=== PATIENT | female | born 1965 | race Caucasian/White ===

== ENCOUNTER 2019-10-27 14:27 | Emergency (ER) | payer OTHER, SELFPAY ==
[2019-10-27 14:28] VITALS: BP 154/89; PULSE 69; RESP 18; TEMP 36.6; O2SAT 99; BMI 32.8
--- NOTE | 2019-10-27 14:33 | ED.RN ---
TALKED WITH CORY. NEW ACCOUNTS REPRESENTATIVE AT [facility], STATING PT DOES NOT REQUIRE DRUG TESTING
--- NOTE | 2019-10-27 14:43 | CT_ITS ---
STUDY: CT BRAIN WITHOUT CONTRAST REASON FOR EXAM: Female, 54 years old. Trauma 2 days ago RADIATION DOSAGE (If Supplied By Facility): CTDIvol = ( 44.99 ) mGy, DLP = ( 779.24 ) mGycm TECHNIQUE: Transaxial CT imaging of the brain was performed without administration of intravenous contrast material. Individualized dose optimization techniques were used for this CT. COMPARISON: No relevant priors. FINDINGS: Normal soft tissue structures. Normal calvarium. Normal size ventricles and extra-axial spaces for the patient''s age. Normal white matter tracts of the cerebral hemispheres. Normal basal ganglia and thalami. Normal brainstem. Normal cerebellum. There is no intracranial hemorrhage. There are no findings of an acute ischemic infarction. Normal visualized paranasal sinuses. CT/Brain/Head without Contrast IMPRESSION: Normal unenhanced CT scan of the brain. Electronically Signed: Camille Naranjo MD at 15:07 EST Tel , Service support ,
--- NOTE | 2019-10-27 14:50 | RAD_ITS ---
STUDY: X-RAY - CERVICAL SPINE REASON FOR EXAM: Female, 54 years old. Neck pain. TECHNIQUE: 3 view(s) of the cervical spine were obtained. COMPARISON: None FINDINGS: Normal anterior atlantoaxial articulation. Normal odontoid process. There is straightening of the normal cervical lordosis. There is multi-level endplate spondylosis. There is multi-level degenerative disc disease with multilevel disc space narrowing. The soft tissue structures are unremarkable. RAD/Cerv Spine 2 or 3 Views IMPRESSION: Degenerative changes. Electronically Signed: Juliann Desir MD at 16:00 EST Tel , Service support ,
--- NOTE | 2019-10-27 15:03 | ED.VISSUMM ---
- ER Visit Summary Date of Service: 10/27/19 Chief Complaint: Head injury] History of Present Illness: The patient is a 54 F [presents to the emergency department after sustaining a head injury while at work 2 days ago. 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 Patient denies loss of consciousness. Since the injury she is complaining feeling lightheaded at times. Patient complaining of headaches. Patient feels like she is in a fog. She is had no nausea or vomiting. Patient also complains of neck pain. She denies any paresthesias or weakness in extremities. Patient has no medical history.] Physical Examination: [HEENT-PERRLA, EOMI. Cranial nerves II through XII grossly intact. TMs clear. Mucous membranes moist. No adenopathy. Patient has some mild soft tissue swelling over the posterior occiput on the left. No bony step-offs or depressions noted. No hemotympanum is noted. Patient has some mild diffuse tenderness over C-spine. No bony step-offs noted. Good range of motion neck. Cardiovascular-regular rate and rhythm without murmur or ectopy Lungs-clear to auscultation, chest wall stable without crepitus or subcu emphysema Abdomen-normoactive bowel sounds, soft, nontender, no rebound or rigidity, no peritoneal signs. Extremities-intact ?4, normal range of motion, normal pulses, atraumatic] Test Results: [CT scan of the brain without contrast showed nothing acute. X-rays of the cervical spine showed no fractures or dislocations.] Emergency Department Course and Treatment: [] Treatment Plan: [Patient to follow-up with corporate care in 3 to 5 days.] Disposition: [Discharged home in stable condition.] Impression: [Closed head injury/concussion Cervical strain] This note was generated with [employer] dictation software. It may contain incorrect words, spelling, and punctuation that were not noted in review of the chart prior to signing ED Disposition - Plan for ED Patient: Referrals: Care Physician,No Primary [Primary Care Provider] -
--- NOTE | 2019-10-27 15:05 | ED.DEP ---
ED Disposition - Plan for ED Patient: Instructions: CONCUSSION, No Wake Up, HEAD INJURY, No Wake-Up (Adult) Prescriptions: Naproxen [Naprosyn] 500 mg PO BID PRN #20 tab Prescription Printed Referrals: Care Physician,No Primary [Primary Care Provider] - Corporate,Care [GROUP OF PHYSICIANS] - 3-5 Days
[2019-10-27 16:10] VITALS: BP 166/94; PULSE 63; RESP 18; O2SAT 99
== END 2019-10-27 16:15 | disposition home or self-care (01) ==
LOC: ED 15:00
PROVIDERS: Emergency Provider Emergency Medicine
DX: S06.0X0A Concussion without loss of consciousness, initial encounter (principal); S16.1XXA Strain of muscle, fascia and tendon at neck level, initial encounter; W22.8XXA Striking against or struck by other objects, initial encounter; Y93.89 Activity, other specified; Y92.9 Unspecified place or not applicable; Y99.0 Civilian activity done for income or pay; F17.200 Nicotine dependence, unspecified, uncomplicated
CPT/HCPCS: 70450; 72040; 99282

== ENCOUNTER 2020-01-09 15:00 | Outpatient (RCR) | payer OTHER, SELFPAY ==
[2019-10-31 08:32] VITALS: BMI 32.8
--- NOTE | 2019-11-02 09:22 | HP.PTEVAL_ITS ---
Patient's Visit Information DANELLE LAGUNAS is a 54 year old F referred to Physical Therapy by DOUGLAS Farley with a diagnosis of muscle injury of the neck and concussion without loss of consciousness. Date of Evaluation: 11/02/19 Physical Therapist: DONITA Tarango - Visit Plan Frequency: 3x /Week Duration: 4 Weeks Plan: 3X/ week for 4 weeks per C9 for c-spine AROM, stretching, MT, postrual exercises, VOR X 1 exercises, gait with head turns with HEP and modalities to c- spine if neede with HEP. 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 That happened last . She was given an ice pack and she worked all day. She went home that night with a severe MILLER and went to work the next day with a severe MILLER and her said she was slurring her words and not sounding right and then she went to the ER. They did a CT scan and x-rays and said concussion without bleeding. Current symptoms: MILLER and can not concentrate and neck pain and still has a knot on the back of her head that is sore. She gets light headed a little bit which is getting better and yesterday she did not get lightheaded at all. SHe is not having any visual issues. SHe has been put on a generic Topamax and she feels that is helping. Her speech seems to be fine now. She can only work 4 hours a day and can only sit so work took her completely off work. She is off work at least through next Tuesday. She is not allowed to use screen time. No blurriness and no room spinning, slight dizziness, and no off balance. If she stands up too fast or stand too long she will get a little dizzy but room spinning. She rates her dizziness as 0/10 currently. She still feels like she is in a fog. She is sleeping ok except for her normal having to pee. - Pain Headache Pain Intensity (Out of 10): 4 Pain Intensity Range: 10 Neck pain Pain Intensity (Out of 10): 4 - Objective Gait: Walks with shorter strides but overall normal gait pattern. C-spine AROM: flexion 50%, ext 25%, SB B 75%, Rot B 75%. UE MMT: B shld flex, abd, ER and IR 4/5. Palpation: Tender more over the L levator and mid trap region B... when palpate L levator she felt the pain into her scapula B. Bicep reflex: 2+/3. smooth pursuit: vertical and horizontal.... able to follow without issue. Mayb e a small hesitation with vertical at first. VOR X 1: dizzy at 20 seconds horizontal Vertical 25 seconds without dizziness. FGA: 29. CATSIB: 120/120 - Balance Scores Functional Gait Assessment Score: 29 % Disability: 3.3400 CATSIB Score (Max score 120 seconds): 120 - Goals Goal 1:: I HEP Goal Time Frame: 4-6 Weeks Goal 2:: Be able to complete VOR X 1 60 seconds X 3 without any dizziness Goal Time Frame: 4-6 Weeks Goal 3:: Decrease neck pain to 1/10 with ADL's Goal Time Frame: 4-6 Weeks Goal 4:: Increase C-spine AROM by 25% each plane (at time of eval: C-spine AROM: flexion 50%, ext 25%, SB B 75%, Rot B 75%). Goal Time Frame: 4-6 Weeks - Rehabilitation Potential Rehabilitation Potential: Good - Anticipated Interventions Patient/Client Instruction: Educate patient on: Condition, Plan of Care For the Purpose of:: To decrease pain, To increase ROM, To improve muscle performance and motor function, To improve ability to perform ADL's, To increase tolerance to activity/condition/position, To improve ability of physical actions for home/community/work/leisure, To improve health of tissue, To decrease soft tissue restriction, To increase flexibility/ROM Therapeutic Exercise to Include: Strength training, Postural training, Flexibilty training, Passive ROM, Active ROM, Scapular Strength/Stabilization For the Purpose of:: To decrease pain, To increase ROM, To improve nutrient delivery to tissue, To improve muscle performance and motor function, To increase tolerance to activity/condition/position, To improve performance and independence with ADL's, To improve ability of physical actions for home/community/work/leisure, To improve health of tissue, To decrease soft tissue restriction, To increase flexibility/ROM Manual Therapy Techniques to Include: Passive ROM, Soft tissue mobilization For the Purpose of:: To increase ROM, To improve nutrient delivery to tissue IF ES: Yes Thermo therapy (hot pack): Yes Ultrasound (thermal/non thermal): Yes For the Purpose of:: To decrease pain, To increase ROM, To improve nutrient delivery to tissue, To improve muscle performance and motor function Thank you for the opportunity to evaluate your patient. For Medicare and Medicare HMO plans, please review the plan of care and approve it. It will need to be FAXED BACK to us at [phone] for Medicare purposes. For Medicare only, by signing this I certify the plan of care. Please let me know if there are questions or concerns regarding this plan of care. Physician Signature: Dat e:
--- NOTE | 2019-11-19 16:05 | HP.PTREVAL ---
DOUGLAS Farley, It has been my pleasure to treat DANELLE LAUGNAS over the last 8 visits for muscle injury of the neck and concussion without loss of consciousness. Please see the progress note below for an update on the physical therapy plan of care! Subjective: She went to the Dr today and he said that her head is still swollen and her balance is still off and he has her off another month on light duty. He has her off another month. She reports that her neck is a little stiff and her MILLER is about a 2/10 and she thinks that that is the stress of the day. The Dr is planning on sending her to a neurologist. Objective/Function: Pt has gotten a little worse with her CATSIB and FGA compared to the eval but improved VOR..... CATSIB 115. FGA 25. VOR X 1 in standing horizontal X 60 seconds... a slight dizziness. VOR X 2 in standing vertical she had no dizziness Plan Plan: 3X/ week for 4 weeks per C9. Focus on vestibular input and balance with EO/EC and head turns with HEP May add some dynamic VOR X 1 here and there as needed Goals Goal 1:: I HEP Goal Time Frame: 4-6 Weeks Goal 2:: Be able to complete VOR X 1 60 seconds X 3 without any dizziness Goal Time Frame: 4-6 Weeks Goal Progress: Progressing Goal 3:: Decrease neck pain to 1/10 with ADL's Goal Time Frame: 4-6 Weeks Goal 4:: Increase C-spine AROM by 25% each plane (at time of eval: C-spine AROM: flexion 50%, ext 25%, SB B 75%, Rot B 75%). Goal Time Frame: 4-6 Weeks Anticipated Interventions Patient/Client Instruction: Educate patient on: Condition, Plan of Care For the Purpose of:: To decrease pain, To increase ROM, To improve muscle performance and motor function, To improve ability to perform ADL's, To increase tolerance to activity/condition/position, To improve ability of physical actions for home/community/work/leisure, To improve health of tissue, To decrease soft tissue restriction, To increase flexibility/ROM Therapeutic Exercise to Include: Strength training, Postural training, Flexibilty training, Passive ROM, Active ROM, Scapular Strength/Stabilization For the Purpose of:: To decrease pain, To increase ROM, To improve nutrient delivery to tissue, To improve muscle performance and motor function, To increase tolerance to activity/condition/position, To improve performance and independence with ADL's, To improve ability of physical actions for home/community/work/leisure, To improve health of tissue, To decrease soft tissue restriction, To increase flexibility/ROM Manual Therapy Techniques to Include: Passive ROM, Soft tissue mobilization For the Purpose of:: To increase ROM, To improve nutrient delivery to tissue IF ES: Yes Thermo therapy (hot pack): Yes Ultrasound (thermal/non thermal): Yes For the Purpose of:: To decrease pain, To increase ROM, To improve nutrient delivery to tissue, To improve muscle performance and motor function Please do not hesitate to contact me at [phone] by phone or if you have questions or concerns regarding this new plan of care! Sincerely, Anat Peters, MPT
--- NOTE | 2020-01-09 15:25 | HP.PTDCSUM ---
HP - PT D/C Summary It has been my pleasure to treat DANELLE LAGUNAS under orders from DOUGLAS Farley, for the diagnosis of muscle injury of the neck and concussion without loss of consciousness for a total of 24 visit(s). Discharge Date: 01/09/20 Please see the following information for a summary of their discharge status. - Subjective Subjective: No neck pain, no dizziness, and no MILLER. She did have some dizziness when she had the flu but that was not part of it. - Pain Headache Pain Intensity (Out of 10): 0 Neck pain Pain Intensity (Out of 10): 0 - Overall Improvement % Improvement: 95 - Objective Objective/Function: FGA 3030. Able to do standing VOR X 1 for both vertical and horizontal 60 sec X 3 without LOB or dizziness against a busy background. - Goals Goal 1:: I HEP Goal Progress: Goal Met Goal 2:: Be able to complete VOR X 1 60 seconds X 3 without any dizziness Goal Progress: Goal Met Goal 3:: Decrease neck pain to 1/10 with ADL's Goal Progress: Goal Met Goal 4:: Increase C-spine AROM by 25% each plane (at time of eval: C-spine AROM: flexion 50%, ext 25%, SB B 75%, Rot B 75%). Goal Progress: Goal Met - Plan Plan: DC PT to HEP.... PN written and hand carried by pt to physician - D/C Information Discharge Comments: DC PT to HEP If there are questions or concerns regarding this patient's physical therapy, please feel free to call me at [phone]. Thank you for the referral of this patient. Sincerely, Anat Peters, MPT
== END 2020-01-09 19:00 | disposition home or self-care (01) ==
LOC: PT 15:00
PROVIDERS: Referring Provider Physician Assistant; Visit Provider Physician Assistant
DX: S00-T88 Injury, poisoning and certain other consequences of external causes (principal); S06.0X0D Concussion without loss of consciousness, subsequent encounter
CPT/HCPCS: 97110; 97140; 97161; 97164; 97530

== ENCOUNTER 2024-08-17 13:03 | Day surgery (SDC) | payer OTHER, SELFPAY ==
[2024-08-17] VITALS (8 sets, daily range): BP systolic 131–190; BP diastolic 72–95; PULSE 54–68; RESP 14–16; TEMP 36.1–37; O2SAT 95–100; BMI 33.5
[2024-08-17] MEDS: Lactated Ringers 1,000 ML 15 ML IV (13:35)
--- NOTE | 2024-08-17 14:00 | PCM.PRE.AN2 ---
ASA Classification* ASA Classification ASA Classification: 2 Assessment & Plan Anesthesia* Anesthesia Assessment Anesthesia Assessment: Discussed sedation and/or anesthesia options, risks, benefits, and alternatives with patient/parents/legal guardian/POA. Questions invited. The patient/parents/legal guardian/POA seems to understand and agrees to proceed with anesthesia plan. Reviewed the physical assessment, medical history, allergy history and patient home medications list prior to surgery/procedure/anesthetic and documented any changes. Performed airway and anesthesia risk assessments. Anesthesia Type Anesthesia Type: MAC History Source History Obtained from:: Patient and Chart Anesthesia Focused Assessment* Temperature: 97.0 F Pulse Rate: 58 Blood Pressure: 190/72 Respiratory Rate: 16 Pulse Ox: 100 Oxygen Delivery Method: Room Air Airway Assessment Mouth opens: >3 cm Mallampati Score: IV Teeth Condition: Full (Patient has full dentures on top) and Partial (Patient has partial and bottom.) Neck Range of motion (ROM): Full ROM Focused Labs Anesthesia Preop lab: CBC WBC 6.5 K/mm3 (4.4-11.0) 08/13/24 14:55 RBC 4.47 M/mm3 (4.2-5.4) 08/13/24 14:55 Hgb 12.9 g/dL (12.0-15.0) 08/13/24 14:55 Hct 39.4 % (37-47) 08/13/24 14:55 Plt Count 285 K/mm3 (150-450) 08/13/24 14:55 CHEMISTRY Potassium 3.9 mmol/L (3.5-5.1) 08/13/24 14:55 Sodium 139 mmol/L (136-145) 08/13/24 14:55 BUN 18 mg/dL (7-18) 08/13/24 14:55 Creatinine 1.01 mg/dL (0.55-1.02) 08/13/24 14:55 Glucose 101 mg/dL (74-106) 08/13/24 14:55 COAG Pre-Assessment Diagnosis/Proposed Procedure Planned Operative Procedure(s): PORT PLACEMENT Anesthesia History 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 When Was Last Pacemaker Check QUESTION #4 FULL TEXT: You/Your Family Experience fever (hyperthermia) with Anesthesia Last Oral Intake Last Oral intake: Last Oral Intake NPO since 03:00 08/17/24 13:26 Meds taken in AM with sips of No 08/17/24 13:26 water? Meds patient instructed to take am of surgery Any additional information?: Yes NPO since: 03:00 (Patient had a piece of toast at 3 AM.) PONV PONV - transportation economics teacher: PONV - transportation economics teacher Female Yes 08/13/24 13:09 HX of Motion Sickness Yes 08/13/24 13:09 HX of N/V After Surgery Yes 08/13/24 13:09 Non-Smoker Yes 08/13/24 13:09 Duration of Surgery greater No 08/13/24 13:09 than 60 minutes Number of Risk Factors 4 08/13/24 13:09 PONV Score Severe Risk 08/13/24 13:09 Height & Weight Height & Weight: Anesthesia: Height & Weight Height 5 ft 3 in 08/17/24 13:26 Weight: 86 kg 08/17/24 13:26 Body Mass Index (BMI) 33.5 08/17/24 13:26 Respiratory Assessment Respiratory Assessment - transportation economics teacher: Respiratory Tract Infection Hx - transportation economics teacher Hx Respiratory Tract Infection No 08/13/24 13:09 STOP Sleep Apnea STOP Sleep Apnea - transportation economics teacher: STOP Sleep Apnea - transportation economics teacher Hx Hypertension No 08/13/24 13:09 Hx Sleep Apnea No 08/13/24 13:09 CPAP BIPAP Do you snore loudly (louder No 08/13/24 13:09 than talking or can be heard Do you often feel tired/ No 08/13/24 13:09 fatigued/ sleepy during daytime? Has anyone observed you stop No 08/13/24 13:09 breathing during sleep? STOP Results Negative 08/13/24 13:09 QUESTION #5 FULL TEXT : Do you snore loudly (louder than talking or can be heard through closed doors)? Tobacco Use History Tobacco Use History - transportation economics teacher: Tobacco Use History - transportation economics teacher Tobacco Use Smoking Status Former smoker 08/13/24 13:09 Hx Tobacco Use Yes 08/13/24 13:09 Years Smoking Packs Smoked per Day Smoking Cessation Date was Yes - quit smoking within 15 08/13/24 13:09 within the last 15 years years Hx Smoking Cessation Date Hx Smoking Cessation Counseling Hematologic Medial History Hematologic Hx - transportation economics teacher: Hematologic Medical Hx - documentation spec Hx of Blood Transfusion Yes 08/13/24 13:09 Hx of Transfusion in last 3 No 08/13/24 13:09 Months Date of Last Transfusion (if within last 3 months) Ever experience any problems No 08/13/24 13:09 with transfusion(s)? Specify any problems Hx of Preganancy in last 3 No 08/13/24 13:09 Months Nurse Filling Out Transfusion VLEHPUTNAM 08/13/24 13:09 & Questions: Date: 08/13/24 08/13/24 13:09 Time: 13:17 08/13/24 13:09 Patient unable to answer at this time (ie. confused, unrespo /Reproduction History /Reproductive History - transportation economics teacher: /Reproductive Hx- transportation economics teacher Hx Now No 08/13/24 13:09 Gestational Age (in weeks): EDC: Hx Hx Para Hx Section SAB Active Medications Active Medications: Current Medications Generic Name Dose Route Start Last Admin Trade Name Freq PRN Reason Stop Dose Admin Lactated Ringer's 1,000 mls @ 15 mls/hr 08/17/24 13:15 08/17/24 13:35 IV 15 mls/hr .Q48H CAIN Administration PFSH Medical History Encounter for education Wears dentures Wears glasses Cancer Injury of head and neck Migraine headache Gastric reflux Former smoker Mixed stress and urge incontinence Malignant neoplasm of vulva, unspecified Other specified injury of muscle, fascia and tendon at neck level, initial encounter Home Medications ?Medication ?Instructions ?Recorded ?Last Taken ?Type acetaminophen 650 mg 650 mg PO Q6H PRN fever or pain 08/07/24 Unknown History tablet,extended release ibuprofen 600 mg tablet 600 mg PO Q6H PRN pain 08/07/24 Unknown History calcium carbonate 600 mg-vitamin 1 tab PO QAM 08/13/24 Unknown History D3 20 mcg (800 unit) chewable tablet (Caltrate 600 plus D) lidocaine-prilocaine 2.5 %-2.5 % 1 applic topical ONCE PRN port 08/15/24 Unknown Rx topical cream access 30 days #30 grams ondansetron 8 mg disintegrating 8 mg PO Q8H PRN nausea and 08/15/24 Unknown Rx tablet vomiting #30 tabs prochlorperazine maleate 10 mg 10 mg PO Q6H PRN nausea and 08/15/24 Unknown Rx tablet vomiting #30 tabs Allergy/AdvReac Type Severity Reaction Status Date / Time bee venom protein (honey bee) Allergy unknown Verified 08/17/24 13:25 Penicillins Allergy Unknown Verified 08/17/24 13:25 Sulfa (Sulfonamide Allergy Unknown Verified 08/17/24 13:25 Antibiotics) tetanus toxoid, adsorbed AdvReac Swelling Verified 08/17/24 13:25 Family History Grandmother Breast cancer Mother Diabetes Father Heart disease Surgical History History of kidney surgery H/O vulvectomy Lesion of urethra History of radical vulvectomy History of hysterectomy Social History household members: spouse Smoking Status: Former smoker quit date: 06/21/23 alcohol intake: current alcohol intake frequency: holidays/special occasions only Alcohol type: beer substance use type: does not use Review of Systems (Anesthesia) ROS Narrative System reviewed and no additional complaints, except as documented.
--- NOTE | 2024-08-17 15:44 | HP.PCM_ITS ---
HPI - General General Date of Admission: 08/17/24 Date of Service: 08/17/24 Chief Complaint: medport placement HPI Narrative DANELLE LAGUNAS, is a 58 F who presents for medport placement [facility] Medical History Encounter for education Wears dentures Wears glasses Cancer Injury of head and neck Migraine headache Gastric reflux Former smoker Mixed stress and urge incontinence Malignant neoplasm of vulva, unspecified Other specified injury of muscle, fascia and tendon at neck level, initial encounter Home Medications ?Medication ?Instructions ?Recorded ?Last Taken ?Type acetaminophen 650 mg 650 mg PO Q6H PRN fever or pain 08/07/24 Unknown History tablet,extended release ibuprofen 600 mg tablet 600 mg PO Q6H PRN pain 08/07/24 Unknown History calcium carbonate 600 mg-vitamin 1 tab PO QAM 08/13/24 Unknown History D3 20 mcg (800 unit) chewable tablet (Caltrate 600 plus D) lidocaine-prilocaine 2.5 %-2.5 % 1 applic topical ONCE PRN port 08/15/24 Unknown Rx topical cream access 30 days #30 grams ondansetron 8 mg disintegrating 8 mg PO Q8H PRN nausea and 08/15/24 Unknown Rx tablet vomiting #30 tabs prochlorperazine maleate 10 mg 10 mg PO Q6H PRN nausea and 08/15/24 Unknown Rx tablet vomiting #30 tabs Allergy/AdvReac Type Severity Reaction Status Date / Time bee venom protein (honey bee) Allergy unknown Verified 08/17/24 13:25 Penicillins Allergy Unknown Verified 08/17/24 13:25 Sulfa (Sulfonamide Allergy Unknown Verified 08/17/24 13:25 Antibiotics) tetanus toxoid, adsorbed AdvReac Swelling Verified 08/17/24 13:25 Family History Grandmother Breast cancer Mother Diabetes Father Heart disease Surgical History History of kidney surgery H/O vulvectomy Lesion of urethra History of radical vulvectomy History of hysterectomy Social History household members: spouse Smoking Status: Former smoker quit date: 06/21/23 alcohol intake: current alcohol intake frequency: holidays/special occasions only Alcohol type: beer substance use type: does not use Vital Signs Vital Signs Vital Signs: 08/17/24 13:26 08/17/24 13:26 08/17/24 14:16 Temperature 97.0 F L 97.0 F L Temperature Source Temporal Pulse Rate 58 L 58 L Respiratory Rate 16 16 Respiratory Pattern Normal Blood Pressure 190/72 H 190/72 H Blood Pressure Mean 111 Blood Pressure Source Monitor Blood Pressure Position Semi-Fowlers Blood Pressure Location Right Arm Pulse Ox 100 100 Oxygen Delivery Method Room Air Room Air 08/17/24 14:43 Temperature Temperature Source Pulse Rate Respiratory Rate Respiratory Pattern Blood Pressure 164/86 H Blood Pressure Mean 112 Blood Pressure Source Monitor Blood Pressure Position Semi-Fowlers Blood Pressure Location Pulse Ox Oxygen Delivery Method Weight Weight: 189 lb 9.561 oz Body Mass Index (BMI) 33.5 Assessment & Plan Assessment/Plan (1) Malignant neoplasm of vulva, unspecified: PLAN: Plan Patient is a 58-year-old female with vulvar cancer. She has been recommended chemotherapy by her treating oncologist. She presents today to have Mediport placed. We discussed the details of the planned procedure including risks benefits and alternatives. She wishes to proceed.
[2024-08-17] MEDS: Clindamycin 900 MG/50 ML BAG 75 MG IV (15:51)
[2024-08-17] MEDS: Bupivacaine 0.5% PF 10 ML VIAL (16:40)
[2024-08-17] MEDS: Lidocaine 1% /Epi 1:100 (20ml) 20 ML Vial (16:41)
--- NOTE | 2024-08-17 16:54 | DCINST_ITS ---
Discharge Instructions Diet Discharge Diet: Light diet - advance as tolerated Activity Discharge Activity: Return to Normal Activity and May Shower Dressing / Incision Call your doctor if your incision/area has: Continuous Slow Oozing, Sudden Increased Bleeding, Increased Pain/ Swelling, Increased Redness, Foul Smelling Discharge and Swelling at the incision site Call your doctor if you observe: Fever of 101 or Higher and Change in Color Cleanse incision/area with: Soap & Water Follow Up Care Test Results: Test results from this visit will be discussed in further detail at your follow- up appointment, if applicable. Discharge Plan Admission Primary Reason for Your Visit: port placement Attending Provider: Christophe Sahu Primary Care Provider: Jerilyn Physician,Cherry Primary Instructions Print Language: Hungarian Discharge Orders/Prescriptions Prescriptions: New oxycodone-acetaminophen [Percocet] 5-325 mg tablet 1 tab PO Q8H PRN (Reason: pain) 3 Days Qty: 6 0RF Continued acetaminophen 650 mg tablet extended release 650 mg PO Q6H PRN (Reason: fever or pain) ibuprofen 600 mg tablet 600 mg PO Q6H PRN (Reason: pain) Caltrate 600 plus D 600 mg-20 mcg (800 unit) tablet,chewable 1 tab PO QAM prochlorperazine maleate 10 mg tablet 10 mg PO Q6H PRN (Reason: nausea and vomiting) Qty: 30 2RF ondansetron 8 mg tablet,disintegrating 8 mg PO Q8H PRN (Reason: nausea and vomiting) Qty: 30 2RF lidocaine-prilocaine 2.5-2.5 % cream 1 applic topical ONCE PRN (Reason: port access) 30 Days Qty: 30 2RF Referrals / Follow Up: Care Physician,No Primary [Primary Care Provider] - Disposition Disposition (needs filled in before D/C Order can be placed): Home, Self Care
--- NOTE | 2024-08-17 16:58 | OP.PCM_ITS ---
Problems Associated Problem List Diagnoses (1) Malignant neoplasm of vulva, unspecified: Report of Operation Date of Procedure: 08/17/24 Pre-Operative Diagnosis: Vulvar cancer Post-Operative Diagnosis: Same Surgery/Procedure Performed:: Left subclavian Mediport placement with C arm Surgeon: Christophe Sahu ammunition and explosives handler: None Type of Anesthesia: MAC Drains: None Estimated Blood Loss (mL): 10 cc Description of Procedure: The patient is a 58-year-old female who was recently diagnosed with vulvar cancer. Her treating oncologist is recommending chemotherapy. Mediport placement was advised. She was seen in the office and I offered her port placement. We discussed the procedure including risks benefits and alternatives. She wished to proceed. She was brought to the operating room today following informed consent antibiotics were given. Timeout was performed. She was placed supine the operative table with arms outstretched on arm boards. Once adequately anesthetized an axillary roll was placed between her shoulder blades. The left upper chest and neck were prepped and draped in the usual manner. Local anesthetic was infiltrated in the left periclavicular area. The left subclavian vein was cannulated on the first pass. The blood return was a dark red nonpulsatile venous appearing blood. The guidewire was then advanced through the aperture in the needle. It was then secured to the drapes. C arm was then brought into confirm appropriate placement. Next marking pen was then used to indicate the site of planned subcutaneous pocket incision. Local anesthetic was injected. #15 blade was then used to make a skin incision. Bovie electrocauter y was then used dissect down through the subcutaneous tissue. Once at the pectoralis muscle subcutaneous pocket was created. Another small incision was made at the entry point of the guidewire. The tubing was then tunneled into the larger incision and up and out through the smaller incision. This was then trimmed to 23 cm. It was attached to the port hub. The hub was then affixed to the underlying fascia using Prolene suture. Next the dilator and sheath were then threaded over the guidewire and advanced to the hub. The guidewire and dilator were then removed leaving the sheath in place. The free end of the tubing was then threaded down the sheath. The sheath was then removed. The port was flushed with injectable saline. It adán and flushed nicely. It was then flushed with heparin. A 3-0 Vicryl was then used to close the deep dermal layer. 5-0 Vicryl was run in the skin. Dermabond skin glue was applied as dressing. 2 x 2 and an OpSite was then applied. She was awakened anesthesia and taken to the PACU in good condition. Grafts/Implants Used: PowerPort MRI compatible injectable port Complications None Procedures Vascular Studies CF Procedures [id number]: Other Procedure See Report ([id number])
--- NOTE | 2024-08-17 16:59 | PCM.POST.ANE ---
Anesthesia: Postop Eval I Current Vital Signs Temperature: 98.2 F Pulse Rate: 63 Blood Pressure: 131/81 Respiratory Rate: 16 Pulse Ox: 95 Oxygen Delivery Method: Room Air Assessment Airway patent: Yes Spontaneous unlabored respirations: Yes Mental status: Awake and Calm nausea: No Vomiting: No Anesthesia Complication: No Fluid Hydration Crystalloid volume administer (ml): 900 Total IV fluid infused: 900 Progress Note Anesthesia document: Postop Eval 1 completed: Yes
--- NOTE | 2024-08-17 17:00 | POSTOPAN2_ITS ---
Anesthesia Postop Eval I Sum Postop Eval Completion status Anesthesia document: Postop Eval 1 completed: Yes Anesthesia Postop Eval I Summary Anesthesia Postop Eval I Summary: Anesthesia Postop Eval I: Assessment Summary Airway patent Yes 08/17/24 17:00 EQUIPMENT MAINTENANCE SUPERVISOR.MDOT Spontaneous unlabored Yes 08/17/24 17:00 EQUIPMENT MAINTENANCE SUPERVISOR.OT respirations Mental status Awake,Calm 08/17/24 17:00 EQUIPMENT MAINTENANCE SUPERVISOR.MDOT nausea No 08/17/24 17:00 EQUIPMENT MAINTENANCE SUPERVISOR.OT Vomiting No 08/17/24 17:00 EQUIPMENT MAINTENANCE SUPERVISOR.LATIA Anesthesia Postop Eval I: Fluid Summary Crystalloid volume administer 900 08/17/24 17:00 EQUIPMENT MAINTENANCE SUPERVISOR.MDOT (ml) Colloids volume administered ( ml) Blood Product volume administered (ml) Total IV fluid infused 900 08/17/24 17:00 EQUIPMENT MAINTENANCE SUPERVISOR.LATIA Anesthesia Postop Eval I: Summary Notes Anesthesia Complication No 08/17/24 17:00 EQUIPMENT MAINTENANCE SUPERVISOR.LATIA Anesthesia Complication Comment: Post-operative progress note Anesthesia: Postop Eval II Evaluation Mental status: Awake and Calm Pain Level: 0 nausea: No Vomiting: No Complications Anesthesia Complication: No
--- NOTE | 2024-08-17 17:00 | PCM.POSTANE2 ---
Anesthesia Postop Eval I Sum Postop Eval Completion status Anesthesia document: Postop Eval 1 completed: Yes Anesthesia Postop Eval I Summary Anesthesia Postop Eval I Summary: Anesthesia Postop Eval I: Assessment Summary Airway patent Yes 08/17/24 17:00 ENVIRONMENTAL EPIDEMIOLOGIST.MDOT Spontaneous unlabored Yes 08/17/24 17:00 ENVIRONMENTAL EPIDEMIOLOGIST.OT respirations Mental status Awake,Calm 08/17/24 17:00 ENVIRONMENTAL EPIDEMIOLOGIST.MDOT nausea No 08/17/24 17:00 ENVIRONMENTAL EPIDEMIOLOGIST.OT Vomiting No 08/17/24 17:00 ENVIRONMENTAL EPIDEMIOLOGIST.LATIA Anesthesia Postop Eval I: Fluid Summary Crystalloid volume administer 900 08/17/24 17:00 ENVIRONMENTAL EPIDEMIOLOGIST.MDOT (ml) Colloids volume administered ( ml) Blood Product volume administered (ml) Total IV fluid infused 900 08/17/24 17:00 ENVIRONMENTAL EPIDEMIOLOGIST.LATIA Anesthesia Postop Eval I: Summary Notes Anesthesia Complication No 08/17/24 17:00 ENVIRONMENTAL EPIDEMIOLOGIST.LATIA Anesthesia Complication Comment: Post-operative progress note Anesthesia: Postop Eval II Evaluation Mental status: Awake and Calm Pain Level: 0 nausea: No Vomiting: No Complications Anesthesia Complication: No
--- NOTE | 2024-08-17 17:10 | RAD_ITS ---
STUDY: X-RAY CHEST REASON FOR EXAM: Female, 58 years old. PORT PLACEMENT TECHNIQUE: AP portable COMPARISON: None. FINDINGS: The lungs are clear and expanded. There is no demonstrated pleural abnormality. Normal size heart. Normal mediastinum and lyssa. Normal visualized pulmonary arteries. Normal visualized aortic arch and descending thoracic aorta. Mediport has been placed on the left with tip in distal superior vena cava Normal visualized thoracic spine. Normal visualized ribs, clavicles, and shoulders. There is no demonstrated abnormality of the visualized soft tissue structures of the upper abdomen. RAD/CXR for Line Placement IMPRESSION: Mediport catheter placement on the left with tip in the distal superior vena cava without evidence for pneumothorax Electronically Signed: Jeffy David MD at 18:36 EDT ,
== END 2024-08-17 18:56 | disposition home or self-care (01) ==
LOC: SDC 13:04 → AC 13:05
PROVIDERS: Referring Provider Surgery; Visit Provider Surgery
PROC: (CPT 36561; principal; 2024-08-17 14:30)
DX: Z45.2 Encounter for adjustment and management of vascular access device (principal); C51.9 Malignant neoplasm of vulva, unspecified; Z87.891 Personal history of nicotine dependence
CPT/HCPCS: 36561; 71045; 77001; J7120; C1788

== ENCOUNTER 2024-11-13 11:30 | Outpatient (RCR) | payer OTHER, SELFPAY ==
--- NOTE | 2024-11-05 16:54 | HP.OTEVAL ---
Patient's Visit Information Visit Information Visit Information: DANELLE GALLEGOS is a 59 year old F, referred to Occupational Therapy by Dr. Jerson Jj, DO, with a diagnosis of lymphedema. Date of Evaluation: 11/05/24 Occupational Therapist: POLA Montoya/Nguyen, CHT Subjective Subjective: This 59 year old female was seen for OT eval with dx of lymphedema of lower extremity, Malignant neoplasm of vulva. 2023 pt states she noticed swelling of LE after her 2nd sx. Pt states with the 2nd sx no lymph nodes were removed. pt did undergo chemo and radiation. pt states she worked throughout her treatments.(chemo and radiation for 5 weeks. 25 sessions of radiation 5 chemo pt employed at [employer] 8 hour days 5x a week. pt states she can wear compression socks during the day while at work. states she will take off her compression socks when she get home from work and her legs will swell. pt states her legs medina go down when she is sleeping. pt states she would like to know what she can do to mtg. her LE edema. PMH taken from Dr. 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 From 08/20/2024 ? 09/21/2024 she received adjuvant radiation to the area of recurrence and bilateral inguinal/pelvic LNs with boost to concerning LN. Lymphedema (Circumferential Measure) Mid-foot: right 20cm left 20cm Ankle: right 22.5cm left 22cm Lower calf: right 23cm left 21cm Largest calf: right 36cm left 35cm Below knee: right 34cm left 32cm Above knee: right 44cm left 45cm Lower Exremity Comments: pt demo with sight swelling in bilateral LE noted dry skin Lower Limb Functional Index Lower Extremity Functional Score: 73 Goals Goal: Patient will demonstrate a 20% reduction in edema by discharge: Yes Goal: Patient will demonstrate adequate knowledge of self-massage by the end of the second week.: Yes Goal: Patient will demonstrate adequate knowledge of skin care and precautions by the end of the first week.: Yes Goal: Patient will demonstrate adequate knowledge of therapeutic exercises by discharge.: Yes Goal: Patient will select an appropriate compression garment and demonstrate adequate knowledge of correct donning technique, care and wearing schedule by discharge.: Yes Rehabilitation General Assessment: pt demo with symptoms of LE swelling and would benefit from skilled OT services 2-3 visits to ed. pt on life long mtg of lymphedema. Today therapist ed. pt on skin care, use of compression socks 20-30 mmHg and initiation of self manual lymph massage and exercises that stimulates the lymphatic system. Pt was given handouts and demo understanding and agree to POC. therapist also ed, pt that compression socks should be replaced every 4-6 months (she was not aware of this prior). Rehabilitation Potential: Good Anticipated Interventions Anticipated Interventions: Education re Diagnosis, Manual Lymph Drainage, Education re Life-long lymphedema Management, Education re Skin Care and Precautions, Education re Self Massage Techniques, Education re Correct Donning Tech,Care&Wearing Sched Comp Garments, Caregiver Training and Home Program Visit Plan TEXT: Thank you for the opportunity to evaluate your patient. For Medicare and Medicare HMO plans, please review the plan of care and approve it. It will need to be FAXED BACK to us at [phone] for Medicare purposes. Please let me know if there are questions or concerns regarding this plan of care. Physician Signature: Date:
--- NOTE | 2025-05-20 16:27 | HP.OT.NRP ---
Patient Information Patient Information: DANELLE LAGUNAS was seen in my office for initial evaluation on 11/05/24. The following Plan of Care was established for this patient: POC Established Plan: pt to schedule in 4 weeks if need. Anticipated Interventions Anticipated Interventions: Education re Diagnosis, Manual Lymph Drainage, Education re Life-long lymphedema Management, Education re Skin Care and Precautions, Education re Self Massage Techniques, Education re Correct Donning Tech,Care&Wearing Sched Comp Garments, Caregiver Training and Home Program Last Seen Last Seen: This patient was last seen in our office 11/13/24. Pertinent comments regarding their Occupational therapy will appear below: pt was seen for OT with dx of lymphedema. Pt has not scheduled further apts and due to time lapse in services pt is d.c at this time. At this point I will be discontinuing this patient from occupational therapy. I would be happy to see this patient again in the future if found appropriate by the physician. Thank you! Barbie Gillespie, OTR/L, CHT
== END 2024-11-13 19:00 | disposition home or self-care (01) ==
LOC: OT 11:30
PROVIDERS: Referring Provider Student in an Organized Health Care Education/Training Program; Visit Provider Student in an Organized Health Care Education/Training Program
DX: I89.0 Lymphedema, not elsewhere classified (principal); C51.9 Malignant neoplasm of vulva, unspecified
CPT/HCPCS: 97140; 97166; 97530

== ENCOUNTER 2025-10-06 11:56 | Emergency (ER) | payer OTHER, SELFPAY ==
[2025-10-06 11:57] VITALS: BP 172/112; PULSE 67; RESP 18; TEMP 37; O2SAT 99; BMI 34.3
--- NOTE | 2025-10-06 12:17 | EDS_ITS ---
HPI History of Present Illness Chief Complaint: Cold Sx Narrative Narrative: Patient is a 59-year-old female who reports that she has no previous past medical history who presents to the emergency department chief complaint of concern for sinus infection with cough, congestion. States that this been going on exactly for a week and states that she tried [id number] medications and has not any relief therefore she came here to be further evaluated. She states that she does not have a eye doctor currently therefore she is not on any medications. Patient denies any sick contacts. [facility] Medical History Hypophosphatemia Encounter for chemotherapy management Encounter for education Wears dentures Wears glasses Cancer Injury of head and neck Migraine headache Gastric reflux Former smoker Mixed stress and urge incontinence Malignant neoplasm of vulva, unspecified Other specified injury of muscle, fascia and tendon at neck level, initial encounter Home Medications Medication Instructions Recorded Last Taken Type acetaminophen 650 mg 650 mg PO Q6H PRN fever or p ain 08/07/24 Unknown History tablet,extended release ibuprofen 600 mg tablet 600 mg PO Q6H PRN pain 08/07 Unknown History calcium 600 mg (as carbonate)-vit 1 tab PO QAM 4 Unknown History D3 20 mcg (800 unit) chewable tablet (Caltrate plus D) doxycycline hyclate 100 mg capsule 100 mg PO BID #14 c aps 10/06/25 Unknown Rx Allergy/AdvReac Type Severity Reaction Status Date / Time bee venom protein (honey bee) Allergy unknown Verified 10/06/25 11:57 Penicillins Allergy Unknown Verified 10/06/25 11:57 Sulfa (Sulfonamide Allergy Unknown Verified 10/06/25 11:57 Antibiotics) tetanus toxoid, adsorbed AdvReac Swelling Verified 10/06/25 11:57 Family History Grandmother Breast cancer Mother Diabetes Father Heart disease Surgical History History of kidney surgery H/O vulvectomy Lesion of urethra History of radical vulvectomy History of hysterectomy Social History household members: spouse Smoking Status: Former smoker quit date: 06/21/23 alcohol intake: current alcohol intake frequency: holidays/special occasions only Alcohol type: beer substance use type: does not use ROS ROS ED ROS Narrative Constitutional: Complains of chills denies any fevers, headaches, dizziness Eyes: Complains of sinus pressure denies any double vision or blurry vision Cardiovascular: Denies chest pain Respiratory: Denies shortness of breath Abdomen: Denies any nausea vomiting diarrhea : Denies urinary symptoms Neurological: Denies any numbness, weeks, tingling Musculoskeletal: Denies back pain Skin: Denies any rashes or lesions EXAM Physical Exam Narrative Exam Narrative: General: Patient was lying in bed rest comfortably did not appear to be in acute distress Head: Atraumatic, normocephalic Eyes: PERRL bilaterally, EOMI bilaterally, no conjunctival injection noted Neck: Soft, supple, trachea midline Cardiovascular: Regular rate and rhythm Respiratory: Clear to auscultation bilaterally Abdomen: Soft, nondistended, no tenderness to palpation Musculoskeletal: Patient has mild tenderness to palpation over the maxillary sinuses noted Extremities: +5/5 strength in the bilateral lower extremities Neurological: Patient following commands that she was at [facility] years 2024 Skin: Warm, dry, tact no rashes or lesions noted Const Vital Signs: 10/06/25 11:57 Temperature 98.6 F Temperature Source Oral Pulse Rate 67 Respiratory Rate 18 Blood Pressure 172/112 H Blood Pressure Mean 132 Pulse Ox 99 Oxygen Delivery Method Room Air MDM MDM MDM Narrative Medical decision making narrative: Patient is a 59-year-old female who presented to the emergency department the chief complaint of concern for sinus infection. On the differential diagnose includes but limited to upper respiratory infection secondary viral etiology, bacterial sinusitis although do not believe that this is the situation at this point in time given her course of symptoms that was described. I discussed with the patient and significant other at bedside that I believe that she does not need any antibiotics at this is highly likely viral illness and she needs to continue supportive care and in the next 4 to 5 days she will likely start to feel better. When I said this the appeared to be displeased and I questioned him why he was upset and what he wants done here in the emergency department. He states that "with back in the day when you are ill he took antibiotics and immediately started to feel better". I attempted to educate him on the course of bacterial sinusitis versus viral sinusitis and I told him that if this is my family member I would advise to continue supportive care and refrain from antibiotic use. He states that he would then tell them to just suffer and I told him that it is not suffering this is a viral illness and you have to ride the course of this. They said they did not have a doctor currently therefore I offered her a prescription and advised her that she should wait to fill this however if she feels strongly that she wants to start taking it today then they can obviously fill this today. They advised to return with worsening symptoms or concerns. All question concerns answered she was discharged home in stable condition. Discharge Plan Triage Chief Complaint: Cold Sx ED Provider: Chin Saleem Dx/Rx/DC Orders Clinical Impression: Sinusitis, acute frontal, Upper respiratory infection, viral Prescriptions: New doxycycline hyclate 100 mg capsule 100 mg PO BID Qty: 14 0RF No Action acetaminophen 650 mg tablet extended release 650 mg PO Q6H PRN (Reason: fever or pain) ibuprofen 600 mg tablet 600 mg PO Q6H PRN (Reason: pain) Caltrate 600 plus D 600 mg-20 mcg (800 unit) tablet,chewable 1 tab PO QAM Primary Care Provider: Care Physician,No Primary Referrals: Osbaldo Archuleta MD [Med Staff - Active Staff, Family Practice] Care Physician,No Primary [Primary Care Provider, Medical] Activity Restrictions/Additional Instructions: I would advise to take antibiotics as we discussed in the next 4 to 5 days if things or not improving however if you feel the need to take these they were sent to the pharmacy and you can start taking them today. Continue supportive care. Return with worsening symptoms or concerns. You referred to a physician to follow-up with. Print Language: Cambodian Disposition Disposition: Home, Self Care
--- OUTSIDE RECORDS SUMMARY | 2025-10-06 12:26 | XMS RPT_ITS | CCD ---
Author Organization [facility] Care Team Providers Care Awning Hanger Supervisor Name Role Phone BORISNUNO AHMADI EJ Unavailable Unavailable NUNO ESCALANTE Unavailable Unavailable Unavailable Primary Care Provider Unavailabl e Care Physician, No Primary Primary Care Provider Unavailable Dr. Jerson Jj DO Attending Provider Care Physician, No Primary Referring Provider Un available Renita CHAN, Dr. James Attending Provider Dr. Jerson Jj DO Referring Provider [phone] SHEILA HENDERSON Attending Unavailable SANTIAGO, SHEILA S Referring Unavailable ANATOLY, PILLO Her Attending Unavailable SELF, SELF Referring Unavailable ANATOLY, PILLO I Attending Unavailable ANATOLY, PILLO I Referring Unavailable SANTIAGO, SHEILA S Attending Unavailable SANTIAGO, SHEILA S Referring Unavailable SANTIAGO, SHEILA S Attending Unavailable SANTIAGO, SHEILA S Referring Unavailable ANATOLY, PILLO I Attending Unavailable SELF, SELF Referring Unavailable ANATOLY, PILLO I Attending Unavailable ANATOLY, PILLO I Referring Unavailable ANATOLY, PILLO I Attending Unavailable SELF, SELF Referring Unavailable ANATOLY, PILLO I Attending Unavailable SELF, SELF Referring Unavailable Jerson Jj Attending Unavailable Jerson Jj Referring Unavailable Care Physician, No Primary Primary Care Unava ilable Care Physician, No Primary Primary Care Unava ilable Thanh MOTH PROOFER, Jennifer Attending Unavailable Thanh MOTH PROOFER, Jennifer Referring Unavailable Jerson Jj Attending Unavailable Jerson Jj Referring Unavailable Care Physician, No Primary Primary Care Unava ilable Jerson Jj Attending Unavailable Care Physician, No Primary Primary Care Unava ilable Jerson Jj Attending Unavailable Care Physician, No Primary Primary Care Unava ilJacob Zamora Attending Unavailable Care Physician, No Primary Referring Unava ilable Care Physician, No Primary Primary Care Unava ilJerson Bello Attending Unavailable Care Physician, No Primary Referring Unava ilable Care Physician, No Primary Primary Care Unava ilable Christophe Sahu Attending Unavailable Care Physician, No Primary Primary Care Unava ilable Care Physician, No Primary Referring Unava ilable Allergies Allergy Classification Reported Allergen(s) Allergy Type Date of Onset Reaction(s) Facility (20 sources) Penicillins; Translations: [PENICILLINS] Propensity to adverse reactions to drug (disorder) 7 [place], Hives, Rash [facility] Repository (4 sources) Sulfonamides (Antibiotic); Translations: [SULFA (SULFONAMIDE ANTIBIOTICS)] Propensity to adverse reactions to drug (disorder) 7 AOF, Unknown [facility] Repository (1 source) TETANUS VACCINES AND TOXOID; Translations: [TETANUS VACCINES AND TOXOID] Propensity to adverse reactions to drug (disorder) 7 [facility] Repository (5 sources) Honey bee venom Propensity to adverse reactions to drug 3 [facility] (20 sources) Sulfonamides (Antibiotic) Propensity to adverse reactions to drug 7 [place], Hives, Rash [facility] (20 sources) Tetanus vaccine Propensity to adverse reactions to drug 7 [facility] (20 sources) bee venom Propensity to adverse reactions to drug 3 unknown [facility] Comment on above: doesn't recall react ion, but does not require an Epi pen (2 sources) tetanus toxoid vaccine, inactivated Drug Allergy 5 [facility] (1 source) tetanus toxoid, adsorbed Drug allergy (disorder) 5 [facility] Repository (1 source) bee venom protein (honey bee) Drug allergy (disorder) 5 [facility] Repository Medications Current Medications Medication Drug Class(es) Dates Sig (Normalized) Sig (Original) 8 hr acetaminophen 650 mg extended release oral tablet (20 sources) Start: 06-29-2024 End: 06-29-2024 take 1 tablet by mouth every eight hours 975 mg, Oral, EVERY 8 HOURS NON-STANDARD, First dose on Tue06/29/24 at 1415, Until Discontinued, Maximum dose of acetaminophen is 4000 mg from all sources in 24 hours., Post-op/Post-Proc Start: 06-29-2024 End: 06-29-2024 take 4000 mg by mouth every twenty-four hours 975 mg, Oral, ONCE, 1 dose, On Tue06/29/24 at 0915, Maximum dose of acetaminophen is 4000 mg from all sources in 24 hours., Pre-op/Pre-Proc Start: 03-15-2024 End: 01-01-2025 take 1 tablet by mouth every six hours as needed acetaminophen 650 MG Tab CR Take 1 tablet by mouth every 6 hours as needed for Mild Pain. 30 tablet 06/29/2024 Active Start: 03-15-2024 End: 03-15-2024 650 mg, Oral, EVERY 6 HOURS, First dose on Tue03/15/24 at 1330, Until Discontinued, Maximum dose of acetaminophen is 4000 mg from all sources in 24 hours., Post-op/Post-Proc Start: 03-15-2024 End: 03-15-2024 take 4000 mg by mouth every twenty-four hours 975 mg, Oral, ONCE, 1 dose, On Tue03/15/24 at 0945, Maximum dose of acetaminophen is 4000 mg from all sources in 24 hours., Pre-op/Pre-Proc Start: 07-10-2023 End: 08-09-2023 take 1 tablet by mouth every six hours as needed acetaminophen 650 MG Tab CR Take 1 tablet by mouth every 6 hours as needed for mild pain. 30 tablet 0 07/10/2023 Active Start: 07-08-2023 End: 07-10-2023 take 1 tablet by mouth every eight hours 975 mg, Oral, EVERY 8 HOURS NON-STANDARD, First dose on Tue07/08/23 at 2200, Until Discontinued Maximum dose of acetaminophen is 4000 mg from all sources in 24 hours. Post-op/Post-Proc End: 03-15-2024 Acetaminophen 325 MG tablet Take 1 tablet by mouth as needed for Mild Pain. 03/15/2024 Discontinued (Stop Taking at Discharge) End: 07-10-2023 take 1 tablet by mouth every six hours as needed acetaminophen (TYLENOL) 500 MG tablet Take 1 tablet by mouth every 6 hours as needed for Mild Pain. 0 07/10/2023 Discontinued (Stop Taking at Discharge) Ascorbic Acid (20 sources) Vitamin C End: 04-25-2024 take 1 tablet by mouth once daily Ascorbic Acid (VITAMIN C PO) Take 1 tablet by mouth daily. 03/15/2024 Discontinued (Stop Taking at Discharge) take 1 tablet by mouth once herb y Ascorbic Acid (VITAMIN C PO) Take 1 tablet by mouth daily. Active take 1 tablet by mouth once herb y Ascorbic Acid (VITAMIN C PO) Take 1 tablet by mouth daily. 0 Active Calcium Carb-Cholecalciferol (CALCIUM 500 + D PO) (8 sources) take 1 tablet by mouth once daily Calcium Carb-Cholecalciferol (CALCIUM 500 + D PO) Take 1 tablet by mouth daily. Active calcium carbonate 1500 mg / cholecalciferol 800 unt chewable tablet (2 sources) Vitamin D Start : 08-13 Calcium Carbonate-Vitamin D3 (Caltrate 600 Plus D) 600 mg-20 mcg (800 unit) tablet,chewable Active 1 {tbl} PO EVERY MORNING August 13, 2024 12:00am cephalexin 500 mg oral capsule (2 sources) Cephalosporin Antibacterial Start : 07-19 End: 07-29 take 1 capsule by mouth every six hours cephALEXin 500 MG capsule Indications: Malignant neoplasm of vulva Take 1 capsule by mouth every 6 hours for 10 days. 40 capsule 0 07/19/2023 07/29/2023 Active 0.4 ml enoxaparin sodium 100 mg/ml prefilled syringe (2 sources) Low Molecular Weight Heparin Start : 06-30 End: 06-29 Start: 07-09-2023 End: 07-10-2023 inject 40 mg by subcutaneous injection every twenty-four hours 40 mg, Subcutaneous, EVERY 24 HOURS, First dose on 07/09/23 at 0900, Until Discontinued Indications: DVT/PE prophylaxis, Post-op/Post-Proc Ondansetron 4mg/2ml (ZOFRAN) injection 4 mg (3 sources) Start: 06-30-2024 End: 06-29-2024 take 4 mg intravenously every six hours as needed Ondansetron 4mg/2ml (ZOFRAN) injection 4 mg Start: 06-29-2024 End: 06-29-2024 Ondansetron 4mg/2ml (ZOFRAN) injection 4 mg Start: 07-09-2023 End: 07-10-2023 take 4 mg intravenously every six hours as needed Ondansetron 4mg/2ml (ZOFRAN) injection 4 mg Pediatric Multiple Vitamins (Flintstones Plus Extra C) Chew Tab (9 sources) Pediatric Multip le Vitamins (Flintstones Plus Extra C) Chew Tab Chew 1 tablet daily. Active Completed/Discontinued Medications Medication Drug Class(es) Dates Sig (Normalized) Sig (Original) acetaminophen 325 mg / oxyCODONE hydrochloride 5 mg oral tablet (2 sources) Opioid Agonist Start: 08-17-2024 End: 10-08-2024 Oxycodone-Acetamin ophen (Percocet) 5-325 mg tablet Discontinued 1 {tbl} PO Q8H as needed for pain 6 3 0 August 17, 2024 October 08, 2024 3:21pm Malignant neoplasm of vulva Malignant neoplasm of vulva, unspecified apixaban 2.5 mg oral tablet (8 sources) Factor Xa Inhibitor Start: 07-10-2023 End: 02-07-2024 take 1 tablet by mouth once daily apixaban 2.5 MG tablet Indications: H/O vulvectomy Take 1 tablet by mouth once daily. 30 tablet 07/10/2023 02/07/2024 Discontinued (Therapy completed) calcium chloride 0.0014 meq/ml / potassium chloride 0.004 meq/ml / sodium chloride 0.103 meq/ml / sodium lactate 0.028 meq/ml injectable solution (5 sources) Start: 06-29-2024 End: 06-29-2024 Intravenous, at 125 mL/hr, CONTINUOUS, Starting on Tue06/29/24 at 1245, Until Tue06/29/24 at 1913, Post-op/Post-Proc Start: 03-15-2024 End: 03-15-2024 Intravenous, at 100 mL/hr, C ONTINUOUS, Starting on Jamila 03/15/24 at 1330, Until Jamila 03/15/24 at 1621, Saline lock when tolerating oral intake and remove IV per ASU protocol., Post-op/Post-Proc Start: 07-08-2023 End: 07-09-2023 Intravenous, at 125 mL/hr, C ONTINUOUS, Starting on 07/08/23 at 1330, Until Tue07/09/23 at 0821, Post-op/Post-Proc [id number] PO (12 sources) End: 03-15-2024 [id number] PO Ta ke by mouth. 03/15/2024 Discontinued (Stop Taking at Discharge) CALCIUM-MAGNESIU M-ZINC PO Take by mouth. Active CALCIUM-MAGNESIU M-ZINC PO Take by mouth. 0 Active Cholecalciferol (12 sources) Vitamin D End: 03-15-2024 take 1 tablet by mouth once daily Cholecalciferol (VITAMIN D3 PO) Take 1 tablet by mouth daily. 03/15/2024 Discontinued (Stop Taking at Discharge) take 1 tablet by mouth once herb y Cholecalciferol (VITAMIN D3 PO) Take 1 tablet by mouth daily. Active take 1 tablet by mouth once herb y Cholecalciferol (VITAMIN D3 PO) Take 1 tablet by mouth daily. 0 Active 1 ml diphenhydrAMINE hydrochloride 50 mg/ml cartridge (1 source) Histamine-1 Receptor Antagonist Start: 03-15-2024 End: 03-15-2024 12.5 mg, Intravenous, EVERY 30 MINUTES NEEDED, 2 doses, Starting on Jamila 03/15/24 at 1227, Until Jamila 03/15/24 at 1621, Itching, FIRST Line, Use second dose only if first dose did not result in confusion . Do not give if age is > 65yo, Recovery docusate sodium 100 mg oral capsule (14 sources) Start: 07-08-2023 End: 06-29-2024 take 1 capsule by mouth twice daily Docusate 100 MG capsule Take 1 capsule by mouth 2 times daily. 60 capsule 07/10/2023 02/07/2024 Discontinued (Patient Preference) 2 ml fentaNYL 0.05 mg/ml injection (1 source) Opioid Agonist Start: 03-15-2024 End: 03-15-2024 50 mcg, Intravenous, Administer over 2 Minutes, EVERY 5 MINUTES NEEDED, 6 doses, Starting on Jamila 03/15/24 at 1227, Until Jamila 03/15/24 at 1621, Moderate Pain, Severe Pain, Recovery Fludeoxyglucose F 18 20-200 MCI/ML IVPB 8-14.3 millicurie (4 sources) Start: 07-03-2025 End: 07-03-2025 8-14.3 millicurie, Intravenous, ONCE, 1 dose, On Tue07/03/25 at 0830 Start: 03-27-2025 End: 03-27-2025 8-14.3 millicurie, Intraveno us, ONCE, 1 dose, On Tue03/27/25 at 0915 Start: 12-26-2024 End: 12-26-2024 8-14.3 millicurie, Intraveno us, ONCE, 1 dose, On Tue12/26/24 at 1215 Start: 06-08-2024 End: 06-08-2024 8-14.3 millicurie, Intraveno us, ONCE, 1 dose, On Tue06/08/24 at 1100 gabapentin 100 mg oral capsule (5 sources) Anti-epileptic Agent Start: 06-29-2024 End: 06-29-2024 take 1 capsule by mouth every eight hours 100 mg, Oral, EVERY 8 HOURS NON-STANDARD, First dose on Tue06/29/24 at 1415, Until Discontinued, Post-op/Post-Proc Start: 06-29-2024 End: 06-29-2024 take 1 dose by mouth once 300 mg, Oral, ONCE, 1 dose, On Tue06/29/24 at 0915, Pre-op/Pre-Proc Start: 03-15-2024 End: 03-15-2024 take 1 dose by mouth once 300 mg, Oral, ONCE, 1 dose, On Tue03/15/24 at 0945, Pre-op/Pre-Proc Start: 07-08-2023 End: 07-10-2023 take 1 capsule by mouth every eight hours 100 mg, Oral, EVERY 8 HOURS NON-STANDARD, First dose on Tue07/08/23 at 1615, Until Discontinued, Post-op/Post-Proc Start: 07-08-2023 End: 07-08-2023 Gabapentin (NEURONTIN) capsu le 300 mg 1 ml heparin sodium, porcine 5000 unt/ml prefilled syringe (2 sources) Unfractionated Heparin, Anti-coagulant Start: 06-29-2024 End: 06-29-2024 5,000 Units, Subcutaneous, PRE-OP, 1 dose, On Tue06/29/24 at 0915, Pre-op/Pre-Proc Start: 07-08-2023 End: 07-08-2023 Heparin injection 5,000 Unit s 1 ml hydrALAZINE hydrochloride 20 mg/ml injection (1 source) Arteriolar Vasodilator Start: 03-15-2024 End: 03-15-2024 5 mg, Intravenous, EVERY 15 MINUTES NEEDED, 4 doses, Starting on Jamila 03/15/24 at 1227, Until Jamila 03/15/24 at 1621, SECOND line HTN, For SBP > 180. Use if HR 1 ml HYDROmorphone hydrochloride 1 mg/ml cartridge (2 sources) Opioid Agonist Start: 06-29-2024 End: 06-29-2024 0.5 mg, Intravenous, EVERY 10 MINUTES NEEDED, 8 doses, Starting on Tue06/29/24 at 1210, Until Tue06/29/24 at 1355, Moderate Pain, Severe Pain, May give a total of 4mg in PACU., Recovery Start: 03-15-2024 End: 03-15-2024 0.5 mg, Intravenous, EVERY 1 0 MINUTES NEEDED, 8 doses, Starting on Jamila 03/15/24 at 1227, Until Jamila 03/15/24 at 1621, Moderate Pain, Severe Pain, May give a total of 4mg in PACU., Recovery ibuprofen 800 mg oral tablet (20 sources) Nonsteroidal Anti-inflammatory Drug Start: 06-29-2024 End: 01-01-2025 take 1 tablet by mouth every six hours as needed Ibuprofen 800 mg tablet Discontinued 800 mg PO EVERY 6 HOURS as needed August 07, 2024 12:00am August 13, 2024 1:08pm Start: 03-15-2024 take 1 tablet by nely every six hours as needed Ibuprofen 600 MG tablet Take 1 tablet by mouth every 6 hours as needed for Mild Pain or Moderate Pain. 40 tablet 03/15/2024 Active Start: 03-15-2024 End: 03-15-2024 take 600 mg by mouth every six hours at mealtime 600 mg, Oral, EVERY 6 HOURS, First dose on Jamila 03/15/24 at 1330, Until Discontinued, Give with food, Post-op/Post-Proc Start: 07-10-2023 End: 07-29-2023 take 1 tablet by mouth every six hours as needed Ibuprofen 600 MG tablet Take 1 tablet by mouth every 6 hours as needed for mild pain. 40 tablet 0 07/10/2023 07/29/2023 Discontinued (Therapy completed) Start: 07-09-2023 End: 07-10-2023 take 1 tablet by mouth every eight hours 600 mg, Oral, EVERY 8 HOURS NON-STANDARD, First dose on 07/09/23 at 1800, Until Discontinued Give with food Post-op/Post-Proc End: 03-15-2024 take 1 tablet by mouth every six hours as needed Ibuprofen 400 MG tablet Take 1 tablet by mouth every 6 hours as needed for Mild Pain. 03/15/2024 Discontinued (Stop Taking at Discharge) Ketorolac (TORADOL) injection 15 mg (1 source) Start: 06-29-2024 End: 06-29-2024 take 15 mg intravenously every six hours Ketorolac (TORADOL) injection 15 mg labetalol hydrochloride 5 mg/ml injectable solution (2 sources) beta-Adrenergi c Mark Start: 06-29-2024 End: 06-29-2024 5 mg, Intravenous, EVERY 15 MINUTES NEEDED, Starting on Tue06/29/24 at 1218, Until Tue06/29/24 at 1355, FIRST line HTN. , For SBP > 160 mmHg Hold if HR Start: 03-15-2024 End: 03-15-2024 5 mg, Intravenous, EVERY 15 MINUTES NEEDED, 4 doses, Starting on Jamila 03/15/24 at 1227, Until Jamila 03/15/24 at 1621, FIRST line HTN. , For SBP > 180. Hold if HR 10 ml lidocaine hydrochloride 10 mg/ml injection (1 source) Antiarrhythmic, Amide Local Anesthetic Start: 02-07-2024 End: 02-07-2024 100 mg (10 mL), Infiltration, ONCE, 1 dose, On Tue02/07/24 at 1445 lidocaine 25 mg/ml / prilocaine 25 mg/ml topical cream (2 sources) Antiarrhythmic, Amide Local Anesthetic Start: 08-15-2024 End: 10-08-2024 Lidocaine-Prilocai ne 2.5-2.5 % cream Discontinued 1 NMA TOPICAL ONCE as needed for port access 30 30 2 August 15, 2024 12:00am October 08, 2024 3:21pm Malignant neoplasm of vulva Malignant neoplasm of vulva, unspecified magnesium oxide 400 mg oral tablet (1 source) Start: 07-09-2023 End: 07-09-2023 magnesium oxide (MAG-OX) tablet 800 mg 1 ml meperidine hydrochloride 25 mg/ml cartridge (1 source) Opioid Agonist Start: 03-15-2024 End: 03-15-2024 12.5 mg, Intravenous, EVERY 30 MINUTES NEEDED, 2 doses, Starting on Jamila 03/15/24 at 1227, Until Jamila 03/15/24 at 1621, Rigors, May give total of 2 doses while in PACU. Keep respiratory rate greater than 10., Recovery naproxen 500 mg oral tablet (5 sources) Nonsteroidal Anti-inflammatory Drug Start: 10-27-2019 End: 08-07-2024 take 1 tablet by mouth twice daily as needed Naproxen 500 MG tablet Discontinued 500 mg PO TWICE DAILY NEEDED October 27, 2019 1:00am August 07, 2024 8:30am End: 07-10-2023 take 1 tablet by mouth once daily as needed for pain Naproxen Sodium (Aleve) 220 MG tablet Take 1 tablet by mouth daily as needed for Mild Pain. 0 07/10/2023 Discontinued (Stop Taking at Discharge) ondansetron 8 mg disintegrating oral tablet (10 sources) Serotonin-3 Receptor Antagonist Start: 08-15-2024 End: 10-08-2024 take 1 tablet by mouth every eight hours as needed for nausea and vomiting Ondansetron 8 mg tablet,disintegrating Discontinued 8 mg PO Q8H as needed for nausea and vomiting 30 August 15, 2024 12:00am October 08, 2024 3:21pm Malignant neoplasm of vulva Malignant neoplasm of vulva, unspecified Start: 06-29-2024 End: 07-29-2024 take 1 tablet by mouth every six hours Ondansetron 4 MG tablet Take 1 tablet by mouth every 6 hours. 120 tablet 06/29/2024 07/29/2024 Start: 03-15-2024 End: 03-15-2024 take 4 mg intravenously every four hours as needed 4 mg, Intravenous, EVERY 4 HOURS NEEDED, Starting on Jamila 03/15/24 at 1324, Until Jamila 03/15/24 at 1621, Nausea / Vomiting, 1st line, Post-op/Post-Proc Start: 03-15-2024 End: 03-15-2024 4 mg, Intravenous, ONCE NEEDED, 1 dose, Starting on Jamila 03/15/24 at 1227, Until Jamila 03/15/24 at 1621, Nausea / Vomiting, FIRST line antiemetic, Do not administer within 6 hours of intra-operative dose., Recovery Start: 07-10-2023 End: 07-24-2023 take 1 tablet by mouth every eight hours as needed Ondansetron 4 MG tablet Take 1 tablet by mouth every 8 hours as needed for Nausea / Vomiting for up to 14 days. 15 tablet 0 07/10/2023 07/24/2023 Active oxyCODONE hydrochloride 5 mg oral tablet (20 sources) Opioid Agonist Start: 08-07-2024 End: 08-08-2024 take 1 tablet by mouth every six hours as needed Oxycodone 5 mg tablet Discontinued 5 mg PO EVERY 6 HOURS as needed 0 August 07, 2024 12:00am August 08, 2024 11:10am Start: 06-29-2024 End: 06-29-2024 take 1 tablet by mouth every four hours as needed oxyCODONE (ROXICODONE) tablet 5 mg Start: 06-29-2024 End: 08-03-2024 take 1 tablet by mouth every six hours as needed oxyCODONE 5 MG tablet Indications: Vulvar mass , History of cancer of vulva , H/O vulvectomy Take 1 tablet by mouth every 6 hours as needed for up to 14 days. 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 5 tablet 03/15/2024 Active Start: 03-15-2024 End: 03-15-2024 take 1 dose by mouth once 5 mg, Oral, ONCE, 1 dose, On Jamila 03/15/24 at 0945, Pre-op/Pre-Proc Start: 07-10-2023 End: 02-07-2024 take 1 tablet by mouth every four hours as needed oxyCODONE 5 MG tablet Indications: H/O vulvectomy Take 1 tablet by mouth every 4 hours as needed for up to 7 days. 12 tablet 07/10/2023 02/07/2024 Discontinued (Therapy completed) Start: 07-08-2023 End: 07-10-2023 take 1 tablet by mouth every four hours as needed oxyCODONE (ROXICODONE) tablet 5 mg Start: 07-08-2023 End: 07-08-2023 oxyCODONE (ROXICODONE) table t 5 mg polyethylene glycol 3350 49049 mg powder for oral solution (8 sources) Osmotic Laxative Start: 08-07-2024 End: 08-08-2024 Polyethylene Glycol 3350 (Miralax) 17 gram/dose powder Discontinued 17 g PO ONCE August 07, 2024 12:00am August 08, 2024 11:09am Start: 06-29-2024 End: 06-29-2024 17 g, Oral, DAILY, First dos e on Tue06/29/24 at 1415, Until Discontinued, Post-op/Post-Proc Start: 06-29-2024 End: 08-03-2024 take 4-8 [oz_av] by mouth once daily Polyethylene glycol 17 GM/SCOOP Powder powder Take 17 g by mouth daily. Mix 1 capful with 4 to 8 oz of water, juice, soda, coffee or tea. 507 g 06/29/2024 08/03/2024 Discontinued Start: 07-09-2023 End: 07-10-2023 Polyethylene glycol (MIRALAX ) packet 17 g prochlorperazine 10 mg oral tablet (3 sources) Phenothiazine Start: 08-15-2024 End: 10-08-2024 take 1 tablet by mouth every six hours as needed for nausea and vomiting Prochlorperazine Maleate 10 mg tablet Discontinued 10 mg PO EVERY 6 HOURS as needed for nausea and vomiting 30 2 August 15, 2024 12:00am October 08, 2024 3:21pm Chemotherapy-induced nausea and vomiting Nausea with vomiting, unspecified Adverse effect of antineoplastic and immunosuppressive drugs, initial encounter Start: 03-15-2024 End: 03-15-2024 take 5 mg intravenously every hour as needed 5 mg, Intravenous, EVERY 1 HOUR NEEDED, 2 doses, Starting on Jamila 03/15/24 at 1227, Until Jamila 03/15/24 at 1621, Refractory Nausea Vomiting, SECOND line antiemetic, Do not administer within 6 hours of intra-operative dose. For IV route: dilute dose with 10mL normal saline and give by slow IV push at a rate of 5mg/min. Maximum of 40mg/day., Recovery Prochlorperazine (COMPAZINE) injection 10 mg (2 sources) Start: 06-29-2024 End: 06-29-2024 Prochlorperazine (COMPAZINE) injection 10 mg Start: 07-08-2023 End: 07-10-2023 Prochlorperazine (COMPAZINE) injection 10 mg sennosides, group home 8.6 mg oral tablet (8 sources) Start: 06-29-2024 End: 07-29-2024 take 1 tablet by mouth twice daily as needed Senna 8.6 MG tablet Take 1 tablet by mouth 2 times daily as needed. 60 tablet 06/29/2024 07/29/2024 Start: 07-10-2023 End: 08-09-2023 take 1 capsule by mouth twice daily Sennosides (Senna) 8.6 MG capsule Take 1 capsule by mouth 2 times daily. 60 capsule 0 07/10/2023 07/29/2023 Discontinued (Therapy completed) Start: 07-08-2023 End: 07-10-2023 take 8.6 mg by mouth twice daily as needed for constipation 8.6 mg, Oral, 2 TIMES DAILY NEEDED, Starting on 07/08/23 at 1603, Until 07/10/23 at 1516, Constipation 1st Line, Post-op/Post-Proc simethicone 80 mg chewable tablet (7 sources) Start: 08-07-2024 End: 08-08-2024 take 1 tablet by mouth every four hours as needed Simethicone (Gas Relief (Simethicone)) 80 mg tablet,chewable Discontinued 80 mg PO Q4H as needed August 07, 2024 12:00am August 08, 2024 11:09am Start: 06-29-2024 End: 08-03-2024 take 1 tablet by mouth every four hours as needed simethicone 80 MG Chew Tab chewable tablet Chew 1 tablet every 4 hours as needed for Gas. 60 tablet 06/29/2024 08/03/2024 Discontinued Start: 07-08-2023 End: 07-10-2023 take 1 tablet by mouth every four hours as needed 80 mg, Oral, EVERY 4 HOURS NEEDED, Starting on Tue07/08/23 at 1603, Until Tue07/10/23 at 1516, Gas, Post-op/Post-Proc 20 ml sodium chloride 9 mg/m l injection (4 sources) Start: 07-03-2025 End: 07-04-2025 10-100 mL, Intravenous, EVER Y 8 HOURS, First dose on Tue07/03/25 at 0830, Until Discontinued, NM Procedure Start: 12-26-2024 End: 12-26-2024 10-100 mL, Intravenous, ONCE NEEDED, 1 dose, Starting on Tue12/26/24 at 1208, Until Tue12/26/24 at 1159, Flush, NM Procedure Start: 06-29-2024 End: 06-29-2024 Start: 06-08-2024 End: 06-08-2024 10-100 mL, Intravenous, ONCE NEEDED, 1 dose, Starting on Tue06/08/24 at 1051, Until Tue06/08/24 at 1040, Flush, NM Procedure topiramate 50 mg oral tablet (6 sources) Start: 11-19-2019 End: 11-19-2019 take 2 tablets by mouth twice daily, then take 3 tablets by mouth once daily, then take 4 tablets by mouth once daily Topiramate 50 mg tablet Discontinued 50 mg PO TWICE A DAY 126 0 November 19, 2019 1:00am November 19, 2019 8:31am 2 pills 2x/day beginning 11/21/2019, then 3 pills 2x/day beginning 11/28/2019, then 4 pills 2x/day beginning 12/05/2019 Start: 11-19-2019 End: 12-12-2019 take 1 tablet by mouth twice daily Topiramate 100 mg tablet Discontinued 100 mg PO TWICE A DAY 60 0 November 19, 2019 1:00am December 12, 2019 9:12am Start: 10-31-2019 End: 08-07-2024 take 1 capsule by mouth twice daily, then take 2 capsules by mouth twice daily, then take 3 capsules by mouth twice daily Topiramate (Topamax) 25 mg capsule, sprinkle Discontinued 25 mg PO TWICE A DAY 84 0 October 31, 2019 1:00am August 07, 2024 8:30am 1 capsule twice daily for a week, then 2 capsules twice daily for a week, then 3 capsules twice daily for a week traMADol hydrochloride 50 mg oral tablet (1 source) Opioid Agonist Start: 07-08-2023 End: 07-10-2023 take 1 tablet by mouth every six hours as needed 50 mg, Oral, EVERY 6 HOURS NEEDED, Starting on Tue07/08/23 at 1603, Until 07/10/23 at 1516, Mild Pain, Post-op/Post-Proc VERIFY LINKED PATCH PLACEMENT (1 source) Start: 03-15-2024 End: 03-15-2024 Other, EVERY 12 HOURS, First dose on Jamila 03/15/24 at 1145, Until Discontinued, Confirm continued adhesion of scopolamine 1.5 mg/72hr patch at documented site. VITAMIN D PO (7 sources) End: 04-02-2025 take 1 tablet by mouth once daily VITAMIN D PO Take 1 tablet by mouth daily. 04/02/2025 Discontinued (Alternate therapy) take 1 tablet by mouth once herb y VITAMIN D PO Take 1 tablet by mouth daily. Active Problems Active Problems Problem Classification Problem Date Documented Date Episodic/Chronic Administrative/social admission (2 sources) Patient encounter status; Translations: [Counseling, unspecified] 08-16-2024 Episodic Cancer of other female genital organs (20 sources) Malignant tumor of vulva; Translations: [Malignant neoplasm of vulva, unspecified] Onset: 06-20-2023 06-21-2023 Chronic Genitourinary symptoms and ill-defined conditions (2 sources) Mixed incontinence; Translations: [Mixed incontinence] Onset: 05-02-2017 Chronic Intracranial injury (2 sources) Concussion with no loss of consciousness; Translations: [Concussion without loss of consciousness, initial encounter] 11-19-2019 Episodic Maintenance chemotherapy; radiotherapy (2 sources) Patient encounter status; Translations: [Encounter for antineoplastic chemotherapy] 09-03-2024 Chronic Other diseases of veins and lymphatics (2 sources) Lymphedema of lower extremity; Translations: [Lymphedema, not elsewhere classified] 10-22-2024 Chronic Other diseases of veins and lymphatics (1 source) Lymphedema, not elsewhere classified; Translations: [Lymphedema, not elsewhere classified] Onset: 05-23-2025 Chronic Other female genital disorders (20 sources) Mass of vulva; Translations: [Other specified noninflammatory disorders of vulva and perineum] Onset: 06-21-2023 06-21-2023 Episodic Other female genital disorders (1 source) History of dysplasia of vulva; Translations: [Personal history of vulvar dysplasia] 05-15-2024 Episodic Other female genital disorders (2 sources) Other specified noninflammatory disorders of vulva and perineum; Translations: [Other specified noninflammatory disorders of vulva and perineum] Onset: 07-08-2023 Episodic Other injuries and conditions due to external causes (2 sources) Injury of muscle and tendon at neck level; Translations: [Other specified injury of muscle, fascia and tendon at neck level, initial encounter] 08-13-2024 Episodic Other nutritional; endocrine; and metabolic disorders (20 sources) Obese class I; Translations: [Obesity, unspecified] Onset: 06-21-2023 06-21-2023 Chronic Other nutritional; endocrine; and metabolic disorders (2 sources) Hypophosphatemia; Translations: [Other disorders of phosphorus metabolism] 09-03-2024 Chronic Past or Other Problems Problem Classification Problem Date Documented Date Episodic/Chronic Cancer of other female genital organs (20 sources) History of malignant neoplasm of vulva; Translations: [Personal history of malignant neoplasm of other female genital organs] Onset: 06-20-2023 11-01-2023 Episodic Mood disorders (20 sources) Mood disorders Onset: 06-21-2023 Resolved: 07-09-2025 06-21-2023 Other aftercare (20 sources) Surgical follow-up; Translations: [Encounter for follow-up examination after completed treatment for conditions other than malignant neoplasm] Onset: 07-08-2023 07-08-2023 Episodic Other connective tissue disease (8 sources) Short Achilles tendon (acquired), left ankle; Translations: [Short Achilles tendon (acquired), right ankle] Onset: 05-02-2017 Episodic Other diseases of bladder and urethra (17 sources) Bleeding from urethra; Translations: [Other specified disorders of urethra] Onset: 03-15-2024 03-15-2024 Episodic Other female genital disorders (20 sources) Lesion of vulva; Translations: [Other specified noninflammatory disorders of vulva and perineum] Onset: 02-07-2024 02-07-2024 Episodic Results Test Name Value Interpretation Reference Range Facility Radiation Oncology Visiton 1 11-30-2024 Radiation Oncology Visit [facility] [address] [place] [address] OFFICE VISIT Date of Service: 09/30/25 1332 MR#: [id number] Acct: [id number] Name: AZEB GALLEGOS VIVI Rep #: [id number] : 1965 From: Jerson Jj DO Age/Sex: 59/F Location: [facility] Status: Signed Intake Vital Signs 03/28/25 13:26 04/10/25 09:23 09/30/25 13:36 Height 5 ft 3 in 5 ft 3 in 5 ft 3 in Weight: 194 lb 199 lb 9 oz BMI 34.3 35.3 BP 148/83 H 142/78 H Blood Pressure Location Lt brachial Rt brachial Position Sitting Sitting Respiration 16 18 Pulse 59 L 61 Pulse Source Monitor Monitor Temp 98.0 F 97.5 F L Temperature Source Temporal Artery Temporal Artery Pulse Oximetry (%) 99 98 Oxygen Delivery Method room air room air Intake Is patient in pain?: No Allergies bee venom protein (honey bee) Allergy (Verified 09/30/25 13:35) unknown Penicillins Allergy (Verified 09/30/25 13:35) Unknown Sulfa (Sulfonamide Antibiotics) Allergy (Verified 09/30/25 13:35) Unknown tetanus toxoid, adsorbed Adverse Reaction (Verified 09/30/25 13:35) Swelling Medications ???Medication ???Instructions ???Recorded ???Confirmed ???Type acetaminophen 650 mg 650 mg PO Q6H PRN fever or pain 09/30/25 History tablet,extended release ibuprofen 600 mg tablet 600 mg PO Q6H PRN pain 08/07/24 History calcium 600 mg (as carbonate)-vit 1 tab PO QAM 08/13/24 09/30/25 Hi story D3 20 mcg (800 unit) chewable tablet (Caltrate plus D) Central Venous Access Central Venous Access: No PFSH PFSH Medical History Hypophosphatemia Encounter for chemotherapy management Encounter for education Wears dentures Wears glasses Cancer Injury of head and neck Migraine headache Gastric reflux Former smoker Mixed stress and urge incontinence Malignant neoplasm of vulva, unspecified Other specified injury of muscle, fascia and tendon at neck level, initial encounter Home Medications ???Medication ???Instructions ???Recorded ???Last Taken ???Type acetaminophen 650 mg 650 mg PO Q6H PRN fever or pain Unknown History tablet,extended release ibuprofen 600 mg tablet 600 mg PO Q6H PRN pain 08/07/24 Un known History calcium 600 mg (as carbonate)-vit 1 tab PO QAM 08/13/24 Unknown His tory D3 20 mcg (800 unit) chewable tablet (Caltrate plus D) Allergy/AdvReac Type Severity Reaction Status Date / Time bee venom protein (honey bee) Allergy unknown Verified 09/30/25 13:35 Penicillins Allergy Unknown Verified 09/30/25 13:35 Sulfa (Sulfonamide Allergy Unknown Verified 09/30/25 13:35 Antibiotics) tetanus toxoid, adsorbed AdvReac Swelling Verified 09/30/25 13:35 Family History Grandmother Breast cancer Mother Diabetes Father Heart disease Surgical History History of kidney surgery H/O vulvectomy Lesion of urethra History of radical vulvectomy History of hysterectomy Social History household members: spouse Smoking Status: Former smoker quit date: 06/21/23 alcohol intake: current alcohol intake frequency: holidays/special occasions only Alcohol type: beer substance use type: does not use Diagnosis: Azeb Gallegos is a 59-year-old female who was diagnosed with 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 From 08/20/2024 ??? 09/21/2024 she received adjuvant radiation to the area of recurrence and bilateral inguinal/pelvic LNs with boost to concerning LN. History of Present Illness: 04/2023: Patient initially presented with vulvar pain/itching/irritat ion for about 6 months and had a history of ENID 7 years prior. 05/20/2023: Patient completed vulvar biopsy.??? 12:00 biopsy demonstrated invasive squamous of carcinoma, 4:00 biopsy demonstrated in situ squamous of carcinoma, 9:00 and 3:00 biopsies were consistent with chronic inflammation and no evidence of disease. 07/08/2023: Patient completed radical vulvectomy with inguinal femoral lymphadenectomy and resection of distal urethra.??? There is a fungating vulvar neoplasm involving the anterior vulva and clitoris and extending to the anterior urethra as well as a lesion on the posterior right vulva grossly consistent with ENID 3, no palpable adenopathy is a (more content not included)... Normal [facility] NUC PET HEAD TO THIGHon 06-21 NUC PET HEAD TO THIGH EXAM: NUC PET HEAD TO THIGH, 07/03/2025 09:34 AM CLINICAL INDICATIONS: follow up, vulvar cancer COMPARISON: FDG PET/CT March 27, 2025 CT DOSE: DLP: 886 mGy x cm kVp: 120 TECHNIQUE: The patient's fasting blood glucose was 104 mg/dl. Approximately 70 minutes following the intravenous injection of F-18 FDG Dose: 9.59 millicurie, the patient was positioned on the Siemens [id number] [facility]. A low-resolution non-contrast CT was obtained from the top of the head through the mid-femurs for use in attenuation correction and anatomic correlation. PET emission scans of this anatomic region were acquired shortly thereafter. Axial, sagittal, coronal and maximal intensity projection reconstruction images were presented for interpretation. For reference SUV mean/max right hepatic lobe: 2.1/3.1 SUV mean/max descending thoracic aorta: 2.1/2.8 FINDINGS: Head/Neck: Physiologic FDG uptake is noted in the salivary glands and tonsillar tissue. There is no hypermetabolic cervical or supraclavicular lymphadenopathy. Normal, intense physiologic uptake is noted in the cerebral cortex mcnulty matter and subcortical nuclei without gross hypermetabolic abnormality. Similar diffuse moderate hypermetabolic activity throughout the thyroid, likely hyperplasia. Chest: There are no hypermetabolic pulmonary parenchymal lesions. There is no hypermetabolic axillary, mediastinal, or hilar lymphadenopathy. Physiologic FDG uptake is seen in the myocardium. Abdomen/Pelvis: Physiologic FDG uptake is seen throughout the liver, spleen and bowel. Colonic diverticulosis. Physiologic FDG excretion is seen in the kidneys, ureters, and bladder. There are no hypermetabolic lesions in the adrenal glands. Prior hysterectomy. Continued decrease in metabolic activity in the right labial region with maximum SUV 4.4 (series 3 image 52), previously 5.1. Similar moderately hypermetabolic subcutaneous stranding in the right anterior pelvic wall, likely posttreatment inflammatory changes. Left external iliac lymph node measures 1.0 x 1.5 cm (series 4 image 260), grossly unchanged, with maximum SUV 3.6 (series 3 image 77), previously 3.3. Surgical clips in the bilateral inguinal regions. Musculoskeletal: No focal hypermetabolic osseous lesions are identified. IMPRESSION: 1. Continued decrease in metabolic activity in the right labial region, favored to represent posttreatment changes, however attention on follow-up is advised. 2. Grossly unchanged mildly hypermetabolic left external iliac lymph node, which remains nonspecific. Attention on follow-up is advised. 3. No new suspicious hypermetabolic foci or lymphadenopathy. I personally viewed and interpreted these images and I have reviewed and approved this report. Normal [facility] GLUCOSE POCon 07-03-2025 Glucose [Mass/Vol] 104 mg/dL 70 - 179 mg/dL [facility] POC Sample Type [facility] Test performed at address of the patient encounter. [facility] OT D/C of Non Returning Pton 05-20-2025 OT D/C of Non Returning Pt [facility] Occupational Therapy [facility] [address] [place] [address] / REHABILITATION SERVICES DISCHARGE SUMMARY MR#: [id number] Acct: [id number] Name: AZEB GALLEGOS Rep #: [id number] : 1965 59 From: Barbie Gillespie OTR/L, CHT Referring Dr.: Dr. Jerson Jj, Status: RE G RCR Eval Date: Discharge Date: Patient Information Patient Information: AZEB GALLEGOS was seen in my office for initial evaluation on 11/05/24. The following Plan of Care was established for this patient: POC Established Plan: pt to schedule in 4 weeks if need. Anticipated Interventions Anticipated Interventions: Education re Diagnosis, Manual Lymph Drainage, Education re Life-long lymphedema Management, Education re Skin Care and Precautions, Education re Self Massage Techniques, Education re Correct Donning Tech,Care Wearing Sched Comp Garments, Caregiver Training and Home Program Last Seen Last Seen: This patient was last seen in our office 11/13/24. Pertinent comments regarding their Occupational therapy will appear below: pt was seen for OT with dx of lymphedema. Pt has not scheduled further apts and due to time lapse in services pt is d.c at this time. At this point I will be discontinuing this patient from occupational therapy. I would be happy to see this patient again in the future if found appropriate by the physician. Thank you! Barbie Gillespie, OTR/Nguyen, CHT 05/20/25 9284 CC: Dr. Jerson Jj, DO; No Primary Care Physician MK Signed Normal [facility] Absolute lymphocyte countOrd ered By: Jacob Maravilla on 04-10-2025 Lymphocytes Auto (Unsp spec) [#/Vol] 0.91 10*3/uL 0.83-4.51 [facility] Absolute neutrophil countOrd ered By: Jacob Maravilla on 04-10-2025 Neutrophils (Bld) [#/Vol] 2.9 10*3/uL 2.0-7.7 [facility] Anion gap in Serum or Plasma [facility] on 04-10-2025 Anion gap [Moles/Vol] 11 mmol/L 5- [facility] Automated lymphocyte count a s percentage of total leukocytesOrdered By: [facility] on 04-10-2025 Lymphocytes/100 WBC Auto (Unsp spec) 20.1 % [facility] BUN/creatinine ratioOrdered By: [facility] Georgiejavier on 04-10-2025 Urea nitrogen/Creatinine [Mass ratio] 16.5 mg/mg - [facility] Basophil percentageOrdered B y: [facility] on 04-10-2025 Basophils/100 WBC (Bld) 1.3 % High 0-1 [facility] Bilirubin, totalOrdered By: [facility] on 04-10-2025 Bilirubin [Mass/Vol] 0.56 mg/dL 0.00-1.30 [facility] CBC W/Diff, Automatedon 03-22 Absolute Lymph 0.91 X10 3/uL Normal 0.83-4.51 [facility] Comment on above: Performed By: #### L 100.0100, L500.4050, L501.2300, L501.5200 #### [facility] [address] [place], [address] Absolute Neut 2.9 X10 3/uL Normal 2.0-7.7 [facility] Comment on above: Performed By: #### L 100.0100, L500.4050, L501.2300, L501.5200 #### [facility] [address] [place], [address] Basophils/100 WBC (Bld) 1.3 % High 0-1 [facility] Comment on above: Performed By: #### L 100.0100, L500.4050, L501.2300, L501.5200 #### [facility] [address] [place], [address] Eosinophils/100 WBC (Bld) 2.4 % Normal 0-5 [facility] Comment on above: Performed By: #### L 100.0100, L500.4050, L501.2300, L501.5200 #### [facility] [address] [place], [address] Erythrocyte distribution width (RBC) [Ratio] 12.9 % Normal 11.6-14.6 [facility] Comment on above: Performed By: #### L 100.0100, L500.4050, L501.2300, L501.5200 #### [facility] [address] [place], [address] Hematocrit (Bld) [Volume fraction] 39.4 % Normal 37-47 [facility] Comment on above: Performed By: #### L 100.0100, L500.4050, L501.2300, L501.5200 #### [facility] [address] [place], [address] Hemoglobin (Bld) [Mass/Vol] 13.3 g/dL Normal 12.0-15.0 [facility] Comment on above: Performed By: #### L 100.0100, L500.4050, L501.2300, L501.5200 #### [facility] [address] [place], [address] IG% 0.400 Normal 0.0-0.9 [facility] Comment on above: Result Comment: IG% - Immature Granulocytes (promyelocytes, myelocytes and metamyelocytes) > 1% indicates that a LEFT SHIFT is Present. Performed By: #### L 100.0100, L500.4050, L501.2300, L501.5200 #### [facility] [address] [place], [address] Lymphocytes/100 WBC (Bld) 20.1 % Normal 19-41 [facility] Comment on above: Performed By: #### L 100.0100, L500.4050, L501.2300, L501.5200 #### [facility] [address] [place], [address] MCH (RBC) [Entitic mass] 29.2 pg Normal 27.0-32.0 [facility] Comment on above: Performed By: #### L 100.0100, L500.4050, L501.2300, L501.5200 #### [facility] [address] [place], [address] MCHC (RBC) [Mass/Vol] 33.8 g/dL Normal 32-36 [facility] Comment on above: Performed By: #### L 100.0100, L500.4050, L501.2300, L501.5200 #### [facility] [address] [place], [address] MCV (RBC) [Entitic vol] 86.4 fL Normal 81-99 [facility] Comment on above: Performed By: #### L 100.0100, L500.4050, L501.2300, L501.5200 #### [facility] [address] [place], [address] Monocytes/100 WBC (Bld) 10.8 % High 0-10 [facility] Comment on above: Performed By: #### L 100.0100, L500.4050, L501.2300, L501.5200 #### [facility] [address] [place], [address] Neutrophils/100 WBC (Bld) 65.0 % Normal 47-70 [facility] Comment on above: Performed By: #### L 100.0100, L500.4050, L501.2300, L501.5200 #### [facility] [address] [place], [address] Nucleated RBC (Bld) [#/Vol] 0 10*3/uL Normal 0-5 [facility] Comment on above: Performed By: #### L 100.0100, L500.4050, L501.2300, L501.5200 #### [facility] [address] [place], [address] Platelet mean volume (Bld) [Entitic vol] 9.9 fL Normal 6.2-12.0 [facility] Comment on above: Performed By: #### L 100.0100, L500.4050, L501.2300, L501.5200 #### [facility] [address] [place], [address] Platelets (Bld) [#/Vol] 231 10*3/uL Normal 150-450 [facility] Comment on above: Performed By: #### L 100.0100, L500.4050, L501.2300, L501.5200 #### [facility] [address] [place], [address] RBC (Bld) [#/Vol] 4.56 10*6/uL Normal 4.2-5.4 [facility] Comment on above: Performed By: #### L 100.0100, L500.4050, L501.2300, L501.5200 #### [facility] [address] [place], [address] RDW SD 39.9 fl Normal 35.1-43.9 [facility] Comment on above: Performed By: #### L 100.0100, L500.4050, L501.2300, L501.5200 #### [facility] [address] [place], [address] WBC (Bld) [#/Vol] 4.5 10*3/uL Normal 4.4-11.0 [facility] Comment on above: Performed By: #### L 100.0100, L500.4050, L501.2300, L501.5200 #### [facility] [address] [place], [address] Carbon dioxide, total [Moles /volume] in Central venous bloodOrdered By: Jacob Maravilla on 04-10-2025 CO2 [Moles/Vol] 25.5 mmol/L 21.0-32.0 [facility] Chloride assayOrdered By: Ila Maravilla on 04-10-2025 Chloride [Moles/Vol] 102 mmol/L 98-108 [facility] Comprehensive Metabolic Prof ilon 04-10-2025 Albumin [Mass/Vol] 4.3 g/dL Normal 3.4-4.8 [facility] Comment on above: Performed By: #### L 100.0100, L500.4050, L501.2300, L501.5200 #### [facility] [address] [place], [address] Albumin/Globulin [Mass ratio] 1.4 {ratio} Normal 0.9-2.4 [facility] Comment on above: Performed By: #### L 100.0100, L500.4050, L501.2300, L501.5200 #### [facility] [address] [place], [address] ALK PHOS 82 U/L Normal 35-104 [facility] Comment on above: Performed By: #### L 100.0100, L500.4050, L501.2300, L501.5200 #### [facility] [address] [place], [address] ALT [Catalytic activity/Vol] 15 U/L Normal <=34 [facility] Comment on above: Performed By: #### L 100.0100, L500.4050, L501.2300, L501.5200 #### [facility] [address] [place], [address] AST [Catalytic activity/Vol] 17 U/L Normal <=31 [facility] Comment on above: Performed By: #### L 100.0100, L500.4050, L501.2300, L501.5200 #### [facility] [address] [place], [address] Bilirubin [Mass/Vol] 0.56 mg/dL Normal 0.00-1.30 [facility] Comment on above: Performed By: #### L 100.0100, L500.4050, L501.2300, L501.5200 #### [facility] [address] [place], [address] BUN/CRE 16.5 RATIO Normal 10-20 [facility] Comment on above: Performed By: #### L 100.0100, L500.4050, L501.2300, L501.5200 #### [facility] [address] [place], [address] Calcium [Mass/Vol] 9.4 mg/dL Normal 7.6-11.0 [facility] Comment on above: Performed By: #### L 100.0100, L500.4050, L501.2300, L501.5200 #### [facility] [address] [place], [address] Chloride [Moles/Vol] 102 mmol/L Normal 98-108 [facility] Comment on above: Performed By: #### L 100.0100, L500.4050, L501.2300, L501.5200 #### [facility] [address] [place], [address] CO2 [Moles/Vol] 25.5 mmol/L Normal 21.0-32.0 [facility] Comment on above: Performed By: #### L 100.0100, L500.4050, L501.2300, L501.5200 #### [facility] [address] [place], [address] Creatinine [Mass/Vol] 0.83 mg/dL Normal 0.70-1.20 [facility] Comment on above: Performed By: #### L 100.0100, L500.4050, L501.2300, L501.5200 #### [facility] [address] [place], [address] ECRCL 72.03 ml/min Normal 50-250 [facility] Comment on above: Performed By: #### L 100.0100, L500.4050, L501.2300, L501.5200 #### [facility] [address] [place], [address] GAP 11 Normal 5-15 [facility] Comment on above: Performed By: #### L 100.0100, L500.4050, L501.2300, L501.5200 #### [facility] [address] [place], [address] GFR/1.73 sq M.predicted among non-blacks MDRD (S/P/Bld) [Vol rate/Area] 80 mL/min/{1.73_m2} Normal >60 [facility] Comment on above: Result Comment: mL/m in/1.73m2 CKD-EPI Creatinine Equation (2020) Performed By: #### L 100.0100, L500.4050, L501.2300, L501.5200 #### [facility] [address] [place], [address] Globulin (S) [Mass/Vol] 3.0 g/dL Normal 2.2-4.2 [facility] Comment on above: Performed By: #### L 100.0100, L500.4050, L501.2300, L501.5200 #### [facility] [address] [place], [place], [address] Glucose [Mass/Vol] 101 mg/dL High 70-99 [facility] Comment on above: Performed By: #### L 100.0100, L500.4050, L501.2300, L501.5200 #### [facility] [address] [place], [address] Potassium [Moles/Vol] 4.3 mmol/L Normal 3.3-5.1 [facility] Comment on above: Performed By: #### L 100.0100, L500.4050, L501.2300, L501.5200 #### [facility] [address] [place], [address] Sodium [Moles/Vol] 139 mmol/L Normal 133-145 [facility] Comment on above: Performed By: #### L 100.0100, L500.4050, L501.2300, L501.5200 #### [facility] [address] [place], [address] T PROT 7.3 g/dL Normal 5.9-8.4 [facility] Comment on above: Performed By: #### L 100.0100, L500.4050, L501.2300, L501.5200 #### [facility] [address] [place], [address] Urea nitrogen [Mass/Vol] 14 mg/dL Normal 4-19 [facility] Comment on above: Performed By: #### L 100.0100, L500.4050, L501.2300, L501.5200 #### [facility] [address] [place], [address] Eosinophil percentageOrdered By: Jacob Maravilla on 04-10-2025 Eosinophils/100 WBC (Bld) 2.4 % 0-5 [facility] Erythrocyte distribution wid th ratioOrdered By: Jacob Maravilla on 04-10-2025 Erythrocyte distribution width (RBC) [Ratio] 12.9 % 11.6-14.6 [facility] Erythrocyte distribution wid th standard deviationOrdered By: Jacob Maravilla on 04-10-2025 Erythrocyte distribution width (RBC) [Ratio] 39.9 fl 35.1-43.9 [facility] Glomerular filtration rate ( GFR) estimation/1.73 sq m using serum, plasma, or whole bOrdered By: Jacob Maravilla on 04-10-2025 GFR/1.73 sq M.predicted among non-blacks MDRD (S/P/Bld) [Vol rate/Area] 80 mL/min/{1.73_m2} >60 [facility] Comment on above: mL/min/1.73m2 CKD-EP I Creatinine Equation (2020) Hematocrit Auto (Bld) [Volum e fraction]Ordered By: [facility] on 04-10-2025 Hematocrit (Bld) [Volume fraction] 39.4 % 37-47 [facility] Hemoglobin measurementOrdere d By: Jacob Maravilla on 04-10-2025 Hemoglobin (Bld) [Mass/Vol] 13.3 g/dL 12.0-15.0 [facility] Immature granulocytes/100 WB C Auto (Bld)Ordered By: [facility] on 04-10-2025 Immature granulocytes/100 WBC (Bld) 0.400 % 0.0-0.9 [facility] Comment on above: IG% - Immature Granu locytes (promyelocytes, myelocytes and metamyelocytes) > 1% indicates that a LEFT SHIFT is Present. Laboratory - Chemistry and C hemistry - challengeOrdered By: Jacob Maravilla on 04-10-2025 AST [Catalytic activity/Vol] 17 U/L <32 [facility] MCV (mean corpuscular volume ) determinationOrdered By: [facility] on 04-10-2025 MCV (RBC) [Entitic vol] 86.4 fL 81-99 [facility] Magnesiumon 04-10-2025 Magnesium [Mass/Vol] 2.1 mg/dL Normal 1.5-2.2 [facility] Comment on above: Performed By: #### L 100.0100, L500.4050, L501.2300, L501.5200 #### [facility] [address] [place], [address] Magnesium measurement (mass/ volume)Ordered By: Jacob Maravilla on 04-10-2025 Magnesium (Unsp spec) [Mass/Vol] 2.1 mg/dL 1.5-2.2 [facility] Mean corpuscular hemoglobin (MCH) determinationOrdered By: Jacob Maravilla on 04-10-2025 MCH (RBC) [Entitic mass] 29.2 pg 27.0-32.0 [facility] Mean corpuscular hemoglobin concentration (MCHC) determinationOrdered By: Jacob Maravilla on 04-10-2025 MCHC (RBC) [Mass/Vol] 33.8 g/dL 32-36 [facility] Mean platelet volume determi nationOrdered By: Jacob Maravilla on 04-10-2025 Platelet mean volume (Bld) [Entitic vol] 9.9 fL 6.2-12.0 [facility] Monocyte percentageOrdered B y: Jacob Maravilla on 04-10-2025 Monocytes/100 WBC (Bld) 10.8 % High 0-10 [facility] Neutrophil percentageOrdered By: Jacob Maravilla on 04-10-2025 Neutrophils/100 WBC (Bld) 65.0 % 47-70 [facility] Nucleated red blood cell per centageOrdered By: Jacob Maravilla on 04-10-2025 Nucleated RBC/100 WBC (Bld) [Ratio] 0 % 0-5 [facility] Oncology Visit Reporton 03-22 Oncology Visit Report [facility] [address] [place] [address] OFFICE VISIT Date of Service: 04/10/25911 MR#: [id number] Acct: [id number] Name: AZEB GALLEGOS Rep #: [id number] : 1965 From: Jacob Maravilla MD Age/Sex: 59/F Location: [facility] [facility] Status: Signed HPI Subjective Date of Service 04/10/25 Chief Complaint Vulvar cancer History of Present Illness 58-year-old female with: 04/2023: Patient initially presented with vulvar pain/itching/irritat ion for about 6 months and had a history of ENID 7 years prior. 05/20/2023: vulvar biopsy:??? 12:00 demonstrated invasive squamous of carcinoma, 4:00 biopsy demonstrated in situ squamous of carcinoma, 9:00 and 3:00 biopsies were consistent with chronic inflammation and no evidence of disease. 07/08/2023: There was a fungating vulvar neoplasm involving the anterior vulva and clitoris and extending to the anterior urethra as well as a lesion on the posterior right vulva grossly consistent with ENID 3, no palpable adenopathy is appreciated.??? Patient underwent radical vulvectomy with inguinal femoral lymphadenectomy and resection of distal urethra.??? 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 LVSI is equivocal, margins are negative for invasive carcinoma with the closest margin being the deep margin at 0.7 mm.??? All margins negative for high-grade squamous intraepithelial lesion.??? 2 lymph nodes were resected and were negative for involvement.??? pT1b pN0 02/07/2024: Patient had biopsy completed of a vulvar lesion measuring 1 cm.??? This is at the 7:00 location and biopsy was consistent with high-grade squamous intraepithelial neoplasia/ENID 3 03/15/2024: Patient underwent simple partial vulvectomy and excision/fulguration of the distal urethral lesion.??? Pathology demonstrated at the right posterior vulvar lesion there was high-grade squamous intraepithelial lesion ENID 3 and high-grade dysplasia focally extending to the 12???3???6:00 margin with the other margins being free of disease.??? p16 is strongly staining.??? The urethral orifice 9:00 biopsy demonstrated urethral fragment negative for dysplasia. 06/08/2024: PET scan demonstrated intensely hypermetabolic right anterior labial mass suggestive of primary tumor site.??? Mildly hypermetabolic bilateral subcentimeter inguinal lymph nodes are suspicious for metastatic involvement but could be reactive in nature.??? Mildly metabolic bilateral axillary lymph nodes likely reactive in nature.??? Left external iliac LN with SUV of 6.5, suspicious for metastasis.??? 06/29/2024: Patient completed right partial radical vulvectomy due to having a 6 cm subcutaneous tumor at the right mons involving the clitoris and closely abutting but not invading bone.??? Pathology demonstrated a 5.1 x 5.1 x 3.6 cm HPV associated grade 2 squamous cell carcinoma with a 42 mm depth of invasion.??? All margins are negative for invasive carcinoma with the closest margin at the 6-9 o'clock location with the margin measuring 0.2 mm.??? No lymph nodes were removed. 08/20/2024 ??? 09/21/2024: received adjuvant radiation therapy including 5500 cGy delivered to the concerning lymph nodes, 5000 cGy delivered to the postoperative area omitting most of the vulva, and 4500 cGy delivered to the at risk lymph node space including the bilateral inguinal and pelvic lymph nodes all in 25 fractions. She was treated with a VMAT plan using 10 MV photons. Patient received radiosensitizing cisplatin weekly. 12/26/2024 PET scan:??? This demonstrated decreased metabolic activity of the right labial mass which may represent improving disease this area of metabolic uptake measures 2.2 x 0.9 cm with a max SUV of 6.2 previously measuring 18.55.??? There is also decreased uptake associated with the left external iliac lymph node currently measuring 12 x 9 mm with an SUV max of 2.9, previously measured 21 x 14 mm with SUV max of 6.5. 03/27/2025 PET scan:??? This demonstrated further decrease in metabolic activity the right labial mass with SUV of 5.1 previously 6.2.??? There is a persistent minimally avid left external iliac lymph node measuring 12 x 9 mm with SUV max of 3.2 which is stable since the prior exam.??? No new lesions are noted. [facility] Medical History Hypophosphatemia Encounter for chemotherapy management Encounter for education Wears dentures Wears glasses Cancer Injury of head and neck Migraine headache Gastric reflux Former smoker Mixed stress and urge incontinence Malignant neoplasm of vulva, unspecified Other specified injury of muscle, fascia and tendon at neck level, initial encounter Surgical History ... Normal [facility] Phosphoruson 05-21-2025 Phosphate [Mass/Vol] 3.4 mg/dL Normal 2.7-4.5 [facility] Comment on above: Performed By: #### L 100.0100, L500.4050, L501.2300, L501.5200 #### [facility] [address] [place], [address] Platelet countOrdered By: Ila Maravilla on 04-10-2025 Platelets (Bld) [#/Vol] 231 10*3/uL 150-450 [facility] Potassium measurement (mass/ volume)Ordered By: Jacob Maravilla on 04-10-2025 Potassium (Unsp spec) [Mass/Vol] 4.3 mmol/L 3.3-5.1 [facility] RBC Auto (Bld) [#/Vol]Ordere d By: Jacob Maravilla on 04-10-2025 RBC (Bld) [#/Vol] 4.56 10*6/uL 4.2-5.4 [facility] Serum creatinine measurement (mass/volume)Ordered By: Jacob Maravilla on 04-10-2025 Creatinine [Mass/Vol] 0.83 mg/dL 0.70-1.20 [facility] Serum globulin measurementOr dered By: Jacob Maravilla on 04-10-2025 Globulin (S) [Mass/Vol] 3.0 g/dL 2.2-4.2 [facility] Serum glucose measurement (m ass/volume)Ordered By: Jacob Maravilla on 04-10-2025 Glucose [Mass/Vol] 101 mg/dL High 70-99 [facility] Serum or plasma alanine pratt otransferase (ALT) measurementOrdered By: Jacob Maravilla on 04-10-2025 ALT [Catalytic activity/Vol] 15 U/L <35 [facility] Serum or plasma albumin ben urement (mass/volume)Ordered By: Jacob Maravilla on 04-10-2025 Albumin [Mass/Vol] 4.3 g/dL 3.4-4.8 [facility] Serum or plasma albumin/glob ulin mass ratioOrdered By: Jacob Maravilla on 04-10-2025 Albumin/Globulin [Mass ratio] 1.4 {ratio} 0.9-2.4 [facility] Serum or plasma alkaline jacobo sphatase measurementOrdered By: Jacob Maravilla on 04-10-2025 ALP [Catalytic activity/Vol] 82 U/L 35-104 [facility] Serum or plasma calcium ben urement (mass/volume)Ordered By: Jacob Maravilla on 04-10-2025 Calcium [Mass/Vol] 9.4 mg/dL 7.6-11.0 [facility] Serum or plasma urea nitroge n measurement (mass/volume)Ordered By: Jacob Maravilla on 04-10-2025 Urea nitrogen [Mass/Vol] 14 mg/dL 4-19 [facility] Sodium levelOrdered By: Rika Maravilla on 04-10-2025 Sodium [Moles/Vol] 139 mmol/L 133-145 [facility] Total proteinOrdered By: Zac Maravilla on 04-10-2025 Protein [Mass/Vol] 7.3 g/dL 5.9-8.4 [facility] White blood cell (WBC) count Ordered By: Jacob Maravilla on 04-10-2025 WBC (Bld) [#/Vol] 4.5 10*3/uL 4.4-11.0 [facility] Radiation Oncology Visiton 0 03-28-2025 Radiation Oncology Visit [facility] [address] [place] [address] OFFICE VISIT Date of Service: 03/28/25 1320 MR#: [id number] Acct: [id number] Name: AZEB GALLEGOS VIVI Rep #: [id number] : 1965 From: Jerson Jj DO Age/Sex: 59/F Location: [facility] [place] [facility] Status: Signed Intake Vital Signs 10/22/24 13:39 03/28/25 13:26 Height 5 ft 3 in 5 ft 3 in Weight: 195 lb 2 oz BMI 34.5 BP 134/64 H Blood Pressure Location Rt brachial Position Sitting Respiration 18 Pulse 73 Pulse Source Monitor Temp 97.1 F L Temperature Source Temporal Artery Pulse Oximetry (%) 99 Oxygen Delivery Method room air Intake Visit Reasons: 5 MONTH F/U VULVAR Is patient in pain?: No Allergies bee venom protein (honey bee) Allergy (Verified 03/28/25 13:25) unknown Penicillins Allergy (Verified 03/28/25 13:25) Unknown Sulfa (Sulfonamide Antibiotics) Allergy (Verified 03/28/25 13:25) Unknown tetanus toxoid, adsorbed Adverse Reaction (Verified 03/28/25 13:25) Swelling Medications ???Medication ???Instructions ???Recorded ???Confirmed ???Type acetaminophen 650 mg 650 mg PO Q6H PRN fever or pain 03/28/25 History tablet,extended release ibuprofen 600 mg tablet 600 mg PO Q6H PRN pain 08/07/24 History calcium 600 mg (as carbonate)-vit 1 tab PO QAM 08/13/24 03/28/25 Hi story D3 20 mcg (800 unit) chewable tablet (Caltrate plus D) PFSH PFSH Medical History Hypophosphatemia Encounter for chemotherapy management Encounter for education Wears dentures Wears glasses Cancer Injury of head and neck Migraine headache Gastric reflux Former smoker Mixed stress and urge incontinence Malignant neoplasm of vulva, unspecified Other specified injury of muscle, fascia and tendon at neck level, initial encounter Home Medications ???Medication ???Instructions ???Recorded ???Last Taken ???Type acetaminophen 650 mg 650 mg PO Q6H PRN fever or pain Unknown History tablet,extended release ibuprofen 600 mg tablet 600 mg PO Q6H PRN pain 08/07/24 Un known History calcium 600 mg (as carbonate)-vit 1 tab PO QAM 08/13/24 Unknown His tory D3 20 mcg (800 unit) chewable tablet (Caltrate plus D) Allergy/AdvReac Type Severity Reaction Status Date / Time bee venom protein (honey bee) Allergy unknown Verified 03/28/25 13:25 Penicillins Allergy Unknown Verified 03/28/25 13:25 Sulfa (Sulfonamide Allergy Unknown Verified 03/28/25 13:25 Antibiotics) tetanus toxoid, adsorbed AdvReac Swelling Verified 03/28/25 13:25 Family History Grandmother Breast cancer Mother Diabetes Father Heart disease Surgical History History of kidney surgery H/O vulvectomy Lesion of urethra History of radical vulvectomy History of hysterectomy Social History household members: spouse Smoking Status: Former smoker quit date: 06/21/23 alcohol intake: current alcohol intake frequency: holidays/special occasions only Alcohol type: beer substance use type: does not use Diagnosis: Azeb Gallegos is a 59-year-old female who was diagnosed with 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 From 08/20/2024 ??? 09/21/2024 she received adjuvant radiation to the area of recurrence and bilateral inguinal/pelvic LNs with boost to concerning LN. History of Present Illness: 04/2023: Patient initially presented with vulvar pain/itching/irritat ion for about 6 months and had a history of ENID 7 years prior. 05/20/2023: Patient completed vulvar biopsy.??? 12:00 biopsy demonstrated invasive squamous of carcinoma, 4:00 biopsy demonstrated in situ squamous of carcinoma, 9:00 and 3:00 biopsies were consistent with chronic inflammation and no evidence of disease. 07/08/2023: Patient completed radical vulvectomy with inguinal femoral lymphadenectomy and resection of distal urethra.??? There is a fungating vulvar neoplasm involving the anterior vulva and clitoris and extending to the anterior urethra as well as a lesion on the posterior right vulva grossly consistent with ENID 3, no palpable adenopathy is appreciated.??? 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 Normal [facility] GLUCOSE POCon 03-27-2025 Glucose [Mass/Vol] 98 mg/dL 70 - 179 mg/dL [facility] POC Sample Type [facility] Test performed at address of the patient encounter. [facility] NUC PET HEAD TO THIGHon NUC PET HEAD TO THIGH EXAM: NUC PET HEAD TO THIGH, 03/27/2025 10:32 AM CLINICAL INDICATIONS: re- assess "metabolic activity of the right labial mass" on previous PET. please compare with previous imaging, COMPARISON: PET/CT 12/26/2024 CT DOSE: DLP: 868 mGy x cm kVp: 120 FINDINGS: Head/Neck: Physiologic FDG uptake is noted in the salivary glands and tonsillar tissue. There is no hypermetabolic cervical or supraclavicular lymphadenopathy. Normal, intense physiologic uptake is noted in the cerebral cortex mcnulty matter and subcortical nuclei without gross hypermetabolic abnormality. Redemonstration of diffuse hypermetabolic thyroid uptake. This may represent hyperplasia. Chest: There are no hypermetabolic pulmonary parenchymal lesions. There is no hypermetabolic axillary, mediastinal, or hilar lymphadenopathy. Physiologic FDG uptake is seen in the myocardium. Abdomen/Pelvis: Physiologic FDG uptake is seen throughout the liver, spleen and bowel. Physiologic FDG excretion is seen in the kidneys, ureters, and bladder. There are no hypermetabolic lesions in the adrenal glands. Further decrease in size and activity of the right labial mass. The metabolic uptake SUV max 5.1, previously 6.2, series 4 image 286.. Moderate metabolic subcutaneous stranding identified in the right anterior pelvic wall which may represent posttreatment inflammatory changes. Persistent minimally avid left external iliac lymph node (series 4 image 263), currently measuring 12 x 9 mm with SUV max 3.2, previously same size with SUV 2.9. Musculoskeletal: No focal hypermetabolic osseous lesions are identified. IMPRESSION: 1. Further decrease in metabolic activity of the right labial mass which may represent improving disease/posttreatmen t changes. Attention at regular follow up advised. 2. Persistent minimally avid left external iliac node, remain nonspecific. 3. No new FDG avid malignancy. Normal [facility] PT Skull base to mid-thighon 03-27-2025 IMPRESSION: 1. Further decrease in metabolic activity of the right labial mass which may represent improving disease/posttreatmen t changes. Attention at regular follow up advised. 2. Persistent minimally avid left external iliac node, remain nonspecific. 3. No new FDG avid malignancy. OLOGY EXAM: NUC PET HEAD TO THIGH, 03/27/2025 10:32 AM CLINICAL INDICATIONS: re- assess "metabolic activity of the right labial mass" on previous PET. please compare with previous imaging, COMPARISON: PET/CT 12/26/2024 CT DOSE: DLP: 868 mGy x cm kVp: 120 FINDINGS: Head/Neck: Physiologic FDG uptake is noted in the salivary glands and tonsillar tissue. There is no hypermetabolic cervical or supraclavicular lymphadenopathy. Normal, intense physiologic uptake is noted in the cerebral cortex mcnulty matter and subcortical nuclei without gross hypermetabolic abnormality. Redemonstration of diffuse hypermetabolic thyroid uptake. This may represent hyperplasia. Chest: There are no hypermetabolic pulmonary parenchymal lesions. There is no hypermetabolic axillary, mediastinal, or hilar lymphadenopathy. Physiologic FDG uptake is seen in the myocardium. Abdomen/Pelvis: Physiologic FDG uptake is seen throughout the liver, spleen and bowel. Physiologic FDG excretion is seen in the kidneys, ureters, and bladder. There are no hypermetabolic lesions in the adrenal glands. Further decrease in size and activity of the right labial mass. The metabolic uptake SUV max 5.1, previously 6.2, series 4 image 286.. Moderate metabolic subcutaneous stranding identified in the right anterior pelvic wall which may represent posttreatment inflammatory changes. Persistent minimally avid left external iliac lymph node (series 4 image 263), currently measuring 12 x 9 mm with SUV max 3.2, previously same size with SUV 2.9. Musculoskeletal: No focal hypermetabolic osseous lesions are identified. RADIOLOGY Migel Luna MD - 03/27/2025 EXAM: NUC PET HEAD TO THIGH, 03/27/2025 10:32 AM CLINICAL INDICATIONS: re- assess "metabolic activity of the right labial mass" on previous PET. please compare with previous imaging, COMPARISON: PET/CT 12/26/2024 CT DOSE: DLP: 868 mGy x cm kVp: 120 FINDINGS: Head/Neck: Physiologic FDG uptake is noted in the salivary glands and tonsillar tissue. There is no hypermetabolic cervical or supraclavicular lymphadenopathy. Normal, intense physiologic uptake is noted in the cerebral cortex mcnulty matter and subcortical nuclei without gross hypermetabolic abnormality. Redemonstration of diffuse hypermetabolic thyroid uptake. This may represent hyperplasia. Chest: There are no hypermetabolic pulmonary parenchymal lesions. There is no hypermetabolic axillary, mediastinal, or hilar lymphadenopathy. Physiologic FDG uptake is seen in the myocardium. Abdomen/Pelvis: Physiologic FDG uptake is seen throughout the liver, spleen and bowel. Physiologic FDG excretion is seen in the kidneys, ureters, and bladder. There are no hypermetabolic lesions in the adrenal glands. Further decrease in size and activity of the right labial mass. The metabolic uptake SUV max 5.1, previously 6.2, series 4 image 286.. Moderate metabolic subcutaneous stranding identified in the right anterior pelvic wall which may represent posttreatment inflammatory changes. Persistent minimally avid left external iliac lymph node (series 4 image 263), currently measuring 12 x 9 mm with SUV max 3.2, previously same size with SUV 2.9. Musculoskeletal: No focal hypermetabolic osseous lesions are identified. IMPRESSION IMPRESSION: 1. Further decrease in metabolic activity of the right labial mass which may represent improving disease/posttreatmen t changes. Attention at regular follow up advised. 2. Persistent minimally avid left external iliac node, remain nonspecific. 3. No new FDG avid malignancy. [facility] Radiology Study observation (narrative) [facility] PT Skull base to mid-thighOr dered By: Migel Luna on 03-27-2025 [facility] Work Phone: US NECK SOFT TISSUEon 2024 US NECK SOFT TISSUE EXAM: US NECK SOFT TISSUE, 01/16/2025 13:27 PM CLINICAL INDICATIONS: further eval for Physiologic FDG uptake is noted in the salivary glands and tonsillar tissue" on PET C51.9:Malignant neoplasm of vulva Z85.44:History of cancer of vulva COMPARISON: No priors available for comparison. TECHNIQUE: Real-time, grayscale ultrasound evaluation of the neck was performed in transverse and longitudinal orientations using a high-resolution linear array transducer. Color Doppler was utilized to assess vascular flow. FINDINGS/IMPRESSION: Nonenlarged morphologically normal bilateral upper cervical chain lymph nodes. No adenopathy fluid collections or masses in the region of interest. Normal [facility] US Neckon 01-16-2025 FINDINGS/IMPRESSION: Nonenlarged morphologically normal bilateral upper cervical chain lymph nodes. No adenopathy fluid collections or masses in the region of interest. OLOGY EXAM: US NECK SOFT TISSUE, 01/16/2025 13:27 PM CLINICAL INDICATIONS: further eval for Physiologic FDG uptake is noted in the salivary glands and tonsillar tissue" on PET C51.9:Malignant neoplasm of vulva Z85.44:History of cancer of vulva COMPARISON: No priors available for comparison. TECHNIQUE: Real-time, grayscale ultrasound evaluation of the neck was performed in transverse and longitudinal orientations using a high-resolution linear array transducer. Color Doppler was utilized to assess vascular flow. RADIOLOGY Zoe Talbert MD - 01/16/2025 EXAM: US NECK SOFT TISSUE, 01/16/2025 13:27 PM CLINICAL INDICATIONS: further eval for Physiologic FDG uptake is noted in the salivary glands and tonsillar tissue" on PET C51.9:Malignant neoplasm of vulva Z85.44:History of cancer of vulva COMPARISON: No priors available for comparison. TECHNIQUE: Real-time, grayscale ultrasound evaluation of the neck was performed in transverse and longitudinal orientations using a high-resolution linear array transducer. Color Doppler was utilized to assess vascular flow. IMPRESSION FINDINGS/IMPRESSION: Nonenlarged morphologically normal bilateral upper cervical chain lymph nodes. No adenopathy fluid collections or masses in the region of interest. [facility] Radiology Study observation (narrative) [facility] US NeckOrdered By: Zoe Watson tt on 01-16-2025 [facility] Work Phone: TSH W/FT4 REFLEXon 5 Interpretation and review of laboratory results Normal [facility] TSH Qn 3.021 m[IU]/L [facility] TSH W/FT4 REFLEXon 5 TSH 3.021 uIU/mL Normal 0.550-4.780 [facility] Comment on above: Performed By: #### T SHQR #### [facility] (DEFAULT) [address] [place], [place] [id number] NUC PET OTHERon 12-28-2024 NUC PET OTHER EXAM: NUC PET OTHER, 12/26/2024 13:39 PM CLINICAL INDICATIONS: vulvar cancer- restaging scans, subsequent treatment strategy. COMPARISON: PET CT June 08, 2024 CT DOSE: DLP: 726 mGy x cm kVp: 120 TECHNIQUE: The patient's fasting blood glucose was 95 mg/dl. Approximately 81 minutes following the intravenous injection of F-18 FDG Dose: 12.216 millicurie, the patient was positioned on the Siemens Biograph mCT TOF< PET/CT-64, [facility] imaging unit. A low resolution non-contrast CT was obtained from the top of the head through the mid-femurs for use in attenuation correction and anatomic correlation. PET emission scans of this anatomic region were acquired shortly thereafter. Axial, sagittal, coronal and maximal intensity projection reconstruction images were presented for interpretation. FINDINGS: Head/Neck: Physiologic FDG uptake is noted in the salivary glands and tonsillar tissue. There is no hypermetabolic cervical or supraclavicular lymphadenopathy. Normal, intense physiologic uptake is noted in the cerebral cortex mcnulty matter and subcortical nuclei without gross hypermetabolic abnormality. Redemonstration of diffuse hypermetabolic thyroid uptake. This may represent hyperplasia. Chest: There are no hypermetabolic pulmonary parenchymal lesions. There is no hypermetabolic axillary, mediastinal, or hilar lymphadenopathy. Physiologic FDG uptake is seen in the myocardium. Abdomen/Pelvis: Physiologic FDG uptake is seen throughout the liver, spleen and bowel. Physiologic FDG excretion is seen in the kidneys, ureters, and bladder. There are no hypermetabolic lesions in the adrenal glands. No hypermetabolic abdominal or pelvic lymphadenopathy. Decreased metabolic activity of the right labial mass. The metabolic uptake measures 2.2 x 0.9 cm with an SUV max of 6.2 series 4 image 283. Previous SUV max 18.55. Moderate metabolic subcutaneous stranding identified in the right hilar region which may represent posttreatment inflammatory changes. Decreased uptake associated with a left external iliac lymph node (series 4 image 256), currently measuring 12 x 9 mm with SUV max 2.9, previously 21 x 14 mm with SUV max 6.5. Musculoskeletal: No focal hypermetabolic osseous lesions are identified. IMPRESSION: 1. Decrease in metabolic activity of the right labial mass which may represent improving disease. 2. Resolution of hypermetabolic right inguinal lymph adenopathy replaced by subcutaneous mildly metabolically posttreatment stranding inflammatory changes. 3. No new FDG avid malignancy. I personally viewed and interpreted these images and I have reviewed and approved this report. Normal [facility] GLUCOSE POCon 12-26-2024 Glucose [Mass/Vol] 95 mg/dL 70 - 99 mg/dL [facility] POC Sample Type CAPBL [facility] Test performed at address of the patient encounter. [facility] OT General Evaluationon 10-21 OT General Evaluation [facility] Occupational Therapy [facility] [address] [place] [address]. [address] [place] [address] / REHABILITATION SERVICES INITIAL EVALUATION MR#: [id number] Acct: [id number] Name: AZEB GALLEGOS VIVI Rep #: [id number] : 1965 59 From: Barbie Gillespie OTR/Nguyen, CHT Referring Dr.: Dr. Jerson Jj, DO Status: RE G RCR Insurance: [facility] Date: SELF PAY INSURANCE Patient's Visit Information Visit Information Visit Information: AZEB GALLEGOS is a 59 year old F, referred to Occupational Therapy by Dr. Jerson Jj, DO, with a diagnosis of lymphedema. Date of Evaluation: 11/05/24 Occupational Therapist: POLA Montoya/Nguyen, CHT Subjective Subjective: This 59 year old female was seen for OT eval with dx of lymphedema of lower extremity, Malignant neoplasm of vulva. 2023 pt states she noticed swelling of LE after her 2nd sx. Pt states with the 2nd sx no lymph nodes were removed. pt did undergo chemo and radiation. pt states she worked throughout her treatments.(chemo and radiation for 5 weeks. 25 sessions of radiation 5 chemo pt employed at [employer] 8 hour days 5x a week. pt states she can wear compression socks during the day while at work. states she will take off her compression socks when she get home from work and her legs will swell. pt states her legs medina go down when she is sleeping. pt states she would like to know what she can do to mtg. her LE edema. PMH taken from Dr. 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 From 08/20/2024 ??? 09/21/2024 she received adjuvant radiation to the area of recurrence and bilateral inguinal/pelvic LNs with boost to concerning LN. Lymphedema (Circumferential Measure) Mid-foot: right 20cm left 20cm Ankle: right 22.5cm left 22cm Lower calf: right 23cm left 21cm Largest calf: right 36cm left 35cm Below knee: right 34cm left 32cm Above knee: right 44cm left 45cm Lower Exremity Comments: pt demo with sight swelling in bilateral LE noted dry skin Lower Limb Functional Index Lower Extremity Functional Score: 73 Goals Goal: Patient will demonstrate a 20% reduction in edema by discharge: Yes Goal: Patient will demonstrate adequate knowledge of self-massage by the end of the second week.: Yes Goal: Patient will demonstrate adequate knowledge of skin care and precautions by the end of the first week.: Yes Goal: Patient will demonstrate adequate knowledge of therapeutic exercises by discharge.: Yes Goal: Patient will select an appropriate compression garment and demonstrate adequate knowledge of correct donning technique, care and wearing schedule by discharge.: Yes Rehabilitation General Assessment: pt demo with symptoms of LE swelling and would benefit from skilled OT services 2-3 visits to ed. pt on life long mtg of lymphedema. Today therapist ed. pt on skin care, use of compression socks 20-30 mmHg and initiation of self manual lymph massage and exercises that stimulates the lymphatic system. Pt was given handouts and demo understanding and agree to POC. therapist also ed, pt that compression socks should be replaced every 4-6 months (she was not aware of this prior). Rehabilitation Potential: Good Anticipated Interventions Anticipated Interventions: Education re Diagnosis, Manual Lymph Drainage, Education re Life-long lymphedema Management, Education re Skin Care and Precautions, Education re Self Massage Techniques, Education re Correct Donning Tech,Care Wearing Sched Comp Garments, Caregiver Training and Home Program Visit Plan TEXT: Thank you for the opportunity to evaluate your patient. For Medicare and Medicare HMO plans, please review the plan of care and approve it. It will need to be FAXED BACK to us at [phone] for Medicare purposes. Please let me know if there are questions or concerns regarding this plan of care. Physician Signature: D ate: 11/05/24 0024 CC: Dr. Jerson Jj DO; No Primary Care Physician ANA MARIA Signed For Medicare only, by signing this I certify the plan of care. Physicians Signature Date Normal [facility] Radiation Oncology Visiton 1 12-23-2023 Radiation Oncology Visit [facility] [place] [address] OFFICE VISIT Date of Service: 10/22/24 1335 MR#: [id number] Acct: [id number] Name: AZEB GALLEGOS Rep #: [id number] : 1965 From: Jerson Jj Age/Sex: 59/F Location: [facility] Status: Signed Intake Vital Signs 09/19/24 14:25 10/22/24 13:39 Height 5 ft 3 in 5 ft 3 in Weight: 182 lb 7 oz 185 lb 7 oz BMI 32.3 32.8 BP 144/85 H 136/80 H Blood Pressure Location Rt brachial Rt brachial Position Sitting Sitting Respiration 18 16 Pulse 63 66 Pulse Source Monitor Monitor Temp 97.1 F L 96.0 F L Temperature Source Temporal Artery Temporal Artery Pulse Oximetry (%) 100 100 Oxygen Delivery Method room air room air Intake Visit Reasons: 1 MONTH F/U POST RT Is patient in pain?: No Allergies bee venom protein (honey bee) Allergy (Verified 10/22/24 13:44) unknown Penicillins Allergy (Verified 10/22/24 13:44) Unknown Sulfa (Sulfonamide Antibiotics) Allergy (Verified 10/22/24 13:44) Unknown tetanus toxoid, adsorbed Adverse Reaction (Verified 10/22/24 13:44) Swelling Medications ???Medication ???Instructions ???Recorded ???Confirmed ???Type acetaminophen 650 mg 650 mg PO Q6H PRN fever or pain 08/07/24 10/22/24 History tablet,extended release ibuprofen 600 mg tablet 600 mg PO Q6H PRN pain 08/07/24 10/22/24 History calcium 600 mg (as carbonate)-vit 1 tab PO QAM 08/13/24 10/22/24 History D3 20 mcg (800 unit) chewable tablet (Caltrate plus D) PFSH PFSH Medical History Hypophosphatemia Encounter for chemotherapy management Encounter for education Wears dentures Wears glasses Cancer Injury of head and neck Migraine headache Gastric reflux Former smoker Mixed stress and urge incontinence Malignant neoplasm of vulva, unspecified Other specified injury of muscle, fascia and tendon at neck level, initial encounter Home Medications ???Medication ???Instructions ???Recorded ???Last Taken ???Type acetaminophen 650 mg 650 mg PO Q6H PRN fever or pain 08/07/24 Unknown History tablet,extended release ibuprofen 600 mg tablet 600 mg PO Q6H PRN pain 08/07/24 Unknown History calcium 600 mg (as carbonate)-vit 1 tab PO QAM 08/13/24 Unknown History D3 20 mcg (800 unit) chewable tablet (Caltrate plus D) Allergy/AdvReac Type Severity Reaction Status Date / Time bee venom protein (honey bee) Allergy unknown Verified 10/22/24 13:44 Penicillins Allergy Unknown Verified 10/22/24 13:44 Sulfa (Sulfonamide Allergy Unknown Verified 10/22/24 13:44 Antibiotics) tetanus toxoid, adsorbed AdvReac Swelling Verified 10/22/24 13:44 Family History Grandmother Breast cancer Mother Diabetes Father Heart disease Surgical History History of kidney surgery H/O vulvectomy Lesion of urethra History of radical vulvectomy History of hysterectomy Social History household members: spouse Smoking Status: Former smoker quit date: 06/21/23 alcohol intake: current alcohol intake frequency: holidays/special occasions only Alcohol type: beer substance use type: does not use Diagnosis: Azeb Gallegos is a 59-year-old female who was diagnosed with 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 From 08/20/2024 ??? 09/21/2024 she received adjuvant radiation to the area of recurrence and bilateral inguinal/pelvic LNs with boost to concerning LN. History of Present Illness: 04/2023: Patient initially presented with vulvar pain/itching/irritat ion for about 6 months and had a history of ENID 7 years prior. 05/20/2023: Patient completed vulvar biopsy.??? 12:00 biopsy demonstrated invasive squamous of carcinoma, 4:00 biopsy demonstrated in situ squamous of carcinoma, 9:00 and 3:00 biopsies were consistent with chronic inflammation and no evidence of disease. 07/08/2023: Patient completed radical vulvectomy with inguinal femoral lymphadenectomy and resection of distal urethra.??? There is a fungating vulvar neoplasm involving the anterior vulva and clitoris and extending to the anterior urethra as well as a lesion on the posterior right vulva grossly consistent with ENID 3, no palpable adenopathy is appreciated.??? 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 Normal [facility] Surgery Visit Reporton 10-08 Surgery Visit Report [facility] [address] [place] [address] OFFICE VISIT Date of Service: 10/08/24 MR#: [id number] Acct: [id number] Name: AZEB GALLEGOS VIVI Rep #: [id number] : 1965 Provider: Dr. 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 Is patient in pain?: No Allergies bee venom protein (honey bee) Allergy (Verified 10/08/24 14:21) unknown Penicillins Allergy (Verified 10/08/24 14:21) Unknown Sulfa (Sulfonamide Antibiotics) Allergy (Verified 10/08/24 14:21) Unknown tetanus toxoid, adsorbed Adverse Reaction (Verified 10/08/24 14:21) Swelling Medications ???Medication ???Instructions ???Recorded ???Confirmed ???Type acetaminophen 650 mg 650 mg PO Q6H PRN fever or pain 08/07/24 10/08/24 History tablet,extended release ibuprofen 600 mg tablet 600 mg PO Q6H PRN pain 08/07/24 10/08/24 History calcium 600 mg (as carbonate)-vit 1 tab PO QAM 08/13/24 10/08/24 History D3 20 mcg (800 unit) chewable tablet (Caltrate plus D) Have you fallen in the past year?: No PFSH Medical History Hypophosphatemia Encounter for chemotherapy management Encounter for education Wears dentures Wears glasses Cancer Injury of head and neck Migraine headache Gastric reflux Former smoker Mixed stress and urge incontinence Malignant neoplasm of vulva, unspecified Other specified injury of muscle, fascia and tendon at neck level, initial encounter Surgical History History of kidney surgery H/O vulvectomy Lesion of urethra History of radical vulvectomy History of hysterectomy Family History Grandmother Breast cancer Mother Diabetes Father Heart disease Social History household members: spouse Smoking Status: Former smoker quit date: 06/21/23 alcohol intake: current alcohol intake frequency: holidays/special occasions only Alcohol type: beer substance use type: does not use HPI HPI HPI: The patient is a 58-year-old female who was recently completed chemo and radiation for vulvar cancer. I placed a port a couple of months ago and she presents today ready to have the port removed. She denies any issues or problems regarding the port while it was being used. Exam Const General: cooperative and healthy appearing Neck Other: Port in position. No signs of erythema or infection. Office Procedures Port/Peg Provider Documentation Details:: Following informed consent, the patient was placed in a supine position on the procedure room table. The left sided port location was prepped and draped in the usual sterile manner. About 10 cc of local anesthetic were injected into the vicinity of the previous incision. #15 blade was then used to open up the previous incision. I was able to dissect down to the level of the port. The 2 anchoring sutures were identified and removed. This allowed the port to be extracted. This was removed intact. No evidence of bleeding.. No evidence of infection. The wound was then closed with 4-0 Vicryl. Skin glue was applied as dressing. She tolerated procedure well. Manual pressure was held in the area for several minutes to ensure hemostasis. Alert Fransisca Alert Billing: Yes Port/Peg Port/Pe Port Removal Procedure Time Out Time Out Informed consent given: Yes Consent signed: Yes Time out checklist: patient, procedure, site marked/identified, positioning of patient, supplies available, allergies confirmed and team agrees on procedure Time out staff in room: Yes Time out verified: Yes Time out date: 10/08/24 Time out time: 14:00 Assessment and Plan Assessment and Plan Orders: Orders Port/Cath Removal Today Coding Level of Care Code Global Post Op Clinical Quality Measures Falls Risk Screening/Assistive Devices Have you fallen in the past year?: No 10/08/24 1439 Date [facility] S[facility] Signature[facility] Date (if applicable) CC: Normal [facility] Blood manual differential co mment interpretation (narrative result)Ordered By: Jacob Maravilla on 09-17-2024 Manual differential comment David (Bld) [Interp] SCANNED [facility] Erythrocyte morphology asses smentOrdered By: Jacob Maravilla on 09-17-2024 RBC morphology finding Nom (Bld) NORM C+C NORMAL NORM C&C [facility] Platelet estimateOrdered By: Jacob Maravilla on 09-17-2024 Platelets LM Ql (Bld) SLT DEC ADEQ [facility] Review by pathologistOrdered By: Jacob Maravilla on 09-17-2024 Pathologist review David (Unsp spec) [Interp] Reviewed [facility] Comment on above: Previous reported re sult: Danay gloria Edited by: JUSTIN on 09/18/24:1409Pancytopenia.Leukopenia and neutropenia.Normocytic anemia.MILD Thrombocytopenia.Clinical correlation necessary.Parish Galvan M.D. 09/18/24 AMENDED REPORT 09/18/24 1409 PATH REV previously reported as: Danay gloria CONTINUOUS CARDIAC MONITORIN G STRIPon 06-29-2024 [facility] CONTINUOUS CARDIAC MONITORIN G STRIPOrdered By: Unassigned Pacs on 06-29-2024 [facility] Work Phone: GLUCOSE POCon 06-08-2024 Glucose [Mass/Vol] 95 mg/dL 70 - 99 mg/dL [facility] POC Sample Type CAPBL [facility] Test performed at address of the patient encounter. [facility] CONTINUOUS CARDIAC MONITORIN G STRIPOrdered By: Unassigned Pacs on 03-15-2024 [facility] Work Phone: CHEM 6 (LYTES, BUN CREA)on 0 02-21-2024 Anion gap [Moles/Vol] 16 mmol/L 7 - 17 mmol/L [facility] Chloride [Moles/Vol] 104 mmol/L 98 - 10 8 mmol/L [facility] CO2 [Moles/Vol] 25 mmol/L 21 - 31 mmol/L [facility] Creatinine [Mass/Vol] 0.89 mg/dL 0.50 - 1.20 mg/dL [facility] eGFR, CKD-EPI, Female 72 - PINF [facility] Comment on above: Reported eGFR is bas ed on the CKD-EPI 2020 equation using creatinine, age, and sex. Potassium [Moles/Vol] 4.0 mmol/L 3.5 - 5.0 mmol/L [facility] Sodium [Moles/Vol] 141 mmol/L 135 - 145 mmol/L [facility] Urea nitrogen [Mass/Vol] 22 mg/dL 7 - 25 mg/d L [facility] Urea nitrogen/Creatinine [Mass ratio] 25 mg/mg [facility] HEPATIC FUNCTION PANELon Albumin [Mass/Vol] 4.3 g/dL 3.5 - 5.0 g/dL [facility] ALP [Catalytic activity/Vol] 64 U/L 32 - 126 U/L [facility] ALT [Catalytic activity/Vol] 13 U/L 9 - 48 U/L [facility] AST [Catalytic activity/Vol] 16 U/L 10 - 39 U/L [facility] Bilirubin [Mass/Vol] 0.5 mg/dL NINF - 1.5 mg/dL [facility] Bilirubin.direct [Mass/Vol] 0.1 mg/dL NINF - 0.3 mg/dL [facility] Interpretation and review of laboratory results Normal [facility] Protein [Mass/Vol] 7.1 g/dL 6.4 - 8.3 g/dL [facility] No Panel Informationon 02-20 [facility] LESION BIOPSY/EXCISIONon Flakito Yepez MD 02/07/2024 3:11 PM LESION BIOPSY/EXCISION Date/Time: 02/07/2024 1:45 PM Performed by: Flakito Yepez MD Authorized by: Flakito Yepez MD Pre-Procedure: Indications: vulvar lesion The possible diagnosis, procedure, need for treatment, potential complications, side effects, risks of the procedure, including infection, bleeding, recurrence, reaction to medications used, non- healing, scarring, and injury to adjacent structures, were discussed with the patient. The patient expressed understanding and wished to proceed, and informed consent for the procedure obtained. Does This Procedure Require A [place] Protocol? Yes - final verifications complete Procedure: Site marked and confirmed by patient. Skin was prepped with Betadine; mL of lidocaine 1% used to locally anesthetize area. Vulva lesion punch biopsy performed. 1 biopsy(s) performed. Lesion 1 size: 1 (cm). Comments: 1 cm white lesion Hemostasis obtained with silver nitrate and pressure. Specimen(s) sent for pathology. Post-Procedure: Patient tolerated the procedure well. Dressing not applied. Pathology results discussion. Comments: Consented. Time out 4 mm punch biopsy of 1 cm right vulvar lesion at 7 o'clock adjacent to the vagina [facility] Radiology Study observation (narrative) [facility] CBC AND ELECTRONIC DIFFon Basophils (Bld) [#/Vol] 0.09 10*3/uL 0.00 - 0.15 K/uL [facility] Basophils/100 WBC (Bld) 0.9 % [facility] Differential cell count method Nom (Bld) Electronic Differential [facility] Eosinophils (Bld) [#/Vol] 0.08 10*3/uL 0.00 - 0.42 K/uL [facility] Eosinophils/100 WBC (Bld) 0.8 % [facility] Erythrocyte distribution width (RBC) [Ratio] 13.5 % 10.8 - 14.9 % [facility] Hematocrit (Bld) [Volume fraction] 34.7 % Low 34.9 - 44.3 % [facility] Hemoglobin (Bld) [Mass/Vol] 10.7 g/dL Low 11.4 - 15.2 g/dL [facility] Immature granulocytes (Bld) [#/Vol] 0.05 10*3/uL NINF - 0.08 K/uL [facility] Immature granulocytes/100 WBC (Bld) 0.5 % [facility] Interpretation and review of laboratory results Abnormal [facility] Lymphocytes (Bld) [#/Vol] 2.71 10*3/uL 1.16 - 3.51 K/uL [facility] Lymphocytes/100 WBC (Bld) 27.0 % [facility] MCH (RBC) [Entitic mass] 28.7 pg 25. 9 - 33.9 pg [facility] MCHC (RBC) [Mass/Vol] 30.8 g/dL Low 31.4 - 35.9 g/dL [facility] MCV (RBC) [Entitic vol] 93.0 fL 79.6 - 97.7 fL [facility] Comment on above: Results inconsistent with previous results Monocytes (Bld) [#/Vol] 1.07 10*3/uL High 0.22 - 0.87 K/uL [facility] Monocytes/100 WBC (Bld) 10.7 % [facility] Neutrophils (Bld) [#/Vol] 6.04 10*3/uL 1.64 - 7.28 K/uL [facility] Nucleated RBC/100 WBC (Bld) [Ratio] 0.0 % [facility] Platelet mean volume (Bld) [Entitic vol] 11.0 fL 8.5 - 12.2 fL [facility] Platelets (Bld) [#/Vol] 208 10*3/uL 150 - 393 K/uL [facility] RBC (Bld) [#/Vol] 3.73 10*6/uL Low [facility] Segmented neutrophils/100 WBC (Bld) 60.1 % [facility] WBC (Bld) [#/Vol] 10.04 10*3/uL 3.99 - 11 .19 K/uL [facility] CHEM 7 (LYTES,BUN,CREA,GLUC) on 07-10-2023 Anion gap [Moles/Vol] 11 mmol/L 7 - 17 mmol/L [facility] Chloride [Moles/Vol] 106 mmol/L 98 - 10 8 mmol/L [facility] CO2 [Moles/Vol] 28 mmol/L 21 - 31 mmol/L [facility] Creatinine [Mass/Vol] 0.86 mg/dL 0.50 - 1.20 mg/dL [facility] GFR/1.73 sq M.predicted CKD-EPI (S/P/Bld) [Vol rate/Area] 78 - PINF [facility] Comment on above: Reported eGFR is bas ed on the CKD-EPI 2020 equation using creatinine, age, and sex. Glucose [Mass/Vol] 113 mg/dL High 70 - 99 mg/dL [facility] Interpretation and review of laboratory results Abnormal [facility] Osmolality Calc [Osmolality] 297 [facility] Potassium [Moles/Vol] 4.4 mmol/L 3.5 - 5.0 mmol/L [facility] Sodium [Moles/Vol] 141 mmol/L 135 - 145 mmol/L [facility] Urea nitrogen [Mass/Vol] 16 mg/dL 7 - 25 mg/d L [facility] Urea nitrogen/Creatinine [Mass ratio] 19 mg/mg [facility] MAGNESIUMon 07-10-2023 Interpretation and review of laboratory results Normal [facility] Magnesium [Mass/Vol] 1.9 mg/dL 1.6 - 2 .6 mg/dL [facility] No Panel Informationon 07-10 [facility] CBC AND ELECTRONIC DIFFon Basophils (Bld) [#/Vol] K/uL 0.00 - 0.15 K/uL [facility] Basophils/100 WBC (Bld) 0.1 % [facility] Differential cell count method Nom (Bld) Electronic Differential [facility] Eosinophils (Bld) [#/Vol] K/uL 0.00 - 0.42 K/uL [facility] Eosinophils/100 WBC (Bld) 0.0 % [facility] Erythrocyte distribution width (RBC) [Ratio] 13.0 % 10.8 - 14.9 % [facility] Hematocrit (Bld) [Volume fraction] 34.0 % Low 34.9 - 44.3 % [facility] Hemoglobin (Bld) [Mass/Vol] 11.2 g/dL Low 11.4 - 15.2 g/dL [facility] Immature granulocytes (Bld) [#/Vol] 0.11 10*3/uL High NINF - 0.08 K/uL [facility] Immature granulocytes/100 WBC (Bld) 0.7 % [facility] Interpretation and review of laboratory results Abnormal [facility] Lymphocytes (Bld) [#/Vol] 1.21 10*3/uL 1.16 - 3.51 K/uL [facility] Lymphocytes/100 WBC (Bld) 7.4 % [facility] MCH (RBC) [Entitic mass] 28.9 pg 25. 9 - 33.9 pg [facility] MCHC (RBC) [Mass/Vol] 32.9 g/dL 31.4 - 35.9 g/dL [facility] MCV (RBC) [Entitic vol] 87.9 fL 79.6 - 97.7 fL [facility] Monocytes (Bld) [#/Vol] 1.55 10*3/uL High 0.22 - 0.87 K/uL [facility] Monocytes/100 WBC (Bld) 9.4 % [facility] Neutrophils (Bld) [#/Vol] 13.58 10*3/uL High 1.64 - 7.28 K/uL [facility] Nucleated RBC/100 WBC (Bld) [Ratio] 0.0 % [facility] Platelet mean volume (Bld) [Entitic vol] 11.2 fL 8.5 - 12.2 fL [facility] Platelets (Bld) [#/Vol] 239 10*3/uL 150 - 393 K/uL [facility] RBC (Bld) [#/Vol] 3.87 10*6/uL Low [facility] Segmented neutrophils/100 WBC (Bld) 82.4 % [facility] WBC (Bld) [#/Vol] 16.46 10*3/uL High 3.99 - 11 .19 K/uL [facility] CHEM 7 (LYTES,BUN,CREA,GLUC) on 07-09-2023 Anion gap [Moles/Vol] 12 mmol/L 7 - 17 mmol/L [facility] Chloride [Moles/Vol] 106 mmol/L 98 - 10 8 mmol/L [facility] CO2 [Moles/Vol] 26 mmol/L 21 - 31 mmol/L [facility] Creatinine [Mass/Vol] 0.67 mg/dL 0.50 - 1.20 mg/dL [facility] GFR/1.73 sq M.predicted CKD-EPI (S/P/Bld) [Vol rate/Area] - PINF [facility] Comment on above: Reported eGFR is bas ed on the CKD-EPI 2020 equation using creatinine, age, and sex. Glucose [Mass/Vol] 126 mg/dL High 70 - 99 mg/dL [facility] Interpretation and review of laboratory results Abnormal [facility] Osmolality Calc [Osmolality] 295 [facility] Potassium [Moles/Vol] 4.8 mmol/L 3.5 - 5.0 mmol/L [facility] Sodium [Moles/Vol] 139 mmol/L 135 - 145 mmol/L [facility] Urea nitrogen [Mass/Vol] 15 mg/dL 7 - 25 mg/d L [facility] Urea nitrogen/Creatinine [Mass ratio] 22 mg/mg [facility] MAGNESIUMon 07-09-2023 Interpretation and review of laboratory results Normal [facility] Magnesium [Mass/Vol] 1.6 mg/dL 1.6 - 2 .6 mg/dL [facility] No Panel Informationon 07-09 [facility] ABORH TYPE RECONFIRMATIONon 07-08-2023 ABO/RH(D) TYPE Positive [facility] CONTINUOUS CARDIAC MONITORIN G STRIPon 07-08-2023 [facility] CONTINUOUS CARDIAC MONITORIN G STRIPOrdered By: Unassigned Pacs on 07-08-2023 [facility] Work Phone: CHEM 6 (LYTES, BUN CREA)on 0 06-21-2023 Anion gap [Moles/Vol] 11 mmol/L 7 - 17 mmol/L [facility] Chloride [Moles/Vol] 106 mmol/L 98 - 10 8 mmol/L [facility] CO2 [Moles/Vol] 25 mmol/L 21 - 31 mmol/L [facility] Creatinine [Mass/Vol] 0.75 mg/dL 0.50 - 1.20 mg/dL [facility] GFR/1.73 sq M.predicted CKD-EPI (S/P/Bld) [Vol rate/Area] - PINF [facility] Comment on above: Reported eGFR is bas ed on the CKD-EPI 2020 equation using creatinine, age, and sex. Potassium [Moles/Vol] 4.2 mmol/L 3.5 - 5.0 mmol/L [facility] Sodium [Moles/Vol] 138 mmol/L 135 - 145 mmol/L [facility] Urea nitrogen [Mass/Vol] 19 mg/dL 7 - 25 mg/d L [facility] Urea nitrogen/Creatinine [Mass ratio] 25 mg/mg [facility] Vital Signs Date Time Vital Sign Value Performing Clinician Facility 07-09-2025 14:15-0400 Body height 161 cm Pillo Ledbetter MD Work Phone: [facility] Comment on above: taken from previous encounter 07-09-2025 14:15-0400 Body mass index (BMI) [Ratio] 34.82 kg/m2 Pillo Ledbetter MD Work Phone: [facility] 07-09-2025 14:15-0400 Body temperature 97.7 [degF] Pillo Ledbetter MD Work Phone: [facility] 07-09-2025 14:15-0400 Body weight 90.27 kg Pillo Ledbetter MD Work Phone: [facility] 07-09-2025 14:15-0400 Diastolic blood pressure 77 mm[Hg] Pillo Ledbetter MD Work Phone: [facility] 07-09-2025 14:15-0400 Heart rate 65 /min Pillo Ledbetter MD Work Phone: [facility] 07-09-2025 14:15-0400 Respiratory rate 16 /min Pillo Ledbetter MD Work Phone: [facility] 07-09-2025 14:15-0400 SaO2% (BldA) [Mass fraction] 100 % Pillo Ledbetter MD Work Phone: [facility] 07-09-2025 14:15-0400 Systolic blood pressure 187 mm[Hg] Pillo Ledbetter MD Work Phone: [facility] 04-10-2025 09:23-0400 Body height 160.02 cm No Primary Care Physician [facility] 04-10-2025 09:23-0400 Body mass index (BMI) [Ratio] 34.3 kg/m2 No Primary Care Physician [facility] 04-10-2025 09:23-0400 Body temperature 98 [degF] No Primary Care Physician [facility] 04-10-2025 09:23-0400 Body weight 87.99 kg No Primary Care Physician [facility] 04-10-2025 09:23-0400 Diastolic blood pressure 83 mm[Hg] No Primary Care Physician [facility] 04-10-2025 09:23-0400 Heart rate 59 /min No Primary Care Physician [facility] 04-10-2025 09:23-0400 Respiratory rate 16 /min No Primary Care Physician [facility] 04-10-2025 09:23-0400 SaO2% (BldA) [Mass fraction] 99 % No Primary Care Physician [facility] 04-10-2025 09:23-0400 Systolic blood pressure 148 mm[Hg] No Primary Care Physician [facility] 04-02-2025 11:54-0400 Body height 161 cm Pillo Ledbetter MD Work Phone: [facility] Comment on above: taken from previous encounter 04-02-2025 11:54-0400 Body mass index (BMI) [Ratio] 33.81 kg/m2 Pillo Ledbetter MD Work Phone: [facility] 04-02-2025 11:54-0400 Body temperature 98.2 [degF] Pillo Ledbetter MD Work Phone: [facility] 04-02-2025 11:54-0400 Body weight 87.64 kg Pillo Ledbetter MD Work Phone: [facility] 04-02-2025 11:54-0400 Diastolic blood pressure 71 mm[Hg] Pillo Ledbetter MD Work Phone: [facility] 04-02-2025 11:54-0400 Heart rate 60 /min Pillo Ledbetter MD Work Phone: [facility] 04-02-2025 11:54-0400 Respiratory rate 16 /min Pillo Ledbetter MD Work Phone: [facility] 04-02-2025 11:54-0400 SaO2% (BldA) [Mass fraction] 97 % Pillo Ledbetter MD Work Phone: [facility] 04-02-2025 11:54-0400 Systolic blood pressure 150 mm[Hg] Pillo Ledbetter MD Work Phone: [facility] 03-28-2025 13:26-0400 Body mass index (BMI) [Ratio] 34.5 kg/m2 No Primary Care Physician [facility] 03-28-2025 13:26-0400 Body temperature 97.1 [degF] No Primary Care Physician [facility] 03-28-2025 13:26-0400 Body weight 88.5 kg No Primary Care Physician [facility] 03-28-2025 13:26-0400 Diastolic blood pressure 64 mm[Hg] No Primary Care Physician [facility] 03-28-2025 13:26-0400 Heart rate 73 /min No Primary Care Physician [facility] 03-28-2025 13:26-0400 Respiratory rate 18 /min No Primary Care Physician [facility] 03-28-2025 13:26-0400 SaO2% (BldA) [Mass fraction] 99 % No Primary Care Physician [facility] 03-28-2025 13:26-0400 Systolic blood pressure 134 mm[Hg] No Primary Care Physician [facility] 01-01-2025 11:17-0500 Body height 161 cm Pillo Ledbetter MD Work Phone: 1(339)928-793369 [place] [address] 01-01-2025 11:17-0500 Body mass index (BMI) [Ratio] 32.95 kg/m2 Pillo Ledbetter MD Work Phone: 4(313)746-974069 [place] [address] 01-01-2025 11:17-0500 Body temperature 97.5 [degF] Pillo Ledbetter MD Work Phone: 2(974)328-867869 [place] [address] 01-01-2025 11:17-0500 Body weight 85.41 kg Pillo Ledbetter MD Work Phone: 6(271)532-794069 [place] [address] 01-01-2025 11:17-0500 Diastolic blood pressure 72 mm[Hg] Pillo Ledbetter MD Work Phone: 6(923)931-760769 [place] [address] 01-01-2025 11:17-0500 Heart rate 65 /min Pillo Ledbetter MD Work Phone: 0(425)926-147669 [place] [address] 01-01-2025 11:17-0500 Respiratory rate 18 /min Pillo Ledbetter MD Work Phone: 0(875)581-796969 [place] [address] 01-01-2025 11:17-0500 SaO2% (BldA) [Mass fraction] 99 % Pillo Ledbetter MD Work Phone: 7(700)595-160669 [place] [address] 01-01-2025 11:17-0500 Systolic blood pressure 162 mm[Hg] Pillo Ledbetter MD Work Phone: 1(028)922-282169 [place] [address] 10-30-2024 11:21-0500 Body mass index (BMI) [Ratio] 32.43 kg/m2 Pillo Ledbetter MD Work Phone: 6(220)519-665169 [place] [address] 10-30-2024 11:21-0500 Body temperature 98.4 [degF] Plilo Ledbetter MD Work Phone: 9(548)994-182169 [place] [address] 10-30-2024 11:21-0500 Body weight 83.05 kg Pillo Ledbetter MD Work Phone: [facility] 10-30-2024 11:21-0500 Diastolic blood pressure 65 mm[Hg] Pillo Ledbetter MD Work Phone: [facility] 10-30-2024 11:21-0500 Heart rate 75 /min Pillo Ledbetter MD Work Phone: [facility] 10-30-2024 11:21-0500 Respiratory rate 16 /min Pillo Ledbetter MD Work Phone: [facility] 10-30-2024 11:21-0500 SaO2% (BldA) [Mass fraction] 98 % Pillo Ledbetter MD Work Phone: [facility] 10-30-2024 11:21-0500 Systolic blood pressure 136 mm[Hg] Pillo Ledbetter MD Work Phone: [facility] 09-10-2024 15:39-0400 Body temperature 97.4 [degF] No Primary Care Physician [facility] 09-10-2024 15:39-0400 Diastolic blood pressure 73 mm[Hg] No Primary Care Physician [facility] 09-10-2024 15:39-0400 Heart rate 71 /min No Primary Care Physician [facility] 09-10-2024 15:39-0400 Respiratory rate 16 /min No Primary Care Physician [facility] 09-10-2024 15:39-0400 SaO2% (BldA) [Mass fraction] 99 % No Primary Care Physician [facility] 09-10-2024 15:39-0400 Systolic blood pressure 144 mm[Hg] No Primary Care Physician [facility] 08-02-2024 13:04-0400 Body mass index (BMI) [Ratio] 33.18 kg/m2 Yanely Nascimento MD Work Phone: [facility] 08-02-2024 13:04-0400 Body temperature 98.2 [degF] Yanely Nascimento MD Work Phone: [facility] 08-02-2024 13:04-0400 Body weight 84.96 kg Yanely Nascimento MD Work Phone: [facility] 08-02-2024 13:04-0400 Diastolic blood pressure 86 mm[Hg] Yanely Nascimento MD Work Phone: [facility] 08-02-2024 13:04-0400 Heart rate 62 /min Yanely Nascimento MD Work Phone: [facility] 08-02-2024 13:04-0400 Respiratory rate 18 /min Yanely Nascimento MD Work Phone: [facility] 08-02-2024 13:04-0400 SaO2% (BldA) [Mass fraction] 96 % Yanely Nascimento MD Work Phone: [facility] 08-02-2024 13:04-0400 Systolic blood pressure 187 mm[Hg] Yanely Nascimento MD Work Phone: [facility] 07-17-2024 14:32-0400 Body height 160 cm Pillo Ledbetter MD Work Phone: [facility] 07-17-2024 14:32-0400 Body mass index (BMI) [Ratio] 32.63 kg/m2 Pillo Ledbetter MD Work Phone: [facility] 07-17-2024 14:32-0400 Body temperature 98.4 [degF] Pillo Ledbetter MD Work Phone: [facility] 07-17-2024 14:32-0400 Body weight 83.55 kg Pillo Ledbetter MD Work Phone: [facility] 07-17-2024 14:32-0400 Diastolic blood pressure 73 mm[Hg] Pillo Ledbetter MD Work Phone: 1(473)865-940372 [place] [address] 07-17-2024 14:32-0400 Heart rate 75 /min Pillo Ledbetter MD Work Phone: 1(343)145-670469 [place] [address] 07-17-2024 14:32-0400 Respiratory rate 16 /min Pillo Ledbetter MD Work Phone: 6(143)465-469269 [place] [address] 07-17-2024 14:32-0400 SaO2% (BldA) [Mass fraction] 98 % Pillo Ledbetter MD Work Phone: 7(986)635-923869 [place] [address] 07-17-2024 14:32-0400 Systolic blood pressure 160 mm[Hg] Pillo Ledbetter MD Work Phone: 9(202)784-712769 [place] [address] 06-29-2024 16:40-0400 Body temperature 97.9 [degF] Pillo Ledbetter MD Work Phone: 3(460)620-657569 [place] [address] 06-29-2024 16:40-0400 Diastolic blood pressure 72 mm[Hg] Pillo Ledbetter MD Work Phone: 1(026)807-538069 [place] [address] 06-29-2024 16:40-0400 Heart rate 70 /min Pillo Ledbetter MD Work Phone: 7(453)468-863669 [place] [address] 06-29-2024 16:40-0400 Respiratory rate 16 /min Pillo Ledbetter MD Work Phone: 7(096)399-733269 [place] [address] 06-29-2024 16:40-0400 SaO2% (BldA) [Mass fraction] 94 % Pillo Ledbetter MD Work Phone: 4(799)581-392769 [place] [address] 06-29-2024 16:40-0400 Systolic blood pressure 151 mm[Hg] Pillo Ledbetter MD Work Phone: 9(226)353-240369 [place] [address] 06-29-2024 09:10-0400 Body height 160 cm Pillo Ledbetter MD Work Phone: 6(746)221-871369 [place] [address] 06-29-2024 09:10-0400 Body mass index (BMI) [Ratio] 32.68 kg/m2 Pillo Ledbetter MD Work Phone: 2(562)720-498843 [address] 06-29-2024 09:10-0400 Body weight 83.69 kg Pillo Ledbetter MD Work Phone: 1(681)970-202869 [place] [address] 05-15-2024 14:09-0400 Body height 160.5 cm Pillo Ledbetter MD Work Phone: 4(536)120-985169 [place] [address] 05-15-2024 14:09-0400 Body mass index (BMI) [Ratio] 32.51 kg/m2 Pillo Ledbetter MD Work Phone: 2(215)075-257469 [place] [address] 05-15-2024 14:09-0400 Body temperature 98.1 [degF] Pillo Ledbetter MD Work Phone: 6(285)771-689869 [place] [address] 05-15-2024 14:090400 Body weight 83.73 kg Pillo Ledbetter MD Work Phone: 1(897)702-875269 [place] [address] 05-15-2024 14:09-0400 Diastolic blood pressure 72 mm[Hg] Pillo Ledbetter MD Work Phone: 0(277)890-772669 [place] [address] 05-15-2024 14:09-0400 Heart rate 70 /min Pillo Ledbetter MD Work Phone: 5(766)612-790569 [place] [address] 05-15-2024 14:09-0400 Respiratory rate 18 /min Pillo Ledbetter MD Work Phone: 2(984)555-944769 [place] [address] 05-15-2024 14:09-0400 SaO2% (BldA) [Mass fraction] 98 % Pillo Ledbetter MD Work Phone: 0(100)185-972469 [place] [address] 05-15-2024 14:09-0400 Systolic blood pressure 166 mm[Hg] Pillo Ledbetter MD Work Phone: 6(513)586-725669 [place] [address] 04-03-2024 14:49-0400 Body mass index (BMI) [Ratio] 32.43 kg/m2 Flakito Yepez MD Work Phone: [facility] 04-03-2024 14:49-0400 Body temperature 97 [degF] Flakito Yepez MD Work Phone: [facility] 04-03-2024 14:49-0400 Body weight 84.28 kg Flakito Yepez MD Work Phone: [facility] 04-03-2024 14:49-0400 Diastolic blood pressure 78 mm[Hg] Flakito Yepez MD Work Phone: [facility] 04-03-2024 14:49-0400 Heart rate 71 /min Flakito Yepez MD Work Phone: [facility] 04-03-2024 14:49-0400 Respiratory rate 18 /min Flakito Yepez MD Work Phone: 4(230)917-591243 [address] 04-03-2024 14:49-0400 SaO2% (BldA) [Mass fraction] 98 % Flakito Yepez MD Work Phone: [facility] 04-03-2024 14:49-0400 Systolic blood pressure 162 mm[Hg] Flakito Yepez MD Work Phone: [facility] 03-22-2024 14:44-0400 Body height 161.2 cm Ramya Becker [employer] Work Phone: [facility] 03-22-2024 14:44-0400 Body mass index (BMI) [Ratio] 32.97 kg/m2 Ramya Becker [employer] Work Phone: [facility] 03-22-2024 14:44-0400 Body temperature 98.49 [degF] Ramya Becker [employer] Work Phone: [facility] 03-22-2024 14:44-0400 Body weight 85.68 kg Ramya Becker [employer] Work Phone: [facility] 03-22-2024 14:44-0400 Diastolic blood pressure 79 mm[Hg] Ramya Becker [employer] Work Phone: [facility] Comment on above: advise pt will most likely need rechecke d, wrote 'recheck BP' on [facility] 03-22-2024 14:44-0400 Heart rate 81 /min Ramya Becker [employer] Work Phone: [facility] 03-22-2024 14:44-0400 Respiratory rate 12 /min Ramya Becker [employer] Work Phone: [facility] 03-22-2024 14:44-0400 SaO2% (BldA) [Mass fraction] 96 % Ramya Becker [employer] Work Phone: [facility] 03-22-2024 14:44-0400 Systolic blood pressure 173 mm[Hg] Ramyapaulo Becker [employer] Work Phone: [facility] Comment on above: advise pt will most likely need rechecke d, wrote 'recheck BP' on [employer] 03-15-2024 14:00-0400 Diastolic blood pressure 75 mm[Hg] Flakito Yepez MD Work Phone: [facility] 03-15-2024 14:00-0400 Heart rate 62 /min Flakito Yepez MD Work Phone: [facility] 03-15-2024 14:00-0400 Respiratory rate 20 /min Flakito Yepez MD Work Phone: [facility] 03-15-2024 14:00-0400 SaO2% (BldA) [Mass fraction] 98 % Flakito Yepez MD Work Phone: [facility] 03-15-2024 14:00-0400 Systolic blood pressure 136 mm[Hg] Flakito Yepez MD Work Phone: [facility] 03-15-2024 13:33-0400 Body temperature 97.81 [degF] Flakito Yepez MD Work Phone: [facility] 03-15-2024 09:36-0400 Body height 160 cm Flakito Yepez MD Work Phone: [facility] 03-15-2024 09:36-0400 Body mass index (BMI) [Ratio] 33.27 kg/m2 Flakito Yepez MD Work Phone: [facility] 03-15-2024 09:36-0400 Body weight 85.19 kg Flakito Yepez MD Work Phone: [facility] 02-21-2024 13:12-0400 Body height 160.8 cm Flakito Yepez MD Work Phone: [facility] 02-21-2024 13:12-0400 Body mass index (BMI) [Ratio] 32.81 kg/m2 Flakito Yepez MD Work Phone: [facility] 02-21-2024 13:12-0400 Body temperature 97.2 [degF] Flakito Yepez MD Work Phone: [facility] 02-21-2024 13:12-0400 Body weight 84.82 kg Flakito Yepez MD Work Phone: [facility] 02-21-2024 13:12-0400 Diastolic blood pressure 63 mm[Hg] Flakito Yepez MD Work Phone: [facility] 02-21-2024 13:12-0400 Heart rate 68 /min Flakito Yepez MD Work Phone: 0(988)432-096843 [address] 02-21-2024 13:12-0400 Respiratory rate 18 /min Flakito Yepez MD Work Phone: [facility] 02-21-2024 13:12-0400 SaO2% (BldA) [Mass fraction] 98 % Flakito Yepez MD Work Phone: [facility] 02-21-2024 13:12-0400 Systolic blood pressure 146 mm[Hg] Flakito Yepez MD Work Phone: [facility] 02-07-2024 13:30-0400 Body height 160.6 cm Flakito Yepez MD Work Phone: [facility] 02-07-2024 13:30-0400 Body mass index (BMI) [Ratio] 32.78 kg/m2 Flakito Yepez MD Work Phone: [facility] 02-07-2024 13:30-0400 Body temperature 97.81 [degF] Flakito Yepez MD Work Phone: [facility] 02-07-2024 13:30-0400 Body weight 84.55 kg Flakito Yepez MD Work Phone: [facility] 02-07-2024 13:30-0400 Diastolic blood pressure 81 mm[Hg] Flakito Yepez MD Work Phone: [facility] 02-07-2024 13:30-0400 Heart rate 67 /min Flakito Yepez MD Work Phone: [facility] 02-07-2024 13:30-0400 Respiratory rate 18 /min Flakito Yepez MD Work Phone: [facility] 02-07-2024 13:30-0400 SaO2% (BldA) [Mass fraction] 96 % Flakito Yepez MD Work Phone: [facility] 02-07-2024 13:30-0400 Systolic blood pressure 179 mm[Hg] Flakito Yepez MD Work Phone: [facility] 11-01-2023 10:54-0500 Body height 160 cm Flakito Yepez MD Work Phone: [facility] Comment on above: 07/2911-01-2023 10:54-0500 Body mass index (BMI) [Ratio] 33.42 kg/m2 Flakito Yepez MD Work Phone: [facility] 11-01-2023 10:54-0500 Body temperature 97.5 [degF] Flakito Yepez MD Work Phone: [facility] 11-01-2023 10:54-0500 Body weight 85.55 kg Flakito Yepez MD Work Phone: [facility] 11-01-2023 10:54-0500 Diastolic blood pressure 65 mm[Hg] Flakito Yepez MD Work Phone: [facility] 11-01-2023 10:54-0500 Heart rate 57 /min Flakito Yepez MD Work Phone: [facility] 11-01-2023 10:54-0500 Respiratory rate 16 /min Flakito Yepez MD Work Phone: [facility] 11-01-2023 10:54-0500 SaO2% (BldA) [Mass fraction] 99 % Flakito Yepez MD Work Phone: [facility] 11-01-2023 10:54-0500 Systolic blood pressure 153 mm[Hg] Flakito Yepez MD Work Phone: [facility] 07-29-2023 08:24-0400 Body height 160 cm Flakito Yepez MD Work Phone: [facility] 07-29-2023 08:24-0400 Body mass index (BMI) [Ratio] 32.53 kg/m2 Flakito Yepez MD Work Phone: [facility] 07-29-2023 08:24-0400 Body temperature 97.7 [degF] Flakito Yepez MD Work Phone: [facility] 07-29-2023 08:24-0400 Body weight 83.28 kg Flakito Yepez MD Work Phone: [facility] 07-29-2023 08:24-0400 Diastolic blood pressure 68 mm[Hg] Flakito Yepez MD Work Phone: [facility] [facility] 07-29-2023 08:24-0400 Heart rate 62 /min Flakito Yepez MD Work Phone: [facility] 07-29-2023 08:24-0400 SaO2% (BldA) [Mass fraction] 99 % Flakito Yepez MD Work Phone: [facility] 07-29-2023 08:24-0400 Systolic blood pressure 145 mm[Hg] Flakito Yepez MD Work Phone: [facility] 07-19-2023 12:33-0400 Body mass index (BMI) [Ratio] 32.03 kg/m2 Flakito Yepez MD Work Phone: [facility] 07-19-2023 12:33-0400 Body temperature 98.1 [degF] Flakito Yepez MD Work Phone: [facility] 07-19-2023 12:33-0400 Body weight 82.01 kg Flakito Yepez MD Work Phone: [facility] 07-19-2023 12:33-0400 Diastolic blood pressure 61 mm[Hg] Flakito Yeepz MD Work Phone: [facility] 07-19-2023 12:33-0400 Heart rate 66 /min Flakito Yepez MD Work Phone: [facility] 07-19-2023 12:33-0400 Respiratory rate 16 /min Flakito Yepez MD Work Phone: [facility] 07-19-2023 12:33-0400 SaO2% (BldA) [Mass fraction] 100 % Flakito Yepez MD Work Phone: [facility] 07-19-2023 12:33-0400 Systolic blood pressure 143 mm[Hg] Flakito Yepez MD Work Phone: [facility] 07-15-2023 12:38-0400 Body mass index (BMI) [Ratio] 31.96 kg/m2 [facility]Onc Nurse [place] Work Phone: [facility] 07-15-2023 12:38-0400 Body temperature 98.1 [degF] [facility] [place] Work Phone: [facility] 07-15-2023 12:38-0400 Body weight 81.83 kg [facility]Onc Nurse [place] Work Phone: [facility] 07-15-2023 12:38-0400 Diastolic blood pressure 63 mm[Hg] [facility] Nurse [place] Work Phone: [facility] 07-15-2023 12:38-0400 Heart rate 67 /min [facility]Onc Nurse [place] Work Phone: [facility] 07-15-2023 12:38-0400 Respiratory rate 20 /min [facility]c Nurse [place] Work Phone: [facility] 07-15-2023 12:38-0400 SaO2% (BldA) [Mass fraction] 97 % [facility]Onc Nurse [place] Work Phone: [facility] 07-15-2023 12:38-0400 Systolic blood pressure 136 mm[Hg] [facility] [place] Work Phone: [facility] 07-10-2023 07:35-0400 Body temperature 98.2 [degF] Flakito Yepez MD Work Phone: [facility] 07-10-2023 07:35-0400 Diastolic blood pressure 63 mm[Hg] Flakito Yepez MD Work Phone: [facility] 07-10-2023 07:35-0400 Heart rate 70 /min Flakito Yepez MD Work Phone: [facility] 07-10-2023 07:35-0400 Respiratory rate 17 /min Flakito Yepez MD Work Phone: [facility] 07-10-2023 07:35-0400 SaO2% (BldA) [Mass fraction] 94 % Flakito Yepez MD Work Phone: [facility] 07-10-2023 07:35-0400 Systolic blood pressure 146 mm[Hg] Flakito Yepez MD Work Phone: [facility] 07-08-2023 16:00-0400 Body height 160 cm Flakito Yepez MD Work Phone: [facility] 07-08-2023 16:00-0400 Body mass index (BMI) [Ratio] 32.77 kg/m2 Flakito Yepez MD Work Phone: [facility] 07-08-2023 16:00-0400 Body weight 83.92 kg Flakito Yepez MD Work Phone: [facility] 06-21-2023 08:19-0400 Body height 161.5 cm Flakito Yepez MD Work Phone: [facility] 06-21-2023 08:19-0400 Body mass index (BMI) [Ratio] 31.09 kg/m2 Flakito Yepez MD Work Phone: [facility] 06-21-2023 08:19-0400 Body temperature 97.81 [degF] Flakito Yepez MD Work Phone: [facility] 06-21-2023 08:19-0400 Body weight 81.1 kg Flakito Yepez MD Work Phone: [facility] 06-21-2023 08:19-0400 Diastolic blood pressure 78 mm[Hg] Flakito Yepez MD Work Phone: [facility] 06-21-2023 08:19-0400 Heart rate 65 /min Flakito Yepez MD Work Phone: [facility] 06-21-2023 08:19-0400 Respiratory rate 20 /min Flakito Yepez MD Work Phone: [facility] 06-21-2023 08:19-0400 SaO2% (BldA) [Mass fraction] 97 % Flakito Yepez MD Work Phone: [facility] 06-21-2023 08:19-0400 Systolic blood pressure 150 mm[Hg] Flakito Yepez MD Work Phone: [facility] Encounters Encounter Date Encounter Type Care Provider Facility Start: 09-30-2025 End: 09-30-2025 ambulatory [facility] Facility:[facility] Start: 07-09-2025 End: 07-09-2025 Office outpatient visit 25 minutes Pillo Ledbetter MD Work Phone: Department of Gynecologic Oncology Comment on above: Vulvar mass (Primary Dx); Malignant neoplasm of vulva Start: 07-09-2025 ambulatory PILLO Mcintosh y:[facility] Start: 07-03-2025 End: 07-03-2025 Subsequent hospital visit by physician Pillo Ledbetter MD Work Phone: Imaging at [facility] Comment on above: Arrived Start: 07-03-2025 ambulatory PILLO Mcintosh y:[facility] Start: 04-10-[address] Jerson Jj DO [facility] Start: 04-10-2025 End: 04-10-[address] Jacob Maravilla MD -[facility] Work Phone: Start: 04-10-2025 End: 04-10-2025 ambulatory No Primary Care Physician [facility] Work Phone: Start: 04-02-2025 End: 04-02-2025 Office outpatient visit 25 minutes Pillo Ledbetter MD Work Phone: Department of Gynecologic Oncology Comment on above: Malignant neoplasm o f vulva (Primary Dx) Start: 04-02-2025 ambulatory PILLO Mcintosh y:[facility] Start: 03-28-2025 End: 03-28-[address] Jerson Jj DO [facility] Work Phone: Start: 03-28-2025 End: 03-28-2025 ambulatory Jerson Jj Facility:[facility] Start: 03-27-2025 ambulatory SHEILA Mccord ility:[facility] Start: 03-27-2025 End: 03-27-2025 Subsequent hospital visit by physician Sheila Henderson [employer] Work Phone: PET Scan [facility] [place] Comment on above: Arrived Start: 01-16-2025 ambulatory SHEILA Mccord ility:[facility] Start: 01-16-2025 End: 01-16-2025 Subsequent hospital visit by physician Sheila Henderson [employer] Work Phone: Imaging [facility] Comment on above: Arrived Start: 01-01-2025 ambulatory PILLO LEDBETTER Facilit y:[facility] Start: 01-01-2025 End: 01-01-2025 Office outpatient visit 25 minutes Pillo Ledbetter MD Work Phone: Department of Gynecologic Oncology Comment on above: Malignant neoplasm o f vulva (Primary Dx); History of cancer of vulva Start: 01-01-2025 ambulatory PILLO LEDBETTER Facilit y:[facility] Start: 12-26-2024 ambulatory SHEILA HENDERSON Fac ility:[facility] Start: 12-26-2024 End: 12-26-2024 Subsequent hospital visit by physician Sheila Henderson HOME E[employer]OMIST[employer]IC[employer] Work Phone: PET Scan [facility] [place] Comment on above: Arrived Start: 12-07-2024 ambulatory No Primary Car e Physician Facility:[facility] Start: 11-13-2024 End: 11-13-2024 ambulatory [facility] Facility:[facility] Start: 10-30-2024 End: 10-30-2024 Office outpatient visit 15 minutes Pillo Ledbetter MD Work Phone: Department of Gynecologic Oncology Comment on above: Vulvar cancer (Prima ry Dx) Start: 10-30-2024 ambulatory PILLO LEDBETTER Facilit y:[facility] Start: 10-22-2024 End: 10-22-2024 ambulatory Jerson [place] Facility:[facility] Start: 10-08-2024 End: 10-08-2024 [facility] Start: 08-02-2024 End: 08-02-2024 Office consultation new/estab patient 80 min Yanely Nascimento MD Work Phone: Department of Radiation Oncology Comment on above: Malignant neoplasm o f vulva (Primary Dx) Start: 07-17-2024 End: 07-17-2024 Postop follow up visit related to original px Pillo Ledbetter MD Work Phone: Department of Gynecologic Oncology Comment on above: Vulvar mass (Primary Dx) Start: 06-29-2024 End: 06-29-2024 Subsequent hospital visit by physician Pillo Ledbetter MD Work Phone: [facility] Comment on above: H/O vulvectomy Start: 06-08-2024 End: 06-08-2024 Subsequent hospital visit by physician Pillo Ledbetter MD Work Phone: [facility] Comment on above: Arrived Start: 05-15-2024 End: 05-15-2024 Office outpatient visit 40 minutes Flakito Yepez MD Work Phone: Department of Gynecologic Oncology Comment on above: History of cancer of vulva (Primary Dx); History of vulvar dysplasia Start: 04-03-2024 End: 04-03-2024 Postop follow up visit related to original px Flakito Yepez MD Work Phone: Department of Gynecologic Oncology Comment on above: 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) Start: 03-22-2024 End: 03-22-2024 Postop follow up visit related to original px Ramya Becker HOME ECONOMIST[employer]RN MEDICARE Work Phone: Department of Gynecologic Oncology Comment on above: 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) Start: 03-15-2024 End: 03-15-2024 Subsequent hospital visit by physician Flakito Yepez MD Work Phone: Perioperative Services at [facility] Comment on above: ENID III (vulvar intr aepithelial neoplasia III) Start: 02-21-2024 End: 02-21-2024 Office outpatient visit 25 minutes Flakito Yepez MD Work Phone: Department of Gynecologic Oncology Comment on above: 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); Preop testing Start: 02-21-2024 End: 02-21-2024 Patient encounter status Flakito Yepez MD Work Phone: [facility] Start: 02-07-2024 End: 02-07-2024 Clinical Support Encounter Flakito Yepez MD Work Phone: [place] [facility] Comment on above: Malignant neoplasm o f vulva (Primary Dx); History of cancer of vulva Start: 02-07-2024 End: 02-07-2024 Office outpatient visit 25 minutes Flakito Yepez MD Work Phone: Department of Gynecologic Oncology Comment on above: Vulvar lesion (Prima ry Dx); History of cancer of vulva Start: 11-01-2023 End: 11-01-2023 Office outpatient visit 15 minutes Flakito Yepez MD Work Phone: Department of Gynecologic Oncology Comment on above: History of cancer of vulva (Primary Dx) Start: 08-09-2023 End: 08-09-2023 Clinical Support Encounter Flakito Yepez MD Work Phone: [place] [facility] Chem[facility] Comment on above: Malignant neoplasm o f vulva (Primary Dx) Start: 07-29-2023 End: 07-29-2023 Postop follow up visit related to original px Flakito Yepez MD Work Phone: Department of Gynecologic Oncology Comment on above: Surgery follow-up (P rimary Dx); H/O radical vulvectomy, bilateral I/F LND; Malignant neoplasm of vulva Start: 07-19-2023 End: 07-19-2023 Postop follow up visit related to original px Flakito Yepez MD Work Phone: Department of Gynecologic Oncology Comment on above: Surgery follow-up (P rimary Dx); Malignant neoplasm of vulva Start: 07-15-2023 End: 07-15-2023 Clinical Support Encounter Flakito Yepez MD Work Phone: Department of Gynecologic Oncology Comment on above: Vulvar mass (Primary Dx) Start: 07-08-2023 End: 07-10-2023 Evaluation and management of inpatient Flakito Yepez MD Work Phone: [facility] Comment on above: Malignant neoplasm o f vulva Start: 06-22-2023 ambulatory Christen Navarro [facility] Work Phone: [facility] [place] Start: 06-22-2023 Patient encounter procedure Christen Navarro RPH Work Phone: [facility] [place] Start: 06-21-2023 End: 06-21-2023 Office outpatient new 60 minutes Flakito Yepez MD Work Phone: Department of Gynecologic Oncology Comment on above: Malignant neoplasm o f vulva (Primary Dx); Vulvar mass Start: 05-02-2017 End: 05-06-2017 Ambulatory [facility] Procedures Date Procedure Procedure Detail Performing Clinician Start: 07-03-2025 Glucose measurement, blood Pillo Ledbetter MD Work Phone: Start: 04-10-2025 Estimated creatinine clearance No Primary Care Physician Start: 04-10-2025 Serum inorganic phos phate measurement No Primary Care Physician Start: 03-27-[address] attenuation skull base mid-thigh Sheila Salvador Santiago HOME ECONOMIST[employer]RN MEDICARE Work Phone: Start: 03-27-2025 Glucose measurement, blood Sheila Salvador Santiago HOME ECONOMIST[employer]RN MEDICARE Work Phone: Start: 01-16-2025 Us soft tissue head & neck real time imge docm Sheila Salvador Santiago HOME ECONOMIST[employer]RN MEDICARE Work Phone: Start: 12-26-2024 Glucose measurement, blood Sheila Salvador Santiago HOME ECONOMIST[employer]RN MEDICARE Work Phone: Start: 09-17-2024 Measurement of renal function No Primary Care Physician Comment on above: GFR Calc Start: 06-29-2024 CONTINUOUS CARDIAC MONITORING STRIP Other Other Start: 06-29-2024 CONTINUOUS CARDIAC MONITORING STRIP Other Other Start: 06-08-2024 Glucose measurement, blood Pillo Ledbetter MD Work Phone: Start: 03-15-2024 CONTINUOUS CARDIAC MONITORING STRIP Other Other Start: 02-07-2024 Biopsy vulva/perineu m 1 lesion spx Flakito Yepez MD Work Phone: Start: 07-10-2023 Assay of magnesium Hilario Lincoln MD Work Phone: Start: 07-10-2023 CBC AND ELECTRONIC DIFF Yara Lincoln MD Work Phone: Start: 07-10-2023 Complete blood count with white cell differential, automated Yara Lincoln MD Work Phone: Start: 07-09-2023 Assay of magnesium Hilario Lincoln MD Work Phone: Start: 07-09-2023 CBC AND ELECTRONIC DIFF Yara Lincoln MD Work Phone: Start: 07-09-2023 Complete blood count with white cell differential, automated Yara Lincoln MD Work Phone: Start: 07-08-2023 H/O: surgery H/O radical vulvectomy, bilateral I/F LND Flakito Yepez MD Work Phone: Start: 07-08-2023 CONTINUOUS CARDIAC MONITORING STRIP Other Other Start: 07-08-2023 ABORH TYPE RECONFIRMATION Pradip BULLOCK Start: 07-08-2023 CONTINUOUS CARDIAC MONITORING STRIP Other Other H/O: surgery H/O radical vulvectomy, bilateral I/F LND Flakito Yepez MD Work Phone: H/O: surgery H/O vulvectomy Pillo jim MD Work Phone: Plan of Treatment Date Care Activity Detail Author Start: 2038 RSV VACCINE (1 - 1-dose 75+ series) RSV VACCINE (1 - 1-dose 75+ series) [facility] Start: 01-09-2026 End: 07-09-2026 PT Skull base to mid-thigh NUC PET HEAD TO THIGH Imaging Routine Malignant neoplasm of vulva Expected: 01/09/2026, Expires: 07/09/2026 [facility] Comment on above: Expected: 01/09/2026, Expires: Start: 01-09-2026 End: 01-09-2026 Patient encounter procedure 01/09/2026 8:00 AM EST Appointment Imaging [facility] [address] [place] [address] Pillo Ledbetter MD [address] [place] [phone] Imaging [facility] Start: 10-22-2025 End: 10-22-2025 Patient encounter procedure 10/22/2025 2:30 PM EST Office Visit Department of Gynecologic Oncology [address] [place] [phone] Pillo Ledbetter MD [address] [place] [address] [place] [phone] Department of Gynecologic Oncology Start: 07-22-2025 COVID-19 VACCINE ( season) COVID-19 VACCINE ( season) [facility] Start: 07-22-2025 Influenza vaccination [facility] Start: 07-09-2025 End: 07-09-2025 Patient encounter procedure 07/09/2025 2:30 PM EDT Office Visit Department of Gynecologic Oncology [address] [place] [address] [place] [phone] Pillo Ledbetter MD [address] [place] [address] [place] [phone] Department of Gynecologic Oncology Start: 07-03-2025 End: 04-02-2026 PT Skull base to mid-thigh [facility] Comment on above: Expected: 07/03/2025, Expires: 1 Occurrences starti ng 07/03/2025 until 07/03/2025 Start: 07-03-2025 End: 07-03-2025 Patient encounter procedure 07/03/2025 8:20 AM EDT Appointment Imaging at The [address] [place] [id number] Pillo Ledbetter MD [address] [place] [address] [place] [phone] Imaging at [facility] Start: 04-10-2025 [facility] Start: 04-02-2025 End: 04-02-2025 Patient encounter procedure 04/02/2025 12:00 PM EDT Office Visit Department of Gynecologic Oncology [address] [place] [phone] Pillo Ledbetter MD [address] [place] [address] [place] [phone] Department of Gynecologic Oncology Start: 03-27-2025 End: 03-27-2025 Patient encounter procedure 03/27/2025 9:00 AM EDT Appointment PET Scan [facility] [address] [place] [address] Sheila Henderson, HOME ECONOMIST-RN MEDICARE [address] [place] [phone] PET Scan [facility] Start: 01-16-2025 End: 01-16-2025 Patient encounter procedure 01/16/2025 1:00 PM EST Appointment Imaging [facility] [address] [facility] [place] [address] [place] [address] Sheila Henderson, HOME ECONOMIST-RN MEDICARE [address] [place] [address] [place] [phone] [facility] Start: 01-01-2025 End: 01-01-2026 PT Skull base to mid-thigh NUC PET HEAD TO THIGH Imaging Routine History of cancer of vulva Expected: 01/01/2025, Expires: 01/01/2026 [facility] Comment on above: Expected: 01/01/2025, Expires: Start: 01-01-2025 End: 01-01-2026 US Thyroid gland US THYROID Imaging Routine Malignant neoplasm of vulva History of cancer of vulva Expected: 01/01/2025, Expires: 01/01/2026 [facility] Comment on above: Expected: 01/01/2025, Expires: Start: 01-01-2025 End: 01-01-2025 Patient encounter procedure 01/01/2025 11:30 AM EST Office Visit Department of Gynecologic Oncology [address] [place] [address] [place] [phone] [place] [address] [place] [address] [place] [phone] Department of Gynecologic Oncology Start: 12-26-2024 End: 12-26-2024 Patient encounter procedure 12/26/2024 12:00 PM EST Appointment PET Scan [facility] [place] [address] [place] [address] Sheila Henderson, HOME ECONOMIST-RN MEDICARE [address] [place] [phone] PET Scan [facility] [place] Start: 10-30-2024 End: 10-30-2024 Patient encounter procedure 10/30/2024 11:30 AM EST Office Visit Department of Gynecologic Oncology [address] [place] [phone] [place] [address] [place] [address] [place] [phone] Department of Gynecologic Oncology Start: 08-27-2024 Venous catheter care management [facility] Start: 07-22-2024 COVID-19 VACCINE ( season) COVID-19 VACCINE ( season) [facility] Start: 07-22-2024 COVID-19 VACCINE ( season) COVID-19 VACCINE ( season) [facility] Start: 07-22-2024 Influenza vaccination [facility] Start: 07-17-2024 End: 07-17-2024 Patient encounter procedure 07/17/2024 2:30 PM EDT Office Visit Department of Gynecologic Oncology [address] [place] [phone] [place] [address] [place] [address] [place] [phone] Department of Gynecologic Oncology Start: 06-29-2024 End: 06-29-2024 Admission to same day surgery center 06/29/2024 11:00 AM EDT - 06/29/2024 1:30 PM EDT Surgery [facility] [address] [place] [address], [place] [address] Pillo Ledbetter MD [address] [place] [phone] VULVECTOMY RADICAL [facility]CT [facility] Comment on above: VULVECTOMY RADICAL Start: 06-29-2024 Subsequent hospital visit by physician 06/29/2024 11:00 AM EDT Hospital Encounter [facility] [address] [place] [address], [place] [phone] Pillo Ledbetter MD [address] [place] [phone] Vulvar mass [facility] Comment on above: Vulvar mass Start: 06-29-2024 End: 06-29-2024 Vulvectomy radical partial VULVECTOMY RADICAL Vulvar mass History of cancer of vulva 06/29/2024 11:00 AM EDT [facility] Start: 06-15-2024 End: 06-15-2024 Anesthesia consultation 06/15/2024 8:00 AM EDT Pre-Operative Nurse Assessment [facility] [address] [place] [address], [place] [phone] [facility] Start: 06-08-2024 Subsequent hospital visit by physician 06/08/2024 11:30 AM EDT Hospital Encounter [facility] [address] [place] [address], [place] [address] Pillo Ledbetter MD [address] [place] [phone] [facility] Start: 05-15-2024 End: 05-15-2024 Patient encounter procedure 05/15/2024 2:30 PM EDT Office Visit Department of Gynecologic Oncology [address] [place] [phone] Flakito Yepez MD [address] [place] [phone] Department of Gynecologic Oncology Start: 04-03-2024 End: 04-03-2024 Patient encounter procedure 04/03/2024 3:00 PM EDT Office Visit Department of Gynecologic Oncology [address] [place] [phone] Flakito Yepez MD [address] [place] [phone] Department of Gynecologic Oncology Start: 03-15-2024 Subsequent hospital visit by physician 03/15/2024 Hospital Encounter Perioperative Services at The [address] [place] [address] Flakito Yepez MD [address] [place] [phone] ENID III (vulvar intraepithelial neoplasia III) [facility] at [facility] Comment on above: ENID III (vulvar intraepithelial neoplasi a III) Start: 03-15-2024 End: 03-15-2024 Vulvectomy simple partial VULVECTOMY SIMPLE PARTIAL ENID III (vulvar intraepithelial neoplasia III) 03/15/2024 11:44 AM EDT [facility] Start: 03-05-2024 End: 03-05-2024 Anesthesia consultation 03/05/2024 3:00 PM EDT Pre-Operative Nurse Assessment [facility] [place] [address] [place] [id number] Flakito Yepez MD [address] [place] [phone] [facility] Start: 02-07-2024 End: 02-07-2024 Patient encounter procedure Department of Gynecologic Oncology Start: 11-01-2023 End: 11-01-2023 Patient encounter procedure 11/01/2023 10:15 AM EST Office Visit Department of Gynecologic Oncology [address] [place] [phone] Flakito Yepez MD [address] [place] [phone] Department of Gynecologic Oncology Start: 2023 RSV VACCINE (1 - 1-dose 60+ series) RSV VACCINE (1 - 1-dose 60+ series) [facility] Start: 10-11-2023 End: 10-11-2023 Clinical Support Encounter 10/11/2023 3:30 PM EST Clinical Support Encounter [place] [facility] [address] [place] [address] [place] [facility] Start: 08-09-2023 End: 08-09-2023 Patient encounter procedure Department of Gynecologic Oncology Start: 08-02-2023 End: 08-02-2023 Patient encounter procedure 08/02/2023 9:15 AM EDT Office Visit Department of Gynecologic Oncology [address] [place] [address] Flakito Yepez MD [address] [place] [address] Department of Gynecologic Oncology Start: 07-22-2023 COVID-19 VACCINE ( season) COVID-19 VACCINE ( season) [facility] Start: 07-22-2023 Influenza vaccination INFLUENZA VACCINE (#1) [facility] Start: 07-08-2023 End: 07-08-2023 Evaluation and management of inpatient [facility] Comment on above: Malignant neoplasm of vulva VULVECTOMY RADICAL W / INGUINOFEMORAL LYMPHADENECTOMY Start: 07-08-2023 End: 07-08-2023 Vulvectomy rad prtl uni inguinofem lmphadectomy VULVECTOMY RADICAL W/ INGUINOFEMORAL LYMPHADENECTOMY Malignant neoplasm of vulva 07/08/2023 7:30 AM EDT [facility] Start: 07-04-2023 End: 07-04-2023 Anesthesia consultation 07/04/2023 3:00 PM EDT Pre-Operative Nurse Assessment [facility] [address] [place] [id number] Flakito Yepez MD [address] [place] [id number] [facility] Start: 06-28-2023 End: 06-21-2024 TYPE AND SCREEN - PREADMISSION TYPE AND SCREEN - PREADMISSION Blood Bank Routine Malignant neoplasm of vulva Expected: 06/28/2023, Expires: 06/21/2024 [facility] Comment on above: Expected: 06/28/2023, Expires: Start: 2013 Pneumococcal vaccination PNEUMOCOCCAL VACCINE SERIES (1 of 1 - PCV) [facility] Start: 2013 Zoster vaccine hzv live for subcutaneous use ZOSTER (SHINGLES) VACCINE (1 of 2) [facility] Start: 2008 Screening for malignant neoplasm of colon COLORECTAL CANCER SCREENING DISCUSSION [facility] Start: 2003 Lipid panel LIPID SCREENING [facility] Start: 2003 Screening for malignant neoplasm of breast MAMMOGRAM SCREENING DISCUSSION [facility] Start: 1984 Screening for malignant neoplasm of cervix CERVICAL CANCER SCREENING DISCUSSION [facility] Start: 1978 HIV screening HIV SCREENING DISCUSSION [facility] Start: 1969 PNEUMOCOCCAL VACCINE SERIES (1 - PCV) PNEUMOCOCCAL VACCINE SERIES (1 - PCV) [facility] Start: 04-12-1964 COVID-19 VACCINE (#1) COVID-19 VACCINE (#1) [facility] Start: 1965 Hepatitis C screening HEPATITIS C VIRUS SCREENING [facility] End: 06-08-2024 PT Unspecified body region [facility] Work Phone: Comment on above: 1 Occurrences starting 06/08/2024 until 06/08/2024 End: 12-26-2024 PT Unspecified body region [facility] Work Phone: Comment on above: 1 Occurrences starting 12/26/2024 until 12/26/2024 SURG PATH REQUEST [facility] Comment on above: Release Upon Ordering for 1 Occurrences starting 07/08/2023 SURG PATH REQUEST SURG PATH REQU EST Surg Path Routine Vulvar lesion 02/07/2024 2:23 PM EDT [facility] SURG PATH REQUEST [facility] Comment on above: Release Upon Ordering for 1 Occurrences starting 03/15/2024 SURG PATH REQUEST [facility] Work Phone: Comment on above: Release Upon Ordering for 1 Occurrences starting 06/29/2024 TYPE AND SCREEN - PREADMISSION TYPE AND SCREEN - PREADMISSION Blood Bank Routine Malignant neoplasm of vulva 06/21/2023 11:56 AM EDT [facility] Vulvectomy simple partial VULVECTOMY SIMPLE PARTIAL ENID III (vulvar intraepithelial neoplasia III) [facility] Immunizations Immunization Date Immunization Notes Care Provider Fa cility 02-07-2024 Human Papillomavirus 9-valent vaccine Flakito Yepez MD Work Phone: [facility] 10-11-2023 Human Papillomavirus 9-valent vaccine Flakito Yepez MD Work Phone: [facility] 08-09-2023 Human Papillomavirus 9-valent vaccine Mel Mcdonald RN [facility] 06-22-2023 HPV, unspecified formulation Christen Navarro [facility] Work Phone: [facility] Work Phone: 06-21-2023 HPV, unspecified formulation Flakito Yepez MD Work Phone: [facility] Work Phone: Payers Date Payer Category Payer Self-pay 2024 Managed Care (unspecified) MMO [id number] 2024 Unknown [employer] [place] [id number] 2024-Present [address] [place] [address] [id number] 2024 Unknown [id number] 2015 Unknown [id number] 1963 Unknown [id number]. 594 1963 Unknown [id number] 2.840.1.578421.3.579.2. 594 1963 Unknown [id number] 2.840.1.650107.3.579.2. 594 1963 Unknown [id number] 2.840.1.343289.3.579.2. 594 1963 Unknown [id number] 2.840.1.226082.3.579.2. 594 1963 Unknown [id number] 2.840.1.895458.3.579.2. 594 1963 Unknown [id number] 2.840.1.768444.3.579.2. 594 1963 Unknown [id number] 2.16840.1.297900.3.579.2. 594 1963 Unknown [id number] 2.16840.1.808899.3.579.2. 594 Unknown [id number] 2.16840.1.933880.3.579.2. 462 Unknown [id number] 2.16840.1.802043.3.579.2. 462 Unknown [id number] 2.16.840.1.441074.3.579.2. 462 Unknown [id number] 2.16.840.1.962747.3.579.2. 462 Unknown [id number] 2.16840.1.852046.3.579.2. 462 Unknown [id number] 2.16840.1.414170.3.579.2. 462 Unknown [id number] 2.16840.1.958420.3.579.2. 462 Unknown [id number] 2.840.1.233734.3.579.2. 462 Social History Date Type Detail Facility [facility]: [facility] End: 07-08-2023 History of tobacco use Cigarette Smoker [facility] Start: 06-21-2023 End: 07-09-2025 Cigarettes smoked current (pack per day) - Reported 0.3 [facility] Start: 06-21-2023 End: 01-01-2025 Tobacco use and exposure Smokeless tobacco non-user [facility] Start: 06-21-2023 End: 10-30-2024 Alcohol intake Current drinker of alcohol (finding) [facility] Start: 06-21-2023 End: 07-09-2025 Tobacco use panel [facility] Adolescent depressio n screening assessment 0 [facility] Start: 06-21-2023 Tobacco Comment Trying to quit ; currently smoking 1 pack over about 3 dayso [facility] Start: 06-21-2023 Alcohol Comment "once in a azra e best"; holidays [facility] Start: 1965 Sex Assigned At Not on file [facility] Start: 06-28-2023 End: 07-08-2023 Exposure to SARS-CoV-2 (event) Not sure [facility] Start: 02-07-2024 End: 01-01-2025 Tobacco smoking status NHIS Ex-smoker [facility] End: 07-08-2023 History of tobacco use Current smoker [facility] Start: 12-19-2024 Gender identity Identifies as female gender (finding) [facility] Start: 12-19-2024 Sexual orientation Heterosexual (fin ding) [facility] Start: 01-01-2025 End: 07-09-2025 Alcoholic beverage intake Ex-drinker (finding) [facility] Start: 06-06-2023 Sex Female (finding) [facility] Start: 10-27-2019 Tobacco Use Tobacco Use [facility] Start: 1965 Sex Assigned At Female W [facility] Medical Equipment Procedure Code Equipment Code Equipment Origin al Text Equipment Identifier Dates Insertion, vascular access port ([id number]) Vascular port/catheter [id number] [facility] Start: 08-17-2024 Functional Status Date Assessment Result Facility 06-29-2024 Are you deaf, or do you have serious difficulty hearing No 06/29/2024 2:05 PM Richard Blanton, CARIDAD No [facility] 06-29-2024 Are you blind, or do you have serious difficulty seeing, even when wearing glasses No 06/29/2024 2:05 PM Richard Blanton, CARIDAD No [facility] 06-29-2024 Do you have serious difficulty walking or climbing stairs No 06/29/2024 2:05 PM Richard Blanton, RN No [facility] 06-29-2024 Do you have difficul ty dressing or bathing No 06/29/2024 2:05 PM Richard Blanton, CARIDAD No [facility] 06-29-2024 Because of a physica l, mental, or emotional condition, do you have difficulty doing errands alone such as visiting a physician's office or shopping No 06/29/2024 2:05 PM Richard Blanton, RN No [facility] Mental Status Date Assessment Result Facility 06-29-2024 Because of a physica l, mental, or emotional condition, do you have serious difficulty concentrating, remembering, or making decisions No 06/29/2024 2:05 PM EDT Richard De Santiago, RN No [facility] Clinical Notes 06-21-2023 to 07-09-2025 Pillo Ledbetter MD - 07/09/2025 2:30 PM Parvez Ortiz RN - 04/02/2025 12:00 PM Madeline Guardado MD - 04/02/2025 12:00 PM EDT Note Date & Type Note Facility 07-09-2025 History of Present illness Narrative Chief Complaint Patient presents with Follow-up History of Present Illness Patient Active Problem List Diagnosis Date Noted Malignant neoplasm of vulva 07/27/2024 Urethral bleeding 03/15/2024 Surgery follow-up - simple partial vulvectomy and biopsy of urethra 03/14/2024 ENID III (vulvar intraepithelial neoplasia III) 02/21/2024 Vulvar lesion 02/07/2024 Right vulva 7 o'clock adjacent to vaginal mucosa H/O radical vulvectomy, bilateral I/F LND 07/08/2023 Vulvar mass 06/21/2023 See note regarding vulvar carcinoma Obesity (BMI 30.0-34.9) 06/21/2023 History of cancer of vulva 06/20/2023 Referral Sara Fowler ([place], [place]). 05/19/2023: Vulvar bx 12 o'clock- Superficially invasive SCC arising in a background of high grade squamous intraepithelial lesion Vulvar bx 4 o'clock- HSIL, U-ENID Vulvar bx 9 o'clock- Negative Vulvar bx 3 o'clock- Negative [facility] path review pending. 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 She then underwent simple partial vulvectomy on 03/15/24 with positive margins. She underwent a resection of recurrent vulvar mass (R partial radical vulvectomy) on 06/29/24 completed her chemoRT on 09/21/24 at [place] 12/26/24: PET decreased metabolic activity of the right labial mass which may represent improving disease. Otherwise ROLA. Interim History Continues to do well. No new issues. No new medical problems. Past Medical History She has a past medical history of History of cancer, History of chemotherapy, History of radiation therapy, Migraine (1975), and Mixed stress and urge incontinence. Past Surgical History She has a past surgical history that includes hysterectomy (07/12/2015); bx vulva (05/19/2023); other surgical; bx vulva (09/09/2016); bx vulva (11/25/2016); bx endometrial (05/15/2015); vulvectomy simple partial; vulvectomy radical w/ inguinofemoral lymphadenectomy (Bilateral, 07/08/2023); excision/fulguration lesion urethra (Midline, 07/08/2023); vulvectomy simple partial (Right, 03/15/2024); excision/fulguration lesion urethra (Midline, 03/15/2024); and vulvectomy radical (N/A, 06/29/2024). Family History Family History Problem Relation Age of Onset Diabetes Mother Heart Disease - Other Father Breast Cancer Paternal Grandmother Ovarian Cancer Neg Hx Uterine Cancer Neg Hx Colorectal Cancer Neg Hx Social History Social History Socioeconomic History Marital status: Tobacco Use Smoking status: Former Current packs/day: 0.00 Types: Cigarettes Quit date: 07/08/2023 Years since quittin.0 Smokeless tobacco: Never Tobacco comments: Trying to quit; currently smoking 1 pack over about 3 dayso Vaping Use Vaping status: Never Used Substance and Sexual Activity Alcohol use: Not Currently Comment: "once in a blue best"; holidays Drug use: Never Sexual activity: Not Currently Partners: Male control/protection: Hysterectomy Other Topics Concern Occupational Exposure No Hobby Hazards No Social History Narrative 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 She does report a remote history of STIs. She denies a history of abnormal cervical cytology and reports her last cytologic examination was prior to hysterectomy and negative per her report. Health maintenance: Mammogram: has not had and declines (being set up with music professionals) Colonoscopy: has not had and declines BMI Body mass index is 34.82 kg/m . Wt Readings from Last 3 Encounters: 07/09/25 90.3 kg (199 lb) 04/02/25 87.6 kg (193 lb 3.2 oz) 01/01/25 85.4 kg (188 lb 4.8 oz) Review of Systems Constitutional: Negative for activity change, appetite change, chills, fatigue and fever. HENT: Negative for hearing loss and rhinorrhea. Eyes: Negative for visual disturbance. Respiratory: Negative for cough, chest tightness and shortness of breath. Cardiovascular: Negative for chest pain and palpitations. Gastrointestinal: Negative for abdominal pain, constipation, diarrhea, nausea and vomiting. Genitourinary: Positive for urgency. Negative for difficulty urinating, dysuria, genital sores, pelvic pain, vaginal bleeding and vaginal pain. Musculoskeletal: Negative for arthralgias and myalgias. Skin: Negative for rash. Neurological: Positive for numbness. Negative for weakness, light-headedness and headaches. Psychiatric/Behavioral: Negative for behavioral problems and confusion. Vitals: Blood pressure 187/77, pulse 65, temperature 97.7 F (36.5 C), temperature source Temporal, resp. rate 16, height 1.61 m (5' 3.39"), weight 90.3 kg (199 lb), SpO2 100%. Physical Exam Vitals and nursing note reviewed. Exam conducted with a coordinator mining products present. Constitutional: General: She is not in acute distress. Appearance: Normal appearance. She is normal weight. HENT: Head: Normocephalic. Eyes: Extraocular Movements: Extraocular movements intact. Pupils: Pupils are equal, round, and reactive to light. Cardiovascular: Rate and Rhythm: Normal rate and regular rhythm. Heart sounds: Normal heart sounds. No murmur heard. Pulmonary: Effort: Pulmonary effort is normal. No respiratory distress. Breath sounds: Normal breath sounds. No stridor. Abdominal: General: There is no distension. Palpations: There is no mass. Tenderness: There is no abdominal tenderness. Comments: No inguinofemoral LAD Genitourinary: Comments: External genitalia: R labia surgical scar, normal clitoris, urethral meatus, introitus, perineum, anus. Mildly tender over the midline pubic bone Internal genitalia: normal vagina, no appreciable lesions. no masses on bimanual examination. Musculoskeletal: Cervical back: Normal range of motion and neck supple. Right lower leg: No edema. Left lower leg: No edema. Lymphadenopathy: Cervical: No cervical adenopathy. Skin: General: Skin is warm. Coloration: Skin is not pale. Findings: No rash. Neurological: General: No focal deficit present. Mental Status: She is alert and oriented to person, place, and time. Psychiatric: Mood and Affect: Mood normal. Assessment and Plan Azeb Gallegos is a 59 y.o. 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 Radical vulvectomy, excision of distal urethra, bilateral IFLND on 07/08/23. She had recurrent ENID III and underwent simple partial vulvectomy on 02/2024 with positive margins. She underwent a resection of recurrent vulvar mass (R partial radical vulvectomy) on 06/29/24 path significant for invasive SCC with negative margins. She then proceed with chemoRT- she completed her chemoRT on 09/21/24 at [place]. Outside medical records requested. We discussed her PET scan from 07/03/25 in detail with continued regression of avid areas from previous PET. No signs/symps of recurrence today. She will call our office for any new concerns. Signs of recurrence reviewed. Given some persistent avidity will repeat PET scan in 6 months to ensure resolution prior to next visit. We discussed referral for urinary symptoms in the future if they become more bothersome. Avid thyroid on prior PET: US 01/16/25 WNL Plan: return in 3 months Pillo Ledbetter MD [facility] Division of Gynecology Oncology documented in this encounter [facility] 04-02-2025 History of Present illness Narrative PET scan completed last Tuesday Occasional numbness in lower abdomen, bilateral groin area; occasional, brief pain as well, but nothing lingering or concerning Chief Complaint Patient presents with Follow-up History of Present Illness Patient Active Problem List Diagnosis Date Noted Malignant neoplasm of vulva 07/27/2024 Urethral bleeding 03/15/2024 Surgery follow-up - simple partial vulvectomy and biopsy of urethra 03/14/2024 ENID III (vulvar intraepithelial neoplasia III) 02/21/2024 Vulvar lesion 02/07/2024 Right vulva 7 o'clock adjacent to vaginal mucosa H/O radical vulvectomy, bilateral I/F LND 07/08/2023 Vulvar mass 06/21/2023 See note regarding vulvar carcinoma Obesity (BMI 30.0-34.9) 06/21/2023 History of cancer of vulva 06/20/2023 Referral Sara Fowler ([place], [place]). 05/19/2023: Vulvar bx 12 o'clock- Superficially invasive SCC arising in a background of high grade squamous intraepithelial lesion Vulvar bx 4 o'clock- HSIL, U-ENID Vulvar bx 9 o'clock- Negative Vulvar bx 3 o'clock- Negative [facility] path review pending. 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 She then underwent simple partial vulvectomy on 03/15/24 with positive margins. She underwent a resection of recurrent vulvar mass (R partial radical vulvectomy) on 06/29/24 completed her chemoRT on 09/21/24 at [place] 2/5/25: PET decreased metabolic activity of the right labial mass which may represent improving disease. Otherwise ROLA. Interim History Here for follow up and is doing well. Has some numbness in b/l groin since finishing RT and this has stayed the same. Reports this has changed how she walks, especially with sitting. . Denies pain. No lesions or discharge. Some urinary incontinence and urgency. Denies abdominal pain, n/v/d/c, urinary complaints, vaginal bldg/discharge. Past Medical History She has a past medical history of History of cancer, History of chemotherapy, History of radiation therapy, Migraine (1975), and Mixed stress and urge incontinence. Past Surgical History She has a past surgical history that includes hysterectomy (07/12/2015); bx vulva (05/19/2023); other surgical; bx vulva (09/09/2016); bx vulva (11/25/2016); bx endometrial (05/15/2015); vulvectomy simple partial; vulvectomy radical w/ inguinofemoral lymphadenectomy (Bilateral, 07/08/2023); excision/fulguration lesion urethra (Midline, 07/08/2023); vulvectomy simple partial (Right, 03/15/2024); excision/fulguration lesion urethra ([facility]line, 03/15/2024); and vulvectomy radical (N/A, 06/29/2024). Family History Family History Problem Relation Age of Onset Diabetes Mother Heart Disease - Other Father Breast Cancer Paternal Grandmother Ovarian Cancer Neg Hx Uterine Cancer Neg Hx Colorectal Cancer Neg Hx Social History Social History Socioeconomic History Marital status: Tobacco Use Smoking status: Former Current packs/day: 0.00 Types: Cigarettes Quit date: 07/08/2023 Years since quittin.7 Smokeless tobacco: Never Tobacco comments: Trying to quit; currently smoking 1 pack over about 3 dayso Vaping Use Vaping status: Never Used Substance and Sexual Activity Alcohol use: Not Currently Comment: "once in a blue best"; holidays Drug use: Never Sexual activity: Not Currently Partners: Male control/protection: Hysterectomy Other Topics Concern Occupational Exposure No Hobby Hazards No Social History Narrative 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 She does report a remote history of STIs. She denies a history of abnormal cervical cytology and reports her last cytologic examination was prior to hysterectomy and negative per her report. Health maintenance: Mammogram: has not had and declines (being set up with music professionals) Colonoscopy: has not had and declines BMI Body mass index is 33.81 kg/m . Wt Readings from Last 3 Encounters: 04/02/25 87.6 kg (193 lb 3.2 oz) 01/01/25 85.4 kg (188 lb 4.8 oz) 10/30/24 83.1 kg (183 lb 1.6 oz) Review of Systems Constitutional: Negative for activity change, appetite change, chills, fatigue and fever. HENT: Negative for hearing loss and rhinorrhea. Eyes: Negative for visual disturbance. Respiratory: Negative for cough, chest tightness and shortness of breath. Cardiovascular: Negative for chest pain and palpitations. Gastrointestinal: Negative for abdominal pain, constipation, diarrhea, nausea and vomiting. Genitourinary: Positive for urgency. Negative for difficulty urinating, dysuria, genital sores, pelvic pain, vaginal bleeding and vaginal pain. Musculoskeletal: Negative for arthralgias and myalgias. Skin: Negative for rash. Neurological: Positive for numbness. Negative for weakness, light-headedness and headaches. Psychiatric/Behavioral: Negative for behavioral problems and confusion. Vitals: Blood pressure 150/71, pulse 60, temperature 98.2 F (36.8 C), temperature source Temporal, resp. rate 16, height 1.61 m (5' 3.39"), weight 87.6 kg (193 lb 3.2 oz), SpO2 97%. Physical Exam Vitals and nursing note reviewed. Exam conducted with a coordinator mining products present. Constitutional: General: She is not in acute distress. Appearance: Normal appearance. She is normal weight. HENT: Head: Normocephalic. Eyes: Extraocular Movements: Extraocular movements intact. Pupils: Pupils are equal, round, and reactive to light. Cardiovascular: Rate and Rhythm: Normal rate and regular rhythm. Heart sounds: Normal heart sounds. No murmur heard. Pulmonary: Effort: Pulmonary effort is normal. No respiratory distress. Breath sounds: Normal breath sounds. No stridor. Abdominal: General: There is no distension. Palpations: There is no mass. Tenderness: There is no abdominal tenderness. Comments: No inguinofemoral LAD Genitourinary: Comments: External genitalia: R labia surgical scar, normal clitoris, urethral meatus, introitus, perineum, anus. Mildly tender over the midline pubic bone Internal genitalia: normal vagina, no appreciable lesions. no masses on bimanual examination. Musculoskeletal: Cervical back: Normal range of motion and neck supple. Right lower leg: No edema. Left lower leg: No edema. Lymphadenopathy: Cervical: No cervical adenopathy. Skin: General: Skin is warm. Coloration: Skin is not pale. Findings: No rash. Neurological: General: No focal deficit present. Mental Status: She is alert and oriented to person, place, and time. Psychiatric: Mood and Affect: Mood normal. Assessment and Plan Azeb Gallegos is a 59 y.o. 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 Radical vulvectomy, excision of distal urethra, bilateral IFLND on 07/08/23. She had recurrent ENID III and underwent simple partial vulvectomy on 02/2024 with positive margins. She underwent a resection of recurrent vulvar mass (R partial radical vulvectomy) on 06/29/24 path significant for invasive SCC with negative margins. She then proceed with chemoRT- she completed her chemoRT on 09/21/24 at [place]. Outside medical records requested. We discussed her PET scan from 03/27 in detail with continued regression of avid areas from previous PET. No signs/symps of recurrence today. She will call our office for any new concerns. Signs of recurrence reviewed. Given some persistent avidity will repeat PET scan to ensure resolution prior to next visit. We discussed referral for urinary symptoms in the future if they become more bothersome. Avid thyroid on prior PET: US 01/16/25 WNL Plan: return in 3 months with repeat PET prior. Pt seen, examined, and counseled with Dr. Ledbetter. Freda Guardado MD [id number] Gynecology Oncology Fellow I saw and independently examined this patient today with Dr. Guardado. I discussed my findings and the therapeutic plan with the fellow. I have reviewed, repeated or observed the pertinent aspects of the history, physical examination, and medical decisions and agree with the above with the noted additions. I personally performed all aspects of the medical decision making for this encounter. I have reviewed and verified this documentation and edited as needed. Pillo Ledbetter MD [facility] Room Attendant Division of Gynecology Oncology documented in this encounter [facility] 03-28-2025 Evaluation note Diagnosis Onset Date Resolution Malignant neoplasm of vulva, unspecified acute March 28, 2025 1:18pm Malignant neoplasm of vulva, unspecified acute April 10 8:33am [address] [employer] Work Phone: [phone]) 944-506202-11-2025 History of Present illness Narrative* Tonie Paul RN - 01/01/2025 11:30 AM EST 12/26 PET scan completed. 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 Pt requesting general labs be drawn today including thyroid function. * Sheila Henderson APRN-RN MEDICARE - 01/01/2025 11:30 AM EST Chief Complaint Patient presents with Follow-up History of Present Illness Patient Active Problem List Diagnosis Date Noted Malignant neoplasm of vulva 07/27/2024 Urethral bleeding 03/15/2024 Surgery follow-up - simple partial vulvectomy and biopsy of urethra 03/14/2024 ENID III (vulvar intraepithelial neoplasia III) 02/21/2024 Vulvar lesion 02/07/2024 Right vulva 7 o'clock adjacent to vaginal mucosa H/O radical vulvectomy, bilateral I/F LND 07/08/2023 Vulvar mass 06/21/2023 See note regarding vulvar carcinoma Obesity (BMI 30.0-34.9) 06/21/2023 History of cancer of vulva 06/20/2023 Referral Sara Fowler ([place], [place]). 05/19/2023: Vulvar bx 12 o'clock- Superficially invasive SCC arising in a background of high grade squamous intraepithelial lesion Vulvar bx 4 o'clock- HSIL, U-ENID Vulvar bx 9 o'clock- Negative Vulvar bx 3 o'clock- Negative [facility] path review pending. 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 Interim History Here for follow up post chemoRT. She is feeling well overall. Has some numbness in b/l groin since finishing RT. Denies pain. No lesions or discharge. Denies abdominal pain, n/v/d/c, urinary complaints, vaginal bldg/discharge. Past Medical History She has a past medical history of History of cancer, History of chemotherapy, History of radiation therapy, Migraine (1975), and Mixed stress and urge incontinence. Past Surgical History She has a past surgical history that includes hysterectomy (07/12/2015); bx vulva (05/19/2023); other surgical; bx vulva (09/09/2016); bx vulva (11/25/2016); bx endometrial (05/15/2015); vulvectomy simple partial; vulvectomy radical w/ inguinofemoral lymphadenectomy (Bilateral, 07/08/2023); excision/ fulguration lesion urethra ([facility], 07/08/2023); vulvectomy simple partial (Right, 03/15/2024); excision/fulguration lesion urethra ([facility], 03/15/2024); and vulvectomy radical (N/A, 06/29/2024). Family History Family History Problem Relation Age of Onset Diabetes Mother Heart Disease - Other Father Breast Cancer Paternal Grandmother Ovarian Cancer Neg Hx Uterine Cancer Neg Hx Colorectal Cancer Neg Hx Social History Social History Socioeconomic History Marital status: Tobacco Use Smoking status: Former Current packs/day: 0.00 Types: Cigarettes Quit date: 07/08/2023 Years since quittin.4 Smokeless tobacco: Never Tobacco comments: Trying to quit; currently smoking 1 pack over about 3 dayso Vaping Use Vaping status: Never Used Substance and Sexual Activity Alcohol use: Not Currently Comment: "once in a blue best"; holidays Drug use: Never Sexual activity: Not Currently Partners: Male control/protection: Hysterectomy Other Topics Concern Occupational Exposure No Hobby Hazards No Social History Narrative 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 She does report a remote history of STIs. She denies a history of abnormal cervical cytology and reports her last cytologic examination was prior to hysterectomy and negative per her report. Health maintenance: Mammogram: has not had and declines (being set up with music professionals) Colonoscopy: has not had and declines BMI Body mass index is 32.95 kg/m . Wt Readings from Last 3 Encounters: 01/01/25 85.4 kg (188 lb 4.8 oz) 10/30/24 83.1 kg (183 lb 1.6 oz) 08/02/24 85 kg (187 lb 4.8 oz) Review of Systems Constitutional: Negative for activity change, appetite change, chills, fatigue and fever. HENT: Negative for hearing loss and rhinorrhea. Eyes: Negative for visual disturbance. Respiratory: Negative for cough, chest tightness and shortness of breath. Cardiovascular: Negative for chest pain and palpitations. Gastrointestinal: Negative for abdominal pain, constipation, diarrhea, nausea and vomiting. Genitourinary: Negative for difficulty urinating, dysuria, genital sores, pelvic pain, vaginal bleeding and vaginal pain. Musculoskeletal: Negative for arthralgias and myalgias. Skin: Negative for rash. Neurological: Positive for numbness. Negative for weakness, light-headedness and headaches. Psychiatric/Behavioral: Negative for behavioral problems and confusion. Vitals: Blood pressure 162/72, pulse 65, temperature 97.5 F (36.4 C), temperature source Oral, resp. rate 18, height 1.61 m (5' 3.39"), weight 85.4 kg (188 lb 4.8 oz), SpO2 99%. Physical Exam Vitals and nursing note reviewed. Bench Carpenter present: declined- daughter present. Constitutional: General: She is not in acute distress. Appearance: She is normal weight. Cardiovascular: Rate and Rhythm: Normal rate and regular rhythm. Heart sounds: No murmur heard. Pulmonary: Effort: Pulmonary effort is normal. No respiratory distress. Breath sounds: No stridor. Abdominal: General: There is no distension. Palpations: There is no mass. Tenderness: There is no abdominal tenderness. Genitourinary: Comments: Vulvectomy scar CDI External genitalia: Normal labia, clitoris, urethral meatus, introitus, perineum, anus. Internal genitalia: normal vagina, no appreciable lesions. no masses on bimanual examination. Musculoskeletal: Cervical back: Normal range of motion and neck supple. Right lower leg: No edema. Left lower leg: No edema. Lymphadenopathy: Cervical: No cervical adenopathy. Skin: General: Skin is warm. Coloration: Skin is not pale. Findings: No rash. Neurological: General: No focal deficit present. Mental Status: She is alert and oriented to person, place, and time. Psychiatric: Mood and Affect: Mood normal. Neurological Exam Mental Status Alert. Oriented to person, place, and time. Assessment and Plan Azeb Gallegos is a 59 y.o. 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 Radical vulvectomy, excision of distal urethra, bilateral IFLND on 07/08/23. She had recurrent ENID III and underwent simple partial vulvectomy on 02/2024 with positive margins. She underwent a resection of recurrent vulvar mass (R partial radical vulvectomy) on 06/29/24 path significant for invasive SCC with negative margins. She then proceed with chemoRT- she completed her chemoRT on 09/21/24 at [place]. Outside medical records requested. No signs/symps of recurrence today. She will call our office for any new concerns. Signs of recurrence reviewed. We discussed her PET from 12/26/24 in detail today: 1. Decrease in metabolic activity of the right labial mass which may represent improving disease. 2. Resolution of hypermetabolic right inguinal lymph adenopathy replaced by subcutaneous mildly metabolically posttreatment stranding inflammatory changes. 3. No new FDG avid malignancy." Will plan to repeat PET again in 3 months to assess status of right labial metabolic activity. No concerns on exam r/t this activity. Also noted "Physiologic FDG uptake is noted in the salivary glands and tonsillar tissue. " Thyroid US and TSH with t4 reflux (lab to be completed today) ordered. Plan: return in 3 months with repeat PET & thyroid US prior Sheila Henderson APRN-BIANCA Time spent for Azeb Gallegos's appointment was 25 minutes in review of records, review of diagnostic testing, other provider notes, coordination of care, meeting with team to discuss the patient and the above, charting, and face to face time with the patient on the same day as the visit. I saw and independently evaluated this patient today. I discussed my findings and the therapeutic plan with ANASTASIIA Fine. I have reviewed, repeated or observed the pertinent aspects of the history, physical examination, and have developed the assessment and plan as indicated and edited above. I provided a substantive portion of the care for this patient. I personally performed all aspects of the medical decision making for this encounter. I have reviewed and verified this documentation and it accurately reflects our care. Of note, both the ANASTASIIA and I saw and evaluated the patient together. The ANASTASIIA documented the note and I edited it as needed. Pillo Ledbetter M.D. [facility] Attendant Division of Gynecology Oncology [facility] History of Present illness Narrative* Lashell Sorensen MD - 10/30/2024 11:30 AM EST Chief Complaint Patient presents with Follow-up History of Present Illness Patient Active Problem List Diagnosis Date Noted Malignant neoplasm of vulva 07/27/2024 Urethral bleeding 03/15/2024 Surgery follow-up - simple partial vulvectomy and biopsy of urethra 03/14/2024 ENID III (vulvar intraepithelial neoplasia III) 02/21/2024 Vulvar lesion 02/07/2024 Right vulva 7 o'clock adjacent to vaginal mucosa H/O radical vulvectomy, bilateral I/F LND 07/08/2023 Vulvar mass 06/21/2023 See note regarding vulvar carcinoma Obesity (BMI 30.0-34.9) 06/21/2023 History of cancer of vulva 06/20/2023 Referral Sara Fowler ([place], [place]). 05/19/2023: Vulvar bx 12 o'clock- Superficially invasive SCC arising in a background of high grade squamous intraepithelial lesion Vulvar bx 4 o'clock- HSIL, U-ENID Vulvar bx 9 o'clock- Negative Vulvar bx 3 o'clock- Negative [facility] review pending. 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 Interim History Overall doing okay since finishing chemoRT. States she would experience fatigue and nausea a coupledays following the chemotherapy but would improve with time. In terms of the radiation, she reportsit was very red and sore for a while however was able to maintain it and feels like it is overall healed. She denies any abnormal bleeding or pain today. No new lesions on her vulva or itching/irritation. Some sharp pains in the vulva here and there. No bowel/bladder symptoms. Reports some issues with urinary- increasing urgency. She needs to wear a pad in case she does not make it. She reports she had this before but is slightly worse since radiation. She reports she feels she empties completely. Past Medical History She has a past medical history of Mixed stress and urge incontinence. Past Surgical History She has a past surgical history that includes hysterectomy (07/12/2015); bx vulva (05/19/2023); other surgical; bx vulva (09/09/2016); bx vulva (11/25/2016); bx endometrial (05/15/2015); vulvectomy simple partial; vulvectomy radical w/ inguinofemoral lymphadenectomy (Bilateral, 07/08/2023); excision/ fulguration lesion urethra ([facility], 07/08/2023); vulvectomy simple partial (Right, 03/15/2024); excision/fulguration lesion urethra ([facility], 03/15/2024); and vulvectomy radical (N/A, 06/29/2024). Family History Family History Problem Relation Age of Onset Diabetes Mother Heart Disease - Other Father Breast Cancer Paternal Grandmother Ovarian Cancer Neg Hx Uterine Cancer Neg Hx Colorectal Cancer Neg Hx Social History Social History Socioeconomic History Marital status: Tobacco Use Smoking status: Former Current packs/day: 0.00 Types: Cigarettes Quit date: 06/2023 Years since quittin.3 Smokeless tobacco: Never Tobacco comments: Trying to quit; currently smoking 1 pack over about 3 dayso Vaping Use Vaping status: Never Used Substance and Sexual Activity Alcohol use: Yes Comment: "once in a blue best"; holidays Drug use: Never Sexual activity: Yes Partners: Male Social History Narrative 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 She does report a remote history of STIs. She denies a history of abnormal cervical cytology and reports her last cytologic examination was prior to hysterectomy and negative per her report. Health maintenance: Mammogram: has not had and declines (being set up with music professionals) Colonoscopy: has not had and declines BMI Body mass index is 32.43 kg/m . Wt Readings from Last 3 Encounters: 10/30/24 83.1 kg (183 lb 1.6 oz) 08/02/24 85 kg (187 lb 4.8 oz) 07/17/24 83.6 kg (184 lb 3.2 oz) Review of Systems Constitutional: Negative for activity change, appetite change, chills, fatigue and fever. HENT: Negative for hearing loss and rhinorrhea. Eyes: Negative for visual disturbance. Respiratory: Negative for cough, chest tightness and shortness of breath. Cardiovascular: Negative for chest pain and palpitations. Gastrointestinal: Negative for abdominal pain, constipation, diarrhea, nausea and vomiting. Genitourinary: Positive for urgency. Negative for difficulty urinating, dysuria, genital sores, pelvic pain, vaginal bleeding and vaginal pain. Musculoskeletal: Negative for arthralgias and myalgias. Skin: Negative for rash. Neurological: Negative for weakness, light-headedness and headaches. Psychiatric/Behavioral: Negative for behavioral problems and confusion. Vitals: Blood pressure 136/65, pulse 75, temperature 98.4 F (36.9 C), temperature source Oral, resp. rate 16, weight 83.1 kg (183 lb 1.6 oz), SpO2 98%. Physical Exam Vitals and nursing note reviewed. Exam conducted with a coordinator mining products present. Constitutional: General: She is not in acute distress. Appearance: She is normal weight. HENT: Head: Normocephalic. Right Ear: Tympanic membrane normal. Left Ear: Tympanic membrane normal. Nose: Nose normal. No congestion or rhinorrhea. Mouth/Throat: Mouth: Mucous membranes are moist. Pharynx: No posterior oropharyngeal erythema. Eyes: General: No scleral icterus. Conjunctiva/sclera: Conjunctivae normal. Cardiovascular: Rate and Rhythm: Normal rate and regular rhythm. Heart sounds: No murmur heard. Pulmonary: Effort: Pulmonary effort is normal. No respiratory distress. Breath sounds: No stridor. Abdominal: General: There is no distension. Palpations: There is no mass. Tenderness: There is no abdominal tenderness. Genitourinary: Comments: Incision on right vulva healing well, intact, no erythema or drainage or obvious radiation changes. No new lesions or concerning findings. Musculoskeletal: Right lower leg: No edema. Left lower leg: No edema. Lymphadenopathy: Cervical: No cervical adenopathy. Skin: General: Skin is warm. Coloration: Skin is not pale. Findings: No rash. Neurological: General: No focal deficit present. Mental Status: She is alert and oriented to person, place, and time. Psychiatric: Mood and Affect: Mood normal. Neurological Exam Mental Status Alert. Oriented to person, place, and time. Assessment and Plan Azeb Gallegos is a 59 y.o. 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 Radical vulvectomy, excision of distal urethra, bilateral IFLND on 07/08/23. She had recurrent ENID III and underwent simple partial vulvectomy on 03/15 with positive margins. Now s/p resection of recurrent vulvar mass (R partial radical vulvectomy) on 06/29/24 path significant for invasive SCC with negative margins. Given recurrence plan was to proceed with chemoRT- she completed her chemoRT on 09/21/24. No signs/symps of recurrence today. Vulva is well-healing. Her PET scan is scheduled for 12/26/24, will follow up 01/01/25. Pt seen, examined, and counseled with Dr. Ledbetter. Lashell Sorensen MD Gynecologic Oncology Fellow I saw and independently examined this patient today with Dr. Sorensen. I discussed my findings and the therapeutic plan with the fellow. I have reviewed, repeated or observed the pertinent aspects of the history, physical examination, and medical decisions and agree with the above with the noted additions. I personally performed all aspects of the medical decision making for this encounter. I have reviewed and verified this documentation and edited as needed. Pillo Ledbetter MD [facility] Attendant Division of Gynecology Oncology [facility] History of Present illness Narrative* Misha Morgan MD - 08/02/2024 1:00 PM EDT RADIATION ONCOLOGY NEW PATIENT VISIT Referring Physician: Pillo Ledbetter MD Patient Name: Azeb Gallegos Provider: Dr. Yanely Nascimento Surgical Oncologist: : 1965 Date: 08/02/2024 Reason for visit: Azeb Gallegos is a 58 y.o. Postmenopausal female with Hx of FIGO Stage IB vulvar cancer s/p partial radical vulvectomy and complete inguinofemoral lymph node dissection in . She now presents with recurrence at the right mons s/p right partial radical vulvectomy withpath demonstrating a 5.1 cm G2, moderately differentiated HPV-associated SCC. She presents today as a new patient for evaluation and discussion of treatment recommendations. History of Present Illness: 04/2023: Initially presented with vulvar pain, itching, irritation for ~6 months. Reported remote hxof vulvar ENID 7 years prior. 05/20/23: Vulva biopsy A. Vulva, 12 o'clock, biopsy: Invasive squamous cell carcinoma arising in squamous cell carcinoma in situ/high-grade squamous intraepithelial lesion (see Comment). B. Vulva, 4 o'clock, biopsy: Squamous cell carcinoma in situ. C. Vagina, 9 o'clock, biopsy: Mucosal epithelium with mild chronic inflammation (see Comment). D. Vagina, 3 o'clock, biopsy: Mucosal epithelium with mild chronic inflammation Diagnosis Comments: A. Invasive squamous cell carcinoma extends to a depth of at least 1.6 mm; the squamous cell carcinoma extends to all specimen margins. C. Some keratinocyte atypia is present but is presumed to be reactive. 07/08/23: Radical vulvectomy including resection of distal urethra, bilateral inguinofemoral lymphadenectomy Pathologic Diagnosis A. superficial right inguinal lymph nodes, dissection: One lymph node, negative for carcinoma (0/1). B. Tissue from right femoral canal, excision: Fibroadipose tissue, negative for carcinoma. C. Right femoral nodes, dissection: Fibroadipose tissue, negative for carcinoma. No lymph node identified. D. Superficial left inguinal nodes, dissection: One lymph node, negative for carcinoma (0/1). E. Left femoral canal tissue, excision: Fibroadipose tissue, negative for carcinoma. F. Deep left femoral nodes, dissection: Fibroadipose tissue, negative for carcinoma. G. Anterior vulva, radical vulvectomy: Invasive squamous cell carcinoma, HPV dependent, moderately differentiated (See synoptic report). High grade squamous intraepithelial lesion (VIN3). Note: Immunostain for p16 showed diffuse strong staining. H. Urethra, additional margin: Negative for carcinoma. 02/07/24: Cut Out Marker appt: Hypopigmented lesion < 1 cm in diameter on R vulva, 7 o'clock, adjacent to vagina. 02/07/24: vulva biopsy A. Vulva, 7 o'clock, lesion, biopsy: High grade squamous intraepithelial lesion (ENID III). 03/15/24: OR for simple partial right vulvectomy/excision/fulguration urethral lesion ([facility]) Pathologic Diagnosis A. Right posterior vulva lesion, right posterior simple vulvectomy: High grade squamous intraepithelial lesion (VIN3). High grade dysplasia focally extends to the 12-3-6 clock margin, the other margins are free of highgrade dysplasia. Note: Immunostain for p16 showed diffuse strong staining, supporting the above diagnosis. B. Urethral orifice at 9 o'clock, biopsy: Urethral fragment, negative for high grade dysplasia. Note: Immunostain for p16 showed patchy weak staining, supporting the above diagnosis. 05/15/24: Cut Out Marker appt: External Genitalia right mons with ~ walnut size mobile mass noted, pain with palpitation. Urethral Meatus normal, Urethra normal, Vagina normal, Cervix absent, Anus/Perineum normal. 06/08/24: PET scan: Intensely hypermetabolic right anteriorly labial mass suggestive of the primary tumor site. Mildly hypermetabolic bilateral subcentimeter inguinal lymph nodes suspicious for metastatic involvement, however they could be reactive in nature. Mildly metabolic bilateral axillary lymph nodes likely reactive in nature. 06/29/24: OR for right partial radical vulvectomy Pathologic Diagnosis A. Right partial radical vulvectomy: Invasive squamous cell carcinoma (see synoptic report). Note: P16 shows strong diffuse staining. Tumor size 5.1 cm x 3.6 cm, grade 2, 42mm depth of invasion, margins negative (0.2mm closest), [id number] IB Interval Hx: Pt presents with her . She reports some continued soreness/tenderness from her surgery in June, rated 2/10 at incisional site, controlled with Tylenol/ibuprofen. She notes scant light yellowdrainage from the incision site which is improved from prior. No vaginal bleeding. She has had urinary urgency and leaking since her hysterectomy. No dysuria or hematuria. No rectal pain or bleeding.She denies fatigue, diarrhea, constipation, nausea. She is a former smoker (quite 06/2023, 19PY) , first child 19 Menarche age 10 Hysterectomy 2015 Fhx breast cancer in maternal grandmother. I have reviewed [facility] medical, surgical and other pertinent history in detail, and have updated medication and allergy information in the electronic medical record. PAST MEDICAL HISTORY: She has a past medical history of Mixed stress and urge incontinence. She has no history of collagen vascular disease and has never received radiation in the past. PAST SURGICAL HISTORY: She has a past surgical history that includes hysterectomy (07/12/2015); bx vulva (05/19/2023); other surgical; bx vulva (09/09/2016); bx vulva (11/25/2016); bx endometrial (05/15/2015); vulvectomy simple partial; vulvectomy radical w/ inguinofemoral lymphadenectomy (Bilateral, 07/08/2023); excision/ fulguration lesion urethra ([facility], 07/08/2023); vulvectomy simple partial (Right, 03/15/2024); excision/fulguration lesion urethra ([facility], 03/15/2024); and vulvectomy radical (N/A, 06/29/2024). MEDICATIONS: Current Outpatient Medications Medication Sig Dispense Refill acetaminophen 650 MG Tab CR Take 1 tablet by mouth every 6 hours as needed for Mild Pain. 60 tablet1 acetaminophen 650 MG Tab CR Take 1 tablet by mouth every 6 hours as needed for Mild Pain. (Patient not taking: Reported on 07/17/2024) 30 tablet 0 Ibuprofen 600 MG tablet Take 1 tablet by mouth every 6 hours as needed for Mild Pain or Moderate Pain. (Patient not taking: Reported on 07/17/2024) 40 tablet 0 ibuprofen 800 MG tablet Take 1 tablet by mouth every 6 hours as needed for Mild Pain. 30 tablet 0 oxyCODONE 5 MG tablet Take 1 tablet by mouth every 6 hours as needed for up to 14 days. 12 tablet 0 Polyethylene glycol 17 GM/SCOOP Powder powder Take 17 g by mouth daily. Mix 1 capful with 4 to 8 ozof water, juice, soda, coffee or tea. (Patient not taking: Reported on 07/17/2024) 507 g 0 simethicone 80 MG Chew Tab chewable tablet Chew 1 tablet every 4 hours as needed for Gas. (Patient not taking: Reported on 07/17/2024) 60 tablet 0 No current facility-administered medications for this visit. ALLERGIES: Penicillins, Sulfa antibiotics, Bee venom, and Tetanus toxoid SOCIAL HISTORY: She reports that she quit smoking about 39 years ago. Her smoking use included cigarettes. She has never used smokeless tobacco. She reports current alcohol use. She reports that she does not use drugs. FAMILY HISTORY: Her family history includes Breast Cancer in her paternal grandmother; Diabetes in her mother; Heart Disease - Other in her father. ROS: A full ROS was queried and is negative other than HPI and RN note. RN note and history reviewed with the patient. Radiation History: History of prior radiation: no History of auto-immune disease: no History of connective tissue disorder: no Pacemaker: no Able to lay flat: yes Transportation available: yes Performance Status: Performance status: Karnofsky scale 100 (ECOG grade 0) No limitations Physical Exam: Vital Signs: Smoking Status Former General/Constitutional: Well developed, well nourished female, who looks her stated age of 58 y.o..No acute distress. HEENT: Head: Normocephalic and atraumatic. Moist mucus membranes. Eyes: Pupils are equal, round, and reactive to light. Extraocular movements are intact. Sclerae are anicteric. Neck: Supple, with no lymphadenopathy. Cardiac: Regular rate and rhythm. No murmurs. Pulmonary/Chest: Normal respiratory effort. CTAB. No wheezing/rhonchi/rales. FIELD NURSE: Pelvic exam: deferred Neurological: Conscious, alert and oriented. Cranial nerves II through XII are intact grossly. No focal neurologic deficit. Gait is coordinated and non-antalgic. Skin: Skin is warm and dry. Flush, pallor and rash absent. Abdomen: Non-distended, non-tender. Extremities: Normal range of motion in all four extremities. Pathology/Lab Results: All pertinent lab and pathology results were reviewed. See above. Imaging: As above. We personally reviewed the images and reports, which confirm the findings noted in the HPI. Assessment and Plan: Azeb Gallegos is a 58 y.o. 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 She previously had radical vulvectomy, excision of distal urethra, bilateral IFLND on 07/08/23. She had recurrence s/p right partial vulvectomy and excision/fulguration at the urethra 03/15/24 (path high grade squamous intraepithelial lesion VIN3, positive margins). Most recently she presented with a walnut sized mass at [facility], s/p right partial radical vulvectomy with path demonstrating a 5.1 cm G2, moderately differentiated HPV- associated SCC. 06/08/24 PET scan demonstrated an intensely hypermetabolic right anteriorly labial mass suggestive of the primary tumor site and mildly hypermetabolic bilateral subcentimeter inguinal lymph nodes suspicious for metastatic involvement. We discussed PET findings with radiologist Dr. Lexie Marcial, and there is also a hypermetabolic left external iliac node. She subsequently underwent Right partial radical vulvectomy with path demonstrating invasive squamous cell carcinoma, tumor size 5.1 cm x 3.6 cm, grade 2, 42mm depth of invasion, margins negative (0.2mm closest), pT1b FIGO IB, p16 positive. Her case was discussed at tumor board with close surveillance vs radiation to bilateral groin and pelvis discussed. -- I discussed the natural history and general treatment paradigm for her disease. We recommend 45 Gy in 25 fractions to the lymph nodes of the pelvis and groin with potential boost to 55 Gy to suspicious nodes. -- We discussed the role of radiation as well as anticipated side effects during treatment and potential continuous churn buttermaker side effects including but not limited to nausea, diarrhea, infertility, bowel obstruction, GI or bladder ulceration or fistula formation with the vagina, vaginal stenosis. -- We also discussed the potential for treating the vulva, which would decrease the chance of localrecurrence; however, would increase toxicity to the skin and mucosal in the area of the external genitalia/perineum/anus. We also discussed that repeat surgery in the case of recurrence is also a reasonable option. At this time she elects to only receive radiation to the groin/pelvic lymph nodes and will defer vulvar radiation at this time. We discussed that vulvar radiation could be considered in the future. -- We also discussed the option to receive radiation locally in [place] with Dr. Christophe Jj andthat Dr. Nascimento could work with Dr. Jj regarding her plan. She would like to receive radiation locally. Referral was placed. Patient seen by and plan of care discussed with Dr. Yanely Morgan MD PGY-3 Radiation Oncology Resident Pager: [phone] Attending attestation: I saw and independently examined this patient today. I discussed my findings and the therapeutic plan with the Resident. I agree with the Resident's history, physical examination, and medical decisions as outlined. I independently reviewed her imaging and pathology reports. She is a 58 year old female with a history of FIGO Stage IB squamous cell carcinoma of the vulva, HPV-associated (5.0 cm, doi 14 mm, LVSI questionable, nodes negative). She had radical vulvectomy, excision of distal urethra, IFLND on 07/08/23. She had noninvasive recurrence s/p right partial vulvectomy on 03/15/24 and recently developed an invasive recurrence in the vulva s/p right partial radical vulvectomy on 06/29/24. The pathology showed a 5.1 cm moderately differentiated SCC with a 0.2 mm margin. There was no LVSI. No nodes were assessed. She did have a PET/CT prior to surgery which showed some mildly avid bilateral inguinal nodes. On my review, I identified a left pelvic node that appeared abnormal. I discussed with [facility] radiologist who confirmed this left EI node is hypermetabolic. Initially tumor board discussion included observation vs radiation. Given the change in the PET/CT report, I do not think observation at this time is appropriate. I discussed two options for radiation including treatment to the bilateral inguinal and pelvic nodes or treating the nodes with the addition of the vulva. I explained she did have a very close margin so does meet criteria for adjuvant therapy to the vulva. I discussed the pros and cons of treating the vulva, including the additional toxicity of vulvar radiation. I discussed side effects of treating the nodes alone, including fpc risk of lymphedema. At this time, she was interested in pursuing thomas treatment. I told her if she changes her mind about adding in the vulva, we can still make that adjustment. She would like to have treatment closer to home in [place]. I will refer her to Dr Jj and will work closely with him on her treatment plan. Yanely Nascimento MD * Reva Kumar RN - 08/02/2024 1:00 PM EDT Nursing Assessment: Azeb Gallegos is a 58 y.o. female who presents today for consult. CANCER HISTORY: Prior Radiation: No Prior Chemotherapy: No History of Pacemaker/Defribrillator: No Claustrophobic: Yes - slightly with things around her head The patient resides with . The patient does have available transportation. Vitals: Vitals BP: 187/86 BP Position: Sitting Pulse (Heart Rate): 62 Resp Rate: 18 Temp: 98.2 F (36.8 C) Temp source: Infrared O2 Sat (%): 96 % Weight: 85 kg (187 lb 4.8 oz) Pain Assessment: General Pain Documentation (Adult, OB, Peds) Presence of Pain: reports pain/discomfort Pain Location: incisional General Pain Descriptors Pain Frequency: frequent Pain Quality: soreness, other (see comments) (tenderness) Factors That Aggravate Pain: positioning, palpation Factors That Relieve Pain: medications, over the counter (OTC) (Tylenol/Ibuprofen) Patient reports Anorexia: Grade 0 None Nausea: Grade 0 None Vomiting: Grade 0 None Diarrhea: Grade 0 None Constipation: Grade 0 None Urinary frequency/urgency: Grade 1 Present; since hysterectomy Dysuria: None Hematuria: Grade 0 None Urinary incontinence: Grade 2 Spontaneous; pads indicated; limiting instrumental ADL; mostly leaking and not full on incontinence Vaginal hemorrhage: Grade 0 None Vaginal discharge: Grade 1 Present; light yellowish discharge from vulvectomy incisional site Patient was offered a coordinator mining products for any and all portions of the examination. Patient does not want a medical coordinator mining products [facility] Instructions* Patient Instructions* Misha Morgan MD - 08/02/2024 1:00 PM EDT Thank you for the visit today. We have placed a referral to Dr. Christophe Jj, Radiation Oncologist in [place], [place]. Please feel free to call us if you have any questions or concerns. MD Yanely Madrigal MD documented in this encounter[facility]-27-[facility] History of Present illness Narrative* Pillo Ledbetter MD - 07/17/2024 2:30 PM EDT Chief Complaint Patient presents with Post Op Visit History of cancer of vulva History of Present Illness Patient Active Problem List Diagnosis Date Noted Malignant neoplasm of vulva 07/27/2024 Urethral bleeding 03/15/2024 Surgery follow-up - simple partial vulvectomy and biopsy of urethra 03/14/2024 ENID III (vulvar intraepithelial neoplasia III) 02/21/2024 Vulvar lesion 02/07/2024 Right vulva 7 o'clock adjacent to vaginal mucosa H/O radical vulvectomy, bilateral I/F LND 07/08/2023 Vulvar mass 06/21/2023 See note regarding vulvar carcinoma Obesity (BMI 30.0-34.9) 06/21/2023 History of cancer of vulva 06/20/2023 Referral Sara Fowler ([place], [place]). 05/19/2023: Vulvar bx 12 o'clock- Superficially invasive SCC arising in a background of high grade squamous intraepithelial lesion Vulvar bx 4 o'clock- HSIL, U-ENID Vulvar bx 9 o'clock- Negative Vulvar bx 3 o'clock- Negative [facility] path review pending. 06/21/2023 First seen at [facility] -- obvious invasive squamous cell carcinoma of the anterior vulva, greater than 4 cm 07/08/2023 Surgery Edgar Kwong On EUA the tumor encroached on the anterior urethra Radical vulvectomy, excision of distal urethra, bilateral inguinal/femoral LND Pathology stage IB HPV -related squamous cell carcinoma 02/07/24 Vulva, 7 o'clock, lesion, biopsy: HSIL/VIN3. Interim History Doing well. Feels like her incision is healing. Pain improving. No f/c, n/v. Past Medical History She has a past medical history of Mixed stress and urge incontinence. Past Surgical History She has a past surgical history that includes hysterectomy (07/12/2015); bx vulva (05/19/2023); other surgical; bx vulva (09/09/2016); bx vulva (11/25/2016); bx endometrial (05/15/2015); vulvectomy simple partial; vulvectomy radical w/ inguinofemoral lymphadenectomy (Bilateral, 07/08/2023); excision/ fulguration lesion urethra (Midline, 07/08/2023); vulvectomy simple partial (Right, 03/15/2024); excision/fulguration lesion urethra (Midline, 03/15/2024); and vulvectomy radical (N/A, 06/29/2024). Family History Family History Problem Relation Age of Onset Diabetes Mother Heart Disease - Other Father Breast Cancer Paternal Grandmother Ovarian Cancer Neg Hx Uterine Cancer Neg Hx Colorectal Cancer Neg Hx Social History Social History Socioeconomic History Marital status: Tobacco Use Smoking status: Former Current packs/day: 0.00 Types: Cigarettes Quit date: 06/2023 Years since quittin.1 Smokeless tobacco: Never Tobacco comments: Trying to quit; currently smoking 1 pack over about 3 dayso Vaping Use Vaping status: Never Used Substance and Sexual Activity Alcohol use: Yes Comment: "once in a blue best"; holidays Drug use: Never Sexual activity: Yes Partners: Male Social History Narrative 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 She does report a remote history of STIs. She denies a history of abnormal cervical cytology and reports her last cytologic examination was prior to hysterectomy and negative per her report. Health maintenance: Mammogram: has not had and declines (being set up with music professionals) Colonoscopy: has not had and declines BMI Body mass index is 32.63 kg/m . Wt Readings from Last 3 Encounters: 08/02/24 85 kg (187 lb 4.8 oz) 07/17/24 83.6 kg (184 lb 3.2 oz) 06/29/24 83.7 kg (184 lb 8 oz) Review of Systems Constitutional: Negative for activity change, appetite change, chills, fatigue and fever. HENT: Negative for hearing loss and rhinorrhea. Eyes: Negative for visual disturbance. Respiratory: Negative for cough, chest tightness and shortness of breath. Cardiovascular: Negative for chest pain and palpitations. Gastrointestinal: Negative for abdominal pain, constipation, diarrhea, nausea and vomiting. Genitourinary: Negative for difficulty urinating, dysuria, genital sores, pelvic pain, vaginal bleeding and vaginal pain. Musculoskeletal: Negative for arthralgias and myalgias. Skin: Negative for rash. Neurological: Negative for weakness, light-headedness and headaches. Psychiatric/Behavioral: Negative for behavioral problems and confusion. Vitals: Blood pressure 160/73, pulse 75, temperature 98.4 F (36.9 C), resp. rate 16, height 1.6 m (5' 3"), weight 83.6 kg (184 lb 3.2 oz), SpO2 98%. Physical Exam Vitals and nursing note reviewed. Exam conducted with a coordinator mining products present. Constitutional: General: She is not in acute distress. Appearance: She is normal weight. HENT: Head: Normocephalic. Right Ear: Tympanic membrane normal. Left Ear: Tympanic membrane normal. Nose: Nose normal. No congestion or rhinorrhea. Mouth/Throat: Mouth: Mucous membranes are moist. Pharynx: No posterior oropharyngeal erythema. Eyes: General: No scleral icterus. Conjunctiva/sclera: Conjunctivae normal. Cardiovascular: Rate and Rhythm: Normal rate and regular rhythm. Heart sounds: No murmur heard. Pulmonary: Effort: Pulmonary effort is normal. No respiratory distress. Breath sounds: No stridor. Abdominal: General: There is no distension. Palpations: There is no mass. Tenderness: There is no abdominal tenderness. Genitourinary: Comments: Incision on right vulva healing well, intact, no erythema or drainage. Musculoskeletal: Right lower leg: No edema. Left lower leg: No edema. Lymphadenopathy: Cervical: No cervical adenopathy. Skin: General: Skin is warm. Coloration: Skin is not pale. Findings: No rash. Neurological: General: No focal deficit present. Mental Status: She is alert and oriented to person, place, and time. Psychiatric: Mood and Affect: Mood normal. Neurological Exam Mental Status Alert. Oriented to person, place, and time. Assessment and Plan Azeb Gallegos is a 58 y.o. 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 Radical vulvectomy, excision of distal urethra, bilateral IFLND on 07/08/23. She had recurrent ENID III and underwent simple partial vulvectomy on 03/15 with positive margins. Now s/p resection of recurrent vulvar mass. Doing well post operatively. No issues. Pathology pending. Will schedule televisit next week to discuss. Pillo Ledbetter M.D. Caustic Room Attendant Division of Gynecology Oncology documented [facility] encounter[facility] History of Present illness Narrative* Mily Gandhi MD - 06/29/2024 4:21 PM EDT Gynecologic Oncology Post-operative Note Subjective: Patient doing well. Pain well controlled on current medications. Has ate broth and jello without nausea or vomiting. Spontaneously voiding without difficulty. Denies chest pain or SOB. Ambulating without dizziness or lightheadedness. Eager to go home. Objective: Vitals: 06/29/24 1303 06/29/24 1330 06/29/24 1357 06/29/24 1404 BP: 140/72 144/75 160/84 Pulse: 69 68 67 62 Resp: 11 02 14 16 Temp: 97.6 degrees F (36.4 degrees C) 97.7 degrees F (36.5 degrees C) TempSrc: Oral Oral SpO2: 99% 97% 97% 96% Weight: Height: General: alert, cooperative, appears stated age Pulmonary: clear to auscultation bilaterally Cardiovascular: regular rate and rhythm, S1, S2 normal, no murmur, click, rub or gallop, normal apical impulse Abdomen: Soft, nontender, nondistended Incision: clean, dry and intact Extremities: extremities normal, atraumatic, no cyanosis or edema Neurologic: Grossly normal Psychiatric: non focal Labs: CBC Lab Results Component Value Date WBC 7.58 06/08/2024 HGB 14.2 06/08/2024 HCT 42.1 06/08/2024 PLATELET 229 06/08/2024 MCV 86.6 06/08/2024 EDIF Lab Results Component Value Date RBCDISTRIBU 12.7 06/08/2024 GRNLOCYT 60.5 06/08/2024 LYMPHOCYT 24.7 06/08/2024 MONOCYTELEC 9.5 06/08/2024 EOSINOPHILS 3.6 06/08/2024 BASOPHILS 1.3 06/08/2024 LYMPHOCYTABS 1.87 06/08/2024 EOSINOPHLABS 0.27 06/08/2024 PLATELET 229 06/08/2024 MPV 06/08/2024 Comment: Not measured Lab Results Component Value Date SODIUM 140 06/08/2024 POTASSIUM 4.9 06/08/2024 CHLORIDE 103 06/08/2024 CO2 29 06/08/2024 BUN 15 06/08/2024 CREATSERUM 0.81 06/08/2024 GLUCOSE 95 06/08/2024 Assessment and Plan: Azeb Gallegos is a 58 y.o. who is now POD#0 s/p right partial radical vulvectomy Post-operative care: - Pain (ERAS): scheduled toradol to ibuprofen, tylenol, gabapentin; oxycodone prn - FEN/GI: regular diet, IV fluids at 125 mL/hr; bowel regimen ordered - : no puentes; needs to void spontaneously prior to discharge - Heme: pre-operative Hgb 14.2, EBL 200 mL, post-op Hgb in AM - ID: afebrile, s/p prophylactic ancef - Prophylaxis: SCDs, incentive spirometer, s/p pre-op heparin, pLov to start POD1 if admitted Medical co-morbidities: None Lines/drains: pIV Code: full Dispo: home Mily Gandhi MD Machine Clipper Cut Out Marker Onc PGY1 Team Phone: [phone] Team Pager: [phone] documented in this encounterOS[facility] Plan of care note* Plan of Care - Richard De Santiago RN - 06/29/2024 2:35 PM EDT Problem: Adult Inpatient Plan of Care Goal: Plan of Care Review Outcome: Progressing Goal: Patient-Specific Goal (Individualized) Outcome: Progressing Goal: Absence of Hospital-Acquired Illness or Injury Outcome: Progressing Goal: Optimal Comfort and Wellbeing Outcome: Progressing Goal: Readiness for Transition of Care Outcome: Progressing Problem: Pain Acute Goal: Optimal Pain Control and Function Outcome: Progressing [facility] Miscellaneous Notes* Plan of Care - Richard De Santiago RN - 06/29/2024 2:35 PM EDT Problem: Adult Inpatient Plan of Care Goal: Plan of Care Review Outcome: Progressing Goal: Patient-Specific Goal (Individualized) Outcome: Progressing Goal: Absence of Hospital-Acquired Illness or Injury Outcome: Progressing Goal: Optimal Comfort and Wellbeing Outcome: Progressing Goal: Readiness for Transition of Care Outcome: Progressing Problem: Pain Acute Goal: Optimal Pain Control and Function Outcome: Progressing * Nursing Notes - Richard De Santiago RN - 06/29/2024 2:34 PM EDT On admission to [facility], from OR a dual RN initial assessment of skin condition was performed by Richard De Santiago RN and Radhika RN. Skin Assessment: Skin within defined limits:Yes Shan Score: 22 LDA Added:No Richard De Santiago RN * Plan of Care - Enma Paulino MD - 06/29/2024 12:18 PM EDT Gynecologic Oncology Plan of Care Note Azeb Gallegos is a 58 y.o. who is POD#0 s/p right partial radical vulvectomy Post-operative care: - Pain (ERAS): scheduled toradol to ibuprofen, tylenol, gabapentin; oxycodone prn - FEN/GI: regular diet, IV fluids at 125 mL/hr; bowel regimen ordered - : no puentes; needs to void spontaneously prior to discharge - Heme: pre-operative Hgb 14.2, EBL 200 mL, post-op Hgb in AM - ID: afebrile, s/p prophylactic ancef - Prophylaxis: SCDs, incentive spirometer, s/p pre-op heparin, pLov to start POD1 if admitted Medical co-morbidities: None Lines/drains: pIV Code status: full Post-op note due at [id number] Disposition: continue routine post-operative care, anticipate discharge once meeting appropriate post-operative milestones. Enma Paulino MD PGY-3 Gynecologic Oncology (GY3) GY3 pager: [phone] EB3 phone: [phone] * Nursing Notes - Barrett Francis RN - 06/29/2024 12:11 PM EDT 1216 Patient arrives in [facility] PACU from OR via gurney with side rails up x2 with HOB >30 degrees, accompanied by Anesthesiologist: Lavelle Edouard MD Go Cart Mechanic: ELIZABETH Pulido Relief Operator Assisting: Alfred Baez DDS. Patient placed on monitors, VSS. Report received from anesthesia. Patient assessed, see assessment. 1310 Called Anesthesia for sign out. 1329 Report called to Jw MCLEAN on 5. 1338 Patient discharged from [facility] PACU per protocol. Patient transported via gurney with side rails up x2 with HOB>30 degrees to room 523 by Bakari ORACLE APPLICATIONS DEVELOPER. Family called to patient's bedside. * Op Note - Ritika Cohn MD - 06/29/2024 11:58 AM EDT Operative Report 06/29/2024 PREOPERATIVE DIAGNOSES: History of IB vulvar cancer Vulvar mass POSTOPERATIVE DIAGNOSES: History of IB vulvar cancer Vulvar mass PROCEDURE: right partial radical vulvectomy ATTENDING SURGEON: iPllo Ledbetter MD ASSISTANTS: Ritika Cohn MD - fellow Enma Paulino MD - resident ANESTHESIA: General ESTIMATED BLOOD LOSS: 200 mL COMPLICATIONS: none FINDINGS: 6 cm subcutaneous tumor of the right mons involving the clitoris and closely abutting butnot invading bone. INDICATIONS: This patient had a history of IB vulvar cancer s/p partial radical vulvectomy and complete inguinofemoral lymph node dissection in 2022. She presented with new vulvar mass of the mons, subcutaneous. She was recommended to proceed with radical excision of the vulva (radical vulvectomy).The expected outcomes and the risks of the procedure were explained to the patient and she signed the operative consent after her questions were answered. PROCEDURE IN DETAIL: The patient was met in the patient receiving area on the day of surgery. The indications, risks, benefits and alternatives of the procedure were reviewed in detail. The patient was taken to the operating room where general anesthesia was obtained without difficulty. A time-out procedure for safety was performed to confirm patient name, medical record number and procedure being performed. She was positioned in lithotomy. Examination under anesthesia revealed the findings as described above. The patient was then prepped and draped in the usual sterile fashion. The lesion as described was outlined with a pen. The skin was incised using the fine tip bovie, andthe subcutaneous tissue was dissected using the bovie and hand-held ligasure to the deep perineal fascia. We originally attempted to spare the clitoris, however it became quickly apparent that this was involved with disease and so the resection was extended to include the clitoris. The mass was closely abutting but not involving bone. Vessels were cauterized using the ligasure and/or bovie as appropriate. This specimen was oriented when it was removed (stitch at 12 o'clock). Hemostasis achievedwith electrocautery and pressure. The site was irrigated. The deep perineal tissues were reapproximated by using an 2-0 vicryl suture layer in an imbricating fashion to close space. This required multiple layers to close the deep space. The skin was reapproximated using 3-0 vicryl mattress sutures. The patient tolerated the procedure well and was then transferred to the recovery room in satisfactory condition. Dr. Ledbetter was present and directly supervised all isbell portions of the surgery and was immediately available for the entirety of the surgery. Ritika Cohn MD Gynecologic Oncology Fellow [phone] * Brief Op Note - Rtiika Cohn MD - 06/29/2024 11:57 AM EDT Azeb Gallegos ([id number]) PRE OPERATIVE DIAGNOSIS Vulvar mass [N90.89] History of cancer of vulva [Z85.44] POST OPERATIVE DIAGNOSIS Vulvar mass [N90.89] History of cancer of vulva [Z85.44] PROCEDURE PERFORMED Procedure(s) (LRB): VULVECTOMY RADICAL (N/A) PRIMARY CLOSURE Yes INTRAOPERATIVE FINDINGS 6 cm subcutaneous tumor of the right mons involving the clitoris and closely abutting but not invading bone. SURGEON Surgeons and Role: * Pillo Ledbetter MD - Primary * Ritika Cohn MD - Fellow ANESTHESIOLOGIST Anesthesiologist: Lavelle Edouard MD Go Cart Mechanic: ELIZABETH Pulido Relief Operator Assisting: Alfred Baez DDS SURGICAL STAFF Dental Surgery Doctor: Rizwana Shay RN Relief Dental Surgery Doctor: Delfina Villareal RN Resident Assisting: Enma Paulino MD Practice Administrator: Britta Victorino COMPLICATIONS None ESTIMATED BLOOD LOSS 200 ml SPECIMENS ID Type Source Tests Collected by Time Destination 1 : Right partial radical vulvectomy of the mons clitoris, stitch at 12 O'clock Permanent SURG PATHSURG PATH REQUEST Pillo Ledbetter MD 06/29/2024 1108 Ritika Cohn MD June 29, 2024 11:57 AM * Nursing Notes - Dorina Liu RN - 06/29/2024 10:10 AM EDT Patient denies hx of chemo and radiation. Patient denies metal or foreign objects in body. Patient denies hx of seizure or stroke. [facility]* Nursing Notes - Richard De Santiago RN - 06/29/2024 2:34 PM EDT On admission to [facility], from OR a dual RN initial assessment of skin condition was performed by Richard De Santiago RN and Radhika RN. Skin Assessment: Skin within defined limits:Yes Shan Score: 22 LDA Added:No Richard De Santiago RN [facility]08-09-[facility]24 Plan of care note* Plan of Care - Enma Paulino MD - 06/29/2024 12:18 PM EDT Gynecologic Oncology Plan of Care Note Azeb Gallegos is a 58 y.o. who is POD#0 s/p right partial radical vulvectomy Post-operative care: - Pain (ERAS): scheduled toradol to ibuprofen, tylenol, gabapentin; oxycodone prn - FEN/GI: regular diet, IV fluids at 125 mL/hr; bowel regimen ordered - : no puentes; needs to void spontaneously prior to discharge - Heme: pre-operative Hgb 14.2, EBL 200 mL, post-op Hgb in AM - ID: afebrile, s/p prophylactic ancef - Prophylaxis: SCDs, incentive spirometer, s/p pre-op heparin, pLov to start POD1 if admitted Medical co-morbidities: None Lines/drains: pIV Code status: full Post-op note due at [id number] Disposition: continue routine post-operative care, anticipate discharge once meeting appropriate post-operative milestones. Enma Paulino MD PGY-3 Gynecologic Oncology (GY3) GY3 pager: [phone] GY3 phone: [phone] [facility]08-09-2024 Nurse Note* Nursing Notes - Barrett Francis RN - 06/29/2024 12:11 PM EDT 1216 Patient arrives in [facility] PACU from OR via gurney with side rails up x2 with HOB >30 degrees, accompanied by Anesthesiologist: Lavelle Edouard MD Go Cart Mechanic: ELIZABETH Pulido Relief Operator Assisting: Alfred Baez DDS. Patient placed on monitors, VSS. Report received from anesthesia. Patient assessed, see assessment. 1310 Called Anesthesia for sign out. 1329 Report called to Jw RN on 5. 1338 Patient discharged from [facility] PACU per protocol. Patient transported via gurney with side rails up x2 with HOB>30 degrees to room 523 by Bakari ORACLE APPLICATIONS DEVELOPER. Family called to patient's bedside. [facility]08-09-2024 Surgery Postoperative evaluation and management note* Op Note - Ritika Cohn MD - 06/29/2024 11:58 AM EDT Operative Report 06/29/2024 PREOPERATIVE DIAGNOSES: History of IB vulvar cancer Vulvar mass POSTOPERATIVE DIAGNOSES: History of IB vulvar cancer Vulvar mass PROCEDURE: right partial radical vulvectomy ATTENDING SURGEON: Pillo Ledbetter MD ASSISTANTS: Ritika Cohn MD - fellow Enma Paulino MD - resident ANESTHESIA: General ESTIMATED BLOOD LOSS: 200 mL COMPLICATIONS: none FINDINGS: 6 cm subcutaneous tumor of the right mons involving the clitoris and closely abutting butnot invading bone. INDICATIONS: This patient had a history of IB vulvar cancer s/p partial radical vulvectomy and complete inguinofemoral lymph node dissection in 2022. She presented with new vulvar mass of the mons, subcutaneous. She was recommended to proceed with radical excision of the vulva (radical vulvectomy).The expected outcomes and the risks of the procedure were explained to the patient and she signed the operative consent after her questions were answered. PROCEDURE IN DETAIL: The patient was met in the patient receiving area on the day of surgery. The indications, risks, benefits and alternatives of the procedure were reviewed in detail. The patient was taken to the operating room where general anesthesia was obtained without difficulty. A time-out procedure for safety was performed to confirm patient name, medical record number and procedure being performed. She was positioned in lithotomy. Examination under anesthesia revealed the findings as described above. The patient was then prepped and draped in the usual sterile fashion. The lesion as described was outlined with a pen. The skin was incised using the fine tip bovie, andthe subcutaneous tissue was dissected using the bovie and hand-held ligasure to the deep perineal fascia. We originally attempted to spare the clitoris, however it became quickly apparent that this was involved with disease and so the resection was extended to include the clitoris. The mass was closely abutting but not involving bone. Vessels were cauterized using the ligasure and/or bovie as appropriate. This specimen was oriented when it was removed (stitch at 12 o'clock). Hemostasis achievedwith electrocautery and pressure. The site was irrigated. The deep perineal tissues were reapproximated by using an 2-0 vicryl suture layer in an imbricating fashion to close space. This required multiple layers to close the deep space. The skin was reapproximated using 3-0 vicryl mattress sutures. The patient tolerated the procedure well and was then transferred to the recovery room in satisfactory condition. Dr. Ledbetter was present and directly supervised all isbell portions of the surgery and was immediately available for the entirety of the surgery. Ritika Cohn MD Gynecologic Oncology Fellow [phone] [facility] Work Phone: [phone] Surgery Postoperative evaluation and management note* Brief Op Note - Ritika Cohn MD - 06/29/2024 11:57 AM EDT Azeb Gallegos ([id number]) PRE OPERATIVE DIAGNOSIS Vulvar mass [N90.89] History of cancer of vulva [Z85.44] POST OPERATIVE DIAGNOSIS Vulvar mass [N90.89] History of cancer of vulva [Z85.44] PROCEDURE PERFORMED Procedure(s) (LRB): VULVECTOMY RADICAL (N/A) PRIMARY CLOSURE Yes INTRAOPERATIVE FINDINGS 6 cm subcutaneous tumor of the right mons involving the clitoris and closely abutting but not invading bone. SURGEON Surgeons and Role: * Pillo Ledbetter MD - Primary * Ritika Cohn MD - Fellow ANESTHESIOLOGIST Anesthesiologist: Lavelle Edouard MD Go Cart Mechanic: ELIZABETH Pulido Relief Operator Assisting: Alfred Baez DDS SURGICAL STAFF Dental Surgery Doctor: Rizwana Shay RN Relief Dental Surgery Doctor: Delfina Villareal RN Resident Assisting: Enma Paulino MD Practice Administrator: Britta Gleason COMPLICATIONS None ESTIMATED BLOOD LOSS 200 ml SPECIMENS ID Type Source Tests Collected by Time Destination 1 : Right partial radical vulvectomy of the mons clitoris, stitch at 12 O'clock Permanent SURG PATHSURG PATH REQUEST Pillo Ledbetter MD 06/29/2024 1108 Ritika Cohn MD June 29, 2024 11:57 AM [facility] Surgical operation note* Rizwana Shay RN - 06/29/2024 11:07 AM EDT 1045 Family notified of surgery start 1120 Hand-off report sent to PACU charge nurse 1205 PACU given notice of arrival 1214 Patient extubated and transported to PACU with anesthesia at bedside on oxygen inhalation. [facility]* Rizwana Shay RN - 06/29/2024 11:07 AM EDT 1045 Family notified of surgery start 1120 Hand-off report sent to PACU charge nurse 1205 PACU given notice of arrival 1214 Patient extubated and transported to PACU with anesthesia at bedside on oxygen inhalation. [facility] Note* Nursing Notes - Dorina Liu RN - 06/29/2024 10:10 AM EDT Patient denies hx of chemo and radiation. Patient denies metal or foreign objects in body. Patient denies hx of seizure or stroke. [facility] History and physical note* Enma Paulino MD - 06/29/2024 9:47 AM EDT H&P Update 06/29/2024 Azeb Gallegos is a 58 y.o. scheduled for radical vulvectomy. Patient seen and examined by me in the pre-operative area. No updates to medical history. Allergiesand medications reviewed. Vitals: 06/29/24 0917 BP: 170/84 Pulse: Resp: Temp: SpO2: Lab Results Component Value Date WBC 7.58 06/08/2024 HGB 14.2 06/08/2024 HCT 42.1 06/08/2024 PLATELET 229 06/08/2024 MCV 86.6 06/08/2024 Lab Results Component Value Date SODIUM 140 06/08/2024 POTASSIUM 4.9 06/08/2024 CHLORIDE 103 06/08/2024 CO2 29 06/08/2024 BUN 15 06/08/2024 CREATSERUM 0.81 06/08/2024 GLUCOSE 95 06/08/2024 Consent previously obtained. Type and screen O pos UPT NI. Post-operative considerations: None No changes to H&P completed on 05/15/24. Plan to proceed with scheduled surgery. Enma Paulino MD PGY-3 Gynecologic Oncology (GY3) GY5 pager: [phone] CR2 phone: [phone] History of Present Illness No chief complaint on file. Problem H/O radical vulvectomy, bilateral I/F LND Interim History Reports, right groin lump since surgery, believes it has gotten larger and notices more routinely since last visit. Reports, pain in the vulvar where the lump is pinky when placing pressure on it with laying. Reports, intermittent right groin tenderness/numbness since surgery. Notes this has worsened since her last visit, more constant feeling. Reports, intermittent right lower extremity swelling since last visit. Reports, improvement with elevation, rest and compression stockings. She denies any abdominal/pelvic pain. She reports normal bowel/bladder habits. She denies any concerns. Denies any dysuria, frequency, hematuria, flank pain or fevers. She denies any vaginal bleeding or discharge. She denies any CP, SOB, cough or fever/chills. Appetite is good. She denies any nausea or vomiting. She denies vulvar itching, burning, irritation, bleeding or new lesions. Past Medical History She has a past medical history of Mixed stress and urge incontinence. Past Surgical History She has a past surgical history that includes hysterectomy (07/12/2015); bx vulva (05/19/2023); other surgical; bx vulva (09/09/2016); bx vulva (11/25/2016); bx endometrial (05/15/2015); vulvectomy simple partial; vulvectomy radical w/ inguinofemoral lymphadenectomy (Bilateral, 07/08/2023); excision/ fulguration lesion urethra ([facility], 07/08/2023); vulvectomy simple partial (Right, 03/15/2024); and excision/fulguration lesion urethra ([facility]line, 03/15/2024). Family History Family History Problem Relation Age of Onset Diabetes Mother Heart Disease - Other Father Breast Cancer Paternal Grandmother Ovarian Cancer Neg Hx Uterine Cancer Neg Hx Colorectal Cancer Neg Hx Social History Social History Socioeconomic History Marital status: Tobacco Use Smoking status: Former Current packs/day: 0.00 Types: Cigarettes Quit date: 11/21/1984 Years since quittin.6 Smokeless tobacco: Never Tobacco comments: Trying to quit; currently smoking 1 pack over about 3 dayso Vaping Use Vaping status: Never Used Substance and Sexual Activity Alcohol use: Yes Comment: "once in a blue best"; holidays Drug use: Never Sexual activity: Yes Partners: Male Social History Narrative 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 She does report a remote history of STIs. She denies a history of abnormal cervical cytology and reports her last cytologic examination was prior to hysterectomy and negative per her report. Health maintenance: Mammogram: has not had and declines (being set up with music professionals) Colonoscopy: has not had and declines BMI Body mass index is 32.68 kg/m . Wt Readings from Last 3 Encounters: 06/29/24 83.7 kg (184 lb 8 oz) 06/15/24 83.5 kg (184 lb) 05/15/24 83.7 kg (184 lb 9.6 oz) Review of Systems Constitutional: Negative for activity change, appetite change, chills, fatigue and fever. HENT: Negative for hearing loss and rhinorrhea. Eyes: Negative for visual disturbance. Respiratory: Negative for cough, chest tightness and shortness of breath. Cardiovascular: Negative for chest pain and palpitations. Gastrointestinal: Negative for abdominal pain, constipation, diarrhea, nausea and vomiting. Genitourinary: Negative for difficulty urinating, dysuria, genital sores, pelvic pain, vaginal bleeding and vaginal pain. Musculoskeletal: Negative for arthralgias and myalgias. Skin: Negative for rash. Neurological: Negative for weakness, light-headedness and headaches. Psychiatric/Behavioral: Negative for behavioral problems and confusion. Vitals: Blood pressure 170/84, pulse 61, temperature 97.8 F (36.6 C), temperature source Oral, resp. rate 16, height 1.6 m (5' 3"), weight 83.7 kg (184 lb 8 oz), SpO2 100%. Physical Exam Vitals and nursing note reviewed. Exam conducted with a coordinator mining products present. Constitutional: General: She is not in acute distress. Appearance: She is normal weight. HENT: Head: Normocephalic. Right Ear: Tympanic membrane normal. Left Ear: Tympanic membrane normal. Nose: Nose normal. No congestion or rhinorrhea. Mouth/Throat: Mouth: Mucous membranes are moist. Pharynx: No posterior oropharyngeal erythema. Eyes: General: No scleral icterus. Conjunctiva/sclera: Conjunctivae normal. Cardiovascular: Rate and Rhythm: Normal rate and regular rhythm. Heart sounds: No murmur heard. Pulmonary: Effort: Pulmonary effort is normal. No respiratory distress. Breath sounds: No stridor. Abdominal: General: There is no distension. Palpations: There is no mass. Tenderness: There is no abdominal tenderness. Genitourinary: Comments: External Genitalia right mons with ~ walnut size mobile mass noted, pain with palpitation. Urethral Meatus normal, Urethra normal, Vagina normal, Cervix absent, Anus/Perineum normal. Musculoskeletal: Right lower leg: No edema. Left lower leg: No edema. Lymphadenopathy: Cervical: No cervical adenopathy. Skin: General: Skin is warm. Coloration: Skin is not pale. Findings: No rash. Neurological: General: No focal deficit present. Mental Status: She is alert and oriented to person, place, and time. Psychiatric: Mood and Affect: Mood normal. Neurological Exam Mental Status Alert. Oriented to person, place, and time. Assessment and Plan Azeb Gallegos is a 58 y.o. 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 Radical vulvectomy, excision of distal urethra, bilateral IFLND on 07/08/23. She had recurrent ENID III and underwent simple partial vulvectomy on 03/15 with positive margins. Mons mass; Dr. Marleni romo Dr. Anatoly assess today. discussed surgical removal for diagnosis. We discussed risks of surgery were, but not limited to bleeding, infection, injury to bowel/bladder/ureters, lymphedema, injury to nerves, injury to blood vessels, need for repeat operation, blood clots, pneumonia, and . Plan for PET prior to surgery Time spent for Azeb Gallegos's appointment was 30 minutes in review of records, review of diagnostic testing, other provider notes, coordination of care, meeting with team to discuss the patient and the above, charting, and face to face time with the patient on the same day as the visit. Ramya Becker APRN-BIANCA. I saw and independently evaluated this patient today. I discussed my findings and the therapeutic plan with ANASTASIIA Lane. I have reviewed, repeated or observed the pertinent aspects of the history, physical examination, and have developed the assessment and plan as indicated and edited above. I provided a substantive portion of the care for this patient. I personally performed all aspects of the medical decision making for this encounter. I have reviewed and verified this documentation and it accurately reflects our care. Of note, both the ANASTASIIA and I saw and evaluated the patient together. The ANASTASIIA documented the note and I edited it as needed. Time spent for the appointment was 31 minutes in review of records, review of diagnostic testing, other provider notes, coordination of care,meeting with team to discuss the patient and the above, charting, and face to face time with the patient on the same day as the visit. Pillo Ledbetter M.D. Caustic Room Attendant Division of Gynecology Oncology [facility]08-09-2024 History and physical note* Enma Paulino MD - 06/29/2024 9:47 AM EDT H&P Update 06/29/2024 Azeb Gallegos is a 58 y.o. scheduled for radical vulvectomy. Patient seen and examined by me in the pre-operative area. No updates to medical history. Allergiesand medications reviewed. Vitals: 06/29/24 0917 BP: 170/84 Pulse: Resp: Temp: SpO2: Lab Results Component Value Date WBC 7.58 06/08/2024 HGB 14.2 06/08/2024 HCT 42.1 06/08/2024 PLATELET 229 06/08/2024 MCV 86.6 06/08/2024 Lab Results Component Value Date SODIUM 140 06/08/2024 POTASSIUM 4.9 06/08/2024 CHLORIDE 103 06/08/2024 CO2 29 06/08/2024 BUN 15 06/08/2024 CREATSERUM 0.81 06/08/2024 GLUCOSE 95 06/08/2024 Consent previously obtained. Type and screen O pos UPT NI. Post-operative considerations: None No changes to H&P completed on 05/15/24. Plan to proceed with scheduled surgery. Enma Paulino MD PGY-3 Gynecologic Oncology (GY3) GY3 pager: [phone] KH6 phone: [phone] History of Present Illness No chief complaint on file. Problem H/O radical vulvectomy, bilateral I/F LND Interim History Reports, right groin lump since surgery, believes it has gotten larger and notices more routinely since last visit. Reports, pain in the vulvar where the lump is pinky when placing pressure on it with laying. Reports, intermittent right groin tenderness/numbness since surgery. Notes this has worsened since her last visit, more constant feeling. Reports, intermittent right lower extremity swelling since last visit. Reports, improvement with elevation, rest and compression stockings. She denies any abdominal/pelvic pain. She reports normal bowel/bladder habits. She denies any concerns. Denies any dysuria, frequency, hematuria, flank pain or fevers. She denies any vaginal bleeding or discharge. She denies any CP, SOB, cough or fever/chills. Appetite is good. She denies any nausea or vomiting. She denies vulvar itching, burning, irritation, bleeding or new lesions. Past Medical History She has a past medical history of Mixed stress and urge incontinence. Past Surgical History She has a past surgical history that includes hysterectomy (07/12/2015); bx vulva (05/19/2023); other surgical; bx vulva (09/09/2016); bx vulva (11/25/2016); bx endometrial (05/15/2015); vulvectomy simple partial; vulvectomy radical w/ inguinofemoral lymphadenectomy (Bilateral, 07/08/2023); excision/ fulguration lesion urethra ([facility]line, 07/08/2023); vulvectomy simple partial (Right, 03/15/2024); and excision/fulguration lesion urethra ([facility], 03/15/2024). Family History Family History Problem Relation Age of Onset Diabetes Mother Heart Disease - Other Father Breast Cancer Paternal Grandmother Ovarian Cancer Neg Hx Uterine Cancer Neg Hx Colorectal Cancer Neg Hx Social History Social History Socioeconomic History Marital status: Tobacco Use Smoking status: Former Current packs/day: 0.00 Types: Cigarettes Quit date: 11/21/1984 Years since quittin.6 Smokeless tobacco: Never Tobacco comments: Trying to quit; currently smoking 1 pack over about 3 dayso Vaping Use Vaping status: Never Used Substance and Sexual Activity Alcohol use: Yes Comment: "once in a blue best"; holidays Drug use: Never Sexual activity: Yes Partners: Male Social History Narrative 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 She does report a remote history of STIs. She denies a history of abnormal cervical cytology and reports her last cytologic examination was prior to hysterectomy and negative per her report. Health maintenance: Mammogram: has not had and declines (being set up with music professionals) Colonoscopy: has not had and declines BMI Body mass index is 32.68 kg/m . Wt Readings from Last 3 Encounters: 06/29/24 83.7 kg (184 lb 8 oz) 06/15/24 83.5 kg (184 lb) 05/15/24 83.7 kg (184 lb 9.6 oz) Review of Systems Constitutional: Negative for activity change, appetite change, chills, fatigue and fever. HENT: Negative for hearing loss and rhinorrhea. Eyes: Negative for visual disturbance. Respiratory: Negative for cough, chest tightness and shortness of breath. Cardiovascular: Negative for chest pain and palpitations. Gastrointestinal: Negative for abdominal pain, constipation, diarrhea, nausea and vomiting. Genitourinary: Negative for difficulty urinating, dysuria, genital sores, pelvic pain, vaginal bleeding and vaginal pain. Musculoskeletal: Negative for arthralgias and myalgias. Skin: Negative for rash. Neurological: Negative for weakness, light-headedness and headaches. Psychiatric/Behavioral: Negative for behavioral problems and confusion. Vitals: Blood pressure 170/84, pulse 61, temperature 97.8 F (36.6 C), temperature source Oral, resp. rate 16, height 1.6 m (5' 3"), weight 83.7 kg (184 lb 8 oz), SpO2 100%. Physical Exam Vitals and nursing note reviewed. Exam conducted with a coordinator mining products present. Constitutional: General: She is not in acute distress. Appearance: She is normal weight. HENT: Head: Normocephalic. Right Ear: Tympanic membrane normal. Left Ear: Tympanic membrane normal. Nose: Nose normal. No congestion or rhinorrhea. Mouth/Throat: Mouth: Mucous membranes are moist. Pharynx: No posterior oropharyngeal erythema. Eyes: General: No scleral icterus. Conjunctiva/sclera: Conjunctivae normal. Cardiovascular: Rate and Rhythm: Normal rate and regular rhythm. Heart sounds: No murmur heard. Pulmonary: Effort: Pulmonary effort is normal. No respiratory distress. Breath sounds: No stridor. Abdominal: General: There is no distension. Palpations: There is no mass. Tenderness: There is no abdominal tenderness. Genitourinary: Comments: External Genitalia right mons with ~ walnut size mobile mass noted, pain with palpitation. Urethral Meatus normal, Urethra normal, Vagina normal, Cervix absent, Anus/Perineum normal. Musculoskeletal: Right lower leg: No edema. Left lower leg: No edema. Lymphadenopathy: Cervical: No cervical adenopathy. Skin: General: Skin is warm. Coloration: Skin is not pale. Findings: No rash. Neurological: General: No focal deficit present. Mental Status: She is alert and oriented to person, place, and time. Psychiatric: Mood and Affect: Mood normal. Neurological Exam Mental Status Alert. Oriented to person, place, and time. Assessment and Plan Azeb Gallegos is a 58 y.o. 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 Radical vulvectomy, excision of distal urethra, bilateral IFLND on 07/08/23. She had recurrent ENID III and underwent simple partial vulvectomy on 03/15 with positive margins. Mons mass; Dr. Yepez an Dr. Ledbetter assess today. discussed surgical removal for diagnosis. We discussed risks of surgery were, but not limited to bleeding, infection, injury to bowel/bladder/ureters, lymphedema, injury to nerves, injury to blood vessels, need for repeat operation, blood clots, pneumonia, and . Plan for PET prior to surgery Time spent for Azeb Gallegos's appointment was 30 minutes in review of records, review of diagnostic testing, other provider notes, coordination of care, meeting with team to discuss the patient and the above, charting, and face to face time with the patient on the same day as the visit. MADISON Lane. I saw and independently evaluated this patient today. I discussed my findings and the therapeutic plan with ANASTASIIA Lane. I have reviewed, repeated or observed the pertinent aspects of the history, physical examination, and have developed the assessment and plan as indicated and edited above. I provided a substantive portion of the care for this patient. I personally performed all aspects of the medical decision making for this encounter. I have reviewed and verified this documentation and it accurately reflects our care. Of note, both the ANASTASIIA and I saw and evaluated the patient together. The ANASTASIIA documented the note and I edited it as needed. Time spent for the appointment was 31 minutes in review of records, review of diagnostic testing, other provider notes, coordination of care,meeting with team to discuss the patient and the above, charting, and face to face time with the patient on the same day as the visit. Pillo Ledbetter M.D. [facility] Room Attendant Division of Gynecology Oncology [facility] Discharge instructions* Discharge Instructions* Sheila Valdivia RN - 06/29/2024 9:33 AM EDT Anesthesia Precautions & Expectations: After anesthesia, rest for [address], drink alcoholic beverages or make any important decisions during this time. General anesthesia may cause a sore throat, jaw discomfort or muscle aches. These symptoms can last for one or two days. What to Expect after Surgery: A small amount of vaginal drainage is normal for 2 to 4 weeks after surgery. Clear to light pink isnormal. Spotting is also normal. You may need to wear sanitary (maxi) pads during this time. Mild or moderate abdominal discomfort and tenderness. Chest and shoulder discomfort. Walking and changing positions will decrease your discomfort. Vaginal Bleeding or Discharge Call your Doctor or Nurse if you have: Vaginal bleeding that is heavy like a period, gets worse over time or starts suddenly. Heavy vaginal bleeding, soaking 1 to 2 sanitary (maxi) pads in one hour or passing large clots. Pain Medication: A prescription for pain medicine may be sent home with you. Do not drive while taking prescription pain medicine. Eat when taking pain medicines to avoid nausea. Watch for constipation. Eat plenty offruits, vegetables, juices, and drink 6 to 8 glasses of water each day. If this medicine is too strong, or no longer needed, you may take: Ibuprofen, like Advil or Motrin, 200 mg. (milligram) tablets- Take 2 tablets every 4 to 6 hours as needed for pain. Do not use this if you have stomach problems, stomach ulcers, or if you are on blood thinners, like Coumadin. Extra strength acetaminophen, like Tylenol Extra-strength -Take 2 tablets every 4 to 6 hours as needed for mild pain. Prevent Constipation- Post-op and Opioid Use Bowel Regimen Instructions: The goal is to have 1 non-forced bowel movement every 1-2 days. You may be given a prescription forthese medicines, or you can buy them over the counter. Start with the following regimen: Miralax (polyethylene glycol): Mix 1 cap (17g) of powder in 4-8 ounces of water, juice, or coffee. Take twice daily. Colace (docusate sodium): Take 1-2 (100mg red jelly) tabs morning and bedtime (can increase to 3 tabs if needed).This keeps stool soft. No bowel movement? Add Senakot (senna glycoside) twice daily. Try prunes/apples/plums or other high-fiber foods, Metamucil or Citrucel, or adding in milk of magnesia. Loose stools or diarrhea? Decrease the Miralax and Colace to reach the goal of a daily, soft bowel movement. You can take themedications daily, every other day, or not at all depending on your bowel movements. Please Dispose of Your Unused Pain Medications: Studies have found that over 80% of patients will have leftover narcotic pain medication after their procedure. Over 90% of these patients keep them, rather than disposing of them. According to the National Survey on Drug Use and Health, about half of individuals who misuse prescription painkillers obtain them from a friend or family member. The Centers for Disease Control and Prevention reports that over 10,000 overdose deaths occur each year due to prescription painkillers. Disposing your unused medications keeps them off the street and away from children or loved ones. If you have unused medications, please look up a safe drop off location near you at http://rxdrugdropbox.org/. Activity: Your nurse or doctor will tell you when it is okay to drive. This is usually when you are able to comfortably wear a seatbelt, press the gas/brake pedals, and drive defensively. You may not drive while taking narcotic pain medicines. No heavy lifting (nothing over 5 to 10 pounds= gallon of milk) for 4 to 6 weeks. No strenuous activities or exercises for 4 to 6 weeks. Take the stairs slowly. Go one step at a time. You may tire more quickly than before your surgery. Try to increase your activity level a little more each day. Go for short walks. Start with short distances and gradually increase how long and how fast you walk. Shower every day and wash your incision(s) gently with soap and water. You may face the shower and allow water to run over the incisions. Gently pat dry with a clean towel. Wear loose-fitting clothing until your incisions are healed. No hot tubs, tub baths or swimming. Your doctor will tell you when you may take a tub bath. Pelvic Rest- Do not resume sexual activity or place anything inside your vagina at this time. No douching or use of a tampon until approved by your physician. Your doctor will discuss recommendationsat your follow-up appointment. Diet Usual diet- You are to resume your usual diet at home Laparoscopic/Robotic Surgical Incisions: Your incisions have sutures below the skin that will dissolve on their own. You will not need to have them removed. Your incisions may be covered with steri- strips/clear dressings or Dermabond skin glue. Steri-strips with Clear Dressings You may remove the clear dressings the day after your surgery. Leave steri- strips in place until they fall off on their own or remove them in 1 week. Shower daily, gently washing the incisions with soap and water, but do not soak the incision in a tub. Do not apply any ointments, medications, creams or lotions to the wounds. Dermabond A special skin glue called Dermabond is used to close and cover your incision. It is to stay in place for 10 to 14 days and wears off on its own. The glue is waterproof. Shower daily, gently washing the incisions with soap and water, but do not soak the incision in a tub because it could loosen theglue too soon. Do not pick or peel the glue off your skin. Do not apply any ointments, medications,creams or lotions to the wounds. Notify Your Doctor or Nurse if you have any of the following: Wound Infection Symptoms -More pain around the wound -Change in the amount , color and odor of drainage -The skin around the wound feels warm or has red streaks -The wound separates or opens up -You have a temperature greater than 100.4 Deep Vein Thrombosis Symptoms -Tender, swollen or reddened areas anywhere in your leg. -Numbness or tingling in your lower leg or calf, or at the top of your leg or groin -Skin on you leg looks pale or blue or feels cold to touch -Chest pain or have trouble breathing -Fever or chills Fever or Chills - Have a temperature greater than 100.4 degrees F that lasts more than 1 hour and/or chills. Nausea and Vomiting - Have nausea and vomiting that will not let you keep medicine or fluids down. - Are unable to tolerate food or liquids, you have severe abdominal cramping, or your abdomen is getting bigger/palafox. Unrelieved Pain - Your pain gets worse or is not eased 1 hour after taking your pain medicine. Urinary Tract Infection Symptoms - Urine is cloudy, bloody or has a bad odor - You leak urine or you have to urinate more often - You feel burning when you urinate - You have a temperature greater than 100.4 Contacts: [facility] N[facility]SE ONCOLOGY CONTACT+ If you have any medical questions, please call the [facility] Ph. [phone] After 4:30pm Tuesday-Tuesday and on weekends, this phone number will forward to the after hours Nurseline for 13/06 assistance. Cancer Resources For more information about support groups and other resources offered, contact: -[facility] at [phone] to find out about support groups offered by The [facility] [employer] at [phone] or online at www.cancer.org -Leukemia and Lymphoma Society at [phone] or online at www.lls.org -[facility] at [phone] or online at www.lifecarealliance.org -[facility] [place] at [phone] or online at www.ovariancanceroh.org -[place] [employer] [employer] at [phone] or online at www.abta.org -National Brain Tumor Foundation at 928-816-0697 or online at www.braintumor.org documented in this encounter[facility]06[facility] History of Present illness Narrative* Ramya Becker APRN-RN MEDICARE - 05/15/2024 2:30 PM EDT History of Present Illness Chief Complaint Patient presents with Follow-up Problem History of Cancer of Vulva Referral Sara Fowler ([place], [place]). 05/19/2023: Vulvar bx 12 o'clock- Superficially invasive SCC arising in a background of high grade squamous intraepithelial lesion Vulvar bx 4 o'clock- HSIL, U-ENID Vulvar bx 9 o'clock- Negative Vulvar bx 3 o'clock- Negative [facility] path review pending. 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 Interim History Reports, right groin lump since surgery, believes it has gotten larger and notices more routinely since last visit. Reports, pain in the vulvar where the lump is pinky when placing pressure on it with laying. Reports, intermittent right groin tenderness/numbness since surgery. Notes this has worsened since her last visit, more constant feeling. Reports, intermittent right lower extremity swelling since last visit. Reports, improvement with elevation, rest and compression stockings. She denies any abdominal/pelvic pain. She reports normal bowel/bladder habits. She denies any concerns. Denies any dysuria, frequency, hematuria, flank pain or fevers. She denies any vaginal bleeding or discharge. She denies any CP, SOB, cough or fever/chills. Appetite is good. She denies any nausea or vomiting. She denies vulvar itching, burning, irritation, bleeding or new lesions. Past Medical History She has a past medical history of Mixed stress and urge incontinence. Past Surgical History She has a past surgical history that includes hysterectomy (07/12/2015); bx vulva (05/19/2023); other surgical; bx vulva (09/09/2016); bx vulva (11/25/2016); bx endometrial (05/15/2015); vulvectomy simple partial; vulvectomy radical w/ inguinofemoral lymphadenectomy (Bilateral, 07/08/2023); excision/ fulguration lesion urethra ([facility], 07/08/2023); vulvectomy simple partial (Right, 03/15/2024); and excision/fulguration lesion urethra ([facility], 03/15/2024). Family History Family History Problem Relation Age of Onset Diabetes Mother Heart Disease - Other Father Breast Cancer Paternal Grandmother Ovarian Cancer Neg Hx Uterine Cancer Neg Hx Colorectal Cancer Neg Hx Social History Social History Socioeconomic History Marital status: Tobacco Use Smoking status: Former Current packs/day: 0.00 Types: Cigarettes Quit date: 11/21/1984 Years since quittin.5 Smokeless tobacco: Never Tobacco comments: Trying to quit; currently smoking 1 pack over about 3 dayso Vaping Use Vaping status: Never Used Substance and Sexual Activity Alcohol use: Yes Comment: "once in a blue best"; holidays Drug use: Never Sexual activity: Yes Partners: Male Social History Narrative 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 She does report a remote history of STIs. She denies a history of abnormal cervical cytology and reports her last cytologic examination was prior to hysterectomy and negative per her report. Health maintenance: Mammogram: has not had and declines (being set up with music professionals) Colonoscopy: has not had and declines BMI Body mass index is 32.51 kg/m . Wt Readings from Last 3 Encounters: 05/15/24 83.7 kg (184 lb 9.6 oz) 04/03/24 84.3 kg (185 lb 12.8 oz) 03/22/24 85.7 kg (188 lb 14.4 oz) Review of Systems Constitutional: Negative for activity change, appetite change, chills, fatigue and fever. HENT: Negative for hearing loss and rhinorrhea. Eyes: Negative for visual disturbance. Respiratory: Negative for cough, chest tightness and shortness of breath. Cardiovascular: Negative for chest pain and palpitations. Gastrointestinal: Negative for abdominal pain, constipation, diarrhea, nausea and vomiting. Genitourinary: Negative for difficulty urinating, dysuria, genital sores, pelvic pain, vaginal bleeding and vaginal pain. Musculoskeletal: Negative for arthralgias and myalgias. Skin: Negative for rash. Neurological: Negative for weakness, light-headedness and headaches. Psychiatric/Behavioral: Negative for behavioral problems and confusion. Vitals: Blood pressure 166/72, pulse 70, temperature 98.1 F (36.7 C), temperature source Oral, resp. rate 18, height 1.605 m (5' 3.19"), weight 83.7 kg (184 lb 9.6 oz), SpO2 98%. Physical Exam Vitals and nursing note reviewed. Exam conducted with a coordinator mining products present. Constitutional: General: She is not in acute distress. Appearance: She is normal weight. HENT: Head: Normocephalic. Right Ear: Tympanic membrane normal. Left Ear: Tympanic membrane normal. Nose: Nose normal. No congestion or rhinorrhea. Mouth/Throat: Mouth: Mucous membranes are moist. Pharynx: No posterior oropharyngeal erythema. Eyes: General: No scleral icterus. Conjunctiva/sclera: Conjunctivae normal. Cardiovascular: Rate and Rhythm: Normal rate and regular rhythm. Heart sounds: No murmur heard. Pulmonary: Effort: Pulmonary effort is normal. No respiratory distress. Breath sounds: No stridor. Abdominal: General: There is no distension. Palpations: There is no mass. Tenderness: There is no abdominal tenderness. Genitourinary: Comments: External Genitalia right mons with ~ walnut size mobile mass noted, pain with palpitation. Urethral Meatus normal, Urethra normal, Vagina normal, Cervix absent, Anus/Perineum normal. Musculoskeletal: Right lower leg: No edema. Left lower leg: No edema. Lymphadenopathy: Cervical: No cervical adenopathy. Skin: General: Skin is warm. Coloration: Skin is not pale. Findings: No rash. Neurological: General: No focal deficit present. Mental Status: She is alert and oriented to person, place, and time. Psychiatric: Mood and Affect: Mood normal. Neurological Exam Mental Status Alert. Oriented to person, place, and time. Assessment and Plan Azeb Gallegos is a 58 y.o. 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 Radical vulvectomy, excision of distal urethra, bilateral IFLND on 07/08/23. She had recurrent ENID III and underwent simple partial vulvectomy on 03/15 with positive margins. Mons mass; Dr. Yepez an Dr. Ledbetter assess today. discussed surgical removal for diagnosis. We discussed risks of surgery were, but not limited to bleeding, infection, injury to bowel/bladder/ureters, lymphedema, injury to nerves, injury to blood vessels, need for repeat operation, blood clots, pneumonia, and . Plan for PET prior to surgery Time spent for Azeb Gallegos's appointment was 30 minutes in review of records, review of diagnostic testing, other provider notes, coordination of care, meeting with team to discuss the patient and the above, charting, and face to face time with the patient on the same day as the visit. Ramya Becker APRN-BIANCA. I saw and independently evaluated this patient today. I discussed my findings and the therapeutic plan with ANASTASIIA Lane. I have reviewed, repeated or observed the pertinent aspects of the history, physical examination, and have developed the assessment and plan as indicated and edited above. I provided a substantive portion of the care for this patient. I personally performed all aspects of the medical decision making for this encounter. I have reviewed and verified this documentation and it accurately reflects our care. Of note, both the ANASTASIIA and I saw and evaluated the patient together. The ANASTASIIA documented the note and I edited it as needed. Time spent for the appointment was 31 minutes in review of records, review of diagnostic testing, other provider notes, coordination of care,meeting with team to discuss the patient and the above, charting, and face to face time with the patient on the same day as the visit. Pillo Ledbetter M.D. Ca[facility] Room Attendant Division of Gynecology Oncology * Ines Terrazas RN - 05/15/2024 2:30 PM EDT Reports having more right sided groin pain recently. Currently 02/28. Reports "beside it there's a lump" that has been there since after surgery, has not changed in size "just maybe a little more swollen". Reports tylenol and ibuprofen help with the pain. Denies vaginal bleeding/discharge/irritation/itching. [facility]* Patient Instructions* Olya Delgadillo, CARIDAD - 05/15/2024 2:30 PM EDT DIVISION OF GYNECOLOGIC ONCOLOGY YOUR SURGERY CHECKLIST: ONCE YOU ARE SCHEDULED FOR SURGERY Take care of your medical leave paperwork for your employer, if needed Arrange to have a responsible adult take you home after surgery Talk to your doctors about any medications you may need to adjust or stop before surgery such as blood thinners, diabetic medications, NSAIDs, and herbal supplements Stop tobacco and alcohol use DAY BEFORE SURGERY: You will be called with your arrival and surgery time. Before Bedtime: Clean your skin with CHG wash in the shower Take evening medicines if you were instructed Stop eating 8 hours before surgery time: DAY OF SURGERY Do not eat anything Remove jewelry, piercings, nail anguillan, and contacts lenses Do not put on hair or skin care products, deodorant, or makeup Take any medicines you were instructed to take with small sips of water Take another shower with the CHG wash and put on clean clothes Bring with you: A list or photos of your current medication Your photo ID and insurance card Your Living Will and Health Care Power of Yard Demurrage Clerk forms (if you have them) Comfortable clothing If you use an Inhaler/Inhalers on a daily basis. then use your inhaler on the morning of surgery. - Do NOT take Herbal Medication (including multi-vitamin, fish oil ([place]-3), garlic, Glucosamine -Chondroitin ,gingko, ginseng, Vitamin E, probiotics) supplements 2 weeks before surgery. Do Not take Vitamins for 5 days before surgery. - Do NOT take Excedrin, ibuprofen, Advil, Voltaren (Diclofenac), Motrin, naproxen, or Aleve, Blue [place] (Meloxicam) for the 5 days before surgery. Acetaminophen (Tylenol) is ok to take up until the day ofsurgery. If you become ill, develop a fever, cough, or any type of infection within 14 days of your scheduled surgery, please call the surgeon's office. You may need to have your surgery moved, as we would not want to put you at risk for complications due to an illness. If you are placed on Antibiotics within 1 week of surgery, please notify our team immediately. GETTING YOUR SKIN READY FOR SURGERY Your surgery involves cutting through your skin. Because germs live on everyone s skin, there is a chance of getting an infection. To lessen your chance of an infection, you need to wash your skin with a special soap or foam, called 4% chlorhexidine gluconate (CHG), before your surgery. Follow These Instructions 1. For 1 week before your surgery, do NOT shave near the site where you will have your surgery. Shaving with a razor can irritate your skin and make it easier to develop an infection. If needed, yournurse will trim the hair on the site where you will have surgery with electric clippers before you go into the operating room. 2. Shower with CHG soap or foam as directed. You may be told to shower with CHG soap or foam 2 or 6times, based on your surgery. Please call your surgeon s office if you have any questions. Your nurse will put a (X) in the box by the way you need to shower. o You need to take 2 showers using CHG soap or foam: Wash your whole body from the neck down with CHG soap or foam the night before your surgery and then again the morning of your surgery. Use 4 ounces ( cup) of CHG liquid soap or 4 to 5 pumps of CHG foam each time you shower. This handout is for informational purposes only. Talk with your doctor or health care team if you have any questions about your care o Do not wash your hair with CHG soap or foam each time you shower. Shower and wash with the CHG soap or foam from the neck down only. If you are not able to shower: If you do not have a shower or you are not able to get into a shower, do a sponge bath each time toclean your body. Do not use CHG soap or foam on your hair unless you are told to do so by your doctor or nurse. How to take a sponge bath: 1. Bathe with a clean washcloth, water and regular soap. Rinse well with clean water. 2. Wet a new, clean washcloth with water. 3. Put some CHG soap or foam on the wet washcloth. 4. Use the washcloth to wash your whole body from your neck down. Add more CHG soap or foam and continue to wash for 5 minutes. 5. Rinse well with another clean washcloth and clean water. 6. Pat yourself dry with a clean towel. 7. Put on clean clothes. If you have any questions about cleaning your skin, call your surgeon s office. [facility] History of Present illness Narrative* Tim Perez MD - 04/03/2024 3:00 PM EDT History of Present Illness Azeb Gallegos is a 58 y.o. female with a history of vulvar carcinoma Chief Complaint Patient presents with Post Op Visit ENID III No problems updated. Interim History She underwent simple partial vulvectomy on 03/15. She returns for follow-up. She reports overall doing well. Her pain concern is discomfort with urination when the urine touches her incision site. This is improved with using a nina bottle. She is also worried that there mightbe a separation in her incision. Overall her pain is well controlled. She reports reddish brown discharge. Occasional odor when using the restroom. Denies fevers/chills. No difficulty with urination.Regular bowel movements. Tolerating a regular diet. Past Medical History She has a past medical history of Mixed stress and urge incontinence. Past Surgical History She has a past surgical history that includes hysterectomy (07/12/2015); bx vulva (05/19/2023); other surgical; bx vulva (09/09/2016); bx vulva (11/25/2016); bx endometrial (05/15/2015); vulvectomy simple partial; vulvectomy radical w/ inguinofemoral lymphadenectomy (Bilateral, 07/08/2023); excision/ fulguration lesion urethra ([facility], 07/08/2023); vulvectomy simple partial (Right, 03/15/2024); and excision/fulguration lesion urethra ([facility], 03/15/2024). Family History Family History Problem Relation Age of Onset Diabetes Mother Heart Disease - Other Father Breast Cancer Paternal Grandmother Ovarian Cancer Neg Hx Uterine Cancer Neg Hx Colorectal Cancer Neg Hx Social History Social History Socioeconomic History Marital status: Tobacco Use Smoking status: Former Current packs/day: 0.00 Types: Cigarettes Quit date: 11/21/1984 Years since quittin.3 Smokeless tobacco: Never Tobacco comments: Trying to quit; currently smoking 1 pack over about 3 dayso Vaping Use Vaping status: Never Used Substance and Sexual Activity Alcohol use: Yes Comment: "once in a blue best"; holidays Drug use: Never Sexual activity: Yes Partners: Male Social History Narrative 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 She does report a remote history of STIs. She denies a history of abnormal cervical cytology and reports her last cytologic examination was prior to hysterectomy and negative per her report. Health maintenance: Mammogram: has not had and declines (being set up with music professionals) Colonoscopy: has not had and declines BMI Body mass index is 32.43 kg/m . Wt Readings from Last 3 Encounters: 04/03/24 84.3 kg (185 lb 12.8 oz) 03/22/24 85.7 kg (188 lb 14.4 oz) 03/15/24 85.2 kg (187 lb 12.8 oz) Review of Systems Constitutional: Negative for activity change, appetite change, chills, fatigue and fever. HENT: Negative for hearing loss and rhinorrhea. Eyes: Negative for visual disturbance. Respiratory: Negative for cough, chest tightness and shortness of breath. Cardiovascular: Negative for chest pain and palpitations. Gastrointestinal: Negative for abdominal pain, constipation, diarrhea, nausea and vomiting. Genitourinary: Positive for dysuria. Negative for difficulty urinating, genital sores, pelvic pain,vaginal bleeding and vaginal pain. Musculoskeletal: Negative for arthralgias and myalgias. Skin: Negative for rash. Neurological: Negative for weakness, light-headedness and headaches. Psychiatric/Behavioral: Negative for behavioral problems and confusion. Vitals: Blood pressure 162/78, pulse 71, temperature 97 F (36.1 C), resp. rate 18, weight 84.3 kg (185 lb 12.8 oz), SpO2 98%. Physical Exam Vitals and nursing note reviewed. Exam conducted with a coordinator mining products present. Constitutional: General: She is not in acute distress. Appearance: She is normal weight. HENT: Head: Normocephalic. Right Ear: Tympanic membrane normal. Left Ear: Tympanic membrane normal. Nose: Nose normal. No congestion or rhinorrhea. Mouth/Throat: Mouth: Mucous membranes are moist. Pharynx: No posterior oropharyngeal erythema. Eyes: General: No scleral icterus. Conjunctiva/sclera: Conjunctivae normal. Cardiovascular: Rate and Rhythm: Normal rate and regular rhythm. Heart sounds: No murmur heard. Pulmonary: Effort: Pulmonary effort is normal. No respiratory distress. Breath sounds: No stridor. Abdominal: General: There is no distension. Palpations: There is no mass. Tenderness: There is no abdominal tenderness. Genitourinary: Comments: 1 cm incision on right vulva, adjacent to vagina with superficial separation, no erythemaor induration Musculoskeletal: Right lower leg: No edema. Left lower leg: No edema. Lymphadenopathy: Cervical: No cervical adenopathy. Skin: General: Skin is warm. Coloration: Skin is not pale. Findings: No rash. Neurological: General: No focal deficit present. Mental Status: She is alert and oriented to person, place, and time. Psychiatric: Mood and Affect: Mood normal. Neurological Exam Mental Status Alert. Oriented to person, place, and time. Pathology A. Right posterior vulva lesion, right posterior simple vulvectomy: High grade squamous intraepithelial lesion (VIN3). High grade dysplasia focally extends to the 12-3-6 clock margin, the other margins are free of highgrade dysplasia. Note: Immunostain for p16 showed diffuse strong staining, supporting the above diagnosis. B. Urethral orifice at 9 o'clock, biopsy: Urethral fragment, negative for high grade dysplasia. Note: Immunostain for p16 showed patchy weak staining, supporting the above diagnosis. Assessment and Plan Azeb Gallegos is a 58 y.o. 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 Radical vulvectomy, excision of distal urethra, bilateral IFLND on 07/08/23. She had recurrent ENID III and underwent simple partial vulvectomy on 03/15 with positive margins. Today, she follows for post operative visit. She is overall doing well. Will plan to let superficial separation of vulvar lesion to heal by secondary intention. Plan for follow-up in 6 weeks. Seen and discussed with Dr. Marleni Perez MD OVEN DUMPER, PGY2 I saw and personally examined the patient today with the resident. I discussed the findings and therapeutic plan with the resident/fellow and patient. I agree with the history, physical examination, and medical decisions as outlined. Doing okay. Wound site is clean. Removed three loose sutures. Discussed her pathology report. RTC 6 weeks. Postop visit Flakito Yepez MD #[id number] * Barbie Austin RN - 04/03/2024 3:00 PM EDT Reports some burning on incision area when she urinates and states that thinks where the sutures were removed is a little more open. She also reports sometimes noticing an odor when she is using the restroom. [facility] History of Present illness Narrative* Ramya Becker, GABI-RN MEDICARE - 03/22/2024 1:00 PM EDT Subjective: Azeb Gallegos is a 58 y.o. female here today problem focused visit VULVECTOMY SIMPLE PARTIAL(Right), EXCISION/FULGURATION LESION URETHRA (Midline) on 03/15/24. She went back to work on Tuesday,03/19, walks/stands with her job. She has not lifted. Reports, over the last few days it has become more sore, red and believes her sutures have pulled apart. Reports, reddish/brown drainage. Denies any odor. She is using Tylenol/IBU for discomfort. Bowel/bladder working normally. No concerns. Eating regular diet with difficulty. No nausea or vomiting. She is using nina bottle and using with each bathroom trip. She has been doing sitz baths over the last few days. Trying to keep as clean and dryas possible. Denies any fever/chills. No feeling of feeling unwell. Objective: BP 173/79 (BP Location: Left arm, BP Position: Sitting) Comment: advise pt will most likely need rechecked, wrote 'recheck BP' on blue card Pulse 81 Temp 98.5 F (36.9 C) (Oral) Resp 12 Ht 1.612 m (5' 3.47") Wt 85.7 kg (188 lb 14.4 oz) SpO2 96% BMI 32.97 kg/m Smoking Status Former Vulvar Incision: Vulvar incision with sutures mostly intact, healing well, no drainage, no erythema, no swelling, incision well approximated Assessment: Doing well postoperatively. Few suture removed today that were non functional, removed and tolerated well. No concern for infection. A. Right posterior vulva lesion, right posterior simple vulvectomy: High grade squamous intraepithelial lesion (VIN3). High grade dysplasia focally extends to the 12-3-6 clock margin, the other margins are free of highgrade dysplasia. Note: Immunostain for p16 showed diffuse strong staining, supporting the above diagnosis. B. Urethral orifice at 9 o'clock, biopsy: Urethral fragment, negative for high grade dysplasia. Note: Immunostain for p16 showed patchy weak staining, supporting the above diagnosis. Plan: 1. Continue any current medications. 2. Wound care and signs and symptoms of infection discussed. 3. Continue using squirt bottle after every toileting. 4. Continue sitz baths; soaking the perineal area in the warm water and 1/2 cup of baking soda for 15 to 20 minutes, twice daily. 5. RTC 04/03/24 at [address] Yepez. Discussed pathology results today. Time spent for Azeb Gallegos's appointment was 20 minutes in review of records, review of diagnostic testing, other provider notes, coordination of care, meeting with team to discuss the patient and the above, charting, and face to face time with the patient on the same day as the visit. [address]. [facility] Surgical operation note* Brittni Lindquist, RN - 03/15/2024 1:34 PM EDT 1332: [facility]. Vital signs taken and stable. Patient assessed. Patient given drink and snacks. Family called to bedside. 1345: Discharge instructions given to patient and family. Patient and family member present for discharge teaching. All questions answered at this time. 1420: Pt meets ASU discharge criteria. Patient taken out by Lenora wool classer in wheel chair. Family to drive patient home and be with them 24 hours. [facility] Nurse Note* Brittni Lindquist RN - 03/15/2024 1:34 PM EDT 1332: [facility] via [place]. Vital signs taken and stable. Patient assessed. Patient given drink and snacks. Family called to bedside. 1345: Discharge instructions given to patient and family. Patient and family member present for discharge teaching. All questions answered at this time. 1420: Pt meets ASU discharge criteria. Patient taken out by Lenora wool classer in wheel chair. Family to drive patient home and be with them 24 hours. [facility] Surgery Postoperative evaluation and management note* Op Note - Flakito Yepez MD - 03/15/2024 12:36 PM EDT OPERATIVE NOTE MARCH 14, 2024 Azeb Gallegos ([id number]) PRE OPERATIVE DIAGNOSIS ENID III (vulvar intraepithelial neoplasia III) [D07.1] Urethral bleeding [N36.8] POST OPERATIVE DIAGNOSIS ENID III (vulvar intraepithelial neoplasia III) [D07.1] Urethral bleeding [N36.8] PROCEDURE PERFORMED Procedure(s) (LRB): VULVECTOMY SIMPLE PARTIAL (Right) EXCISION/FULGURATION LESION URETHRA (Midline) PRIMARY CLOSURE Yes INTRAOPERATIVE FINDINGS Friable urethra, with bleeding on vaginal prep. Vulvar lesion (white - prior biopsy ENID III) right posterior, about 1.5 cm at 7 o'clock adjacent to the vagina HISTORY AND CONSENT This patient was in surveillance following treatment for vulvar carcinoma. She was noted to have a white lesion on the posterior right vulva adjacent to the vagina. A biopsy of this site demonstratedVIN III. A simple partial vulvectomy was recommended and the patient agreed to proceed. An informedconsent was completed. At the time of prepping the urethral orifice seemed friable. SURGEON Surgeons and Role: * Flakito Yepez MD - Primary ANESTHESIOLOGIST Anesthesiologist: Maurizio Gomez MD BREAKER OFF: Bia Eugene APRN-BREAKER OFF SURGICAL STAFF Dental Surgery Doctor: Farrah Lindquist RN Scrub Person: Camille Ordonez RN Resident Assisting: Laine Deleon MD SURGICAL PROCEDURE The patient was placed in the dorsal lithotomy procedure in Richie stirrups, taking care to minimizeneurologic contraction or compression injuries. The patient was prepped and draped. A safety time out was conducted. The surgical site was infiltrated with 1% lidocaine and 1/4% bupivacaine (10 mL total). The urethra orifice was biopsied at 9 o'clock. Bleeding was controlled with cautery and pressure. The right posterior vulvar lesion was demarcated with a skin marking pen, marking with the intent of obtaining negative margins. The lesion was circumferentially excised and undermined and removed with a pathologic marking stitch. The defect was about 4 x 2.5 cm. The base was lightly cauterized to o btain hemostasis. The defect was then closed with interrupted 3-0 vicryl sutures. The patient was in satisfactory stable condition on transfer to recovery room. COMPLICATIONS None ESTIMATED BLOOD LOSS Minimal Flakito Yepez MD March 15, 2024 12:55 PM [facility] Miscellaneous Notes* Op Note - Flakito Yepez MD - 03/15/2024 12:36 PM EDT OPERATIVE NOTE MARCH 14, 2024 Azeb Gallegos ([id number]) PRE OPERATIVE DIAGNOSIS ENID III (vulvar intraepithelial neoplasia III) [D07.1] Urethral bleeding [N36.8] POST OPERATIVE DIAGNOSIS ENID III (vulvar intraepithelial neoplasia III) [D07.1] Urethral bleeding [N36.8] PROCEDURE PERFORMED Procedure(s) (LRB): VULVECTOMY SIMPLE PARTIAL (Right) EXCISION/FULGURATION LESION URETHRA (Midline) PRIMARY CLOSURE Yes INTRAOPERATIVE FINDINGS Friable urethra, with bleeding on vaginal prep. Vulvar lesion (white - prior biopsy ENID III) right posterior, about 1.5 cm at 7 o'clock adjacent to the vagina HISTORY AND CONSENT This patient was in surveillance following treatment for vulvar carcinoma. She was noted to have a white lesion on the posterior right vulva adjacent to the vagina. A biopsy of this site demonstratedVIN III. A simple partial vulvectomy was recommended and the patient agreed to proceed. An informedconsent was completed. At the time of prepping the urethral orifice seemed friable. SURGEON Surgeons and Role: * Flakito Yepez MD - Primary ANESTHESIOLOGIST Anesthesiologist: Maurizio Gomez MD BREAKER OFF: Bia Eugene APRN-BREAKER OFF SURGICAL STAFF Dental Surgery Doctor: Farrah Lindquist RN Scrub Person: Camille Ordonez RN Resident Assisting: Laine Deleon MD SURGICAL PROCEDURE The patient was placed in the dorsal lithotomy procedure in [facility], taking care to minimizeneurologic contraction or compression injuries. The patient was prepped and draped. A safety time out was conducted. The surgical site was infiltrated with 1% lidocaine and 1/4% bupivacaine (10 mL total). The urethra orifice was biopsied at 9 o'clock. Bleeding was controlled with cautery and pressure. The right posterior vulvar lesion was demarcated with a skin marking pen, marking with the intent of obtaining negative margins. The lesion was circumferentially excised and undermined and removed with a pathologic marking stitch. The defect was about 4 x 2.5 cm. The base was lightly cauterized to o btain hemostasis. The defect was then closed with interrupted 3-0 vicryl sutures. The patient was in satisfactory stable condition on transfer to recovery room. COMPLICATIONS None ESTIMATED BLOOD LOSS Minimal Flakito Yepez MD March 15, 2024 12:55 PM * Brief Op Note - Flakito Yepez MD - 03/15/2024 12:32 PM EDT Azeb Gallegos ([id number]) PRE OPERATIVE DIAGNOSIS ENID III (vulvar intraepithelial neoplasia III) [D07.1] Urethral bleeding [N36.8] POST OPERATIVE DIAGNOSIS ENID III (vulvar intraepithelial neoplasia III) [D07.1] Urethral bleeding [N36.8] PROCEDURE PERFORMED Procedure(s) (LRB): VULVECTOMY SIMPLE PARTIAL (Right) EXCISION/FULGURATION LESION URETHRA (Midline) PRIMARY CLOSURE Yes INTRAOPERATIVE FINDINGS Friable urethra, with bleeding on vaginal prep. Vulvar lesion (white - prior biopsy ENID III) right posterior, about 1.5 cm at 7 o'clock adjacent to the vagina SURGEON Surgeons and Role: * Flakito Yepez MD - Primary ANESTHESIOLOGIST Anesthesiologist: Maurizio Gomez MD BREAKER OFF: Bia Eugene APRN-BREAKER OFF SURGICAL STAFF Dental Surgery Doctor: aFrrah Lindquist RN Scrub Person: Camille Ordonez RN Resident Assisting: Laine Deleon MD COMPLICATIONS None ESTIMATED BLOOD LOSS Minimal SPECIMENS See below ID Type Source Tests Collected by Time Destination 1 : Right posterior vulva, suture at 12:00 Permanent SURG PATH SURG PATH REQUEST Flakito Yepez MD 03/15/2024 1220 2 : Urethra orifice at 9:00 Permanent SURG PATH SURG PATH REQUEST Flakito Yepez MD 03/15/2024 1223 Flakito Yepez MD March 15, 2024 12:32 PM * Nursing Notes - Kota Tidwell RN - 03/15/2024 10:37 AM EDT Patient denies hx of chemo and radiation. Patient denies metal or foreign objects in body. Patient denies hx of seizure or stroke. [facility] Surgery Postoperative evaluation and management note* Brief Op Note - Flakito Yepez MD - 03/15/2024 12:32 PM EDT Azeb Gallegos ([id number]) PRE OPERATIVE DIAGNOSIS ENID III (vulvar intraepithelial neoplasia III) [D07.1] Urethral bleeding [N36.8] POST OPERATIVE DIAGNOSIS ENID III (vulvar intraepithelial neoplasia III) [D07.1] Urethral bleeding [N36.8] PROCEDURE PERFORMED Procedure(s) (LRB): VULVECTOMY SIMPLE PARTIAL (Right) EXCISION/FULGURATION LESION URETHRA (Midline) PRIMARY CLOSURE Yes INTRAOPERATIVE FINDINGS Friable urethra, with bleeding on vaginal prep. Vulvar lesion (white - prior biopsy ENID III) right posterior, about 1.5 cm at 7 o'clock adjacent to the vagina SURGEON Surgeons and Role: * Flakito Yepez MD - Primary ANESTHESIOLOGIST Anesthesiologist: Maurizio Gomez MD BREAKER OFF: Bia Eugene APRN-BREAKER OFF SURGICAL STAFF Dental Surgery Doctor: Farrah Lindquist RN Scrub Person: Camille Ordonez RN Resident Assisting: Laine Deleon MD COMPLICATIONS None ESTIMATED BLOOD LOSS Minimal SPECIMENS See below ID Type Source Tests Collected by Time Destination 1 : Right posterior vulva, suture at 12:00 Permanent SURG PATH SURG PATH REQUEST Flakito Yepez MD 03/15/2024 1220 2 : Urethra orifice at 9:00 Permanent SURG PATH SURG PATH REQUEST Flakito Yepez MD 03/15/2024 1223 Flakito Yepez MD March 15, 2024 12:32 PM [facility] History of Present illness Narrative* Flakito Yepez MD - 03/15/2024 11:44 AM EDT Patient seen in preop with her spouse, Jeffy and daughter. She has had no changes in her medical status since last seen on February 21, 2024 I reviewed the surgical plan. Discussed expected postoperative recovery. Permission obtained to speak with family after her surgery. Ready for surgery. Flakito Yepez MD #[id number] [facility] Hospital Discharge instructions* Discharge Instructions* Laine Deleon MD - 03/15/2024 11:24 AM EDT Diet No restrictions-usual diet -Resume your usual diet at home Activity You may perform the following activities: Increase your daily activities as you are able. Rest when you feel tired. Notify Your Doctor or Nurse if you have any of the following Deep Vein Thrombosis Symptoms Call your doctor or nurse right away if you have any signs of blood clots such as -Tender, swollen or reddened areas anywhere in your leg. -Numbness or tingling in your lower leg or calf, or at the top of your leg or groin -Skin on you leg looks pale or blue or feels cold to touch -Chest pain or have trouble breathing -Fever or chills Fever or Chills Call your doctor or nurse if you have a temperature greater than 100.5 degrees F that lasts more than 1 hour and/or chills. Nausea and Vomiting Call your doctor or nurse if you have nausea and vomiting that will not let you keep medicine down and will not let you keep fluids down Vaginal Discharge or Bleeding Call your doctor or nurse if foul smelling discharge form your vagina and heavy bleeding from your vagina that soaks 1-2 pads in 1 hour. Unrelieved Pain Call your doctor or nurse if your pain gets worse or is not eased 1 hour after taking your pain medicine. Urinary Tract Infection Symptoms Call your doctor or nurse if you have signs of a urinary tract infection such as: -Urine is cloudy, bloody or has a bad odor -You leak urine or you have to urinate more often -You feel burning when you urinate -You have a temperature greater than 100.5 Prevent Constipation Post-op and Opioid Use Bowel Regimen Instructions: Goal is 1 non-forced bowel movement every 1-2 days Docusate sodium: 100mg (red jelly tabs, brand name is Colace, generic is OK to use). 1-2 tabs morning and bedtime (can increase to 3 tabs if needed). This keeps stool soft. Senna or Bisacodyl: Red tablets (brand name Senakot, generic OK to use and Dulcolax). Start with 1 tablet at bedtime. Increase to 1-2 tablets both morning and bedtime if needed. This helps keep bowels moving. Milk of Magnesia: 2-4 Tablespoons (1/2 - 1 capful) as needed if no bowel movement in several days OR bowel movements hard to pass. If no bowel movement after 6 hours, repeat dose. If no bowel movement 6 hours after 2nd dose, call nurse. If you are unable to tolerate food or liquids, you have severe abdominal cramping, or your abdomen is getting bigger/palafox then call the nurse. Activity as tolerated, no driving while taking narcotic pain medication, no heavy lifting. Additional Contacts: NURSE PRACTITIONER Please call with any post operative questions or concerns ph. [phone] EVENING/WEEKEND CONTACT If you have problems after 4:30pm or on weekends, you may page the concrete handler oncology fellow tactical deception plans officer by calling the hospital carriage operator at [phone] Quit Smoking You should quit smoking for your health. For more information on stopping smoking, call the [facility] at . New Depression Warning Sign The rate of clinical depression is higher in individuals with a serious medical illness, such as heart disease and stroke, than in the general population. Because of this you should be aware of the warning signs for depression. They include problems concentrating and remembering details or making decisions, fatigue, decreased energy, feeling guilty, worthless, helpless, pessimistic or hopeless, insomnia, early-morning waking or excessive sleeping, irritability, restlessness, loss of interest infavorite activities or hobbies, loss of libido, overeating or appetite loss, persistent aches or pains, headaches, cramps and/or digestive problems that do not ease with treatment, persistent sad, anx ious or "empty" feelings, thoughts of suicide and suicide attempts. People treated for depression often have improvement in their overall medical condition and have a better quality of life. If you have any of the symptoms above please contact your primary care doctor. Additional Contacts: FIELD NURSE ONCOLOGY CONTACT+ If you have any issues regarding your care, please call [phone]. Cancer Resources For more information about support groups and other resources offered, contact: -[employer] at [phone] to find out about support groups offered by The [employer] [employer] [employer] at [phone] or online at www.cancer.org -Leukemia and Lymphoma Society at 941-981-7265 or online at www.lls.org -[place] [facility] at 113-229-8087 or online at www.lifecarealliance.org -[facility] [place] at [phone] or online at www.ovariancanceroh.org -[place] [employer] at 826-777-8668 or online at www.abta.org -National Brain Tumor Foundation at 769-482-6381 or online at www.braintumor.org * Attachments The following attachments cannot be sent through Care Everywhere. * Perineal Care After Delivery ([facility]) (Algerian) [facility] History and physical note* Laine Deleon MD - 03/15/2024 11:13 AM EDT H&P Update 03/15/2024 Patient seen and examined by me. No updates to medical history. Allergies confirmed. Medications reviewed. Lab Results Component Value Date WBC 7.64 02/21/2024 HGB 14.5 02/21/2024 HCT 43.4 02/21/2024 PLATELET 263 02/21/2024 MCV 85.1 02/21/2024 Lab Results Component Value Date SODIUM 141 02/21/2024 POTASSIUM 4.0 02/21/2024 CHLORIDE 104 02/21/2024 CO2 25 02/21/2024 BUN 22 02/21/2024 CREATSERUM 0.89 02/21/2024 GLUCOSE 113 (H) 07/10/2023 Vitals: 03/15/24 1050 BP: 155/81 Pulse: 57 Resp: 16 Temp: 97.8 F (36.6 C) SpO2: 97% Cardio: regular rate, well-perfused Resp: non-labored respirations, no increased WOB Abd: soft, non-tender Ext: warm, non-tender Consent previously obtained. Type and screen was not obtained. UPT n/a Blood glucose n/a Medical comorbidities: None No changes to H&P completed on 02/20 except as above. Plan to proceed with scheduled surgery. Laine Deleon MD Gynecologic Oncology (GY3) Team Pager: [phone] Team Phone: [phone] History of Present Illness Azeb Gallegos is a 58 y.o. female with a history of vulvar carcinoma Chief Complaint Patient presents with Follow-up ENID III - January 2024 biopsy of vulva at 7 o'clock adjacent to vagina. Interim History Here for results discussion. Feeling a bit upset about pathology results but overall no complaints. No vaginal bleeding/abnormal discharge Bowel and bladder habits normal No other issues She quit smoking in 06/2023 Past Medical History She has a past medical history of Mixed stress and urge incontinence. Past Surgical History She has a past surgical history that includes hysterectomy (07/12/2015); bx vulva (05/19/2023); other surgical; bx vulva (09/09/2016); bx vulva (11/25/2016); bx endometrial (05/15/2015); vulvectomy simple partial; vulvectomy radical w/ inguinofemoral lymphadenectomy (Bilateral, 07/08/2023); and excis ion/fulguration lesion urethra (Midline, 07/08/2023). Family History Family History Problem Relation Age of Onset Diabetes Mother Heart Disease - Other Father Breast Cancer Paternal Grandmother Ovarian Cancer Neg Hx Uterine Cancer Neg Hx Colorectal Cancer Neg Hx Social History Social History Socioeconomic History Marital status: Tobacco Use Smoking status: Former Current packs/day: 0.00 Types: Cigarettes Quit date: 11/21/1984 Years since quittin.2 Smokeless tobacco: Never Tobacco comments: Trying to quit; currently smoking 1 pack over about 3 dayso Vaping Use Vaping status: Never Used Substance and Sexual Activity Alcohol use: Yes Comment: "once in a blue best"; holidays Drug use: Never Sexual activity: Yes Partners: Male Social History Narrative 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 She does report a remote history of STIs. She denies a history of abnormal cervical cytology and reports her last cytologic examination was prior to hysterectomy and negative per her report. Health maintenance: Mammogram: has not had and declines (being set up with music professionals) Colonoscopy: has not had and declines BMI Body mass index is 32.81 kg/m . Wt Readings from Last 3 Encounters: 02/21/24 84.8 kg (187 lb) 02/07/24 84.6 kg (186 lb 6.4 oz) 11/01/23 85.5 kg (188 lb 9.6 oz) Review of Systems Constitutional: Negative for activity change, appetite change, chills, fatigue and fever. HENT: Negative for hearing loss and rhinorrhea. Eyes: Negative for visual disturbance. Respiratory: Negative for cough, chest tightness and shortness of breath. Cardiovascular: Negative for chest pain and palpitations. Gastrointestinal: Negative for abdominal pain, constipation, diarrhea, nausea and vomiting. Genitourinary: Positive for genital sores. Negative for difficulty urinating, pelvic pain, vaginal bleeding, vaginal discharge and vaginal pain. Musculoskeletal: Negative for arthralgias and myalgias. Skin: Negative for rash. Neurological: Negative for weakness, light-headedness and headaches. Psychiatric/Behavioral: Negative for behavioral problems and confusion. Vitals: Blood pressure 146/63, pulse 68, temperature 97.2 F (36.2 C), temperature source Oral, resp. rate 18, height 1.608 m (5' 3.31"), weight 84.8 kg (187 lb), SpO2 98%. Physical Exam Vitals and nursing note reviewed. Exam conducted with a coordinator mining products present. Constitutional: General: She is not in acute distress. Appearance: She is normal weight. HENT: Head: Normocephalic. Right Ear: Tympanic membrane normal. Left Ear: Tympanic membrane normal. Nose: Nose normal. No congestion or rhinorrhea. Mouth/Throat: Mouth: Mucous membranes are moist. Pharynx: No posterior oropharyngeal erythema. Eyes: General: No scleral icterus. Conjunctiva/sclera: Conjunctivae normal. Cardiovascular: Rate and Rhythm: Normal rate and regular rhythm. Heart sounds: No murmur heard. Pulmonary: Effort: Pulmonary effort is normal. No respiratory distress. Breath sounds: No stridor. Abdominal: General: There is no distension. Palpations: There is no mass. Tenderness: There is no abdominal tenderness. Genitourinary: Comments: Last visit Bilateral groin incisions well-healed. Hypopigmented lesion < 1 cm in diameter on R vulva, 7 o'clock, adjacent to vagina. No other suspicious lesions. Vagina normal. Musculoskeletal: Right lower leg: No edema. Left lower leg: No edema. Lymphadenopathy: Cervical: No cervical adenopathy. Skin: General: Skin is warm. Coloration: Skin is not pale. Findings: No rash. Neurological: General: No focal deficit present. Mental Status: She is alert and oriented to person, place, and time. Psychiatric: Mood and Affect: Mood normal. Neurological Exam Mental Status Alert. Oriented to person, place, and time. Pathology A. Vulva, 7 o'clock, lesion, biopsy: High grade squamous intraepithelial lesion (ENID III). Assessment and Plan Azeb Gallegos is a 58 y.o. 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 Radical vulvectomy, excision of distal urethra, bilateral IFLND on 07/08/23. Last visit with biopsy performed - discussed pathology results and dysplasia. Recommendation for excision of area for further evaluation and treatment. Risks/benefits of surgical evaluation discussedincluding bleeding, poor wound healing and need for further therapy. Consent signed. Pre-operative labs and case request placed Visit performed under supervision of Dr Marleni Cardenas MD I saw and personally examined the patient today with the fellow. I discussed the findings and therapeutic plan with the fellow and patient. I agree with the history, physical examination, and medicaldecisions as outlined. Path on recent biopsy showed ENID III Plan simple partial vulvectomy March 15 Completed the informed consent Medical complexity: Moderate [id number] time with the patient, including review of pathology, orders, discussion and communications: 30+ minutes Flakito Yepez MD #[id number] [facility]04-25-2024 History and physical note* Laine Deleon MD - 03/15/2024 11:13 AM EDT H&P Update 03/15/2024 Patient seen and examined by me. No updates to medical history. Allergies confirmed. Medications reviewed. Lab Results Component Value Date WBC 7.64 02/21/2024 HGB 14.5 02/21/2024 HCT 43.4 02/21/2024 PLATELET 263 02/21/2024 MCV 85.1 02/21/2024 Lab Results Component Value Date SODIUM 141 02/21/2024 POTASSIUM 4.0 02/21/2024 CHLORIDE 104 02/21/2024 CO2 25 02/21/2024 BUN 22 02/21/2024 CREATSERUM 0.89 02/21/2024 GLUCOSE 113 (H) 07/10/2023 Vitals: 03/15/24 1050 BP: 155/81 Pulse: 57 Resp: 16 Temp: 97.8 F (36.6 C) SpO2: 97% Cardio: regular rate, well-perfused Resp: non-labored respirations, no increased WOB Abd: soft, non-tender Ext: warm, non-tender Consent previously obtained. Type and screen was not obtained. UPT n/a Blood glucose n/a Medical comorbidities: None No changes to H&P completed on 02/20 except as above. Plan to proceed with scheduled surgery. Laine Deleon MD Gynecologic Oncology (GY3) Team Pager: [phone] Team Phone: [phone] History of Present Illness Azeb Gallegos is a 58 y.o. female with a history of vulvar carcinoma Chief Complaint Patient presents with Follow-up ENID III - January 2024 biopsy of vulva at 7 o'clock adjacent to vagina. Interim History Here for results discussion. Feeling a bit upset about pathology results but overall no complaints. No vaginal bleeding/abnormal discharge Bowel and bladder habits normal No other issues She quit smoking in 06/2023 Past Medical History She has a past medical history of Mixed stress and urge incontinence. Past Surgical History She has a past surgical history that includes hysterectomy (07/12/2015); bx vulva (05/19/2023); other surgical; bx vulva (09/09/2016); bx vulva (11/25/2016); bx endometrial (05/15/2015); vulvectomy simple partial; vulvectomy radical w/ inguinofemoral lymphadenectomy (Bilateral, 07/08/2023); and excis ion/fulguration lesion urethra (Midline, 07/08/2023). Family History Family History Problem Relation Age of Onset Diabetes Mother Heart Disease - Other Father Breast Cancer Paternal Grandmother Ovarian Cancer Neg Hx Uterine Cancer Neg Hx Colorectal Cancer Neg Hx Social History Social History Socioeconomic History Marital status: Tobacco Use Smoking status: Former Current packs/day: 0.00 Types: Cigarettes Quit date: 11/21/1984 Years since quittin.2 Smokeless tobacco: Never Tobacco comments: Trying to quit; currently smoking 1 pack over about 3 dayso Vaping Use Vaping status: Never Used Substance and Sexual Activity Alcohol use: Yes Comment: "once in a blue best"; holidays Drug use: Never Sexual activity: Yes Partners: Male Social History Narrative 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 She does report a remote history of STIs. She denies a history of abnormal cervical cytology and reports her last cytologic examination was prior to hysterectomy and negative per her report. Health maintenance: Mammogram: has not had and declines (being set up with music professionals) Colonoscopy: has not had and declines BMI Body mass index is 32.81 kg/m . Wt Readings from Last 3 Encounters: 02/21/24 84.8 kg (187 lb) 02/07/24 84.6 kg (186 lb 6.4 oz) 11/01/23 85.5 kg (188 lb 9.6 oz) Review of Systems Constitutional: Negative for activity change, appetite change, chills, fatigue and fever. HENT: Negative for hearing loss and rhinorrhea. Eyes: Negative for visual disturbance. Respiratory: Negative for cough, chest tightness and shortness of breath. Cardiovascular: Negative for chest pain and palpitations. Gastrointestinal: Negative for abdominal pain, constipation, diarrhea, nausea and vomiting. Genitourinary: Positive for genital sores. Negative for difficulty urinating, pelvic pain, vaginal bleeding, vaginal discharge and vaginal pain. Musculoskeletal: Negative for arthralgias and myalgias. Skin: Negative for rash. Neurological: Negative for weakness, light-headedness and headaches. Psychiatric/Behavioral: Negative for behavioral problems and confusion. Vitals: Blood pressure 146/63, pulse 68, temperature 97.2 F (36.2 C), temperature source Oral, resp. rate 18, height 1.608 m (5' 3.31"), weight 84.8 kg (187 lb), SpO2 98%. Physical Exam Vitals and nursing note reviewed. Exam conducted with a coordinator mining products present. Constitutional: General: She is not in acute distress. Appearance: She is normal weight. HENT: Head: Normocephalic. Right Ear: Tympanic membrane normal. Left Ear: Tympanic membrane normal. Nose: Nose normal. No congestion or rhinorrhea. Mouth/Throat: Mouth: Mucous membranes are moist. Pharynx: No posterior oropharyngeal erythema. Eyes: General: No scleral icterus. Conjunctiva/sclera: Conjunctivae normal. Cardiovascular: Rate and Rhythm: Normal rate and regular rhythm. Heart sounds: No murmur heard. Pulmonary: Effort: Pulmonary effort is normal. No respiratory distress. Breath sounds: No stridor. Abdominal: General: There is no distension. Palpations: There is no mass. Tenderness: There is no abdominal tenderness. Genitourinary: Comments: Last visit Bilateral groin incisions well-healed. Hypopigmented lesion < 1 cm in diameter on R vulva, 7 o'clock, adjacent to vagina. No other suspicious lesions. Vagina normal. Musculoskeletal: Right lower leg: No edema. Left lower leg: No edema. Lymphadenopathy: Cervical: No cervical adenopathy. Skin: General: Skin is warm. Coloration: Skin is not pale. Findings: No rash. Neurological: General: No focal deficit present. Mental Status: She is alert and oriented to person, place, and time. Psychiatric: Mood and Affect: Mood normal. Neurological Exam Mental Status Alert. Oriented to person, place, and time. Pathology A. Vulva, 7 o'clock, lesion, biopsy: High grade squamous intraepithelial lesion (ENID III). Assessment and Plan Azeb Gallegos is a 58 y.o. 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 Radical vulvectomy, excision of distal urethra, bilateral IFLND on 07/08/23. Last visit with biopsy performed - discussed pathology results and dysplasia. Recommendation for excision of area for further evaluation and treatment. Risks/benefits of surgical evaluation discussedincluding bleeding, poor wound healing and need for further therapy. Consent signed. Pre-operative labs and case request placed Visit performed under supervision of Dr Marleni Cardenas MD I saw and personally examined the patient today with the fellow. I discussed the findings and therapeutic plan with the fellow and patient. I agree with the history, physical examination, and medicaldecisions as outlined. Path on recent biopsy showed ENID III Plan simple partial vulvectomy March 15 Completed the informed consent Medical complexity: Moderate [id number] time with the patient, including review of pathology, orders, discussion and communications: 30+ minutes Flakito Yepez MD #[id number] [facility] Note* Nursing Notes - Kota Tidwell RN - 03/15/2024 10:37 AM EDT Patient denies hx of chemo and radiation. Patient denies metal or foreign objects in body. Patient denies hx of seizure or stroke. [facility]04-02-2024 History of Present illness Narrative* Olya Delgadillo RN - 02/21/2024 2:15 PM EDT JOCScreening Are you able to walk the length of two city blocks (500 feet)? yes Do you have trouble breathing when you lie flat? no Have you had a heart attack, blood clot, stroke, or cardiac stent in the past 3 months? no Do you have a pacemaker or implantable defibrillator? no If yes, further review required. Are you diabetic? no If so, is your blood sugar over 300 three or more days per week? no Have you had your A1C checked? no If so, is it over 8? no Have you previously had anesthesia? yes If so, were you told that there was trouble placing a breathing tube? no * Fransico Cardenas MD - 02/21/2024 2:15 PM EDT History of Present Illness Azeb Gallegos is a 58 y.o. female with a history of vulvar carcinoma Chief Complaint Patient presents with Follow-up No problems updated. Interim History Here for results discussion. Feeling a bit upset about pathology results but overall no complaints. No vaginal bleeding/abnormal discharge Bowel and bladder habits normal No other issues She quit smoking in 06/2023 Past Medical History She has a past medical history of Mixed stress and urge incontinence. Past Surgical History She has a past surgical history that includes hysterectomy (07/12/2015); bx vulva (05/19/2023); other surgical; bx vulva (09/09/2016); bx vulva (11/25/2016); bx endometrial (05/15/2015); vulvectomy simple partial; vulvectomy radical w/ inguinofemoral lymphadenectomy (Bilateral, 07/08/2023); and excis ion/fulguration lesion urethra (Midline, 07/08/2023). Family History Family History Problem Relation Age of Onset Diabetes Mother Heart Disease - Other Father Breast Cancer Paternal Grandmother Ovarian Cancer Neg Hx Uterine Cancer Neg Hx Colorectal Cancer Neg Hx Social History Social History Socioeconomic History Marital status: Tobacco Use Smoking status: Former Current packs/day: 0.00 Types: Cigarettes Quit date: 11/21/1984 Years since quittin.2 Smokeless tobacco: Never Tobacco comments: Trying to quit; currently smoking 1 pack over about 3 dayso Vaping Use Vaping status: Never Used Substance and Sexual Activity Alcohol use: Yes Comment: "once in a blue best"; holidays Drug use: Never Sexual activity: Yes Partners: Male Social History Narrative 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 She does report a remote history of STIs. She denies a history of abnormal cervical cytology and reports her last cytologic examination was prior to hysterectomy and negative per her report. Health maintenance: Mammogram: has not had and declines (being set up with music professionals) Colonoscopy: has not had and declines BMI Body mass index is 32.81 kg/m . Wt Readings from Last 3 Encounters: 02/21/24 84.8 kg (187 lb) 02/07/24 84.6 kg (186 lb 6.4 oz) 11/01/23 85.5 kg (188 lb 9.6 oz) Review of Systems Constitutional: Negative for activity change, appetite change, chills, fatigue and fever. HENT: Negative for hearing loss and rhinorrhea. Eyes: Negative for visual disturbance. Respiratory: Negative for cough, chest tightness and shortness of breath. Cardiovascular: Negative for chest pain and palpitations. Gastrointestinal: Negative for abdominal pain, constipation, diarrhea, nausea and vomiting. Genitourinary: Positive for genital sores. Negative for difficulty urinating, pelvic pain, vaginal bleeding, vaginal discharge and vaginal pain. Musculoskeletal: Negative for arthralgias and myalgias. Skin: Negative for rash. Neurological: Negative for weakness, light-headedness and headaches. Psychiatric/Behavioral: Negative for behavioral problems and confusion. Vitals: Blood pressure 146/63, pulse 68, temperature 97.2 F (36.2 C), temperature source Oral, resp. rate 18, height 1.608 m (5' 3.31"), weight 84.8 kg (187 lb), SpO2 98%. Physical Exam Vitals and nursing note reviewed. Exam conducted with a coordinator mining products present. Constitutional: General: She is not in acute distress. Appearance: She is normal weight. HENT: Head: Normocephalic. Right Ear: Tympanic membrane normal. Left Ear: Tympanic membrane normal. Nose: Nose normal. No congestion or rhinorrhea. Mouth/Throat: Mouth: Mucous membranes are moist. Pharynx: No posterior oropharyngeal erythema. Eyes: General: No scleral icterus. Conjunctiva/sclera: Conjunctivae normal. Cardiovascular: Rate and Rhythm: Normal rate and regular rhythm. Heart sounds: No murmur heard. Pulmonary: Effort: Pulmonary effort is normal. No respiratory distress. Breath sounds: No stridor. Abdominal: General: There is no distension. Palpations: There is no mass. Tenderness: There is no abdominal tenderness. Genitourinary: Comments: Last visit Bilateral groin incisions well-healed. Hypopigmented lesion < 1 cm in diameter on R vulva, 7 o'clock, adjacent to vagina. No other suspicious lesions. Vagina normal. Musculoskeletal: Right lower leg: No edema. Left lower leg: No edema. Lymphadenopathy: Cervical: No cervical adenopathy. Skin: General: Skin is warm. Coloration: Skin is not pale. Findings: No rash. Neurological: General: No focal deficit present. Mental Status: She is alert and oriented to person, place, and time. Psychiatric: Mood and Affect: Mood normal. Neurological Exam Mental Status Alert. Oriented to person, place, and time. Pathology A. Vulva, 7 o'clock, lesion, biopsy: High grade squamous intraepithelial lesion (ENID III). Assessment and Plan Azeb Gallegos is a 58 y.o. 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 Radical vulvectomy, excision of distal urethra, bilateral IFLND on 07/08/23. Last visit with biopsy performed - discussed pathology results and dysplasia. Recommendation for excision of area for further evaluation and treatment. Risks/benefits of surgical evaluation discussedincluding bleeding, poor wound healing and need for further therapy. Consent signed. Pre-operative labs and case request placed Visit performed under supervision of Dr Marleni Cardenas MD I saw and personally examined the patient today with the fellow. I discussed the findings and therapeutic plan with the fellow and patient. I agree with the history, physical examination, and medicaldecisions as outlined. Path on recent biopsy showed ENID III Plan simple partial vulvectomy March 15 Completed the informed consent Medical complexity: Moderate [id number] time with the patient, including review of pathology, orders, discussion and communications: 30+ minutes Flakito Yepez MD #[id number] [facility] Instructions* Patient Instructions* Olya Degladillo RN - 02/21/2024 2:15 PM EDT DIVISION OF GYNECOLOGIC ONCOLOGY YOUR SURGERY CHECKLIST: ONCE YOU ARE SCHEDULED FOR SURGERY Take care of your medical leave paperwork for your employer, if needed Arrange to have a responsible adult take you home after surgery Talk to your doctors about any medications you may need to adjust or stop before surgery such as blood thinners, diabetic medications, NSAIDs, and herbal supplements Stop tobacco and alcohol use DAY BEFORE SURGERY: You will be called with your arrival and surgery time. Before Bedtime: Clean your skin with CHG wash in the shower Take evening medicines if you were instructed Stop eating 8 hours before surgery time: DAY OF SURGERY Do not eat anything Remove jewelry, piercings, nail anguillan, and contacts lenses Do not put on hair or skin care products, deodorant, or makeup Take any medicines you were instructed to take with small sips of water Take another shower with the CHG wash and put on clean clothes Bring with you: A list or photos of your current medication Your photo ID and insurance card Your Living Will and Health Care Power of Yard Demur[employer] Clerk forms (if you have them) Comfortable clothing If you use an Inhaler/Inhalers on a daily basis. then use your inhaler on the morning of surgery. - Do NOT take Herbal Medication (including multi-vitamin, fish oil ([place]-3), garlic, Glucosamine -Chondroitin ,gingko, ginseng, Vitamin E, probiotics) supplements 2 weeks before surgery. Do Not take Vitamins for 5 days before surgery. - Do NOT take Excedrin, ibuprofen, Advil, Voltaren (Diclofenac), Motrin, naproxen, or [place] Rojas (Meloxicam) for the 5 days before surgery. Acetaminophen (Tylenol) is ok to take up until the day ofsurgery. If you become ill, develop a fever, cough, or any type of infection within 14 days of your scheduled surgery, please call the surgeon's office. You may need to have your surgery moved, as we would not want to put you at risk for complications due to an illness. If you are placed on Antibiotics within 1 week of surgery, please notify our team immediately. GETTING YOUR SKIN READY FOR SURGERY Your surgery involves cutting through your skin. Because germs live on everyone s skin, there is a chance of getting an infection. To lessen your chance of an infection, you need to wash your skin with a special soap or foam, called 4% chlorhexidine gluconate (CHG), before your surgery. Follow These Instructions 1. For 1 week before your surgery, do NOT shave near the site where you will have your surgery. Shaving with a razor can irritate your skin and make it easier to develop an infection. If needed, yournurse will trim the hair on the site where you will have surgery with electric clippers before you go into the operating room. 2. Shower with CHG soap or foam as directed. You may be told to shower with CHG soap or foam 2 or 6times, based on your surgery. Please call your surgeon s office if you have any questions. Your nurse will put a (X) in the box by the way you need to shower. o You need to take 2 showers using CHG soap or foam: Wash your whole body from the neck down with CHG soap or foam the night before your surgery and then again the morning of your surgery. Use 4 ounces ( cup) of CHG liquid soap or 4 to 5 pumps of CHG foam each time you shower. This handout is for informational purposes only. Talk with your doctor or health care team if you have any questions about your care o Do not wash your hair with CHG soap or foam each time you shower. Shower and wash with the CHG soap or foam from the neck down only. If you are not able to shower: If you do not have a shower or you are not able to get into a shower, do a sponge bath each time toclean your body. Do not use CHG soap or foam on your hair unless you are told to do so by your doctor or nurse. How to take a sponge bath: 1. Bathe with a clean washcloth, water and regular soap. Rinse well with clean water. 2. Wet a new, clean washcloth with water. 3. Put some CHG soap or foam on the wet washcloth. 4. Use the washcloth to wash your whole body from your neck down. Add more CHG soap or foam and continue to wash for 5 minutes. 5. Rinse well with another clean washcloth and clean water. 6. Pat yourself dry with a clean towel. 7. Put on clean clothes. If you have any questions about cleaning your skin, call your surgeon s office. documented in this [facility] History of Present illness Narrative* Kota Laura RN - 02/07/2024 2:45 PM EDT Pt seen in chemo clinic to receive gardasil vaccine. Patient/family needs and learning style identified. Gardasil injection given. Pt tolerated well. Discharged to home. documented [facility] History of Present illness Narrative* Olya Delgadillo RN - 02/07/2024 1:45 PM EDT Continues to have some right leg swelling. Patient says she noticed some spots on her vulva but it looks like they are healed. * Yaritza Carrion, HOME ECONOMIST-RN MEDICARE - 02/07/2024 1:45 PM EDT History of Present Illness Azeb Gallegos is a 58 y.o. female with a history of vulvar carcinoma Chief Complaint Patient presents with Follow-up History of prior cancer of the vulva Problem Vulvar Lesion Right vulva 7 o'clock adjacent to vaginal mucosa Interim History Here for scheduled follow up Doing very well overall Noted some vulvar irritation last week after leaking urine/having diarrhea Had look/compare - thinks it improved after using neosporin No other lumps/bumps, itching, irritation, bleeding, drainage, etc No vaginal bleeding/abnormal discharge Bowel and bladder habits normal No other issues She quit smoking in 06/2023 Past Medical History She has a past medical history of Mixed stress and urge incontinence. Past Surgical History She has a past surgical history that includes hysterectomy (07/12/2015); bx vulva (05/19/2023); other surgical; bx vulva (09/09/2016); bx vulva (11/25/2016); bx endometrial (05/15/2015); vulvectomy simple partial; vulvectomy radical w/ inguinofemoral lymphadenectomy (Bilateral, 07/08/2023); and excis ion/fulguration lesion urethra (Midline, 07/08/2023). Family History Family History Problem Relation Age of Onset Diabetes Mother Heart Disease - Other Father Breast Cancer Paternal Grandmother Ovarian Cancer Neg Hx Uterine Cancer Neg Hx Colorectal Cancer Neg Hx Social History Social History Socioeconomic History Marital status: Tobacco Use Smoking status: Former Current packs/day: 0.00 Types: Cigarettes Quit date: 11/21/1984 Years since quittin.2 Smokeless tobacco: Never Tobacco comments: Trying to quit; currently smoking 1 pack over about 3 dayso Vaping Use Vaping status: Never Used Substance and Sexual Activity Alcohol use: Yes Comment: "once in a blue best"; holidays Drug use: Never Sexual activity: Yes Partners: Male Social History Narrative 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 She does report a remote history of STIs. She denies a history of abnormal cervical cytology and reports her last cytologic examination was prior to hysterectomy and negative per her report. Health maintenance: Mammogram: has not had and declines (being set up with music professionals) Colonoscopy: has not had and declines BMI Body mass index is 32.78 kg/m . Wt Readings from Last 3 Encounters: 02/07/24 84.6 kg (186 lb 6.4 oz) 11/01/23 85.5 kg (188 lb 9.6 oz) 07/29/23 83.3 kg (183 lb 9.6 oz) Review of Systems Constitutional: Negative for activity change, appetite change, chills, fatigue and fever. HENT: Negative for hearing loss and rhinorrhea. Eyes: Negative for visual disturbance. Respiratory: Negative for cough, chest tightness and shortness of breath. Cardiovascular: Negative for chest pain and palpitations. Gastrointestinal: Negative for abdominal pain, constipation, diarrhea, nausea and vomiting. Genitourinary: Positive for genital sores. Negative for difficulty urinating, pelvic pain, vaginal bleeding, vaginal discharge and vaginal pain. Musculoskeletal: Negative for arthralgias and myalgias. Skin: Negative for rash. Neurological: Negative for weakness, light-headedness and headaches. Psychiatric/Behavioral: Negative for behavioral problems and confusion. Vitals: Blood pressure 179/81, pulse 67, temperature 97.8 F (36.6 C), temperature source Oral, resp. rate 18, height 1.606 m (5' 3.23"), weight 84.6 kg (186 lb 6.4 oz), SpO2 96%. Physical Exam Vitals and nursing note reviewed. Exam conducted with a coordinator mining products present. Constitutional: General: She is not in acute distress. Appearance: She is normal weight. HENT: Head: Normocephalic. Right Ear: Tympanic membrane normal. Left Ear: Tympanic membrane normal. Nose: Nose normal. No congestion or rhinorrhea. Mouth/Throat: Mouth: Mucous membranes are moist. Pharynx: No posterior oropharyngeal erythema. Eyes: General: No scleral icterus. Conjunctiva/sclera: Conjunctivae normal. Cardiovascular: Rate and Rhythm: Normal rate and regular rhythm. Heart sounds: No murmur heard. Pulmonary: Effort: Pulmonary effort is normal. No respiratory distress. Breath sounds: No stridor. Abdominal: General: There is no distension. Palpations: There is no mass. Tenderness: There is no abdominal tenderness. Genitourinary: Comments: Bilateral groin incisions well-healed. Hypopigmented lesion < 1 cm in diameter on R vulva, 7 o'clock, adjacent to vagina. Biopsy collected today, see procedure not. No other suspicious lesions. Vagina normal. Musculoskeletal: Right lower leg: No edema. Left lower leg: No edema. Lymphadenopathy: Cervical: No cervical adenopathy. Skin: General: Skin is warm. Coloration: Skin is not pale. Findings: No rash. Neurological: General: No focal deficit present. Mental Status: She is alert and oriented to person, place, and time. Psychiatric: Mood and Affect: Mood normal. Neurological Exam Mental Status Alert. Oriented to person, place, and time. Assessment and Plan Azeb Gallegos is a 58 y.o. 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 Radical vulvectomy, excision of distal urethra, bilateral IFLND on 07/08/23. Plan surveillance. Here today for 3 month follow up visit. Exam with hypopigmented lesion along R posterior vulva; biopsy collected, will call with results and plan follow up accordingly. She will reach out in the interim with any needs; reviewed signs/symptoms of recurrence. HPV vaccine series; will complete today. RLE swelling: consistent with lymphedema; intermittent, unchanged for several months; no erythema/tenderness. Encouraged compression stocking. Yaritza Carrion, GABI-BIANCA Gynecologic Oncology Pager [phone] I saw and personally examined the patient today with the RN MEDICARE Hailey Carrion. I discussed the findings and therapeutic plan with the RN MEDICARE and patient. I agree with the history, physical examination, and medical decisions as outlined. Patient noticed a small area of abnormality on right vulva. Otherwise no complaints. Completing HPV vaccination program today. Biopsy today in addition to the E/M visit (-25 modifier) Medical complexity: Moderate [id number] time with the patient (RN MEDICARE and MD, with MD over 50%) Flakito Yepez MD #[id number] documented in this [facility]03-19-2024 Procedure note* Flakito Yepez MD - 02/07/2024 1:45 PM EDTAssociated Order(s): LESION BIOPSY/EXCISION Post-Procedure Diagnose(s): Vulvar lesion LESION BIOPSY/EXCISION Date/Time: 02/07/2024 1:45 PM Performed by: Flakito Yepez MD Authorized by: Flakito Yepez MD Pre-Procedure: Indications: vulvar lesion The possible diagnosis, procedure, need for treatment, potential complications, side effects, risksof the procedure, including infection, bleeding, recurrence, reaction to medications used, non- healing, scarring, and injury to adjacent structures, were discussed with the patient. The patient expressed understanding and wished to proceed, and informed consent for the procedure obtained. Does This Procedure Require A [place] Protocol? Yes - final verifications complete Procedure: Site marked and confirmed by patient. Skin was prepped with Betadine; mL of lidocaine 1% used to locally anesthetize area. Vulva lesion punch biopsy performed. 1 biopsy(s) performed. Lesion 1 size: 1 (cm). Comments: 1 cm white lesion Hemostasis obtained with silver nitrate and pressure. Specimen(s) sent for pathology. Post-Procedure: Patient tolerated the procedure well. Dressing not applied. Pathology results discussion. Comments: Consented. Time out 4 mm punch biopsy of 1 cm right vulvar lesion at 7 o'clock adjacent to the vagina [facility]03-19-2024 Procedure note* Flakito Yepez MD - 02/07/2024 1:45 PM EDTAssociated Order(s): LESION BIOPSY/EXCISION Post-Procedure Diagnose(s): Vulvar lesion LESION BIOPSY/EXCISION Date/Time: 02/07/2024 1:45 PM Performed by: Flakito Yepez MD Authorized by: Flakito Yepez MD Pre-Procedure: Indications: vulvar lesion The possible diagnosis, procedure, need for treatment, potential complications, side effects, risksof the procedure, including infection, bleeding, recurrence, reaction to medications used, non- healing, scarring, and injury to adjacent structures, were discussed with the patient. The patient expressed understanding and wished to proceed, and informed consent for the procedure obtained. Does This Procedure Require A [place] Protocol? Yes - final verifications complete Procedure: Site marked and confirmed by patient. Skin was prepped with Betadine; mL of lidocaine 1% used to locally anesthetize area. Vulva lesion punch biopsy performed. 1 biopsy(s) performed. Lesion 1 size: 1 (cm). Comments: 1 cm white lesion Hemostasis obtained with silver nitrate and pressure. Specimen(s) sent for pathology. Post-Procedure: Patient tolerated the procedure well. Dressing not applied. Pathology results discussion. Comments: Consented. Time out 4 mm punch biopsy of 1 cm right vulvar lesion at 7 o'clock adjacent to the vagina [facility] History of Present illness Narrative* MADISON De Los Santos - 11/01/2023 10:15 AM EST Subjective History of Present Illness Azeb Gallegos is a 58 y.o. female with a history of vulvar carcinoma Chief Complaint Patient presents with Vulvar Cancer ... History of Patient Active Problem List H/O radical vulvectomy, bilateral I/F LND Surgery follow-up Vulvar mass See note regarding vulvar carcinoma Obesity (BMI 30.0-34.9) Malignant neoplasm of vulva Referral Sara Fowler ([place], [place]). 05/19/2023: Vulvar bx 12 o'clock- Superficially invasive SCC arising in a background of high grade squamous intraepithelial lesion Vulvar bx 4 o'clock- HSIL, U-ENID Vulvar bx 9 o'clock- Negative Vulvar bx 3 o'clock- Negative [facility] path review pending. 06/21/2023 First seen at [facility] -- obvious invasive squamous cell carcinoma of the anterior vulva, greater than 4 cm 07/08/2023 Surgery Edgar Kwong On EUA the tumor encroached on the anterior urethra Radical vulvectomy, excision of distal urethra, bilateral inguinal/femoral LND Pathology stage IB HPV -related squamous cell carcinoma Interim since last visit: Azeb Gallegos is doing well. She denies any abdominal/pelvic pain. She denies any bloating or fullness. She reports normal bowel/bladder habits. She denies any concerns. Denies any dysuria, frequency, hematuria, flank pain or fevers. She denies any vaginal bleeding or discharge. Reports, where leg meets vulva on right side she has a sore spot that started in the last week. Notes when she pushes it is sore. Denies any lesion or lump. She denies any CP, SOB. Intermittent right lower extremity leg swelling. Denies any erythema, warmth, or pain. Denies any cough, fever/chills. Appetite is good. She denies any nausea or vomiting. She quit smoking on 07/07/23 and has not started again!!! Past Medical History She has a past medical history of Mixed stress and urge incontinence. Past Surgical History She has a past surgical history that includes hysterectomy (07/12/2015); bx vulva (05/19/2023); other surgical; bx vulva (09/09/2016); bx vulva (11/25/2016); bx endometrial (05/15/2015); vulvectomy simple partial; vulvectomy radical w/ inguinofemoral lymphadenectomy (Bilateral, 07/08/2023); and excis ion/fulguration lesion urethra ([facility]line, 07/08/2023). Family History Family History Problem Relation Age of Onset Diabetes Mother Heart Disease - Other Father Breast Cancer Paternal Grandmother Ovarian Cancer Neg Hx Uterine Cancer Neg Hx Colorectal Cancer Neg Hx Social History Social History Socioeconomic History Marital status: Tobacco Use Smoking status: Every Day Packs/day: 0.30 Years: 30.00 Additional pack years: 0.00 Total pack years: 9.00 Types: Cigarettes Smokeless tobacco: Never Tobacco comments: Trying to quit; currently smoking 1 pack over about 3 dayso Vaping Use Vaping Use: Never used Substance and Sexual Activity Alcohol use: Yes Comment: "once in a blue best"; holidays Drug use: Never Sexual activity: Yes Partners: Male Social History Narrative 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 She does report a remote history of STIs. She denies a history of abnormal cervical cytology and reports her last cytologic examination was prior to hysterectomy and negative per her report. Health maintenance: Mammogram: has not had and declines (being set up with music professionals) Colonoscopy: has not had and declines BMI Body mass index is 33.42 kg/m . Wt Readings from Last 3 Encounters: 11/01/23 85.5 kg (188 lb 9.6 oz) 07/29/23 83.3 kg (183 lb 9.6 oz) 07/19/23 82 kg (180 lb 12.8 oz) Review of Systems Constitutional: Negative for activity change, appetite change, chills, fatigue and fever. HENT: Negative for hearing loss and rhinorrhea. Eyes: Negative for visual disturbance. Respiratory: Negative for cough, chest tightness and shortness of breath. Cardiovascular: Negative for chest pain and palpitations. Gastrointestinal: Negative for abdominal pain, constipation, diarrhea, nausea and vomiting. Genitourinary: Negative for vaginal bleeding, vaginal discharge and vaginal pain. See hpi Musculoskeletal: Negative for arthralgias and myalgias. Skin: Negative for rash. Neurological: Negative for weakness, light-headedness and headaches. Psychiatric/Behavioral: Negative for behavioral problems and confusion. Vitals: Blood pressure 153/65, pulse 57, temperature 97.5 F (36.4 C), temperature source Oral, resp. rate 16, height 1.6 m (5' 2.99"), weight 85.5 kg (188 lb 9.6 oz), SpO2 99 %. Physical Exam Vitals and nursing note reviewed. Exam conducted with a coordinator mining products present. Constitutional: General: She is not in acute distress. Appearance: She is normal weight. HENT: Head: Normocephalic. Right Ear: Tympanic membrane normal. Left Ear: Tympanic membrane normal. Nose: Nose normal. No congestion or rhinorrhea. Mouth/Throat: Mouth: Mucous membranes are moist. Pharynx: No posterior oropharyngeal erythema. Eyes: General: No scleral icterus. Conjunctiva/sclera: Conjunctivae normal. Cardiovascular: Rate and Rhythm: Normal rate and regular rhythm. Heart sounds: No murmur heard. Pulmonary: Effort: Pulmonary effort is normal. No respiratory distress. Breath sounds: No stridor. Abdominal: General: There is no distension. Palpations: There is no mass. Tenderness: There is no abdominal tenderness. Genitourinary: Comments: Vulvectomy site looks good - no evidence of infection Bilateral groin incision healing well, no concerns today. Musculoskeletal: Right lower leg: No edema. Left lower leg: No edema. Lymphadenopathy: Cervical: No cervical adenopathy. Skin: General: Skin is warm. Coloration: Skin is not pale. Findings: No rash. Neurological: General: No focal deficit present. Mental Status: She is alert and oriented to person, place, and time. Psychiatric: Mood and Affect: Mood normal. Neurological Exam Mental Status Alert. Oriented to person, place, and time. Assessment and Plan Azeb Gallegos is a 58 y.o. with stage IB vulvar cancer - Greatest diameter 5.0 cm, Squamous cell carcinoma, HPV-associated, Depth of invasion 14 mm, LVSI questionable. Nodes negative (sparse -1 each side, but patient had an anatomic dissection of the groins. HPV vaccine series, first on 08/09 and second on 10/11. Her third is due in late January. Will schedule her for this today. Right lower extremity leg swelling: Intermittent, discussed in detail today. Will let our office know if any worsening or persistence. Precautions given on DVT. Right vulva/crease: Tender spot noted. No evidence of lump or lesion. Will monitor. Advised NSAIDs as needed. Strict precautions given. Will call with worsening or persistence. RTC 3 months with HPV vaccine this day as well. Time spent for Azeb Gallegos's appointment was 20 minutes in review of records, review of diagnostic testing, other provider notes, coordination of care, meeting with team to discuss the patient and the above, charting, and face to face time with the patient on the same day as the visit. See further A&P per Dr. Yepez's notation. Ramya Becker APRN-BIANCA. I saw and personally examined the patient today with the RN MEDICARE, Ramya Becker. I discussed the findings and therapeutic plan with the RN MEDICARE and patient. I agree with the history, physical examination, and medical decisions as outlined. Doing well. ROLA. Soreness in right groin area - on exam normal. Advised regarding analgesics. RTC 3 months Medical complexity: Low Kjey-cy-hgsf time with patient (RN MEDICARE and MD with MD over 50%), including review of history, exam, discussion and communications: 20+ minutes Flakito Yepez MD #[id number] [facility] History of Present illness Narrative* Mel Mcdonald RN - 08/09/2023 3:30 PM EDT Azeb received dose #1 Gardasil and tolerated well. She was observed for 10 minutes after injection. No signs or symptoms of a reaction. documented [facility] this [facility] History of Present illness Narrative* Flakito Yepez MD - 07/29/2023 8:30 AM EDT History of Present Illness Azeb Gallegos is a 57 y.o. female with Chief Complaint Patient presents with Post Op Visit Patient Active Problem List H/O radical vulvectomy, bilateral I/F LND Surgery follow-up Vulvar mass See note regarding vulvar carcinoma Obesity (BMI 30.0-34.9) Malignant neoplasm of vulva Referral Sara Fowler ([place], [place]). 05/19/2023: Vulvar bx 12 o'clock- Superficially invasive SCC arising in a background of high grade squamous intraepithelial lesion Vulvar bx 4 o'clock- HSIL, U-ENID Vulvar bx 9 o'clock- Negative Vulvar bx 3 o'clock- Negative [facility] path review pending. 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 Some vulvar discomfort, using Ibuprofen and Tylenol with relief. Appetite is good. Denies fever, nausea and vomiting. She reports normal bladder habits. Denies any dysuria, frequency, urgency or flank pain. Incision is healing well and she denies bleeding, erythema or drainage. No concerns with the drain sites - drains removed about 10 days ago Past Medical History She has a past medical history of Mixed stress and urge incontinence. Past Surgical History She has a past surgical history that includes hysterectomy (07/12/2015); bx vulva (05/19/2023); other surgical; bx vulva (09/09/2016); bx vulva (11/25/2016); bx endometrial (05/15/2015); vulvectomy simple partial; vulvectomy radical w/ inguinofemoral lymphadenectomy (Bilateral, 07/08/2023); and excis ion/fulguration lesion urethra ([facility]line, 07/08/2023). Family History Family History Problem Relation Age of Onset Diabetes Mother Heart Disease - Other Father Breast Cancer Paternal Grandmother Ovarian Cancer Neg Hx Uterine Cancer Neg Hx Colorectal Cancer Neg Hx Social History Social History Socioeconomic History Marital status: Tobacco Use Smoking status: Every Day Packs/day: 0.30 Years: 30.00 Total pack years: 9.00 Types: Cigarettes Smokeless tobacco: Never Tobacco comments: Trying to quit; currently smoking 1 pack over about 3 dayso Vaping Use Vaping Use: Never used Substance and Sexual Activity Alcohol use: Yes Comment: "once in a blue best"; holidays Drug use: Never Sexual activity: Yes Partners: Male Social History Narrative 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 She does report a remote history of STIs. She denies a history of abnormal cervical cytology and reports her last cytologic examination was prior to hysterectomy and negative per her report. Health maintenance: Mammogram: has not had and declines (being set up with music professionals) Colonoscopy: has not had and declines BMI Body mass index is 32.53 kg/m . Wt Readings from Last 3 Encounters: 07/29/23 83.3 kg (183 lb 9.6 oz) 07/19/23 82 kg (180 lb 12.8 oz) 07/15/23 81.8 kg (180 lb 6.4 oz) Review of Systems Constitutional: Negative for activity change, appetite change, chills, fatigue and fever. HENT: Negative for hearing loss and rhinorrhea. Eyes: Negative for visual disturbance. Respiratory: Negative for cough, chest tightness and shortness of breath. Cardiovascular: Negative for chest pain and palpitations. Gastrointestinal: Negative for abdominal pain, constipation, diarrhea, nausea and vomiting. Genitourinary: Negative for vaginal bleeding, vaginal discharge and vaginal pain. See hpi Musculoskeletal: Negative for arthralgias and myalgias. Skin: Negative for rash. Neurological: Negative for weakness, light-headedness and headaches. Psychiatric/Behavioral: Negative for behavioral problems and confusion. Vitals: Blood pressure 145/68, pulse 62, temperature 97.7 F (36.5 C), temperature source Skin, height 1.6 m (5' 2.99"), weight 83.3 kg (183 lb 9.6 oz), SpO2 99 %. Physical Exam Vitals and nursing note reviewed. Exam conducted with a coordinator mining products present. Constitutional: General: She is not in acute distress. Appearance: She is normal weight. HENT: Head: Normocephalic. Right Ear: Tympanic membrane normal. Left Ear: Tympanic membrane normal. Nose: Nose normal. No congestion or rhinorrhea. Mouth/Throat: Mouth: Mucous membranes are moist. Pharynx: No posterior oropharyngeal erythema. Eyes: General: No scleral icterus. Conjunctiva/sclera: Conjunctivae normal. Cardiovascular: Rate and Rhythm: Normal rate and regular rhythm. Heart sounds: No murmur heard. Pulmonary: Effort: Pulmonary effort is normal. No respiratory distress. Breath sounds: No stridor. Abdominal: General: There is no distension. Palpations: There is no mass. Tenderness: There is no abdominal tenderness. Genitourinary: Comments: Vulvectomy site looks good - no evidence of infection Bilateral groin incision healing well, no concerns today. Musculoskeletal: Right lower leg: No edema. Left lower leg: No edema. Lymphadenopathy: Cervical: No cervical adenopathy. Skin: General: Skin is warm. Coloration: Skin is not pale. Findings: No rash. Neurological: General: No focal deficit present. Mental Status: She is alert and oriented to person, place, and time. Psychiatric: Mood and Affect: Mood normal. Neurological Exam Mental Status Alert. Oriented to person, place, and time. Assessment and Plan Azeb Gallegos is a 57 y.o. with newly diagnosed vulvar cancer. Patient referred by Dr. Sara Fowler ([place]). Bilateral drains removed last week, <50 mL in 24 hours. Postop visit. Doing okay. Suture site intact. Path - stage IB lesion - Greatest diameter 5.0 cm, Squamous cell carcinoma, HPV- associated, Depth of invasion 14 mm, LVSI questionable Nodes negative (sparse - 1 each side, but patient had an anatomic dissection of the groins Scheduled to start HPV vaccine in a few weeks. RTC 3 months Flakito Yepez MD #[id number] [facility] History of Present illness Narrative* Ramya Becker APRN-RN MEDICARE - 07/19/2023 12:45 PM EDT Images from the original note were not included. History of Present Illness Azeb Gallegos is a 57 y.o. female with Chief Complaint Patient presents with Post Op Visit Vulvar surgery Patient Active Problem List H/O radical vulvectomy, bilateral I/F LND Surgery follow-up Vulvar mass See note regarding vulvar carcinoma Obesity (BMI 30.0-34.9) Malignant neoplasm of vulva Referral Sara Fowler ([place], [place]). 05/19/2023: Vulvar bx 12 o'clock- Superficially invasive SCC arising in a background of high grade squamous intraepithelial lesion Vulvar bx 4 o'clock- HSIL, U-ENID Vulvar bx 9 o'clock- Negative Vulvar bx 3 o'clock- Negative [facility] path review pending. 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 Some vulvar discomfort, using Ibuprofen and Tylenol with relief. Appetite is good. Denies fever, nausea and vomiting. She reports normal bladder habits. Reports, having puentes removed on Tuesday and intermittently will notice tiny clots in the toilet after urination. Denies any dysuria, frequency, urgency or flank pain. Incision is healing well and she denies bleeding, erythema or drainage. No concerns with the drain sites. Over the last 24 hours, she has had 30 ml in one side and 20 ml in the other. No fever/chills. Past Medical History She has a past medical history of Mixed stress and urge incontinence. Past Surgical History She has a past surgical history that includes hysterectomy (07/12/2015); bx vulva (05/19/2023); other surgical; bx vulva (09/09/2016); bx vulva (11/25/2016); bx endometrial (05/15/2015); vulvectomy simple partial; vulvectomy radical w/ inguinofemoral lymphadenectomy (Bilateral, 07/08/2023); and excis ion/fulguration lesion urethra (Midline, 07/08/2023). Family History Family History Problem Relation Age of Onset Diabetes Mother Heart Disease - Other Father Breast Cancer Paternal Grandmother Ovarian Cancer Neg Hx Uterine Cancer Neg Hx Colorectal Cancer Neg Hx Social History Social History Socioeconomic History Marital status: Tobacco Use Smoking status: Every Day Packs/day: 0.30 Years: 30.00 Total pack years: 9.00 Types: Cigarettes Smokeless tobacco: Never Tobacco comments: Trying to quit; currently smoking 1 pack over about 3 dayso Vaping Use Vaping Use: Never used Substance and Sexual Activity Alcohol use: Yes Comment: "once in a blue best"; holidays Drug use: Never Sexual activity: Yes Partners: Male Social History Narrative 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 She does report a remote history of STIs. She denies a history of abnormal cervical cytology and reports her last cytologic examination was prior to hysterectomy and negative per her report. Health maintenance: Mammogram: has not had and declines (being set up with music professionals) Colonoscopy: has not had and declines BMI Body mass index is 32.03 kg/m . Wt Readings from Last 3 Encounters: 07/19/23 82 kg (180 lb 12.8 oz) 07/15/23 81.8 kg (180 lb 6.4 oz) 07/08/23 83.9 kg (185 lb) Review of Systems Constitutional: Negative for activity change, appetite change, chills, fatigue and fever. HENT: Negative for hearing loss and rhinorrhea. Eyes: Negative for visual disturbance. Respiratory: Negative for cough, chest tightness and shortness of breath. Cardiovascular: Negative for chest pain and palpitations. Gastrointestinal: Negative for abdominal pain, constipation, diarrhea, nausea and vomiting. Genitourinary: Negative for vaginal bleeding, vaginal discharge and vaginal pain. See hpi Musculoskeletal: Negative for arthralgias and myalgias. Skin: Negative for rash. Neurological: Negative for weakness, light-headedness and headaches. Psychiatric/Behavioral: Negative for behavioral problems and confusion. Vitals: Blood pressure 143/61, pulse 66, temperature 98.1 F (36.7 C), temperature source Oral, resp. rate 16, weight 82 kg (180 lb 12.8 oz), SpO2 100 %. Physical Exam Vitals and nursing note reviewed. Exam conducted with a coordinator mining products present. Constitutional: General: She is not in acute distress. Appearance: She is normal weight. HENT: Head: Normocephalic. Right Ear: Tympanic membrane normal. Left Ear: Tympanic membrane normal. Nose: Nose normal. No congestion or rhinorrhea. Mouth/Throat: Mouth: Mucous membranes are moist. Pharynx: No posterior oropharyngeal erythema. Eyes: General: No scleral icterus. Conjunctiva/sclera: Conjunctivae normal. Cardiovascular: Rate and Rhythm: Normal rate and regular rhythm. Heart sounds: No murmur heard. Pulmonary: Effort: Pulmonary effort is normal. No respiratory distress. Breath sounds: No stridor. Abdominal: General: There is no distension. Palpations: There is no mass. Tenderness: There is no abdominal tenderness. Genitourinary: Comments: Vulvectomy site image below, erythema/warmth noted with induration at below right groin incision. Bilateral drains removed today, tolerated well, no evidence of infection noted. Bilateral groin incision healing well, no concerns today. Musculoskeletal: Right lower leg: No edema. Left lower leg: No edema. Lymphadenopathy: Cervical: No cervical adenopathy. Skin: General: Skin is warm. Coloration: Skin is not pale. Findings: No rash. Neurological: General: No focal deficit present. Mental Status: She is alert and oriented to person, place, and time. Psychiatric: Mood and Affect: Mood normal. Neurological Exam Mental Status Alert. Oriented to person, place, and time. Assessment and Plan Azeb Gallegos is a 57 y.o. with newly diagnosed vulvar cancer. Patient referred by Dr. Sara Fowler ([place]). Today we reviewed her outside pathology report that demonstrated superficially invasive SCC of the vulva, DOI not specified. [facility]. Clinical exam is consistent with a large invasive lesion and the plan is for radical partial vulvectomy and bilateral inguinofemoral lymphadenectomy. She is s/p on 07/08/23. Her pathology is still in process. Bilateral drains removed today, <50 mL in 24 hours. Soft tissue infection: Will treat with Keflex 500 mg every 6 hours x 10 days. Discussed today, willcontinue to monitor closely, aware to call with any worsening or site, fever/chills ect. Strict precautions given. Time spent for Azeb Gallegos's appointment was 30 minutes in review of records, review of diagnostic testing, other provider notes, coordination of care, meeting with team to discuss the patient and the above, charting, and face to face time with the patient on the same day as the visit. See further A&P per Dr. Yepez's notation. Ramya Becker APRN-BIANCA. I saw and personally examined the patient today with the RN MEDICARE, Ramya Becker. I discussed the findings and therapeutic plan with the RN MEDICARE and patient. I agree with the history, physical examination, and medical decisions as outlined. Postop visit. Doing okay. Suture site intact. Mild erythema of mons - will Rx with Abx. Path not reported - will see again in about 2 weeks to review path and discuss follow up or adjuvant. Scheduled to start HPV vaccine in a few weeks. Flakito Yepez MD #[id number] [facility] History of Present illness Narrative* Olya Delgadillo RN - 07/15/2023 1:00 PM EDT Puentes Removal History Azeb Gallegos is a 57 y.o. female who is returning today for a voiding trial and puentes removal, s/p surgery on 07/08/23 She reports she is doing very well. I have reviewed the patient's medical, surgical and other pertinent history in detail, and have updated medication and allergy information in the patient record. Any changes in symptoms or patient condition have been documented. VITAL SIGNS Blood pressure 136/63, pulse 67, temperature 98.1 F (36.7 C), temperature source Skin, resp. rate 20, weight 81.8 kg (180 lb 6.4 oz), SpO2 97 %. PAIN ASSESSMENT Presence of Pain: complains of pain/discomfort FATIGUE SYMPTOM ASSESSMENT Symptom Assessment Nausea: Loss of appetite without alteration in eating habits Constipation: Occasional or intermittent symptoms OR occasional use of stool softeners, laxatives, dietary modification, or enema Depression: Absent or within normal limits SWALLOWING & NUTRITION Nutrition Risk Screening (MST) Have you recently lost weight without trying?: 0- no Have you been eating poorly because of decreased appetite?: 0- No Malnutrition Screening Tool Score: 0 Assessment: Order given by Ramya Becker CNP for voiding trial and puentes removal, per policy. Voiding trial performed, bladder backfilled with 240mL normal saline, puentes then removed, patient tolerated well. Patient then to restroom and voided 300mL. Patient passed trial. Puentes remains out. Plan: 1. Sign and symptoms of UTI or urine retention given. 2. Post op appointment is scheduled 3. Drains continue to put out 80-100 ml per 24 hours; patient to call on Tuesday with an update of drain output. [facility] Miscellaneous Notes* Nursing Notes - Yariel Santos RN - 07/10/2023 1:15 PM EDT Patient discharged home with puentse and bilateral KELLY drains in place. AVS reviewed with patient. Allquestions answered. PIVx2 removed per policy. Pt received education regarding puentes care and drain care. Patient also provided with education materials and supplies. Prescriptions picked up at [facility]. Patient taken by wheelchair to [facility] with all belongings at this time * Nursing Notes - Jessica Patel RN - 07/08/2023 1:22 PM EDT 1257: Patient arrives in [facility] PACU from OR via gurney with side rails up x2 with HOB >30 degrees, accompanied by anesthesia and surgical MD. Patient placed on monitors, VSS. Report received from anesthesia and surgical team. Patient assessed, see assessment. Per surgical MD, no labs or imaging necessary in PACU. Patient will go up to [facility] once she is ready. 1420: Called MD Pruitt for sign out. MD will sign patient out. 1423: Waiting room updated. 1427: MD Pruitt signed out. 1428: Attempted to call report to [facility] RN. RN in a patients room and will call back shortly. 1510: Report called to [facility] RN. 1521: Patient discharged from [facility] PACU per protocol. Patient transported via gurney with side rails up x2 with HOB>30 degrees to room 2025 by RN, [employer]ACLE [employer]PLICATIONS DEVELOPER and monitor. Traveling RN to call and updatehusband once patient is in room. * Plan of Care - Yara Lincoln MD - 07/08/2023 1:03 PM EDT Gynecologic Oncology Plan of Care Note Azeb Gallegos is a 57 y.o. who is POD0 s/p radical vulvectomy including resection of distal urethra, bilateral inguinofemoral lymphadenectomy Post-operative care: - Pain (ERAS): scheduled Toradol to Ibuprofen, Tylenol and Gabapentin; Oxycodone prn - FEN/GI: regular diet, IV fluids at 125 mL/hr; bowel regimen ordered - : puentes to remain in place, evaluate for removal POD#1 - Heme: pre-operative hemoglobin 14.7, EBL 200 mL, post-op hemoglobin in AM - ID: afebrile, s/p prophylactic gent/clinda - Prophylaxis: SCDs, incentive spirometer, s/p pre-op heparin, pLOV to start POD1 (WILL need Lovenox x30 days) - Incision: 4cm bilateral groin incisions closed with suture/dermabond with bilateral KELLY drain, vulva closed with suture Medical co-morbidities: none Lines/drains: pIV x2, puentes, KELLY drain RLQ, KELLY drain LLQ Code status: FULL Post-op note due at [id number] Disposition: continue routine post-operative care, anticipate discharge once meeting appropriate post-operative milestones. * Op Note - Ritika Cohn MD - 07/08/2023 12:25 PM EDT PREOPERATIVE DIAGNOSES: Vulvar cancer POSTOPERATIVE DIAGNOSES: Same with tumor encroaching anterior urethra PROCEDURE: Radical vulvectomy including resection of distal urethra, bilateral inguinofemoral lymphadenectomy ATTENDING SURGEON: Flakito Yepez MD ASSISTANTS: MD Linn Weston MD Oluchi Nwosu, MD ANESTHESIA: General ESTIMATED BLOOD LOSS: 200 mL COMPLICATIONS: none FINDINGS: Fungating vulvar neoplasm involving the anterior vulva and clitoris and extending to the anterior urethra. There was also a lesion on the posterior right vulva grossly consistent with ENID III. While there was no palpable adenopathy clinically, at the time of the lymphadenectomy some of the nodes bilaterally felt more firm than normal. 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 Clinical examination was consistent with obvious invasive lesion involving the anterior vulva, >4 cm, midline. She was explained the options for management, and the decision was made to proceed with radical excision of the vulva (radical vulvectomy) and bilateral inguinofemoral lymphadenectomy The expected outcomes and the risks of the procedure were explainedto the patient and she signed the operative consent after her questions were answered. PROCEDURE IN DETAIL: The patient was met in the patient receiving area on the day of surgery. The indications, risks, benefits and alternatives of the procedure were reviewed in detail. The patient was taken to the operating room where general anesthesia was obtained without difficulty. A time-out procedure for safety was performed to confirm patient name, medical record number and procedure being performed. She was positioned in lithotomy. Examination under anesthesia revealed the findings as described above. The patient was then prepped and draped in the usual sterile fashion. Her bladder was drained with a Puentes catheter under sterile conditions. Attention was turned to the right inguino-femoral lymphadenectomy. 1% xylocaine was injected along the groin incision sites. The pubic tubercle and the ASIS were used to identify the location of the inguinal ligament. An 8 cm incision was made inferior to this. Campers and Zac's fascia was opened. The skin flap was created superiorly and inferiorly dissecting just below Zac's fascia. The boundaries of the dissection were defined superiorly by the inguinal ligament, medially by the adductor longus fascia and laterally by the sartorious fascia. The lymph nodes were resected preserving thesaphenous vein. The cribiform fascia was then incised and femoral canal was identified. The fatty ti ssue overlying the canal (location of Bairoil's node) was dissected and sent to pathology, althoughthis did not seem to contain thomas tissue. The deep femoral nodes were explored and removed with care to avoid the femoral vessels Perforating vessels were controlled with electrocautery. Larger pedicles were clamped, cut and ligated with a vascular clip. The site was irrigated. A 15 Saqib drain was placed and secured using nylon suture. Zac's fascia and subcutaneous tissue was then reapproximated using 2-0 polysorb. The skin was closed with 4-0 monocryl and dermabond. Attention was then turned to the right side, and in a similar fashion, an 8 cm skin incision was made parallel and just inferior to the inguinal ligament. Again Campers and Zac's fascia was opened. The skin flap was created superiorly and inferiorly dissecting just below Zac's fascia. The boundaries of the dissection were defined superiorly by the inguinal ligament, medially by the adductorlongus fascia and laterally by the sartorious fascia. The lymph nodes were resected preserving the saphenous vein. The cribiform fascia was then incised and femoral canal was identified. The fatty tissue overlying the canal (location of Bairoil's node) was dissected and sent to pathology, although again this did not seem to contain thomas tissue. The deep femoral nodes were explored and removed with care to avoid the femoral vessels Perforating vessels were controlled with electrocautery. Largerpedicles were clamped, cut and ligated with a vascular clip. The site was irrigated. A 15 Saqib drain was placed and secured using nylon suture. Zac's fascia and subcutaneous tissue was then reapproximated using 2-0 polysorb. The skin was closed with 4-0 monocryl and dermabond. Attention was then turned to the radical vulvectomy. The lesions as described were outlined with a pen. These areas were dissected with a scalpel and Bovie cautery, incising the skin and subcutaneoustissues and to the deep perineal fascia. The tumor was found to involve clitoris and the anterior urethra, and thus these were included in the resection. The urethra was removed using sharp dissection, and an additional posterior urethral margin was also sent. This specimen was oriented when it wasremoved. Clinically 1-2 cm margin around the specimen. With care to avoid closing off the urethra (and puentes in place), the urethral mucosa was everted using 3-0 vicryl interrupted sutures and excellent hemostasis was obtained. Hemostasis of the resection bed was obtained using bovie cautery. The deep perineal tissues were reapproximated in several layers by using an 0 Vicryl suture layer (interrupted) to close space. A second subdermal layer was used of 2-0 Dexon in a mattress fashion to reapproximate the skin edges. Additional 3-0 vicryl horizontal mattress sutures were used to reinforce the closure. To avoid closing off the urethra, the labia were left open to heal via granulation just at the level of the urethra. The groin and vulvar wounds were infiltrated with 1/4% marcaine at the completion of the surgery. The patient tolerated the procedure well and was then transferred to [facility] recovery room in satisfactory condition. At the conclusion of the procedure all counts were correct x 2. The patient awoke from anesthesia without complication and was taken to the recovery room in stable condition. Dr. Yepez was present and either performed or directly supervised all isbell portions of the surgery and he was immediately available for the entirety of the surgery. Ritika Cohn MD Gynecologic Oncology Fellow [phone] * Brief Op Note - Flakito Yepez MD - 07/08/2023 12:09 PM EDT Azeb Gallegos ([id number]) PRE OPERATIVE DIAGNOSIS Malignant neoplasm of vulva [C51.9] POST OPERATIVE DIAGNOSIS Post-Op Diagnosis Codes: * Malignant neoplasm of vulva [C51.9] with tumor involving the anterior urethra PROCEDURE PERFORMED Procedure(s) (LRB): VULVECTOMY RADICAL W/ INGUINOFEMORAL LYMPHADENECTOMY (Bilateral) RESECTION OF DISTAL URETHRA (Midline) PRIMARY CLOSURE Yes INTRAOPERATIVE FINDINGS Fungating vulvar neoplasm involving the anterior vulva and clitoris and extending to the anterior urethra. There were also lesion on the posterior right vulva grossly consistent with ENID III. While there was no palpable adenopathy clinically, at the time of the lymphadenectomy some of the nodes bilaterally felt more firm than normal. SURGEON Surgeon(s) and Role: * Flakito Yepez MD - Primary ANESTHESIOLOGIST Anesthesiologist: Blaise Pruitt MD BREAKER OFF: Mary Beth Prasad APRN-BREAKER OFF SURGICAL STAFF Dental Surgery Doctor: Azeb Royal RN Relief Dental Surgery Doctor: Moira Dennis RN Relief Scrub: Rosita Honeycutt Scrub Person: Negin Gibbs RN; Jg Dinh Resident Assisting: Yara Lincoln MD Fellow: Linn Gonzalez MD Physician : Ritika Cohn MD COMPLICATIONS None ESTIMATED BLOOD LOSS 200 ml SPECIMENS See below ID Type Source Tests Collected by Time Destination 1 : Superficial right inguinal lymph nodes Permanent SURG PATH SURG PATH REQUEST Flakito Yepez MD 07/08/2023 0849 2 : Tissue from right femoral canal Permanent SURG PATH SURG PATH REQUEST Flakito Yepez MD 07/08/2023 0858 3 : Right femoral nodes Permanent SURG PATH SURG PATH REQUEST Flakito Yepez MD 07/08/2023 0902 4 : Superficial left inguinal nodes Permanent SURG PATH SURG PATH REQUEST Flakito Yepez MD 07/08/2023 0945 5 : Left femoral canal tissue Permanent SURG PATH SURG PATH REQUEST Flakito Yepez MD 07/08/2023 0948 6 : deep left femoral nodes Permanent SURG PATH SURG PATH REQUEST Flakito Yepez MD 07/08/2023 0951 7 : Anterior vulva, stitch=urethra margin Permanent SURG PATH SURG PATH REQUEST Flakito Yepez MD 07/08/2023 1124 8 : Additional urethra margin Permanent SURG PATH SURG PATH REQUEST Flakito Yepez MD 07/08/2023 1127 Flakito Yepez MD July 08, 2023 12:09 PM * Certification - Flakito Yepez MD - 07/08/2023 6:50 AM EDT I certify that this patient requires inpatient services at this time. Patient is having a Medicare Inpatient Only procedure. Plans for post hospitalization care will be discharge to home. Flakito Yepez MD #[id number] documented in [facility]08-20-2023 Nurse Note* Nursing Notes - Yariel Santos RN - 07/10/2023 1:15 PM EDT Patient discharged home with puentes and bilateral KELLY drains in place. AVS reviewed with patient. Allquestions answered. PIVx2 removed per policy. Pt received education regarding puentes care and drain care. Patient also provided with education materials and supplies. Prescriptions picked up at [facility]. Patient taken by wheelchair to [facility] with all belongings at this time [facility] History of Present illness Narrative* Azeb Parish RN - 07/10/2023 10:44 AM EDT Received call with katelin loredo. Had scripts transferred to [facility] due to lack of insurance. Coupon card applied then total cost of meds is $48.39. RN passed this information on to the patient. * Yara Lincoln MD - 07/10/2023 7:03 AM EDT Gynecologic Oncology Daily Roudning Note Subjective: Doing well this morning, pain well controlled on current regimen. Slept well overnight. Tolerating regular diet without N/V. Passing flatus, no BM with miralax yesterday, will try again this morning.Denies pain or swelling of lower extremities, minimal groin pain. Has been OOB in the halls this morning. Objective: Vitals: 07/09/23 1621 07/09/23 2041 07/10/23 0122 07/10/23 0526 BP: 111/55 114/55 102/53 113/59 Pulse: 74 73 74 66 Resp: 17 18 16 16 Temp: 98.1 degrees F (36.7 degrees C) 98 degrees F (36.7 degrees C) 96.8 degrees F (36 degrees C) 98.4 degrees F (36.9 degrees C) TempSrc: Oral Oral Axillary Oral SpO2: 91% 92% 94% 96% Weight: Height: UOP: 525/825/825 mL (0.8/1.2/1.2 cc/kg/hr) R inguinal drain: 130 mL L inguinal drain: 135 mL General: cooperative, appears stated age Pulmonary: clear to auscultation bilaterally Cardiovascular: regular rate and rhythm, S1, S2 normal, no murmur, click, rub or gallop, normal apical impulse Abdomen: soft, minimal tenderness to suprapubic region, RLQ, and LLQ. Bowel sounds hypoactivel. No masses, no organomegaly Incision: vulvar region intact with trace edena, no erythema, pad with 40% saturation. Bilateral 4cm groin incisions closed with suture and covered in dermabond, c/d/i. Bilateral inguinal drains withscant serosanguinous fluid, mild ecchymosis drain sites without erythema. Puentes in place. Vulvar sutures intact, peripad in place. Extremities: extremities normal, atraumatic, no cyanosis or edema Neurologic: Grossly normal Psychiatric: non focal Labs: CBC Lab Results Component Value Date WBC 10.04 07/10/2023 HGB 10.7 (L) 07/10/2023 HCT 34.7 (L) 07/10/2023 PLATELET 208 07/10/2023 MCV 93.0 07/10/2023 EDIF Lab Results Component Value Date RBCDISTRIBU 13.5 07/10/2023 GRNLOCYT 60.1 07/10/2023 LYMPHOCYT 27.0 07/10/2023 MONOCYTELEC 10.7 07/10/2023 EOSINOPHILS 0.8 07/10/2023 BASOPHILS 0.9 07/10/2023 LYMPHOCYTABS 2.71 07/10/2023 EOSINOPHLABS 0.08 07/10/2023 PLATELET 208 07/10/2023 MPV 11.0 07/10/2023 Lab Results Component Value Date SODIUM 141 07/10/2023 POTASSIUM 4.4 07/10/2023 CHLORIDE 106 07/10/2023 CO2 28 07/10/2023 BUN 16 07/10/2023 CREATSERUM 0.86 07/10/2023 GLUCOSE 113 (H) 07/10/2023 Assessment and Plan: Azeb Gallegos is a 57 y.o. who is now POD2 s/p radical vulvectomy including resection of distal urethra, bilateral inguinofemoral lymphadenectomy for invasive vulvar carcinoma Post-operative care: - Pain (ERAS): scheduled Toradol to Ibuprofen, Tylenol and Gabapentin; Oxycodone prn - FEN/GI: regular diet; bowel regimen ordered - : puentes to remain in place for one week postoperatively - Heme: pre-operative hemoglobin 14.7, EBL 200 mL, post-op hemoglobin 11.2 > 10.7 - ID: afebrile, s/p prophylactic gent/clinda - Prophylaxis: SCDs, incentive spirometer, s/p pre-op heparin, pLOV to start POD1 (WILL need eliquis x30 days) - Incision: 4cm bilateral groin incisions closed with suture/dermabond with bilateral R/L groin drains in place, plan to remove when output <50 mL x24 hours 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 Yara Lincoln MD [facility] Onc (GY3) [facility] On[facility] Team Pager: [phone] [facility] Team Phone: [phone] I personally saw this patient with the gynecologic oncology team, including residents, nurse practitioners and/or fellows. I reviewed, repeated or observed the pertinent aspects of the history, physical examination and medical decision making. I agree with the assessment and plan with the followingmodifications: Doing well post operatively. No issues. On prophylactic eliquis. Drain check in 1 week. Continue puentes 1 week for partial urethrectomy. Pillo Ledbetter MD Caustic Room Attendant Division of Gynecologic Oncology * Yara Lincoln MD - 07/09/2023 8:05 AM EDT Gynecologic Oncology Daily Roudning Note Subjective: Doing well, rates pain 3/10 this morning. Slept well overnight. Tolerating regular diet, has breakfast at bedside. Passing flatus, no BM, feeling somewhat constipated. Denies N/V. Denies pain or swelling of lower extremities, no groin pain. Has not yet been OOB but plans to do so today. Objective: Vitals: 07/08/23 1929 07/08/23 2333 07/09/23 0258 07/09/23 0739 BP: 139/68 115/56 118/56 131/64 Pulse: 85 60 66 65 Resp: Temp: 97.9 degrees F (36.6 degrees C) 98 degrees F (36.7 degrees C) 97.8 degrees F (36.6 degrees C)98 degrees F (36.7 degrees C) TempSrc: Oral Oral Oral Oral SpO2: 99% 96% 97% 97% Weight: Height: UOP: 400/700/700 mL (-/1/1 cc/kg/hr) R inguinal drain: 40 mL L inguinal drain: 25 mL General: cooperative, appears stated age Pulmonary: clear to auscultation bilaterally Cardiovascular: regular rate and rhythm, S1, S2 normal, no murmur, click, rub or gallop, normal apical impulse Abdomen: soft, minimal tenderness to suprapubic region, RLQ, and LLQ. Bowel sounds hypoactivel. No masses, no organomegaly Incision: vulvar region intact with trace edena, no erythema, pad with 40% saturation. Bilateral 4cm groin incisions closed with suture and covered in dermabond, c/d/i. Bilateral inguinal drains withscant serosanguinous fluid. drain sites without erythema. Puentes in place. Extremities: extremities normal, atraumatic, no cyanosis or edema Neurologic: Grossly normal Psychiatric: non focal Labs: CBC Lab Results Component Value Date WBC 16.46 (H) 07/09/2023 HGB 11.2 (L) 07/09/2023 HCT 34.0 (L) 07/09/2023 PLATELET 239 07/09/2023 MCV 87.9 07/09/2023 EDIF Lab Results Component Value Date RBCDISTRIBU 13.0 07/09/2023 GRNLOCYT 82.4 07/09/2023 LYMPHOCYT 7.4 07/09/2023 MONOCYTELEC 9.4 07/09/2023 EOSINOPHILS 0.0 07/09/2023 BASOPHILS 0.1 07/09/2023 LYMPHOCYTABS 1.21 07/09/2023 EOSINOPHLABS <0.04 07/09/2023 PLATELET 239 07/09/2023 MPV 11.2 07/09/2023 Lab Results Component Value Date SODIUM 139 07/09/2023 POTASSIUM 4.8 07/09/2023 CHLORIDE 106 07/09/2023 CO2 26 07/09/2023 BUN 15 07/09/2023 CREATSERUM 0.67 07/09/2023 GLUCOSE 126 (H) 07/09/2023 Assessment and Plan: Azeb Gallegos is a 57 y.o. who is now POD1 s/p radical vulvectomy including resection of distal urethra, bilateral inguinofemoral lymphadenectomy for invasive vulvar carcinoma Post-operative care: - Pain (ERAS): scheduled Toradol to Ibuprofen, Tylenol and Gabapentin; Oxycodone prn - FEN/GI: regular diet, IV fluids at 125 mL/hr; bowel regimen ordered - : puentes to remain in place for one week postoperatively - Heme: pre-operative hemoglobin 14.7, EBL 200 mL, post-op hemoglobin 11.2 - ID: afebrile, s/p prophylactic gent/clinda - Prophylaxis: SCDs, incentive spirometer, s/p pre-op heparin, pLOV to start POD1 (WILL need eliquis x30 days) - Incision: 4cm bilateral groin incisions closed with suture/dermabond with bilateral R/L groin drains in place, plan to remove when output <50 mL x24 hours 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 Yara Lincoln MD [facility] (GY3) [facility] Team Pager: [phone] [facility] Team Phone: [phone] I personally saw this patient with the gynecologic oncology team, including residents, nurse practitioners and/or fellows. I reviewed, repeated or observed the pertinent aspects of the history, physical examination and medical decision making. I agree with the assessment and plan with the followingmodifications: Doing well post operatively. No issues. Start prophylactic eliquis. Drain check in 1 week. Continuefoley 1 week for partial urethrectomy. Pillo Ledbetter MD Ca[facility]ic Room Attendant Division of Gynecologic Oncology * Lashell Hardy MD - 07/08/2023 5:13 PM EDT Gynecologic Oncology Post-operative Note Subjective: Patient is doing well. Sleepy due to anesthesia. Pain well-controlled. Has not eaten yet. Toleratedsome sips of gingerale without nausea or vomiting. Puentes in place. Has not yet ambulated. Denies lightheadedness. Per , patient had an episode of self-resolving tachypnea without decrease in O2 saturation. Continues to be on 2L NC postoperatively. Denies CP, SOB, fevers, chills, abdominal pain. Objective: Vitals: 07/08/23 1510 07/08/23 1515 07/08/23 1537 07/08/23 1600 BP: 133/66 140/67 Pulse: 62 62 74 Resp: 14 13 14 Temp: 97.5 degrees F (36.4 degrees C) TempSrc: Oral SpO2: 99% 97% 99% Weight: 84.2 kg (185 lb 9.6 oz) 83.9 kg (185 lb) Height: 1.6 m (5' 3") 1.6 m (5' 3") UOP: puentes in place; 400 mL urine Drain output: R inguinal drain <5cc serosanguinous fluid; L inguinal drain <5cc serosanguinous fluid General: cooperative, appears stated age Pulmonary: clear to auscultation bilaterally Cardiovascular: regular rate and rhythm, S1, S2 normal, no murmur, click, rub or gallop, normal apical impulse Abdomen: soft, minimal tenderness to suprapubic region, RLQ, and LLQ. Bowel sounds hypoactivel. No masses, no organomegaly Incision: vulvar region intact with trace edena, no erythema, pad with 40% saturation. Bilateral 4cm groin incisions closed with suture and covered in dermabond, c/d/i. Bilateral inguinal drains withscant serosanguinous fluid. drain sites without erythema. Puentes in place. Extremities: extremities normal, atraumatic, no cyanosis or edema Neurologic: Grossly normal Psychiatric: non focal Labs: CBC Lab Results Component Value Date WBC 8.66 06/21/2023 HGB 14.7 06/21/2023 HCT 43.5 06/21/2023 PLATELET 262 06/21/2023 MCV 85.8 06/21/2023 EDIF Lab Results Component Value Date RBCDISTRIBU 12.9 06/21/2023 GRNLOCYT 62.7 06/21/2023 LYMPHOCYT 25.6 06/21/2023 MONOCYTELEC 7.7 06/21/2023 EOSINOPHILS 2.8 06/21/2023 BASOPHILS 0.9 06/21/2023 LYMPHOCYTABS 2.22 06/21/2023 EOSINOPHLABS 0.24 06/21/2023 PLATELET 262 06/21/2023 MPV 11.0 06/21/2023 Lab Results Component Value Date SODIUM 138 06/21/2023 POTASSIUM 4.2 06/21/2023 CHLORIDE 106 06/21/2023 CO2 25 06/21/2023 BUN 19 06/21/2023 CREATSERUM 0.75 06/21/2023 Assessment and Plan: Azeb Gallegos is a 57 y.o. who is now POD0 s/p radical vulvectomy including resection of distal urethra, bilateral inguinofemoral lymphadenectomy Post-operative care: - Pain (ERAS): scheduled Toradol to Ibuprofen, Tylenol and Gabapentin; Oxycodone prn - FEN/GI: regular diet, IV fluids at 125 mL/hr; bowel regimen ordered - : puentes to remain in place for 1 week - Heme: pre-operative hemoglobin 14.7, EBL 200 mL, post-op hemoglobin in AM - ID: afebrile, s/p prophylactic gent/clinda - Prophylaxis: SCDs, incentive spirometer, s/p pre-op heparin, pLOV to start POD1 (WILL need Lovenox x30 days) - Incision: 4cm bilateral groin incisions closed with suture/dermabond with bilateral KELLY drain, vulva closed with suture Medical co-morbidities: none Code: full Dispo: continue routine post-operative care, anticipate discharge when meeting appropriate post-operative milestones. Lashell Hardy MD ObGyn PGY-1, [facility] (GY3) [facility] Team Pager: [phone] [facility] Team Phone: [phone] * Flakito Yepez MD - 07/08/2023 6:52 AM EDT Patient seen in preop with her spouse, Ambrocio She has had no changes in her medical status since last seen on June 21, 2023. I reviewed the surgical plan and anticipated postoperative recovery. Anticipate hospital stay of 1-2 nights, [id number] on voiding and pain control. She will have bilateral groin drains and need to be taught management of these drains. Also again discussed the risk of lymphedema. Permission obtained to speak with her spouse, Ambrocio, on conclusion of the surgery. Ready for surgery. Flakito Yepez MD #[id number] [facility]* Nursing Notes - Jessica Patel RN - 07/08/2023 1:22 PM EDT 1257: Patient arrives in [facility] PACU from OR via gurney with side rails up x2 with HOB >30 degrees, accompanied by anesthesia and surgical MD. Patient placed on monitors, VSS. Report received from anesthesia and surgical team. Patient assessed, see assessment. Per surgical MD, no labs or imaging necessary in PACU. Patient will go up to [address] once she is ready. 1420: Called MD Pruitt for sign out. MD will sign patient out. 1423: Waiting room updated. 1427: MD Pruitt signed out. 1428: Attempted to call report to [address] RN. RN in a patients room and will call back shortly. 1510: Report called to [address] RN. 1521: Patient discharged from [facility] PACU per protocol. Patient transported via gurney with side rails up x2 with HOB>30 degrees to room 2025 by RN, [employer] APPLICATIONS DEVELOPER and monitor. Traveling RN to call and updatehusband once patient is in room. [facility]08-18-2023 Nurse Note* Azeb Royal RN - 07/08/2023 1:05 PM EDT Report to ENGRAVER TENDER * Genna Maldonado RN - 07/08/2023 6:38 AM EDT Patient denies history of chemo/radiation. Denies history of stroke/seizure. Denies metal in body. [facility] Surgical operation note* Azeb Royal RN - 07/08/2023 1:05 PM EDT Report to ENGRAVER TENDER [facility]08-18-2023 Plan of care note* Plan of Care - Yara Lincoln MD - 07/08/2023 1:03 PM EDT Gynecologic Oncology Plan of Care Note Azeb Gallegos is a 57 y.o. who is POD0 s/p radical vulvectomy including resection of distal urethra, bilateral inguinofemoral lymphadenectomy Post-operative care: - Pain (ERAS): scheduled Toradol to Ibuprofen, Tylenol and Gabapentin; Oxycodone prn - FEN/GI: regular diet, IV fluids at 125 mL/hr; bowel regimen ordered - : puentes to remain in place, evaluate for removal POD#1 - Heme: pre-operative hemoglobin 14.7, EBL 200 mL, post-op hemoglobin in AM - ID: afebrile, s/p prophylactic gent/clinda - Prophylaxis: SCDs, incentive spirometer, s/p pre-op heparin, pLOV to start POD1 (WILL need Lovenox x30 days) - Incision: 4cm bilateral groin incisions closed with suture/dermabond with bilateral KELLY drain, vulva closed with suture Medical co-morbidities: none Lines/drains: pIV x2, puentes, KELLY drain RLQ, KELLY drain LLQ Code status: FULL Post-op note due at [id number] Disposition: continue routine post-operative care, anticipate discharge once meeting appropriate post-operative milestones. [facility]08-18-2023 Surgery Postoperative evaluation and management note* Op Note - Ritika Cohn MD - 07/08/2023 12:25 PM EDT PREOPERATIVE DIAGNOSES: Vulvar cancer POSTOPERATIVE DIAGNOSES: Same with tumor encroaching anterior urethra PROCEDURE: Radical vulvectomy including resection of distal urethra, bilateral inguinofemoral lymphadenectomy ATTENDING SURGEON: Flakito Yepez MD ASSISTANTS: MD Linn Weston MD Oluchi Nwosu, MD ANESTHESIA: General ESTIMATED BLOOD LOSS: 200 mL COMPLICATIONS: none FINDINGS: Fungating vulvar neoplasm involving the anterior vulva and clitoris and extending to the anterior urethra. There was also a lesion on the posterior right vulva grossly consistent with ENID III. While there was no palpable adenopathy clinically, at the time of the lymphadenectomy some of the nodes bilaterally felt more firm than normal. 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 Clinical examination was consistent with obvious invasive lesion involving the anterior vulva, >4 cm, midline. She was explained the options for management, and the decision was made to proceed with radical excision of the vulva (radical vulvectomy) and bilateral inguinofemoral lymphadenectomy The expected outcomes and the risks of the procedure were explainedto the patient and she signed the operative consent after her questions were answered. PROCEDURE IN DETAIL: The patient was met in the patient receiving area on the day of surgery. The indications, risks, benefits and alternatives of the procedure were reviewed in detail. The patient was taken to the operating room where general anesthesia was obtained without difficulty. A time-out procedure for safety was performed to confirm patient name, medical record number and procedure being performed. She was positioned in lithotomy. Examination under anesthesia revealed the findings as described above. The patient was then prepped and draped in the usual sterile fashion. Her bladder was drained with a Puentes catheter under sterile conditions. Attention was turned to the right inguino-femoral lymphadenectomy. 1% xylocaine was injected along the groin incision sites. The pubic tubercle and the ASIS were used to identify the location of the inguinal ligament. An 8 cm incision was made inferior to this. Campers and Zac's fascia was opened. The skin flap was created superiorly and inferiorly dissecting just below Zac's fascia. The boundaries of the dissection were defined superiorly by the inguinal ligament, medially by the adductor longus fascia and laterally by the sartorious fascia. The lymph nodes were resected preserving thesaphenous vein. The cribiform fascia was then incised and femoral canal was identified. The fatty ti ssue overlying the canal (location of Bairoil's node) was dissected and sent to pathology, althoughthis did not seem to contain thomas tissue. The deep femoral nodes were explored and removed with care to avoid the femoral vessels Perforating vessels were controlled with electrocautery. Larger pedicles were clamped, cut and ligated with a vascular clip. The site was irrigated. A 15 Saqib drain was placed and secured using nylon suture. Zac's fascia and subcutaneous tissue was then reapproximated using 2-0 polysorb. The skin was closed with 4-0 monocryl and dermabond. Attention was then turned to the right side, and in a similar fashion, an 8 cm skin incision was made parallel and just inferior to the inguinal ligament. Again Campers and Zac's fascia was opened. The skin flap was created superiorly and inferiorly dissecting just below Zac's fascia. The boundaries of the dissection were defined superiorly by the inguinal ligament, medially by the adductorlongus fascia and laterally by the sartorious fascia. The lymph nodes were resected preserving the saphenous vein. The cribiform fascia was then incised and femoral canal was identified. The fatty tissue overlying the canal (location of Bairoil's node) was dissected and sent to pathology, although again this did not seem to contain thomas tissue. The deep femoral nodes were explored and removed with care to avoid the femoral vessels Perforating vessels were controlled with electrocautery. Largerpedicles were clamped, cut and ligated with a vascular clip. The site was irrigated. A 15 Saqib drain was placed and secured using nylon suture. Zac's fascia and subcutaneous tissue was then reapproximated using 2-0 polysorb. The skin was closed with 4-0 monocryl and dermabond. Attention was then turned to the radical vulvectomy. The lesions as described were outlined with a pen. These areas were dissected with a scalpel and Bovie cautery, incising the skin and subcutaneoustissues and to the deep perineal fascia. The tumor was found to involve clitoris and the anterior urethra, and thus these were included in the resection. The urethra was removed using sharp dissection, and an additional posterior urethral margin was also sent. This specimen was oriented when it wasremoved. Clinically 1-2 cm margin around the specimen. With care to avoid closing off the urethra (and puentes in place), the urethral mucosa was everted using 3-0 vicryl interrupted sutures and excellent hemostasis was obtained. Hemostasis of the resection bed was obtained using bovie cautery. The deep perineal tissues were reapproximated in several layers by using an 0 Vicryl suture layer (interrupted) to close space. A second subdermal layer was used of 2-0 Dexon in a mattress fashion to reapproximate the skin edges. Additional 3-0 vicryl horizontal mattress sutures were used to reinforce the closure. To avoid closing off the urethra, the labia were left open to heal via granulation just at the level of the urethra. The groin and vulvar wounds were infiltrated with 1/4% marcaine at the completion of the surgery. The patient tolerated the procedure well and was then transferred to [facility] recovery room in satisfactory condition. At the conclusion of the procedure all counts were correct x 2. The patient awoke from anesthesia without complication and was taken to the recovery room in stable condition. Dr. Yepez was present and either performed or directly supervised all isbell portions of the surgery and he was immediately available for the entirety of the surgery. 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 There were also lesion on the posterior right vulva grossly consistent with ENID III. While there was no palpable adenopathy clinically, at the time of the lymphadenectomy some of the nodes bilaterally felt more firm than normal. SURGEON Surgeon(s) and Role: * Flakito Yepez MD - Primary ANESTHESIOLOGIST Anesthesiologist: Blaise Pruitt MD BREAKER OFF: Mary Beth Prasad APRN-BREAKER OFF SURGICAL STAFF Dental Surgery Doctor: Azeb Royal RN Relief Dental Surgery Doctor: Moira Dennis RN Relief Scrub: Rosita Honeycutt Scrub Person: Negin Gibbs RN; Jg Dinh Resident Assisting: Yara Lincoln MD Fellow: Linn Gonzalez MD Physician : Ritika Cohn MD COMPLICATIONS None ESTIMATED BLOOD LOSS 200 ml SPECIMENS See below ID Type Source Tests Collected by Time Destination 1 : Superficial right inguinal lymph nodes Permanent SURG PATH SURG PATH REQUEST Flakito Yepez MD 07/08/2023 0849 2 : Tissue from right femoral canal Permanent SURG PATH SURG PATH REQUEST Flakito Yepez MD 07/08/2023 0858 3 : Right femoral nodes Permanent SURG PATH SURG PATH REQUEST Flakito Yepez MD 07/08/2023 0902 4 : Superficial left inguinal nodes Permanent SURG PATH SURG PATH REQUEST Flakito Yepez MD 07/08/2023 0945 5 : Left femoral canal tissue Permanent SURG PATH SURG PATH REQUEST Flakito Yepez MD 07/08/2023 0948 6 : deep left femoral nodes Permanent SURG PATH SURG PATH REQUEST Flakito Yepez MD 07/08/2023 0951 7 : Anterior vulva, stitch=urethra margin Permanent SURG PATH SURG PATH REQUEST Flakito Yepez MD 07/08/2023 1124 8 : Additional urethra margin Permanent SURG PATH SURG PATH REQUEST Flakito Yepez MD 07/08/2023 1127 Flakito Yepez MD July 08, 2023 12:09 PM [facility]08-18-2023 Hospital Discharge instructions* Discharge Instructions* Hardeep Balbuena - 07/08/2023 7:49 AM EDT Pain Medication A prescription for pain medicine will be sent home with you. Do not drive while taking prescriptionpain medicine. Eat when taking pain medicines to avoid nausea. Watch for constipation. Eat plenty of fruits, vegetables, juices, and drink 6 to 8 glasses of water each day. If this medicine is too strong, or no longer needed, you may take Ibuprofen, like Advil or Motrin, 200 mg. (milligram) tablets- Take 2 tablets every 4 to 6 hours as needed for pain. Do not use this if you have stomach problems, stomach ulcers, or if you are on blood thinners, like Coumadin. Extra strength acetaminophen, like Tylenol Extra-strength -Take 2 tablets every 4 to 6 hours as needed for mild pain. Prevent Constipation Post-op and Opioid Use Bowel Regimen Instructions: Goal is 1 non-forced bowel movement every 1-2 days Docusate sodium: 100mg (red jelly tabs, brand name is Colace, generic is OK to use). 1-2 tabs morning and bedtime (can increase to 3 tabs if needed). This keeps stool soft. Senna or Bisacodyl: Red tablets (brand name Senakot, generic OK to use and Dulcolax). Start with 1 tablet at bedtime. Increase to 1-2 tablets both morning and bedtime if needed. This helps keep bowels moving. Milk of Magnesia: 2-4 Tablespoons (1/2 - 1 capful) as needed if no bowel movement in several days OR bowel movements hard to pass. If no bowel movement after 6 hours, repeat dose. If no bowel movement 6 hours after 2nd dose, call nurse. If you are unable to tolerate food or liquids, you have severe abdominal cramping, or your abdomen is getting bigger/palafox then call the nurse. Activity as tolerated, no driving while taking narcotic pain medication, no heavy lifting. Please Dispose of Your Unused Pain Medications Studies have found that over 80% of patients will have leftover narcotic pain medication after their procedure. Over 90% of these patients keep them, rather than disposing of them. According to the National Survey on Drug Use and Health, about half of individuals who misuse prescription painkillers obtain them from a friend or family member. The Centers for Disease Control and Prevention reports that over 10,000 overdose deaths occur each year due to prescription painkillers. Disposing your unused medications keeps them off the street and away from children or loved ones. If you have unused medications, please look up a safe drop off location near you at [email or web address]/. Wound Care: Nina-Care Keep your incision clean and dry. Do a sitz bath 3 times each day. Dry your incision gently, using a gauze pad. Then use a blow dryerset on cool to dry the area well. Use a spray bottle filled with tap water to clean your perineal area after each time you use the toilet. Dry your incision gently, using a gauze pad. Activity: Please follow these instructions: You may perform the following activities: Increase your daily activities as you are able. Rest when you feel tired. You may go up and down stairs as you are able. Do not do the following: -shuttle truck driver such as vacuuming, or heavy cleaning -Strenuous physical sports or exercise -Lift, pull or move objects greater than 10 pounds Pelvic Rest You should not resume sexual activity or place anything inside your vagina at this time. Your doctor will discuss recommendations at your follow-up appointment. Diet Usual diet -You are to resume your usual diet at home Notify Your Doctor or Nurse if you have any of the following Wound Infection Symptoms Call your doctor or nurse right away if you have signs of infection at you wound such as: -More pain around the wound -Change in the amount , color and odor of drainage -The skin around the wound feels warm or has red streaks -The wound separates or opens up -You have a temperature greater than 100.5 Deep Vein Thrombosis Symptoms Call your doctor or nurse right away if you have any signs of blood clots such as -Tender, swollen or reddened areas anywhere in your leg. -Numbness or tingling in your lower leg or calf, or at the top of your leg or groin -Skin on you leg looks pale or blue or feels cold to touch -Chest pain or have trouble breathing -Fever or chills Fever or Chills Call your doctor or nurse if you have a temperature greater than 100.5 degrees F that lasts more than 1 hour and/or chills. Nausea and Vomiting Call your doctor or nurse if you have nausea and vomiting that will not let you keep medicine down and will not let you keep fluids down Vaginal Discharge or Bleeding Call your doctor or nurse if foul smelling discharge form your vagina and heavy bleeding from your vagina that soaks 2 to 3 pads in 1 hour. Unrelieved Pain Call your doctor or nurse if your pain gets worse or is not eased 1 hour after taking your pain medicine. Urinary Tract Infection Symptoms Call your doctor or nurse if you have signs of a urinary tract infection such as: -Urine is cloudy, bloody or has a bad odor -You leak urine or you have to urinate more often -You feel burning when you urinate -You have a temperature greater than 100.5 Contacts: FIELD NURSE ONCOLOGY CONTACT+ If you have any concerns regarding your care, please call the [facility] Ph. [phone] After 4:30pm Tuesday-Tuesday and on weekends, this phone number will forward to the after hours Nurseline for assistance. Cancer Resources For more information about support groups and other resources offered, contact: -[facility] at [phone] to find out about support groups offered by [employer] [facility] [employer] [employer] at [phone] or online at www.cancer.org -Leukemia and Lymphoma Society at [phone] or online at www.lls.org -[facility] at [phone] or online at www.lifecarealliance.org -[facility] [place] at [phone] or online at www.ovariancanceroh.org -[place] [employer] [employer] at [phone] or online at www.abta.org -National Brain Tumor Foundation at [phone] or online at www.braintumor.org Your Industrial Economist (PCRM) has arranged your appointments for follow up based on your preference of where you would like to continue your care. If you are unable to attend appointments that have been arranged for you, it is your responsibilityto call to reschedule at least 48 hours prior to the appointment date. Your After Visit Summary (AVS) has provided you with instructions for your discharge. It is your responsibility to ask questions if you have any. Please contact your medical care team at the numbers listed if you should have any additional questions. * Attachments The following attachments cannot be sent through Care Everywhere. * [facility]* Certification - Flakito Yepez MD - 07/08/2023 6:50 AM EDT I certify that this patient requires inpatient services at this time. Patient is having a Medicare Inpatient Only procedure. Plans for post hospitalization care will be discharge to home. Flakito Yepez MD #[id number] [facility]08-18-2023 Nurse Surgical operation note* Genna Maldonado RN - 07/08/2023 6:38 AM EDT Patient denies history of chemo/radiation. Denies history of stroke/seizure. Denies metal in body. [facility]08-18-2023 History and physical note* Yara Lincoln MD - 07/08/2023 6:21 AM EDT H&P Update 07/08/2023 Azeb Gallegos is a 57 y.o. scheduled for radical partial vulvectomy, bilateral inguinofemoral lymphadenectomy for superficially invasive SCC of the vulva. Patient seen and examined by me in the pre-operative area. No updates to medical history. Allergiesand medications reviewed. Vitals: 07/08/23 0615 BP: 163/77 Pulse: 62 Resp: 16 Temp: 97.8 F (36.6 C) SpO2: 100% Lab Results Component Value Date WBC 8.66 06/21/2023 HGB 14.7 06/21/2023 HCT 43.5 06/21/2023 PLATELET 262 06/21/2023 MCV 85.8 06/21/2023 Lab Results Component Value Date SODIUM 138 06/21/2023 POTASSIUM 4.2 06/21/2023 CHLORIDE 106 06/21/2023 CO2 25 06/21/2023 BUN 19 06/21/2023 CREATSERUM 0.75 06/21/2023 Consent previously obtained. Type and screen was previously obtained. Gent/clinda ordered for preop atibiotics. UPT NA. Blood glucose NA. Medical comorbidities: none No changes to H&P completed on 06/21/2023. Plan to proceed with scheduled surgery. Yara Lincoln MD [facility] ([facility]) [facility] Pager: [phone] [facility] Phone: [phone] History of Present Illness Azeb Gallegos is a 57 y.o. female with Chief Complaint Patient presents with New Patient Vulvar carcinoma History of Present Illness Presenting as referral from Dr. Sara Fowler ([place], [place]) with new diagnosis of vulvar SCC. Started to notice vulvar pain, itching, irritation in January-February. Saw music professionals and vaginal cuff pap, vulvar biopsies performed. Vulvar biopsy 12 o'clock showed superficially invasive SCC. 4 o'clock biopsy HSIL. Other biopsies at 3 and 9 o'clock negative. Using A&D ointment for discomfort, helps some. Also had vaginal pap: ASCUS +HR HPV, colposcopy negative. She does report remote hx of ?ENID 7 years ago, s/p vulvectomy at the [facility] (unable to see these records). Has not seen physician/music professionals regularly, but denies any vulvar issues since that time. No other vulvar dx like LS. She is s/p hyst, BSO 7 years ago for AUB (benign). Denies hx of abnormal paps. Was not having vaginal cuff cytology surveillance (pap obtained recently though by music professionals due to presenting sx as above). Patient Active Problem List Vulvar mass See note regarding vulvar carcinoma Obesity (BMI 30.0-34.9) Malignant neoplasm of vulva Referral Sara Fowler ([place], [place]). 05/19/2023: Vulvar bx 12 o'clock- Superficially invasive SCC arising in a background of high grade squamous intraepithelial lesion Vulvar bx 4 o'clock- HSIL, U-ENID Vulvar bx 9 o'clock- Negative Vulvar bx 3 o'clock- Negative [facility] path review pending. 06/21/2023 First seen at [facility] -- obvious invasive squamous cell carcinoma of the anterior vulva, greater than 4 cm Past Medical History She has a past medical history of Mixed stress and urge incontinence. Past Surgical History She has a past surgical history that includes hysterectomy (07/12/2015); bx vulva (05/19/2023); other surgical; bx vulva (09/09/2016); bx vulva (11/25/2016); bx endometrial (05/15/2015); and vulvectomy simple partial. Family History Family History Problem Relation Age of Onset Diabetes Mother Heart Disease - Other Father Breast Cancer Paternal Grandmother Ovarian Cancer Neg Hx Uterine Cancer Neg Hx Colorectal Cancer Neg Hx Social History Social History Socioeconomic History Marital status: Tobacco Use Smoking status: Every Day Packs/day: 0.30 Years: 30.00 Total pack years: 9.00 Types: Cigarettes Smokeless tobacco: Never Tobacco comments: Trying to quit; currently smoking 1 pack over about 3 dayso Vaping Use Vaping Use: Never used Substance and Sexual Activity Alcohol use: Yes Comment: "once in a blue best"; holidays Drug use: Never Sexual activity: Yes Partners: Male Social History Narrative 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 She does report a remote history of STIs. She denies a history of abnormal cervical cytology and reports her last cytologic examination was prior to hysterectomy and negative per her report. Health maintenance: Mammogram: has not had and declines (being set up with music professionals) Colonoscopy: has not had and declines Allergies: She is allergic to penicillins, sulfa antibiotics, bee venom, and tetanus toxoid. Medications: Current Outpatient Medications Medication Sig Dispense Refill acetaminophen (TYLENOL) 500 MG tablet Take 1 tablet by mouth every 6 hours as needed for Mild Pain. Ascorbic Acid (VITAMIN C PO) Take 1 tablet by mouth daily. CDONIRX-[id number] PO Take by mouth. Cholecalciferol (VITAMIN D3 PO) Take 1 tablet by mouth daily. Naproxen Sodium (Aleve) 220 MG tablet Take 1 tablet by mouth daily as needed for Mild Pain. No current facility-administered medications for this visit. BMI Body mass index is 31.09 kg/m . Review of Systems Constitutional: Negative for activity change, appetite change, chills, fatigue and fever. HENT: Negative for hearing loss and rhinorrhea. Eyes: Negative for visual disturbance. Respiratory: Negative for cough, chest tightness and shortness of breath. Cardiovascular: Negative for chest pain and palpitations. Gastrointestinal: Negative for abdominal pain, constipation, diarrhea, nausea and vomiting. Genitourinary: Negative for vaginal bleeding, vaginal discharge and vaginal pain. Vulvar irritation Musculoskeletal: Negative for arthralgias and myalgias. Skin: Negative for rash. Neurological: Negative for weakness, light-headedness and headaches. Psychiatric/Behavioral: Negative for behavioral problems and confusion. Vitals: Blood pressure 150/78, pulse 65, temperature 97.8 F (36.6 C), temperature source Oral, resp. rate 20, height 1.615 m (5' 3.58"), weight 81.1 kg (178 lb 12.8 oz), SpO2 97 %. Physical Exam Vitals and nursing note reviewed. Exam conducted with a coordinator mining products present. Constitutional: General: She is not in acute distress. Appearance: She is normal weight. HENT: Head: Normocephalic. Right Ear: Tympanic membrane normal. Left Ear: Tympanic membrane normal. Nose: Nose normal. No congestion or rhinorrhea. Mouth/Throat: Mouth: Mucous membranes are moist. Pharynx: No posterior oropharyngeal erythema. Eyes: General: No scleral icterus. Conjunctiva/sclera: Conjunctivae normal. Cardiovascular: Rate and Rhythm: Normal rate and regular rhythm. Heart sounds: No murmur heard. Pulmonary: Effort: Pulmonary effort is normal. No respiratory distress. Breath sounds: No stridor. Abdominal: General: There is no distension. Palpations: There is no mass. Tenderness: There is no abdominal tenderness. Genitourinary: Comments: Exophytic vulvar lesion involving the anterior vulva extending down bilaterally, further on the right. Primary lesion is greater than 4 cm in greatest diameter Also some posterior lesions that will need to be incorporated in the excision. No clinical adenopathy. Urethra and vagina grosslynormal. Musculoskeletal: Right lower leg: No edema. Left lower leg: No edema. Lymphadenopathy: Cervical: No cervical adenopathy. Skin: General: Skin is warm. Coloration: Skin is not pale. Findings: No rash. Neurological: General: No focal deficit present. Mental Status: She is alert and oriented to person, place, and time. Psychiatric: Mood and Affect: Mood normal. Neurological Exam Mental Status Alert. Oriented to person, place, and time. Assessment and Plan Azeb Gallegos is a 57 y.o. with newly diagnosed vulvar cancer. Patient referred by Dr. Sara Fowler ([place]). Today we reviewed her outside pathology report that demonstrated superficially invasive SCC of the vulva, DOI not specified. Referral placed for [facility] at [facility]. Clinical exam is consistent with a large invasive lesion and the plan is for radical partial vulvectomy and bilateral inguinofemoral lymphadenectomy. We reviewed the anticipated benefits of the procedure (both diagnostic and therapeutic) as well as the risks including but not limited to bleeding, infection, wound breakdown, change in vulvar appearance/sexual function, pain, injury to surrounding structures +/- need for additional procedures to correct, cardiac/respiratory complications, VTE. I have explained that additional procedures and or treatment may be recommended pending final pathology. We reviewed the anticipated hospital course andrecovery. All questions answered. Written informed consent obtained. We will plan for surgery in the near future. - No need for OPAC - Smoking cessation recommended, congratulated on cutting back - Re: vaginal pap ASCUS +HR HPV, colposcopy negative. Ritika Cohn MD Gynecologic Oncology Fellow [phone] I saw and personally examined the patient today with the fellow. I discussed the findings and therapeutic plan with the fellow and patient. I agree with the history, physical examination, and medicaldecisions as outlined. 57 y.o. 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 There were also biopsies in November 2016 and the patient and recall she underwent laser ablation and had a large superficial painful wound following this surgery. They think this surgery was done by a local buyer liaison. Clinical examination today is consistent with an obvious invasive lesion involving the anterior vulva and also some areas posteriorly. The lesion is about 4 cm in greatest diameter and midline. The recommendation is for her to have a radical vulvectomy and bilateral inguinofemoral lymphadenectomy. Completed the informed consent process. Surgery will be scheduled for July 08. (Will discuss Gardasil Rx to decrease risk of future recurrences?) Medical complexity: High [id number] time with the patient, including review of outside medical records, pathology, orders and communications: 60+ minutes. Flakito Yepez MD #[id number] [facility]08-18-2023 History and physical note* Yara Lincoln MD - 07/08/2023 6:21 AM EDT H&P Update 07/08/2023 Azeb Gallegos is a 57 y.o. scheduled for radical partial vulvectomy, bilateral inguinofemoral lymphadenectomy for superficially invasive SCC of the vulva. Patient seen and examined by me in the pre-operative area. No updates to medical history. Allergiesand medications reviewed. Vitals: 07/08/23 0615 BP: 163/77 Pulse: 62 Resp: 16 Temp: 97.8 F (36.6 C) SpO2: 100% Lab Results Component Value Date WBC 8.66 06/21/2023 HGB 14.7 06/21/2023 HCT 43.5 06/21/2023 PLATELET 262 06/21/2023 MCV 85.8 06/21/2023 Lab Results Component Value Date SODIUM 138 06/21/2023 POTASSIUM 4.2 06/21/2023 CHLORIDE 106 06/21/2023 CO2 25 06/21/2023 BUN 19 06/21/2023 CREATSERUM 0.75 06/21/2023 Consent previously obtained. Type and screen was previously obtained. Gent/clinda ordered for preop atibiotics. UPT NA. Blood glucose NA. Medical comorbidities: none No changes to H&P completed on 06/21/2023. Plan to proceed with scheduled surgery. Yara Lincoln MD [facility] ([facility]) [facility] Pager: [phone] [facility] Phone: [phone] History of Present Illness Azeb Gallegos is a 57 y.o. female with Chief Complaint Patient presents with New Patient Vulvar carcinoma History of Present Illness Presenting as referral from Dr. Sara Fowler ([place], [place]) with new diagnosis of vulvar SCC. Started to notice vulvar pain, itching, irritation in January-February. Saw music professionals and vaginal cuff pap, vulvar biopsies performed. Vulvar biopsy 12 o'clock showed superficially invasive SCC. 4 o'clock biopsy HSIL. Other biopsies at 3 and 9 o'clock negative. Using A&D ointment for discomfort, helps some. Also had vaginal pap: ASCUS +HR HPV, colposcopy negative. She does report remote hx of ?ENID 7 years ago, s/p vulvectomy at the [facility] (unable to see these records). Has not seen physician/music professionals regularly, but denies any vulvar issues since that time. No other vulvar dx like LS. She is s/p hyst, BSO 7 years ago for AUB (benign). Denies hx of abnormal paps. Was not having vaginal cuff cytology surveillance (pap obtained recently though by music professionals due to presenting sx as above). Patient Active Problem List Vulvar mass See note regarding vulvar carcinoma Obesity (BMI 30.0-34.9) Malignant neoplasm of vulva Referral Sara Fowler ([place], [place]). 05/19/2023: Vulvar bx 12 o'clock- Superficially invasive SCC arising in a background of high grade squamous intraepithelial lesion Vulvar bx 4 o'clock- HSIL, U-ENID Vulvar bx 9 o'clock- Negative Vulvar bx 3 o'clock- Negative [facility] path review pending. 06/21/2023 [facility] seen at [facility] -- obvious invasive squamous cell carcinoma of the anterior vulva, greater than 4 cm Past Medical History She has a past medical history of Mixed stress and urge incontinence. Past Surgical History She has a past surgical history that includes hysterectomy (07/12/2015); bx vulva (05/19/2023); other surgical; bx vulva (09/09/2016); bx vulva (11/25/2016); bx endometrial (05/15/2015); and vulvectomy simple partial. Family History Family History Problem Relation Age of Onset Diabetes Mother Heart Disease - Other Father Breast Cancer Paternal Grandmother Ovarian Cancer Neg Hx Uterine Cancer Neg Hx Colorectal Cancer Neg Hx Social History Social History Socioeconomic History Marital status: Tobacco Use Smoking status: Every Day Packs/day: 0.30 Years: 30.00 Total pack years: 9.00 Types: Cigarettes Smokeless tobacco: Never Tobacco comments: Trying to quit; currently smoking 1 pack over about 3 dayso Vaping Use Vaping Use: Never used Substance and Sexual Activity Alcohol use: Yes Comment: "once in a blue best"; holidays Drug use: Never Sexual activity: Yes Partners: Male Social History Narrative 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 She does report a remote history of STIs. She denies a history of abnormal cervical cytology and reports her last cytologic examination was prior to hysterectomy and negative per her report. Health maintenance: Mammogram: has not had and declines (being set up with music professionals) Colonoscopy: has not had and declines Allergies: She is allergic to penicillins, sulfa antibiotics, bee venom, and tetanus toxoid. Medications: Current Outpatient Medications Medication Sig Dispense Refill acetaminophen (TYLENOL) 500 MG tablet Take 1 tablet by mouth every 6 hours as needed for Mild Pain. Ascorbic Acid (VITAMIN C PO) Take 1 tablet by mouth daily. [id number] PO Take by mouth. Cholecalciferol (VITAMIN D3 PO) Take 1 tablet by mouth daily. Naproxen Sodium (Aleve) 220 MG tablet Take 1 tablet by mouth daily as needed for Mild Pain. No current facility-administered medications for this visit. BMI Body mass index is 31.09 kg/m . Review of Systems Constitutional: Negative for activity change, appetite change, chills, fatigue and fever. HENT: Negative for hearing loss and rhinorrhea. Eyes: Negative for visual disturbance. Respiratory: Negative for cough, chest tightness and shortness of breath. Cardiovascular: Negative for chest pain and palpitations. Gastrointestinal: Negative for abdominal pain, constipation, diarrhea, nausea and vomiting. Genitourinary: Negative for vaginal bleeding, vaginal discharge and vaginal pain. Vulvar irritation Musculoskeletal: Negative for arthralgias and myalgias. Skin: Negative for rash. Neurological: Negative for weakness, light-headedness and headaches. Psychiatric/Behavioral: Negative for behavioral problems and confusion. Vitals: Blood pressure 150/78, pulse 65, temperature 97.8 F (36.6 C), temperature source Oral, resp. rate 20, height 1.615 m (5' 3.58"), weight 81.1 kg (178 lb 12.8 oz), SpO2 97 %. Physical Exam Vitals and nursing note reviewed. Exam conducted with a coordinator mining products present. Constitutional: General: She is not in acute distress. Appearance: She is normal weight. HENT: Head: Normocephalic. Right Ear: Tympanic membrane normal. Left Ear: Tympanic membrane normal. Nose: Nose normal. No congestion or rhinorrhea. Mouth/Throat: Mouth: Mucous membranes are moist. Pharynx: No posterior oropharyngeal erythema. Eyes: General: No scleral icterus. Conjunctiva/sclera: Conjunctivae normal. Cardiovascular: Rate and Rhythm: Normal rate and regular rhythm. Heart sounds: No murmur heard. Pulmonary: Effort: Pulmonary effort is normal. No respiratory distress. Breath sounds: No stridor. Abdominal: General: There is no distension. Palpations: There is no mass. Tenderness: There is no abdominal tenderness. Genitourinary: Comments: Exophytic vulvar lesion involving the anterior vulva extending down bilaterally, further on the right. Primary lesion is greater than 4 cm in greatest diameter Also some posterior lesions that will need to be incorporated in the excision. No clinical adenopathy. Urethra and vagina grosslynormal. Musculoskeletal: Right lower leg: No edema. Left lower leg: No edema. Lymphadenopathy: Cervical: No cervical adenopathy. Skin: General: Skin is warm. Coloration: Skin is not pale. Findings: No rash. Neurological: General: No focal deficit present. Mental Status: She is alert and oriented to person, place, and time. Psychiatric: Mood and Affect: Mood normal. Neurological Exam Mental Status Alert. Oriented to person, place, and time. Assessment and Plan Azeb Gallegos is a 57 y.o. with newly diagnosed vulvar cancer. Patient referred by Dr. Sara Fowler ([place]). Today we reviewed her outside pathology report that demonstrated superficially invasive SCC of the vulva, DOI not specified. Referral placed for pathology review at [facility]. Clinical exam is consistent with a large invasive lesion and the plan is for radical partial vulvectomy and bilateral inguinofemoral lymphadenectomy. We reviewed the anticipated benefits of the procedure (both diagnostic and therapeutic) as well as the risks including but not limited to bleeding, infection, wound breakdown, change in vulvar appearance/sexual function, pain, injury to surrounding structures +/- need for additional procedures to correct, cardiac/respiratory complications, VTE. I have explained that additional procedures and or treatment may be recommended pending final pathology. We reviewed the anticipated hospital course andrecovery. All questions answered. Written informed consent obtained. We will plan for surgery in the near future. - No need for OPAC - Smoking cessation recommended, congratulated on cutting back - Re: vaginal pap ASCUS +HR HPV, colposcopy negative. Ritika Cohn MD Gynecologic Oncology Fellow [phone] I saw and personally examined the patient today with the fellow. I discussed the findings and therapeutic plan with the fellow and patient. I agree with the history, physical examination, and medicaldecisions as outlined. 57 y.o. 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 There were also biopsies in November 2016 and the patient and recall she underwent laser ablation and had a large superficial painful wound following this surgery. They think this surgery was done by a local buyer liaison. Clinical examination today is consistent with an obvious invasive lesion involving the anterior vulva and also some areas posteriorly. The lesion is about 4 cm in greatest diameter and midline. The recommendation is for her to have a radical vulvectomy and bilateral inguinofemoral lymphadenectomy. Completed the informed consent process. Surgery will be scheduled for July 08. (Will discuss Gardasil Rx to decrease risk of future recurrences?) Medical complexity: High [id number]-tf-[id number] time with the patient, including review of outside medical records, pathology, orders and communications: 60+ minutes. Flakito Yepez MD #[id number] documented in this encounter[facility] History of Present illness Narrative* Melissa Josué - 06/22/2023 1:03 PM EDTSummary: Need payment (cciw) info [facility] RX OUTREACH ADVANCED: Call Information: Date and Time of Contact: 06/22/2023 1:07 PM Method of Contact: By Phone Contact Type: Prescriptions Contactor: [facility] OP Contactee: Patient Contact Outcome: Follow-up (Patient understands that she will need for post op appointment on 08/09.told her we'd reach back out around 08/01) Shipping/Pickup: Medication Name: Gardasil 9 vaccine Contact Info: Specialty ([place]) [phone] [facility] [phone] [facility] [phone] [facility] [phone] Bedside Delivery ([facility]) [phone] documented in this encounter[facility] History of Present illness Narrative* Louann Ortiz RN - 06/21/2023 8:30 AM EDT 05/19/23 s/p vulvar bx x 4; states she was told 1 or 2 spots showed cancer; first noticed some sore,itchy, bleeding areas in February or March, but states it took about a month to get an appointment with music professionals. * Ritika Cohn MD - 06/21/2023 8:30 AM EDT History of Present Illness Azeb Gallegos is a 57 y.o. female with Chief Complaint Patient presents with New Patient History of Present Illness Presenting as referral from Dr. Sara Fowler ([facility]) with new diagnosis of vulvar SCC. Started to notice vulvar pain, itching, irritation in January-February. Saw music professionals and vaginal cuff pap, vulvar biopsies performed. Vulvar biopsy 12 o'clock showed superficially invasive SCC. 4 o'clock biopsy HSIL. Other biopsies at 3 and 9 o'clock negative. Using A&D ointment for discomfort, helps some. Also had vaginal pap: ASCUS +HR HPV, colposcopy negative. 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 Saw a buyer liaison through [facility]. Underwent laser ablation. Has not seen physician/music professionals regularly, but denies anyvulvar issues since that time. No other vulvar dx like LS. She is s/p hyst, BSO 7 years ago for AUB (benign). Denies hx of abnormal paps. Was not having vaginal cuff cytology surveillance (pap obtained recently though by music professionals due to presenting sx as above). Patient Active Problem List Malignant neoplasm of vulva Referral Sara Fowler. 05/19/23: Vulvar bx 12 o'clock- Superficially invasive SCC arising in a background of high grade squamous intraepithelial lesion Vulvar bx 4 o'clock- HSIL, U-ENID Vulvar bx 9 o'clock- Negative Vulvar bx 3 o'clock- Negative Path review placed. Past Medical History She has a past medical history of Mixed stress and urge incontinence. Past Surgical History She has a past surgical history that includes hysterectomy (07/12/2015); bx vulva (05/19/2023); other surgical; bx vulva (09/09/2016); bx vulva (11/25/2016); bx endometrial (05/15/2015); and vulvectomy simple partial. Family History Family History Problem Relation Age of Onset Diabetes Mother Heart Disease - Other Father Breast Cancer Paternal Grandmother Ovarian Cancer Neg Hx Uterine Cancer Neg Hx Colorectal Cancer Neg Hx Social History Social History Socioeconomic History Marital status: Tobacco Use Smoking status: Every Day Packs/day: 0.30 Years: 30.00 Total pack years: 9.00 Types: Cigarettes Smokeless tobacco: Never Tobacco comments: Trying to quit; currently smoking 1 pack over about 3 dayso Vaping Use Vaping Use: Never used Substance and Sexual Activity Alcohol use: Yes Comment: "once in a blue best"; holidays Drug use: Never Sexual activity: Yes Partners: Male Social History Narrative 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 She does report a remote history of STIs. She denies a history of abnormal cervical cytology and reports her last cytologic examination was prior to hysterectomy and negative per her report. Health maintenance: Mammogram: has not had and declines (being set up with music professionals) Colonoscopy: has not had and declines Allergies: She is allergic to penicillins, sulfa antibiotics, bee venom, and tetanus toxoid. Medications: Current Outpatient Medications Medication Sig Dispense Refill acetaminophen (TYLENOL) 500 MG tablet Take 1 tablet by mouth every 6 hours as needed for Mild Pain. Ascorbic Acid (VITAMIN C PO) Take 1 tablet by mouth daily. [id number] PO Take by mouth. Cholecalciferol (VITAMIN D3 PO) Take 1 tablet by mouth daily. Naproxen Sodium (Aleve) 220 MG tablet Take 1 tablet by mouth daily as needed for Mild Pain. No current facility-administered medications for this visit. BMI Body mass index is 31.09 kg/m . Review of Systems Constitutional: Negative for activity change, appetite change, chills, fatigue and fever. HENT: Negative for hearing loss and rhinorrhea. Eyes: Negative for visual disturbance. Respiratory: Negative for cough, chest tightness and shortness of breath. Cardiovascular: Negative for chest pain and palpitations. Gastrointestinal: Negative for abdominal pain, constipation, diarrhea, nausea and vomiting. Genitourinary: Negative for vaginal bleeding, vaginal discharge and vaginal pain. Vulvar irritation Musculoskeletal: Negative for arthralgias and myalgias. Skin: Negative for rash. Neurological: Negative for weakness, light-headedness and headaches. Psychiatric/Behavioral: Negative for behavioral problems and confusion. Vitals: Blood pressure 150/78, pulse 65, temperature 97.8 F (36.6 C), temperature source Oral, resp. rate 20, height 1.615 m (5' 3.58"), weight 81.1 kg (178 lb 12.8 oz), SpO2 97 %. Physical Exam Constitutional: General: She is not in acute distress. Appearance: She is normal weight. HENT: Head: Normocephalic. Right Ear: Tympanic membrane normal. Left Ear: Tympanic membrane normal. Nose: No congestion or rhinorrhea. Mouth/Throat: Mouth: Mucous membranes are moist. Pharynx: No posterior oropharyngeal erythema. Eyes: Extraocular Movements: Extraocular movements intact. Conjunctiva/sclera: Conjunctivae normal. Pupils: Pupils are equal, round, and reactive to light. Cardiovascular: Rate and Rhythm: Normal rate and regular rhythm. Heart sounds: No murmur heard. Pulmonary: Effort: Pulmonary effort is normal. Breath sounds: Normal breath sounds. Abdominal: General: Bowel sounds are normal. There is no distension. Tenderness: There is no abdominal tenderness. Genitourinary: Comments: 3x3 cm ulcerated vulvar mass essentially replacing the right labia minora, clitoris, partof the left labia minora, somewhat fixed. Abnormal white discoloration of the right labia minora at7 o'clock, not raised. Vagina and cuff normal on speculum exam. Vaginal cuff intact without mass. No appreciable inguinofemoral lymphadenopathy Musculoskeletal: General: Normal range of motion. Cervical back: Normal range of motion. Skin: General: Skin is warm. Coloration: Skin is not pale. Findings: No rash. Neurological: General: No focal deficit present. Mental Status: She is alert and oriented to person, place, and time. Psychiatric: Mood and Affect: Mood normal. Neurological Exam Mental Status Alert. Oriented to person, place, and time. Cranial Nerves CN III, IV, : Extraocular movements intact bilaterally. Pupils equal round and reactive to light bilaterally. Assessment and Plan Azeb Gallegos is a 57 y.o. with newly diagnosed vulvar cancer. Today we reviewed her pathology report that demonstrated superficially invasive SCC of the vulva, DOI not specified. Referral placed for [facility] at [facility]. Pending confirmation of the above on our pathology review, I have recommended simple partial vulvectomy for diagnostic/therapeutic purposes. We reviewed need for potential additional procedures including radical partial vulvectomy +/- lymphadenectomy should more extensive disease (DOI >1mm) be confirmed. We reviewed the anticipated benefits of the procedure (both diagnostic and therapeutic) as well as the risks including but not limited to bleeding, infection,wound breakdown, change in vulvar appearance/sexual function, pain, injury to surrounding structures +/- need for additional procedures to correct, cardiac/respiratory complications, VTE. I have explained that additional procedures and or treatment may be recommended pending final pathology. We revi ewed the anticipated hospital course and recovery. All questions answered. Written informed consentobtained. We will plan for surgery in the near future. - No need for OPAC - Smoking cessation recommended, congratulated on cutting back - Discussed gardasil vaccine extensively, she is interested in off-label administration. Reviewed with pharmacy and orders placed - Re: vaginal pap ASCUS +HR HPV, colposcopy negative. Ritika Cohn MD Gynecologic Oncology Fellow [phone] I saw and personally examined the patient today with the fellow. I discussed the findings and therapeutic plan with the fellow and patient. I agree with the history, physical examination, and medicaldecisions as outlined. See my note. Flakito Yepez MD #[id number] * Flakito Yepez MD - 06/21/2023 8:30 AM EDT History of Present Illness Azeb Gallegos is a 57 y.o. female with Chief Complaint Patient presents with New Patient Vulvar carcinoma History of Present Illness Presenting as referral from Dr. Sara Fowler ([place], [place]) with new diagnosis of vulvar SCC. Started to notice vulvar pain, itching, irritation in January-February. Saw music professionals and vaginal cuff pap, vulvar biopsies performed. Vulvar biopsy 12 o'clock showed superficially invasive SCC. 4 o'clock biopsy HSIL. Other biopsies at 3 and 9 o'clock negative. Using A&D ointment for discomfort, helps some. Also had vaginal pap: ASCUS +HR HPV, colposcopy negative. She does report remote hx of ?ENID 7 years ago, s/p vulvectomy at the [facility] (unable to see these records). Has not seen physician/music professionals regularly, but denies any vulvar issues since that time. No other vulvar dx like LS. She is s/p hyst, BSO 7 years ago for AUB (benign). Denies hx of abnormal paps. Was not having vaginal cuff cytology surveillance (pap obtained recently though by music professionals due to presenting sx as above). Patient Active Problem List Vulvar mass See note regarding vulvar carcinoma Obesity (BMI 30.0-34.9) Malignant neoplasm of vulva Referral Sara Fowler ([place], [place]). 05/19/2023: Vulvar bx 12 o'clock- Superficially invasive SCC arising in a background of high grade squamous intraepithelial lesion Vulvar bx 4 o'clock- HSIL, U-ENID Vulvar bx 9 o'clock- Negative Vulvar bx 3 o'clock- Negative [facility] path review pending. 06/21/2023 First seen at [facility] -- obvious invasive squamous cell carcinoma of the anterior vulva, greater than 4 cm Past Medical History She has a past medical history of Mixed stress and urge incontinence. Past Surgical History She has a past surgical history that includes hysterectomy (07/12/2015); bx vulva (05/19/2023); other surgical; bx vulva (09/09/2016); bx vulva (11/25/2016); bx endometrial (05/15/2015); and vulvectomy simple partial. Family History Family History Problem Relation Age of Onset Diabetes Mother Heart Disease - Other Father Breast Cancer Paternal Grandmother Ovarian Cancer Neg Hx Uterine Cancer Neg Hx Colorectal Cancer Neg Hx Social History Social History Socioeconomic History Marital status: Tobacco Use Smoking status: Every Day Packs/day: 0.30 Years: 30.00 Total pack years: 9.00 Types: Cigarettes Smokeless tobacco: Never Tobacco comments: Trying to quit; currently smoking 1 pack over about 3 dayso Vaping Use Vaping Use: Never used Substance and Sexual Activity Alcohol use: Yes Comment: "once in a blue best"; holidays Drug use: Never Sexual activity: Yes Partners: Male Social History Narrative 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 She does report a remote history of STIs. She denies a history of abnormal cervical cytology and reports her last cytologic examination was prior to hysterectomy and negative per her report. Health maintenance: Mammogram: has not had and declines (being set up with music professionals) Colonoscopy: has not had and declines Allergies: She is allergic to penicillins, sulfa antibiotics, bee venom, and tetanus toxoid. Medications: Current Outpatient Medications Medication Sig Dispense Refill acetaminophen (TYLENOL) 500 MG tablet Take 1 tablet by mouth every 6 hours as needed for Mild Pain. Ascorbic Acid (VITAMIN C PO) Take 1 tablet by mouth daily. [id number] PO Take by mouth. Cholecalciferol (VITAMIN D3 PO) Take 1 tablet by mouth daily. Naproxen Sodium (Aleve) 220 MG tablet Take 1 tablet by mouth daily as needed for Mild Pain. No current facility-administered medications for this visit. BMI Body mass index is 31.09 kg/m . Review of Systems Constitutional: Negative for activity change, appetite change, chills, fatigue and fever. HENT: Negative for hearing loss and rhinorrhea. Eyes: Negative for visual disturbance. Respiratory: Negative for cough, chest tightness and shortness of breath. Cardiovascular: Negative for chest pain and palpitations. Gastrointestinal: Negative for abdominal pain, constipation, diarrhea, nausea and vomiting. Genitourinary: Negative for vaginal bleeding, vaginal discharge and vaginal pain. Vulvar irritation Musculoskeletal: Negative for arthralgias and myalgias. Skin: Negative for rash. Neurological: Negative for weakness, light-headedness and headaches. Psychiatric/Behavioral: Negative for behavioral problems and confusion. Vitals: Blood pressure 150/78, pulse 65, temperature 97.8 F (36.6 C), temperature source Oral, resp. rate 20, height 1.615 m (5' 3.58"), weight 81.1 kg (178 lb 12.8 oz), SpO2 97 %. Physical Exam Vitals and nursing note reviewed. Exam conducted with a coordinator mining products present. Constitutional: General: She is not in acute distress. Appearance: She is normal weight. HENT: Head: Normocephalic. Right Ear: Tympanic membrane normal. Left Ear: Tympanic membrane normal. Nose: Nose normal. No congestion or rhinorrhea. Mouth/Throat: Mouth: Mucous membranes are moist. Pharynx: No posterior oropharyngeal erythema. Eyes: General: No scleral icterus. Conjunctiva/sclera: Conjunctivae normal. Cardiovascular: Rate and Rhythm: Normal rate and regular rhythm. Heart sounds: No murmur heard. Pulmonary: Effort: Pulmonary effort is normal. No respiratory distress. Breath sounds: No stridor. Abdominal: General: There is no distension. Palpations: There is no mass. Tenderness: There is no abdominal tenderness. Genitourinary: Comments: Exophytic vulvar lesion involving the anterior vulva extending down bilaterally, further on the right. Primary lesion is greater than 4 cm in greatest diameter Also some posterior lesions that will need to be incorporated in the excision. No clinical adenopathy. Urethra and vagina grosslynormal. Musculoskeletal: Right lower leg: No edema. Left lower leg: No edema. Lymphadenopathy: Cervical: No cervical adenopathy. Skin: General: Skin is warm. Coloration: Skin is not pale. Findings: No rash. Neurological: General: No focal deficit present. Mental Status: She is alert and oriented to person, place, and time. Psychiatric: Mood and Affect: Mood normal. Neurological Exam Mental Status Alert. Oriented to person, place, and time. Assessment and Plan Azeb Gallegos is a 57 y.o. with newly diagnosed vulvar cancer. Patient referred by Dr. Sara Fowler ([place]). Today we reviewed her outside pathology report that demonstrated superficially invasive SCC of the vulva, DOI not specified. Referral placed for [facility] at [facility]. Clinical exam is consistent with a large invasive lesion and the plan is for radical partial vulvectomy and bilateral inguinofemoral lymphadenectomy. We reviewed the anticipated benefits of the procedure (both diagnostic and therapeutic) as well as the risks including but not limited to bleeding, infection, wound breakdown, change in vulvar appearance/sexual function, pain, injury to surrounding structures +/- need for additional procedures to correct, cardiac/respiratory complications, VTE. I have explained that additional procedures and or treatment may be recommended pending final pathology. We reviewed the anticipated hospital course andrecovery. All questions answered. Written informed consent obtained. We will plan for surgery in the near future. - No need for OPAC - Smoking cessation recommended, congratulated on cutting back - Re: vaginal pap ASCUS +HR HPV, colposcopy negative. Ritika Cohn MD Gynecologic Oncology Fellow [phone] I saw and personally examined the patient today with the fellow. I discussed the findings and therapeutic plan with the fellow and patient. I agree with the history, physical examination, and medicaldecisions as outlined. 57 y.o. 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 There were also biopsies in November 2016 and the patient and recall she underwent laser ablation and had a large superficial painful wound following this surgery. They think this surgery was done by a local buyer liaison. Clinical examination today is consistent with an obvious invasive lesion involving the anterior vulva and also some areas posteriorly. The lesion is about 4 cm in greatest diameter and midline. The recommendation is for her to have a radical vulvectomy and bilateral inguinofemoral lymphadenectomy. Completed the informed consent process. Surgery will be scheduled for July 08. (Will discuss Gardasil Rx to decrease risk of future recurrences?) Medical complexity: High [id number] time with the patient, including review of outside medical records, pathology, orders and communications: 60+ minutes. Flakito Yepez MD #[id number] documented in this encounterSam[facility]08-01-2023 Instructions* Patient Instructions* Olya Delgadillo RN - 06/21/2023 8:30 AM EDT DIVISION OF GYNECOLOGIC ONCOLOGY YOUR SURGERY CHECKLIST: ONCE YOU ARE SCHEDULED FOR SURGERY Take care of your medical leave paperwork for your employer, if needed Arrange to have a responsible adult take you home after surgery Talk to your doctors about any medications you may need to adjust or stop before surgery such as blood thinners, diabetic medications, NSAIDs, and herbal supplements Stop tobacco and alcohol use DAY BEFORE SURGERY: Call for arrival and surgery time [phone] Before Bedtime: Clean your skin with CHG wash in the shower Drink 1 bottle of carbohydrate drink Take evening medicines if you were instructed Stop eating 8 hours before surgery time: DAY OF SURGERY Do not eat anything Remove jewelry, piercings, nail anguillan, and contacts lenses Do not put on hair or skin care products, deodorant, or makeup Take any medicines you were instructed to take with small sips of water Take another shower with the CHG wash and put on clean clothes Drink the last bottle of carbohydrate drink 2 to 4 hours before your surgery time- Bring with you: A list or photos of your current medication Your photo ID and insurance card Your Living Will and Health Care Power of Yard Demurrage Clerk forms (if you have them) Comfortable clothing If you use an Inhaler/Inhalers on a daily basis. then use your inhaler on the morning of surgery. - Do NOT take Herbal Medication (including multi-vitamin, fish oil ([place]-3), garlic, Glucosamine -Chondroitin ,gingko, ginseng, Vitamin E, probiotics) supplements 2 weeks before surgery. Do Not take Vitamins for 5 days before surgery. - Do NOT take Excedrin, ibuprofen, Advil, Voltaren (Diclofenac), Motrin, naproxen, or Aleve [place] (Meloxicam) for the 5 days before surgery. Acetaminophen (Tylenol) is ok to take up until the day ofsurgery. If you become ill, develop a fever, cough, or any type of infection within 14 days of your scheduled surgery, please call the surgeon's office. You may need to have your surgery moved, as we would not want to put you at risk for complications due to an illness. If you are placed on Antibiotics within 1 week of surgery, please notify our team immediately. GETTING YOUR SKIN READY FOR SURGERY Your surgery involves cutting through your skin. Because germs live on everyone s skin, there is a chance of getting an infection. To lessen your chance of an infection, you need to wash your skin with a special soap or foam, called 4% chlorhexidine gluconate (CHG), before your surgery. Follow These Instructions 1. For 1 week before your surgery, do NOT shave near the site where you will have your surgery. Shaving with a razor can irritate your skin and make it easier to develop an infection. If needed, yournurse will trim the hair on the site where you will have surgery with electric clippers before you go into the operating room. 2. Shower with CHG soap or foam as directed. You may be told to shower with CHG soap or foam 2 or 6times, based on your surgery. Please call your surgeon s office if you have any questions. Your nurse will put a (X) in the box by the way you need to shower. o You need to take 2 showers using CHG soap or foam: Wash your whole body from the neck down with CHG soap or foam the night before your surgery and then again the morning of your surgery. Use 4 ounces ( cup) of CHG liquid soap or 4 to 5 pumps of CHG foam each time you shower. This handout is for informational purposes only. Talk with your doctor or health care team if you have any questions about your care o Do not wash your hair with CHG soap or foam each time you shower. Shower and wash with the CHG soap or foam from the neck down only. If you are not able to shower: If you do not have a shower or you are not able to get into a shower, do a sponge bath each time toclean your body. Do not use CHG soap or foam on your hair unless you are told to do so by your doctor or nurse. How to take a sponge bath: 1. Bathe with a clean washcloth, water and regular soap. Rinse well with clean water. 2. Wet a new, clean washcloth with water. 3. Put some CHG soap or foam on the wet washcloth. 4. Use the washcloth to wash your whole body from your neck down. Add more CHG soap or foam and continue to wash for 5 minutes. 5. Rinse well with another clean washcloth and clean water. 6. Pat yourself dry with a clean towel. 7. Put on clean clothes. If you have any questions about cleaning your skin, call your surgeon s office. documented in this encounterOS[facility] Miscellaneous Notes* Addendum Note - Ritika Cohn MD - 06/21/2023 8:30 AM EDTAddended by: RITIKA COHN on: 06/21/2023 01:41 PM Modules accepted: Orders documented in this encounterOS[facility]-2023 Note* Addendum Note - Ritika Cohn MD - 06/21/2023 8:30 AM EDTAddended by: RITIKA COHN on: 06/21/2023 01:41 PM Modules accepted: [facility]* Diagnosis Malignant neoplasm of vulva- Primary Malignant neoplasm of vulva, unspecified site Vulvar mass Other specified symptom associated with female genital organs Malignant neoplasm of vulva Malignant neoplasm of vulva, unspecified site [facility]* Diagnosis Malignant neoplasm of vulva- Primary Malignant neoplasm of vulva, unspecified site Malignant neoplasm of vulva Malignant neoplasm of vulva, unspecified site H/O radical vulvectomy, bilateral I/F LND H/O radical vulvectomy, bilateral I/F LND Vulvar mass Other specified symptom associated with female genital organs Surgery follow-up Follow-up examination, following unspecified surgery documented in this encounter [facility] note* Diagnosis Vulvar mass- Primary Other specified symptom associated with female genital organs [facility] follow-up- Primary Follow-up examination, following unspecified surgery Malignant neoplasm of vulva Malignant neoplasm of vulva, unspecified site [facility] Surgery follow-up- Primary Follow-up examination, following unspecified surgery H/O radical vulvectomy, bilateral I/F LND Malignant neoplasm of vulva Malignant neoplasm of vulva, unspecified site [facility] Diagnosis Malignant neoplasm of vulva- Primary Malignant neoplasm of vulva, unspecified site [facility] [place] [facility] Diagnosis History of cancer of vulva- Primary Personal history of malignant neoplasm of other female genital organs [facility] Diagnosis Vulvar lesion- Primary Other specified noninflammatory disorder of vulva and perineum History of cancer of vulva Personal history of malignant neoplasm of other female genital organs [facility] Diagnosis Malignant neoplasm of vulva- Primary Malignant neoplasm of vulva, unspecified site History of cancer of vulva Personal history of malignant neoplasm of other female genital organs [facility] Diagnosis ENID III (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, vulva Preop testing Preoperative examination, unspecified [facility] Diagnosis ENID III (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, vulva Urethral bleeding Other specified disorders of urethra Surgery follow-up - simple partial vulvectomy and biopsy of urethra Follow-up examination, following unspecified surgery [facility] Diagnosis ENID III (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, vulva [facility] Diagnosis History of cancer of vulva- Primary Personal history of malignant neoplasm of other female genital organs 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 Vulvar mass Other specified symptom associated with female genital organs History of cancer of vulva Personal history of malignant neoplasm of other female genital organs [facility] Diagnosis Vulvar mass Other specified symptom associated with female genital organs History of cancer of vulva Personal history of malignant neoplasm of other female genital organs Vulvar mass Other specified symptom associated with female genital organs History of cancer of vulva Personal history of malignant neoplasm of other female genital organs [facility] Diagnosis H/O radical vulvectomy, bilateral I/F LND- Primary Vulvar mass Other specified symptom associated with female genital organs History of cancer of vulva Personal history of malignant neoplasm of other female genital organs H/O vulvectomy [facility] Diagnosis Malignant neoplasm of vulva- Primary Malignant neoplasm of vulva, unspecified site [facility]* Diagnosis Vulvar mass- Primary Other specified symptom associated with female genital organs [facility] Diagnosis Vulvar cancer- Primary Malignant neoplasm of vulva, unspecified site [facility] Diagnosis Malignant neoplasm of vulva Malignant neoplasm of vulva, unspecified site [facility] Diagnosis Malignant neoplasm of vulva- Primary Malignant neoplasm of vulva, unspecified site History of cancer of vulva Personal history of malignant neoplasm of other female genital organs [facility] Diagnosis Malignant neoplasm of vulva Malignant neoplasm of vulva, unspecified site History of cancer of vulva Personal history of malignant neoplasm of other female genital organs [facility] Diagnosis History of cancer of vulva Personal history of malignant neoplasm of other female genital organs [facility] Diagnosis Malignant neoplasm of vulva- Primary Malignant neoplasm of vulva, unspecified site [facility]* Diagnosis Malignant neoplasm of vulva Malignant neoplasm of vulva, unspecified site [facility]* Diagnosis Vulvar mass- Primary Other specified symptom associated with female genital organs Malignant neoplasm of vulva Malignant neoplasm of vulva, unspecified site [facility]* Attachments The following attachments cannot be sent through Care Everywhere. * Vaginal or Vulvar Biopsy ([place]) (Algerian) [facility] (narrative)* Unlisted Procedure Code (Routine) - New Request Specialty Diagnoses / Procedures Referred By Contac t Referred To Contact Procedures NO PHARMACOLOGICAL DVT PROPHYLAXIS Suzanne Armas MD [address] [place] [address] [place] [address] Referral ID Status Reason Start Date Expiration Date V isits Requested Visits Authorized [id number] New Request 03/15/2024 04/09/2025 1 1 [facility] for referral (narrative)* Unlisted Procedure Code (Routine) - New Request Specialty Diagnoses / Procedures Referred By Contac t Referred To Contact Procedures PLATELET MONITORING PER PROTOCOL Pillo Ledbetter MD [address] [place] [address] [place] [address] Referral ID Status Reason Start Date Expiration Date V isits Requested Visits Authorized [id number] New Request 06/29/2024 07/24/2025 1 1 * Unlisted Procedure Code (Routine) - New Request Specialty Diagnoses / Procedures Referred By Contac t Referred To Contact Procedures DVT/VTE RISK ASSESSMENT Pillo Ledbetter MD [address] [place] [address] [place] [address] Referral ID Status Reason Start Date Expiration Date V isits Requested Visits Authorized [id number] New Request 06/29/2024 07/24/2025 1 1 [facility] Consultation (Routine) - New Request Specialty Diagnoses / Procedures Referred By Contac t Referred To Contact Diagnoses Malignant neoplasm of vulva Yanely Nascimento MD [address], [address] [place] [address] Jerson Jj, [address] [place] [id number] Referral ID Status Reason Start Date Expiration Date V isits Requested Visits Authorized [id number] New Request 08/02/2024 08/27/2025 1 1 [facility] for referral (narrative)No reason for referral information [facility]Franc[facility] Work Phone: [facility] N[facility]* Radiology (Routine) - New Request Specialty Diagnoses / Procedures Referred By Contac t Referred To Contact Diagnoses Malignant neoplasm of vulva History of cancer of vulva Procedures US NECK SOFT TISSUE US THYROID Sheila Henderson, HOME ECONOMIST-RN MEDICARE [address] [place] [address] Phone: tel: fax: Referral ID Status Reason Start Date Expiration Date V isits Requested Visits Authorized [id number] New Request 01/01/2025 01/26/2026 1 1 [facility] for visit Narrative* Radiology (Routine) - Closed Specialty Diagnoses / Procedures Referred By Contac t Referred To Contact Diagnoses History of cancer of vulva Procedures NUC PET HEAD TO THIGH Sheila Henderson, HOME ECONOMIST-RN MEDICARE [address] [place] [address] Phone: tel: fax: Referral ID Status Reason Start Date Expiration Date Visits Re quested Visits Authorized [id number] Closed 01/01/2025 01/26/2026 1 1 [facility]* Radiology (Routine) - Closed Specialty Diagnoses / Procedures Referred By Carter t Referred To Contact Diagnoses Malignant neoplasm of vulva Procedures NUC PET HEAD TO THIGH Pillo Ledbetter MD Phone: tel: fax: Referral ID Status Reason Start Date Expiration Date Visits Re quested Visits Authorized [id number] Closed 04/02/2025 04/27/2026 1 1 [facility] Summary Purpose Family History No Family History Records Found Relationship Condition Age at Onset Recorded Date/T serge grandmother Malignant neoplasm of breast Unknown mother Diabetes mellitus Unknown father Cardiac disease Unknown Advance Directives No Advanced Directives Records FoundLatest Code Status on File Code Status Date Activated Date Inactivated Comments Full Code 07/08/2023 6:17 AM 07/08/2023 4:03 PM Latest Code Status on File Code Status Date Activated Date Inactivated Comments Full Code 07/08/2023 6:17 AM 07/08/2023 4:03 PM Latest Code Status on File Code Status Date Activated Date Inactivated Comments Full Code 03/15/2024 9:35 AM Code Status History Code Status Date Activated Date Inactivated Comments Full Code 07/08/2023 6:17 AM 07/08/2023 4:03 PM Latest Code Status on File Code Status Date Activated Date Inactivated Comments Full Code 03/15/2024 9:35 AM Code Status History Code Status Date Activated Date Inactivated Comments Full Code 07/08/2023 6:17 AM 07/08/2023 4:03 PM Date Activated Date Inactivated Comments 03/15/2024 9:35 AM Date Activated Date Inactivated Comments 07/08/2023 6:17 AM 07/08/2023 4:03 PM Date Activated Date Inactivated Comments 03/15/2024 9:35 AM Date Activated Date Inactivated Comments 07/08/2023 6:17 AM 07/08/2023 4:03 PM Date Activated Date Inactivated Comments 06/29/2024 9:03 AM 06/29/2024 2:04 PM Date Activated Date Inactivated Comments 03/15/2024 9:35 AM 06/29/2024 9:03 AM Date Activated Date Inactivated Comments 07/08/2023 6:17 AM 07/08/2023 4:03 PM Date Activated Date Inactivated Comments 06/29/2024 9:03 AM 06/29/2024 2:04 PM Date Activated Date Inactivated Comments 03/15/2024 9:35 AM 06/29/2024 9:03 AM Date Activated Date Inactivated Comments 07/08/2023 6:17 AM 07/08/2023 4:03 PM Advance Directive Response Recorded Date/ Time Advance Directives on File No 2023 11:39am Living Will No September 17 11:39am Do you have a Healthcare Power of Yard Demurrage Clerk? No September 17, 2024 11:39am Advance Directives No September 17, 2024 11:39am Reason for Referral Specialty Diagnoses / Procedures Referred By Contac t Referred To Contact Procedures DVT/VTE RISK ASSESSMENT Flakito Yepez MD [address] [place] [address] [place] [address] Referral ID Status Reason Start Date Expiration Date V isits Requested Visits Authorized [id number] New Request 07/08/2023 08/01/2024 1 1 Specialty Diagnoses / Procedures Referred By Contac t Referred To Contact Diagnoses Vulvar mass History of cancer of vulva Procedures NUC PET OTHER CHG PET IMAGING CT ATTENUATION SKULL BASE MID-THIGH Pillo Ledbetter MD [address] [place] [address] [place] [address] Referral ID Status Reason Start Date Expiration Date Visits Re quested Visits Authorized [id number] Closed 05/15/2024 06/09/2025 1 1 Specialty Diagnoses / Procedures Referred By Contac t Referred To Contact Diagnoses Malignant neoplasm of vulva Procedures NUC PET OTHER CHG PET IMAGING CT ATTENUATION SKULL BASE MID-THIGH Sheila Henderson, HOME ECONOMIST-RN MEDICARE [address] [place] [address] Referral ID Status Reason Start Date Expiration Date Visits Re quested Visits Authorized [id number] Closed 09/19/2024 10/14/2025 1 1 Chief Complaint and Reason for Visit Chief Complaint Admit Date 5 MONTH F/U VULVAR March 28, 2025 1:18pm OVERDUE FOR F/U - LABS April 10, 2025 8: 33am CONSULT - VULVAR CA April 10, 2025 8:45a m Reason for Visit Admit Date Malignant neoplasm of vulva, unspecified March 28, 2025 1:18pm Malignant neoplasm of vulva, unspecified April 10, 2025 8:33am Additional Source Comments INFORMATION SOURCE (unrecogn ized section and content) DATE CREATED AUTHOR 05/17/2018 [facility] DATE CREATED AUTHOR AUTHOR'S ORGANIZ ATION 08/06/2025 [facility] DATE CREATED AUTHOR AUTHOR'S ORGANIZ ATION 10/01/2025 [facility] Reason for Visit (unrecogniz ed section and content) Reason Comments New Patient Vulvar carcinoma Specialty Diagnoses / Procedures Referred By Carter sanchez Referred To Contact Gynecologic Oncology / Gynecological Oncology Diagnoses ENID 3 referring = Sara Fowler MD Procedures NEW FIELD NURSE ONC Sara Fowler MD [address] [place] [address] Flakito Yepez MD [address] [place] [address] [place] [address] Referral ID Status Reason Start Date Expiration Date V isits Requested Visits Authorized [id number] New Request 06/21/2023 07/15/2024 1 1 Reason Comments Urinary Catheter Problem Puentes voiding t rial and removal Reason Comments Post Op Visit Vulvar surgery Reason Comments Post Op Visit Reason Comments Immunization/Injection Reason Comments Vulvar Cancer ... History of Reason Comments Follow-up History of prior can cer of the vulva Reason Comments Follow-up Reason Comments Post Op Visit ENID III Specialty Diagnoses / Procedures Referred By Carter sanchez Referred To Contact Diagnoses Vulvar mass History of cancer of vulva Procedures NUC PET OTHER CHG PET IMAGING CT ATTENUATION SKULL BASE MID-THIGH Pillo Ledbetter MD [address] [place] [address] Referral ID Status Reason Start Date Expiration Date Visits Re quested Visits Authorized [id number] Closed 05/15/2024 06/09/2025 1 1 Specialty Diagnoses / Procedures Referred By Carter sanchez Referred To Contact Diagnoses Vulvar mass History of cancer of vulva Vulvar mass [N90.89] History of cancer of vulva [Z85.44] Procedures IL VULVECTOMY RADICAL PARTIAL VULVECTOMY RADICAL Pillo Ledbetter MD [address] [place] [address] [place] [address] [facility] [address] [place] [address] Referral ID Status Reason Start Date Expiration Date Visits Re quested Visits Authorized [id number] 1 1 Reason Comments Consult Specialty Diagnoses / Procedures Referred By Carter sanchez Referred To Contact Radiation Oncology Diagnoses Malignant neoplasm of vulva Pillo Ledbetter MD [address] [place] [address] [place] [address] Referral ID Status Reason Start Date Expiration Date V isits Requested Visits Authorized [id number] New Request 07/27/2024 08/21/2025 1 1 Reason Comments Post Op Visit History of cancer of vulva Specialty Diagnoses / Procedures Referred By Carter sanchez Referred To Contact Diagnoses Malignant neoplasm of vulva Procedures NUC PET OTHER CHG PET IMAGING CT ATTENUATION SKULL BASE MID-THIGH Sheila Henderson, HOME ECONOMIST-RN MEDICARE [address] [place] [address] [place] [address] Referral ID Status Reason Start Date Expiration Date Visits Re quested Visits Authorized [id number] Closed 09/19/2024 10/14/2025 1 1 Reason Comments Follow-up Reason Comments Follow-up Scheduled Active and Recently Administ ered Medications (unrecognized section and content) Medication Order 07/08/2023 07/09/2023 07/10/2023 Acetaminophen (TYLENOL) tablet 975 mg (COMPLETED) 975 mg, Oral, ONCE, 1 dose, On Tue07/08/23 at 0630, Maximum dose of acetaminophen is 4000 mg from all sources in 24 hours., Pre-op/Pre-Proc 0728 (Given - Provider: Nolan Hutton RN) Acetaminophen (TYLENOL) tablet 975 mg 975 mg, Oral, EVERY 8 HOURS NON-STANDARD, First dose on Tue07/08/23 at 2200, Until Discontinued, Maximum dose of acetaminophen is 4000 mg from all sources in 24 hours., Post-op/Post-Proc 2043 (Given - Provider: Sweetie Vaz RN) 0517 (Given - Provider: Sweetie Vaz RN)1524 (Given - Provider: Lesia Encinas RN)2100 (Given - Provider: Sweetie Vaz RN) 0527 (Given - Provider: Sweetie Vaz RN)1400 (Canceled Entry - Provider: System Discharge - Comment: Automatically canceled at discontinue of medication order) Docusate (COLACE) capsule 100 mg 100 mg, Oral, 2 TIMES DAILY, First dose on Tue07/08/23 at 1700, Until Discontinued, Post-op/Post-Proc 1616 (Given - Provider: Ailyn Bartlett RN) 0839 (Given - Provider: Lesia Encinas RN)1747 (Given - Provider: Lesai Encinas RN) 0911 (Given - Provider: Yariel Santos, CARIDAD) Enoxaparin Sodium (LOVENOX) injection 40 mg 40 mg, Subcutaneous, EVERY 24 HOURS, First dose on Tue07/09/23 at 0900, Until Discontinued, , Indications: DVT/PE prophylaxis, Post-op/Post-Proc 0838 (Given - Provider: Lesia Encinas RN) 0912 (Given - Provider: Yariel Santos RN) Gabapentin (NEURONTIN) capsule 100 mg 100 mg, Oral, EVERY 8 HOURS NON-STANDARD, First dose on Tue07/08/23 at 1615, Until Discontinued, Post-op/Post-Proc 1616 (Given - Provider: Ailyn Bartlett RN)2336 (Given - Provider: Sweetie Vaz RN) 0839 (Given - Provider: Lesia Encinas RN)1524 (Given - Provider: Lesia Encinas RN) 0122 (Given - Provider: Sweetie Vaz RN)0911 (Given - Provider: Yariel Santos RN) Gabapentin (NEURONTIN) capsule 300 mg (COMPLETED) 300 mg, Oral, ONCE, 1 dose, On Tue07/08/23 at 0630, Pre-op/Pre-Proc 0728 (Given - Provider: Nolan Hutton RN) Heparin injection 5,000 Units (COMPLETED) 5,000 Units, Subcutaneous, PRE-OP, 1 dose, On Tue07/08/23 at 0630, Pre-op/Pre-Proc 0751 (Given - Provider: Genna Maldonado RN) Ibuprofen (MOTRIN) tablet 600 mg 600 mg, Oral, EVERY 8 HOURS NON-STANDARD, First dose on 07/09/23 at 1800, Until Discontinued, Give with food, Post-op/Post-Proc 1747 (Given - Provider: Lesia Encinas RN) 0122 (Given - Provider: Sweetie Vaz RN)0911 (Given - Provider: Yariel Santos RN) Ketorolac (TORADOL) injection 15 mg (COMPLETED) 15 mg, Intravenous, EVERY 6 HOURS NON-STANDARD, 4 doses, First dose on Tue07/08/23 at 1800, Last dose on Tue07/09/23 at 1200, Post-op/Post-Proc 1718 (Given - Provider: Raissa Lockett RN)2336 (Given - Provider: Sweetie Vaz RN) 0517 (Given - Provider: Sweetie Vaz RN)1154 (Given - Provider: Lesia Encinas RN) magnesium oxide (MAG-OX) tablet 800 mg (COMPLETED) 800 mg, Oral, ONCE, 1 dose, On Tue07/09/23 at 0945 1154 (Given - Provider: Lesia Encinas RN) Ondansetron (ZOFRAN) tablet 4 mg (COMPLETED) 4 mg, Oral, EVERY 6 HOURS, 4 doses, First dose on Tue07/08/23 at 1800, Last dose on Tue07/09/23 at 1200, Post-op/Post-Proc 1718 (See Alternative - Provider: Raissa Lockett RN)2336 (Given - Provider: Sweetie Vaz RN) 0517 (Given - Provider: Sweetie Vaz RN)1154 (Given - Provider: Lesia Encinas RN) Ondansetron 4mg/2ml (ZOFRAN) injection 4 mg (COMPLETED) 4 mg, Intravenous, EVERY 6 HOURS, 4 doses, First dose on Tue07/08/23 at 1800, Last dose on Tue07/09/23 at 1200, Post-op/Post-Proc 1718 (Given - Provider: Raissa Lockett RN)2336 (See Alternative - Provider: Sweetie Vaz RN) 0517 (See Alternative - Provider: Sweetie Vaz, CARIDAD)1154 (See Alternative - Provider: Lesia Encinas, CARIDAD) oxyCODONE (ROXICODONE) tablet 5 mg (COMPLETED) 5 mg, Oral, ONCE, 1 dose, On Tue07/08/23 at 0630, Pre-op/Pre-Proc 0728 (Given - Provider: Nolan Hutton RN) Polyethylene glycol (MIRALAX) packet 17 g (COMPLETED) 17 g, Oral, ONCE, 1 dose, On 07/09/23 at 0830 0838 (Given - Provider: Lesia Encinas RN) Polyethylene glycol (MIRALAX) packet 17 g (COMPLETED) 17 g, Oral, ONCE, 1 dose, On Tue07/10/23 at 0715 0912 (Given - Provider: Yariel Santos RN) Scopolamine (TRANSDERM-SCOP) patch 1 patch (CANCELED) 1 patch, Transdermal, ONCE, 1 dose, On Tue07/08/23 at 0800, Apply patch to site behind the ear. Rotate sites for each application. Do not cut or alter patch. Each patch delivers 1 mg over 72 hours., Pre-op/Pre-Proc 0751 (Patch Applied - Provider: Genna Maldonado RN)1624 (Patch Removed - Provider: Ailyn Bartlett RN - Comment: Time automatically adjusted from order being discontinued) Continuous Medication Order 07/08/2023 07/09/2023 07/10/2023 Lactated ringers IV solution (CANCELED) Intravenous, at 125 mL/hr, CONTINUOUS, Starting on Tue07/08/23 at 1330, Until Tue07/09/23 at 0821, Post-op/Post-Proc 1329 ($$New Bag$$ - Provider: Jessica Patel RN)2036 (Rate/Dose Verify - Provider: Sweetie Vaz RN)2128 (Rate/Dose Change - Provider: Lesia Encinas RN)2134 (Rate/Dose Change - Provider: Lesia Encinas RN) 0510 (Rate/Dose Change - Provider: Lesia Encinas RN)0516 (Rate/Dose Change - Provider: Lesia Encinas RN)0521 (Stopped - Provider: Lesia Encinas RN)0522 (Stopped - Provider: Lesia Encinas RN)0522 ($$New Bag$$ - Provider: Sweetie Vaz RN)0840 (Stopped - Provider: Lesia Encinas RN) PRN Medication Order 07/08/2023 07/09/2023 07/10/2023 Bupivacaine (PF) (MARCAINE) 0.25 % injection (CANCELED) NEEDED, Starting on Tue07/08/23 at 1231, Until Tue07/08/23 at 1254, Intra-op/Intra-Proc 1231 (Given - Provider: Yara Lincoln MD) Clindamycin (CLEOCIN) 900 mg in dextrose 50 ml premix IVPB (COMPLETED) 900 mg, Intravenous, Administer over 30 Minutes, DIRECTOR OF INSTITUTIONAL GIVING TO PROCEDURE, 1 dose, Starting on Jamila 07/07/23 at 2110, Until Discontinued, Other, Surgical Prophylaxis, Initiate antibiotic administration 30-60 minutes prior to surgical incision and complete administration prior to surgical incision., Pre-op/Pre-Proc 0826 (Given - Provider: Mary Beth Prasad, HOME ECONOMIST-BREAKER OFF) Gentamicin (GARAMYCIN) 340 mg in Sodium chloride 0.9%, with overfill 118.5 mL (total volume) IVPB (COMPLETED) 340 mg (rounded from 335 mg = 5 mg/kg 67 kg Order-specific weight), Intravenous, Administer over 60 Minutes, DIRECTOR OF INSTITUTIONAL GIVING TO PROCEDURE, 1 dose, Starting on Tue07/08/23 at 0000, Until Discontinued, Surgical Prophylaxis, Initiate antibiotic administration 60 minutes prior to surgical incision and complete administration prior to surgical incision., Pre-op/Pre-Proc 0727 ($$New Bag$$ - Provider: Nolan Hutton RN) Lidocaine (XYLOCAINE) 10 mg/mL injection (CANCELED) NEEDED, Starting on Tue07/08/23 at 0838, Until Tue07/08/23 at 1254, Intra-op/Intra-Proc 0838 (Given - Provider: Flakito Yepez MD - Comment: Bilateral groins)1031 (Given - Provider: Flakito Yepez MD - Comment: Vulva) Ondansetron (ZOFRAN) tablet 4 mg(Linked Group 1) 4 mg, Oral, EVERY 6 HOURS NEEDED, Starting on 07/09/23 at 1300, Until 07/10/23 at 1516, Nausea / Vomiting, 2nd line, Post-op/Post-Proc Ondansetron 4mg/2ml (ZOFRAN) injection 4 mg(Linked Group 1) 4 mg, Intravenous, EVERY 6 HOURS NEEDED, Starting on 07/09/23 at 1300, Until 07/10/23 at 1516, Nausea / Vomiting, Other, 2nd line, Post-op/Post-Proc oxyCODONE (ROXICODONE) tablet 5 mg(Linked Group 2) 5 mg, Oral, EVERY 4 HOURS NEEDED, Starting on 07/08/23 at 1603, Until 07/10/23 at 1516, Moderate Pain, Severe Pain, Use as initial dose. Higher dose may be administered if lower dose was previously documented as ineffective and did not result in adverse effects (RR<10, decrease in level of consciousness)., Post-op/Post-Proc 1154 (Given - Provider: Lesia Encinas RN)1524 (Given - Provider: Lesia Encinas RN)221 (Given - Provider: Sweetie Vaz RN) oxyCODONE HCl (ROXICODONE) tablet 10 mg(Linked Group 2) 10 mg, Oral, EVERY 4 HOURS NEEDED, Starting on 07/08/23 at 1603, Until 07/10/23 at 1516, Moderate Pain, Severe Pain, Higher dose may be administered if lower dose was previously documented as being ineffective and did not result in adverse effects. (RR<10, decrease in level of consciousness) Decrease back to lower dose if patient has adverse effects or no PRN used in previous 12 hours., Post-op/Post-Proc 1154 (See Alternative - Provider: Lesia Encinas RN)1524 (See Alternative - Provider: Lesia Encnias RN)2216 (See Alternative - Provider: Sweetie Vaz RN) Prochlorperazine (COMPAZINE) injection 10 mg(Linked Group 3) 10 mg, Intravenous, EVERY 6 HOURS NEEDED, Starting on 07/08/23 at 1603, Until 07/10/23 at 1516, Nausea / Vomiting, 1st line, For IV route: dilute dose with 10mL normal saline and give by slow IV push at a rate of 5mg/min. Maximum of 40mg/day., Post-op/Post-Proc 1616 (Given - Provider: Ailyn Bartlett RN) Prochlorperazine (COMPAZINE) tablet 10 mg(Linked Group 3) 10 mg, Oral, EVERY 6 HOURS NEEDED, Starting on 07/08/23 at 1603, Until 07/10/23 at 1516, Nausea / Vomiting, 1st line, Post-op/Post-Proc 1616 (See Alternative - Provider: Ailyn Bartlett RN) Senna (SENOKOT) tablet 8.6 mg 8.6 mg, Oral, 2 TIMES DAILY NEEDED, Starting on Tue07/08/23 at 1603, Until 07/10/23 at 1516, Constipation 1st Line, Post-op/Post-Proc simethicone (MYLICON) chewable tablet 80 mg 80 mg, Oral, EVERY 4 HOURS NEEDED, Starting on 07/08/23 at 1603, Until 07/10/23 at 1516, Gas, Post-op/Post-Proc traMADol (ULTRAM) tablet 50 mg 50 mg, Oral, EVERY 6 HOURS NEEDED, Starting on Tue07/08/23 at 1603, Until 07/10/23 at 1516, Mild Pain, Post-op/Post-Proc Linked Groups Order Group 1: Ondansetron 4mg/2ml (ZOFRAN) injection 4 mgJump to med 4 mg, Intravenous, EVERY 6 HOURS NEEDED, Starting on 07/09/23 at 1300, Until 07/10/23 at 1516, Nausea / Vomiting, Other, 2nd line, Post-op/Post-Proc Or Ondansetron (ZOFRAN) tablet 4 mgJump to med 4 mg, Oral, EVERY 6 HOURS NEEDED, Starting on 07/09/23 at 1300, Until 07/10/23 at 1516, Nausea / Vomiting, 2nd line, Post-op/Post-Proc Group 2: oxyCODONE (ROXICODONE) tablet 5 mgJump to med 5 mg, Oral, EVERY 4 HOURS NEEDED, Starting on Tue07/08/23 at 1603, Until 07/10/23 at 1516, Moderate Pain, Severe Pain
Use as initial dose. Higher dose may be administered if lower dose was previously documented as ineffective and did not result in adverse effects (RR<10, decrease in level of consciousness).
Post-op/Post-Proc Or oxyCODONE HCl (ROXICODONE) tablet 10 mgJump to med 10 mg, Oral, EVERY 4 HOURS NEEDED, Starting on Tue07/08/23 at 1603, Until 07/10/23 at 1516, Moderate Pain, Severe Pain
Higher dose may be administered if lower dose was previously documented as being ineffective and did not result in adverse effects. (RR<10, decrease in level of consciousness) Decrease back to lower dose if patient has adverse effects or no PRN used in previous 12 hours.
Post-op/Post-Proc Group 3: Prochlorperazine (COMPAZINE) injection 10 mgJump to med 10 mg, Intravenous, EVERY 6 HOURS NEEDED, Starting on Tue07/08/23 at 1603, Until 07/10/23 at 1516, Nausea / Vomiting, 1st line
For IV route: dilute dose with 10mL normal saline and give by slow IV push at a rate of 5mg/min. Maximum of 40mg/day.
Post-op/Post-Proc Or Prochlorperazine (COMPAZINE) tablet 10 mgJump to med 10 mg, Oral, EVERY 6 HOURS NEEDED, Starting on Tue07/08/23 at 1603, Until Tue07/10/23 at 1516, Nausea / Vomiting, 1st line, Post-op/Post-Proc Scheduled Medication Order 03/13/2024 03/14/2024 03/15/2024 Acetaminophen (TYLENOL) tablet 650 mg 650 mg, Oral, EVERY 6 HOURS, First dose on Jamila 03/15/24 at 1330, Until Discontinued, Maximum dose of acetaminophen is 4000 mg from all sources in 24 hours., Post-op/Post-Proc 1330 (Canceled Entry - Provider: System Discharge - Comment: Automatically canceled at discontinue of medication order) Acetaminophen (TYLENOL) tablet 975 mg (COMPLETED) 975 mg, Oral, ONCE, 1 dose, On Jamila 03/15/24 at 0945, Maximum dose of acetaminophen is 4000 mg from all sources in 24 hours., Pre-op/Pre-Proc 1137 (Given - Provid er: Kota Tidwell RN) Gabapentin (NEURONTIN) capsule 300 mg (COMPLETED) 300 mg, Oral, ONCE, 1 dose, On Jamila 03/15/24 at 0945, Pre-op/Pre-Proc 1137 (Given - Provid er: Kota Tidwell RN) Ibuprofen (MOTRIN) tablet 600 mg 600 mg, Oral, EVERY 6 HOURS, First dose on Jamila 03/15/24 at 1330, Until Discontinued, Give with food, Post-op/Post-Proc 1330 (Canceled Entry - Provider: System Discharge - Comment: Automatically canceled at discontinue of medication order) oxyCODONE (ROXICODONE) tablet 5 mg (COMPLETED) 5 mg, Oral, ONCE, 1 dose, On Jamila 03/15/24 at 0945, Pre-op/Pre-Proc 1137 (Given - Provid er: Kota Tidwell RN) Scopolamine (TRANSDERM-SCOP) patch 1 patch (CANCELED)(Linked Group 1) 1 patch, Transdermal, ONCE, 1 dose, On Jamila 03/15/24 at 1145, Apply patch to site behind the ear. Rotate sites for each application. Do not cut or alter patch. Each patch delivers 1 mg over 72 hours., Pre-op/Pre-Proc 1141 (Patch Applied - Provider: Kota Tidwell RN - Comment: behind right ear)1256 (Due: Patch Removed - Provider: Laine Deleon MD - Comment: Time automatically adjusted from order being discontinued) VERIFY LINKED PATCH PLACEMENT(Linked Group 1) Other, EVERY 12 HOURS, First dose on Jamila 03/15/24 at 1145, Until Discontinued, Confirm continued adhesion of scopolamine 1.5 mg/72hr patch at documented site. 1145 (Canceled Entry - Provider: System Discharge - Comment: Automatically canceled at discontinue of medication order) Continuous Medication Order 03/13/2024 03/14/2024 03/15/2024 Lactated ringers IV solution (CANCELED) Intravenous, at 125 mL/hr, CONTINUOUS, Starting on Jamila 03/15/24 at 0945, Until Jamila 03/15/24 at 1256, Pre-op/Pre-Proc 1040 ($$New Bag$$ - Provider: Kota Tidwell RN)1152 (Paused - Provider: MANOJ Fulton - Comment: Switch to gravity)1153 (Restarted - Provider: MANOJ Fulton)1252 (Stopped - Provider: MANOJ Fulton) Lactated ringers IV solution Intravenous, at 20 mL/hr, CONTINUOUS, Starting on Jamila 03/15/24 at 1230, Until Jamila 03/15/24 at 1621, Recovery 1230 (Canceled Entry - Provider: System Discharge - Comment: Automatically canceled at discontinue of medication order) Lactated ringers IV solution Intravenous, at 100 mL/hr, CONTINUOUS, Starting on Jamila 03/15/24 at 1330, Until Jamila 03/15/24 at 1621, Saline lock when tolerating oral intake and remove IV per [facility] protocol., Post-op/Post-Proc 1330 (Canceled Entry - Provider: System Discharge - Comment: Automatically canceled at discontinue of medication order) PRN Medication Order 03/13/2024 03/14/2024 03/15/2024 acetic acid 5 % topical solution (CANCELED) NEEDED, Starting on Jamila 03/15/24 at 1210, Until Jamila 03/15/24 at 1249, Intra-op/Intra-Proc 1210 (Given - Provid er: Laine Deleon MD - Comment: Other = vulva) BUPivacaine (PF) (MARCAINE) 0.25 % injection (CANCELED) NEEDED, Starting on Jamila 03/15/24 at 1217, Until Jamila 03/15/24 at 1249, Intra-op/Intra-Proc 1217 (Given - Provid er: Flakito Yepez MD - Comment: Mixed 1:1 with 1% lidocaine, 10 mL total given; Other = Vulva) diphenhydrAMINE (BENADRYL) injection 12.5 mg 12.5 mg, Intravenous, EVERY 30 MINUTES NEEDED, 2 doses, Starting on Jamila 03/15/24 at 1227, Until Jamila 03/15/24 at 1621, Itching, FIRST Line, Use second dose only if first dose did not result in confusion . Do not give if age is > 65yo, Recovery fentaNYL (SUBLIMAZE) injection 50 mcg 50 mcg, Intravenous, Administer over 2 Minutes, EVERY 5 MINUTES NEEDED, 6 doses, Starting on Jamila 03/15/24 at 1227, Until Jamila 03/15/24 at 1621, Moderate Pain, Severe Pain, Recovery hydrALAZINE (APRESOLINE) injection 5 mg 5 mg, Intravenous, EVERY 15 MINUTES NEEDED, 4 doses, Starting on Jamila 03/15/24 at 1227, Until Jamila 03/15/24 at 1621, SECOND line HTN, For SBP > 180. Use if HR < 60. Administer over 2 minutes. May give a total of 20 mg while in PACU. Notify MD if BP still uncontrolled after 2 mg and no other antihypertensive agents are ordered., Recovery HYDROmorphone (DILAUDID) injection 0.5 mg 0.5 mg, Intravenous, EVERY 10 MINUTES NEEDED, 8 doses, Starting on Jamila 03/15/24 at 1227, Until Jamila 03/15/24 at 1621, Moderate Pain, Severe Pain, May give a total of 4mg in PACU., Recovery Labetalol (NORMODYNE) injection 5 mg 5 mg, Intravenous, EVERY 15 MINUTES NEEDED, 4 doses, Starting on Jamila 03/15/24 at 1227, Until Jamila 03/15/24 at 1621, FIRST line HTN. , For SBP > 180. Hold if HR < 60 and give SECOND line agent. May give a total of 20 mg while in PACU. If blood pressure uncontrolled after 20mg of labetalol administered, use second line agent or notify MD. For vials: labetalol should be treated as a SINGLE USE VIAL. Discard remaining contents after one use., Recovery Lidocaine (XYLOCAINE) 10 mg/mL injection (CANCELED) NEEDED, Starting on Jamila 03/15/24 at 1217, Until Jamila 03/15/24 at 1249, Intra-op/Intra-Proc 1217 (Given - Provid er: Flakito Yepez MD - Comment: Mixed 1:1 with 0.25% marcaine, 10 mL total given; Other = Vulva) Meperidine (DEMEROL) injection 12.5 mg 12.5 mg, Intravenous, EVERY 30 MINUTES NEEDED, 2 doses, Starting on Jamila 24 at 1227, Until Jamila 424 at 1621, Rigors, May give total of 2 doses while in PACU. Keep respiratory rate greater than 10., Recovery Ondansetron 4mg/2ml (ZOFRAN) injection 4 mg 4 mg, Intravenous, ONCE NEEDED, 1 dose, Starting on Jamila 03/15/24 at 1227, Until Jamila 03/15/24 at 1621, Nausea / Vomiting, FIRST line antiemetic, Do not administer within 6 hours of intra-operative dose., Recovery Ondansetron 4mg/2ml (ZOFRAN) injection 4 mg 4 mg, Intravenous, EVERY 4 HOURS NEEDED, Starting on Jamila 03/15/24 at 1324, Until Jamila 03/15/24 at 1621, Nausea / Vomiting, 1st line, Post-op/Post-Proc oxyCODONE (ROXICODONE) tablet 5 mg 5 mg, Oral, EVERY 6 HOURS NEEDED, Starting on Jamila 03/15/24 at 1324, Until Jamila 4/24 at 1621, Severe Pain, Post-op/Post-Proc 1341 (Given - Provid er: Brittni Lindquist RN) Prochlorperazine (COMPAZINE) injection 5 mg 5 mg, Intravenous, EVERY 1 HOUR NEEDED, 2 doses, Starting on Jamila 03/15/24 at 1227, Until Jamila 03/15/24 at 1621, Refractory Nausea Vomiting, SECOND line antiemetic, Do not administer within 6 hours of intra-operative dose. For IV route: dilute dose with 10mL normal saline and give by slow IV push at a rate of 5mg/min. Maximum of 40mg/day., Recovery Linked Groups Order Group 1: Scopolamine (TRANSDERM-SCOP) patch 1 patch (CANCELED)Jump to med 1 patch, Transdermal, ONCE, 1 dose, On Jamila 03/15/24 at 1145, Apply patch to site behind the ear. Rotate sites for each application. Do not cut or alter patch. Each patch delivers 1 mg over 72 hours., Pre-op/Pre-Proc And VERIFY LINKED PATCH PLACEMENTJump to med Other, EVERY 12 HOURS, First dose on Jamila 03/15/24 at 1145, Until Discontinued, Confirm continued adhesion of scopolamine 1.5 mg/72hr patch at documented site. Scheduled Medication Order 06/27/2024 06/28/2024 06/29/2024 Acetaminophen (TYLENOL) tablet 975 mg (COMPLETED) 975 mg, Oral, ONCE, 1 dose, On Tue06/29/24 at 0915, Maximum dose of acetaminophen is 4000 mg from all sources in 24 hours., Pre-op/Pre-Proc 0958 (Given - Provid er: Susu Everett RN) Acetaminophen (TYLENOL) tablet 975 mg 975 mg, Oral, EVERY 8 HOURS NON-STANDARD, First dose on Tue06/29/24 at 1415, Until Discontinued, Maximum dose of acetaminophen is 4000 mg from all sources in 24 hours., Post-op/Post-Proc 1448 (Given - Provid er: Richard De Santiago RN) Enoxaparin Sodium (LOVENOX) injection 40 mg 40 mg, Subcutaneous, EVERY 24 HOURS, First dose on 06/30/24 at 0900, Until Discontinued, For SUBCUTANEOUS route ONLY: alternate injection sites between left and right abdominal wall, pinching location and avoiding area around navel. If unable to use abdominal sites, may use the front or side of thighs., Indications: DVT/PE prophylaxis, Post-op/Post-Proc Gabapentin (NEURONTIN) capsule 100 mg 100 mg, Oral, EVERY 8 HOURS NON-STANDARD, First dose on Tue06/29/24 at 1415, Until Discontinued, Post-op/Post-Proc 1449 (Given - Provid er: Richard De Santiago RN) Gabapentin (NEURONTIN) capsule 300 mg (COMPLETED) 300 mg, Oral, ONCE, 1 dose, On Tue06/29/24 at 0915, Pre-op/Pre-Proc 0958 (Given - Provid er: Susu Everett RN) Heparin injection 5,000 Units (COMPLETED) 5,000 Units, Subcutaneous, PRE-OP, 1 dose, On Tue06/29/24 at 0915, Pre-op/Pre-Proc 0959 (Given - Provid er: Susu Everett RN) Ibuprofen (MOTRIN) tablet 600 mg(Linked Group 1) 600 mg, Oral, EVERY 8 HOURS NON-STANDARD, First dose on Sat 24 at 1300, Until Discontinued, Give with food, Post-op/Post-Proc Ketorolac (TORADOL) injection 15 mg(Linked Group 1) 15 mg, Intravenous, EVERY 6 HOURS NON-STANDARD, 4 doses, First dose on Tue06/29/24 at 1300, Last dose on Tue06/30/24 at 0700, Post-op/Post-Proc 1303 (Given - Provid er: Barrett Francis RN)1900 (Canceled Entry - Provider: System Discharge - Comment: Automatically canceled at discontinue of medication order) Ondansetron (ZOFRAN) tablet 4 mg(Linked Group 2) 4 mg, Oral, EVERY 6 HOURS, 4 doses, First dose on Tue06/29/24 at 1415, Last dose on Tue06/30/24 at 0600, Post-op/Post-Proc 1655 (Given - Provid er: Richard De Santiago RN)1800 (Canceled Entry - Provider: System Discharge - Comment: Automatically canceled at discontinue of medication order) Ondansetron 4mg/2ml (ZOFRAN) injection 4 mg(Linked Group 2) 4 mg, Intravenous, EVERY 6 HOURS, 4 doses, First dose on Tue06/29/24 at 1415, Last dose on Tue06/30/24 at 0600, Post-op/Post-Proc 1655 (See Alternativ e - Provider: Richard De Santiago RN)1800 (Canceled Entry - Provider: System Discharge - Comment: Automatically canceled at discontinue of medication order) Polyethylene glycol (MIRALAX) packet 17 g 17 g, Oral, DAILY, First dose on Tue06/29/24 at 1415, Until Discontinued, Post-op/Post-Proc 1448 (Given - Provid er: Richard De Santiago RN) Scopolamine (TRANSDERM-SCOP) patch 1 patch (CANCELED)(Linked Group 3) 1 patch, Transdermal, ONCE, 1 dose, On Tue06/29/24 at 0915, Patient with history of motion sickness and/or previous postoperative nausea/vomiting. Each patch delivers 1 mg over 72 hours., Pre-op/Pre-Proc 0958 (Patch Applied - Provider: Susu Everett RN)1450 (Patch Removed - Provider: Richard De Santiago RN - Comment: Time automatically adjusted from order being discontinued) Continuous Medication Order 06/27/2024 06/28/2024 06/29/2024 Lactated ringers IV solution Intravenous, at 125 mL/hr, CONTINUOUS, Starting on Tue06/29/24 at 1245, Until Tue06/29/24 at 1913, Post-op/Post-Proc 1237 ($$New Bag$$ - Provider: Barrett Francis RN)1408 (Rate/Dose Verify - Provider: Richard De Santiago RN)1419 (Paused - Provider: Richard De Santiago RN)1420 (Paused - Provider: Richard De Santiago RN)1425 (Restarted - Provider: Richard De Santiago RN)1639 (Stopped - Provider: Richard De Santiago RN) PRN Medication Order 06/27/2024 06/28/2024 06/29/2024 bacitracin ointment (CANCELED) NEEDED, Starting on Tue06/29/24 at 1206, Until Tue06/29/24 at 1214, Intra-op/Intra-Proc 1206 (Given - Provid er: Enma Paulino MD - Comment: other=vulva) BUPivacaine (PF) (MARCAINE) 0.5 % injection (CANCELED) NEEDED, Starting on Tue06/29/24 at 1114, Until Tue06/29/24 at 1214, Intra-op/Intra-Proc 1114 (Given - Provid er: Ritika Cohn MD - Comment: other=vulva) HYDROmorphone (DILAUDID) injection 0.5 mg (CANCELED) 0.5 mg, Intravenous, EVERY 10 MINUTES NEEDED, 8 doses, Starting on Tue06/29/24 at 1210, Until Tue06/29/24 at 1355, Moderate Pain, Severe Pain, May give a total of 4mg in PACU., Recovery 1224 (Given - Provid er: Barrett Francis RN) Labetalol (NORMODYNE) injection 5 mg (CANCELED) 5 mg, Intravenous, EVERY 15 MINUTES NEEDED, Starting on Tue06/29/24 at 1218, Until Tue06/29/24 at 1355, FIRST line HTN. , For SBP > 160 mmHg Hold if HR < 60 and give SECOND line agent. May give a total of 20 mg while in PACU. If blood pressure uncontrolled after 20mg of labetalol administered, use second line agent or notify MD. For vials: labetalol should be treated as a SINGLE USE VIAL. Discard remaining contents after one use., Recovery 1221 (Given - Provid er: Barrett Francis RN) Ondansetron (ZOFRAN) tablet 4 mg(Linked Group 4) 4 mg, Oral, EVERY 6 HOURS NEEDED, Starting on 06/30/24 at 1213, Until Tue06/29/24 at 1913, Nausea / Vomiting, 2nd line, Post-op/Post-Proc Ondansetron 4mg/2ml (ZOFRAN) injection 4 mg(Linked Group 4) 4 mg, Intravenous, EVERY 6 HOURS NEEDED, Starting on 06/30/24 at 1213, Until Tue06/29/24 at 1913, Nausea / Vomiting, Other, 2nd line, Post-op/Post-Proc oxyCODONE (ROXICODONE) tablet 10 mg(Linked Group 5) 10 mg, Oral, EVERY 4 HOURS NEEDED, Starting on Tue06/29/24 at 1404, Until Tue06/29/24 at 1913, Moderate Pain, Severe Pain, Higher dose may be administered if lower dose was previously documented as being ineffective and did not result in adverse effects. (RR<10, decrease in level of consciousness) Decrease back to lower dose if patient has adverse effects or no PRN used in previous 12 hours., Post-op/Post-Proc 1456 (See Alternativ e - Provider: Richard De Santiago RN) oxyCODONE (ROXICODONE) tablet 5 mg(Linked Group 5) 5 mg, Oral, EVERY 4 HOURS NEEDED, Starting on Tue06/29/24 at 1404, Until Tue06/29/24 at 1913, Moderate Pain, Severe Pain, Use as initial dose. Higher dose may be administered if lower dose was previously documented as ineffective and did not result in adverse effects (RR<10, decrease in level of consciousness)., Post-op/Post-Proc 1456 (Given - Provid er: Richard De Santiago RN) Prochlorperazine (COMPAZINE) injection 10 mg(Linked Group 6) 10 mg, Intravenous, EVERY 6 HOURS NEEDED, Starting on Tue06/29/24 at 1404, Until Tue06/29/24 at 191, Nausea / Vomiting, 1st line, For IV route: dilute dose with 10mL normal saline and give by slow IV push at a rate of 5mg/min. Maximum of 40mg/day., Post-op/Post-Proc Prochlorperazine (COMPAZINE) tablet 10 mg(Linked Group 6) 10 mg, Oral, EVERY 6 HOURS NEEDED, Starting on Tue06/29/24 at 1404, Until Tue06/29/24 at 1912, Nausea / Vomiting, 1st line, Post-op/Post-Proc Senna (SENOKOT) tablet 8.6 mg 8.6 mg, Oral, 2 TIMES DAILY NEEDED, Starting on Tue06/29/24 at 1404, Until Tue06/29/24 at 1912, Constipation 1st Line, Post-op/Post-Proc simethicone (MYLICON) chewable tablet 80 mg 80 mg, Oral, EVERY 4 HOURS NEEDED, Starting on Tue06/29/24 at 1404, Until Tue06/29/24 at 1912, Gas, Post-op/Post-Proc Sodium chloride 0.9% IV solution 250 mL Intravenous, at 20 mL/hr, NEEDED, Starting on Tue06/29/24 at 1404, Until Tue06/29/24 at 1912, Carrier Fluid - See Admin. Inst, 250mL 0.9NS to be used as carrier fluid for intermittent small volume or piggyback medication administration as needed. Infusion rate of the carrier fluid should be set at 20 mL/hr unless the rate as the intermittent medication is less than 20 mL/hr. For intermittent medications with a rate less than 20 mL/hr set the carrier fluid at that rate of the intermittent or piggy back medication., Post-op/Post-Proc Linked Groups Order Group 1: Ketorolac (TORADOL) injection 15 mgJump to med 15 mg, Intravenous, EVERY 6 HOURS NON-STANDARD, 4 doses, First dose on Tue06/29/24 at 1300, Last dose on Tue06/30/24 at 0700, Post-op/Post-Proc Followed by Ibuprofen (MOTRIN) tablet 600 mgJump to med 600 mg, Oral, EVERY 8 HOURS NON-STANDARD, First dose on Tue06/30/24 at 1300, Until Discontinued, Give with food, Post-op/Post-Proc Group 2: Ondansetron 4mg/2ml (ZOFRAN) injection 4 mgJump to med 4 mg, Intravenous, EVERY 6 HOURS, 4 doses, First dose on Tue06/29/24 at 1415, Last dose on Tue06/30/24 at 0600, Post-op/Post-Proc Or Ondansetron (ZOFRAN) tablet 4 mgJump to med 4 mg, Oral, EVERY 6 HOURS, 4 doses, First dose on Tue06/29/24 at 1415, Last dose on Tue06/30/24 at 0600, Post-op/Post-Proc Group 3: Scopolamine (TRANSDERM-SCOP) patch 1 patch (CANCELED)Jump to med 1 patch, Transdermal, ONCE, 1 dose, On Tue06/29/24 at 0915, Patient with history of motion sickness and/or previous postoperative nausea/vomiting. Each patch delivers 1 mg over 72 hours., Pre-op/Pre-Proc And VERIFY LINKED PATCH PLACEMENT (CANCELED) Other, EVERY 12 HOURS, First dose on Tue06/29/24 at 0915, Until Discontinued, Confirm continued adhesion of scopolamine 1.5 mg/72hr patch at documented site. Group 4: Ondansetron 4mg/2ml (ZOFRAN) injection 4 mgJump to med 4 mg, Intravenous, EVERY 6 HOURS NEEDED, Starting on Tue06/30/24 at 1213, Until Tue06/29/24 at 1913, Nausea / Vomiting, Other, 2nd line, Post-op/Post-Proc Or Ondansetron (ZOFRAN) tablet 4 mgJump to med 4 mg, Oral, EVERY 6 HOURS NEEDED, Starting on Tue06/30/24 at 1213, Until Tue06/29/24 at 1913, Nausea / Vomiting, 2nd line, Post-op/Post-Proc Group 5: oxyCODONE (ROXICODONE) tablet 5 mgJump to med 5 mg, Oral, EVERY 4 HOURS NEEDED, Starting on Tue06/29/24 at 1404, Until Tue06/29/24 at 1913, Moderate Pain, Severe Pain, Use as initial dose. Higher dose may be administered if lower dose was previously documented as ineffective and did not result in adverse effects (RR<10, decrease in level of consciousness)., Post-op/Post-Proc Or oxyCODONE (ROXICODONE) tablet 10 mgJump to med 10 mg, Oral, EVERY 4 HOURS NEEDED, Starting on Tue06/29/24 at 1404, Until Tue06/29/24 at 1913, Moderate Pain, Severe Pain, Higher dose may be administered if lower dose was previously documented as being ineffective and did not result in adverse effects. (RR<10, decrease in level of consciousness) Decrease back to lower dose if patient has adverse effects or no PRN used in previous 12 hours., Post-op/Post-Proc Group 6: Prochlorperazine (COMPAZINE) injection 10 mgJump to med 10 mg, Intravenous, EVERY 6 HOURS NEEDED, Starting on Tue06/29/24 at 1404, Until Tue06/29/24 at 191, Nausea / Vomiting, 1st line, For IV route: dilute dose with 10mL normal saline and give by slow IV push at a rate of 5mg/min. Maximum of 40mg/day., Post-op/Post-Proc Or Prochlorperazine (COMPAZINE) tablet 10 mgJump to med 10 mg, Oral, EVERY 6 HOURS NEEDED, Starting on Tue06/29/24 at 1404, Until Tue06/29/24 at 1913, Nausea / Vomiting, 1st line, Post-op/Post-Proc Care Teams (unrecognized sec tion and content) Team Status: Active Member Role Status Dates No Primary Care Physician Primary Care Provider Active Team Status: Inactive Member Role Status Dates No Primary Care Physician Primary Care Provider Active Start: March 28, 2025 End: March 28, 2025 Dr. Jerson Jj DO Attending Provider Active Start: March 28, 2025 End: March 28, 2025 Team Status: Inactive Member Role Status Dates No Primary Care Physician Primary Care Provider Active Start: April 10, 2025 End: April 10, 2025 No Primary Care Physician Referring Provider Active Start: April 10, 2025 End: April 10, 2025 Dr. Jacob Maravilla MD Attending Provider Active Start: April 10, 2025 End: April 10, 2025 Team Status: Active Member Role Status Dates No Primary Care Physician Primary Care Provider Active Start: April 10, 2025 Dr. Jerson Jj DO Attending Provider Active Start: April 10, 2025 Dr. Jerson Parviz , DO Referring Provider Active Start: April 10, 2025 Team Status: Active Member Role/Relationship Status Dates No Primary Care Physician Primary Care Provider Active Team Status: Inactive Member Role/Relationship Status Dates No Primary Care Physician Primary Care Provider Active Start: March 28, 2025 End: March 28, 2025 Dr. Jerson Jj DO Attending Provider Active Start: March 28, 2025 End: March 28, 2025 Team Status: Inactive Member Role/Relationship Status Dates No Primary Care Physician Primary Care Provider Active Start: April 10, 2025 End: April 10, 2025 No Primary Care Physician Referring Provider Active Start: April 10, 2025 End: April 10, 2025 Dr. Jacob Maravilla MD Attending Provider Active Start: April 10, 2025 End: April 10, 2025 Team Status: Active Member Role/Relationship Status Dates No Primary Care Physician Primary Care Provider Active Start: April 10, 2025 Dr. Jesron Jj DO Attending Provider Active Start: April 10, 2025 Dr. Jerson Jj DO Referring Provider Active Start: April 10, 2025 Goals (unrecognized section and content) Goals may be documented in a n alternate sectionGoals may be documented in an alternate section FOR RECORDS PERTAINING TO PATIENTS WHO ARE OR HAVE BEEN ENROLLED IN A CHEMICAL DEPENDENCY/SUBSTANCEABUSE PROGRAM, SOME INFORMATION MAY BE OMITTED. This clinical summary was aggregated from multiple sources. Caution should be exercised in using it in the provision of clinical care. This summary normalizes information from multiple sources, and as a consequence, information in this document may materially change the coding, format and clinical context of patient data. In addition, data may be omitted in some cases. CLINICAL DECISIONS SHOULD BE BASED ON THE PRIMARY CLINICAL RECORDS. [email or web address] provides no warranty or guarantee of the accuracy or completeness of information in this document.
[2025-10-06 12:28] VITALS: BP 128/78; PULSE 64; RESP 18; TEMP 36.6; O2SAT 99
== END 2025-10-06 12:30 | disposition home or self-care (01) ==
PROVIDERS: Emergency Provider Emergency Medicine; Visit Provider Emergency Medicine
DX: J01.10 Acute frontal sinusitis, unspecified (principal); Z87.891 Personal history of nicotine dependence
CPT/HCPCS: 99282